=== PATIENT | female | born 1940 | race Caucasian/White ===

== ENCOUNTER → 2018-02-05 08:40 | Outpatient (CLI) | payer MEDICARE, OTHER, SELFPAY ==
--- NOTE | 2018-02-05 | DI.US.S_ITS ---
PROCEDURE: US THYROID INDICATIONS: THYROID NODULE TECHNIQUE: Real-time scanning was performed of the thyroid gland, with image documentation. COMPARISON: [facility], [place], THYROID, 09/07/2015, 13:08. [facility], [place], THYROID, 09/26/2016, 11:29. [facility], [place], THYROID, 04/19/2016, 8:58. FINDINGS: Right: Thyroid lobe measures 3.2 x 1.9 x 1.8 cm, and is homogeneous in echotexture. Left: Thyroid lobe measures 3.1 x 1.0 x 1.7 cm, and is homogenous in echotexture. Isthmus: 2 mm thick. Nodule number: 1 Location: Left inferior pole Size: 0.77 x 0.5 x 0.9 cm, unchanged. Composition: Solid Echogenicity: Hypoechoic Shape: wider than tall. Margins: Smokes Echogenic foci: Not present Total points: 4 ACR TI-RADS category: 4 Nodule number: 2 Location: Mid right lobe Size: 1.2 x 1.1 x 1.3 cm, unchanged. Composition: Predominantly cystic Echogenicity: Hypoechoic Shape: wider than tall. Margins: Smooth Echogenic foci: No present Total points: 3 ACR TI-RADS category: 3 Nodule number: 3 Location: Right inferior pole Size: 0.8 x 0.4 x 0.7cm, unchanged. Composition: Solid Echogenicity: Hypoechoic Shape: wider than tall. Margins: Smooth Echogenic foci: None Total points: 4 ACR TI-RADS category: 4 IMPRESSION: Stable bilateral thyroid nodules as described above. Continued followup suggested. See enclosed ACR recommendation. ACR TI-RADS definitions and recommendations: TI-RADS 1 (benign): 0 points. FNA not needed. TI-RADS 2 (not suspicious): 2 points. FNA not needed. TI-RADS 3 (mildly suspicious): 3 points. * FNA if 2.5 cm or larger, follow up if 1.5 cm or larger (at 1, 3, and 5 years). TI-RADS 4 (moderately suspicious): 4-6 points. * FNA if 1.5 cm or larger, follow up if 1 cm or larger (at 1, 2, 3, and 5 years). TI-RADS 5 (highly suspicious): 7 points or more. * FNA if 1 cm or larger, follow up if 0.5 cm or larger (every year for 5 years). Dictated by: Brenda Avina M.D. on 02/05/2018 at 17:04 Approved by: Brenda Avina M.D. on 02/05/2018 at 17:13
== END ==
PROVIDERS: PCP Family Medicine; Visit Provider Family Medicine
DX: E04.2 Nontoxic multinodular goiter (principal)
CPT/HCPCS: 76536

== ENCOUNTER → 2018-04-15 08:21 | Outpatient (CLI) | payer MEDICARE, OTHER, SELFPAY ==
--- NOTE | 2018-04-15 | DI.MG.S_ITS ---
BILATERAL DIGITAL SCREENING MAMMOGRAM 3D/2D WITH CAD POST LUMPECTOMY: 04/15/2018 CLINICAL: Routine screening. Personal history of left breast cancer. Family history of breast cancer. Comparison is made to exams dated: 03/30/2017 mammogram, 03/31/2016 mammogram, and 03/25/2015 mammogram - [facility]. The tissue of both breasts is predominantly fatty. Current study was also evaluated with a Computer Aided Detection (CAD) system. There are benign calcifications in both breasts. There also are post operative findings in the left breast. There is a linear scar marker overlying the upper left breast. No significant masses, calcifications, or other findings are seen in either breast. There has been no significant interval change. IMPRESSION: BENIGN There is no mammographic evidence of malignancy. A 1 year screening mammogram is recommended. This exam was interpreted at Station ID: [id number]. NOTE: For mammograms, a report in lay terms will be sent to the patient. Approximately 15% of breast malignancies will not be visualized mammographically. In the management of a palpable breast mass, a negative mammogram must not discourage biopsy of a clinically suspicious lesion. Electronically Signed By: Ortega Joseph M.D. ecl/:04/17/2018 00:40:40 letter sent: Normal Exam ACR BI-RADS Category 2: Benign Finding(s) 3342F
== END ==
PROVIDERS: PCP Family Medicine; Visit Provider Family Medicine
DX: Z12.31 Encounter for screening mammogram for malignant neoplasm of breast (principal); Z85.3 Personal history of malignant neoplasm of breast; Z80.3 Family history of malignant neoplasm of breast
CPT/HCPCS: 77063; 77067

== ENCOUNTER → 2018-05-27 13:42 | Outpatient (CLI) | payer MEDICARE, OTHER, SELFPAY ==
--- NOTE | 2018-05-27 | DI.CT.S_ITS ---
PROCEDURE: CT ABDOMEN PELVIS WO/W CON INDICATIONS: Painless, microhematuria TECHNIQUE: After the administration of oral contrast, 5 mm thick sections acquired from the diaphragms to the iliac crests. After the administration of intravenous contrast, 5 mm thick sections acquired from the diaphragms to the symphysis. 5 mm thick coronal and sagittal reformats were acquired. For radiation dose reduction, the following was used: automated exposure control, adjustment of mA and/or kV according to patient size. COMPARISON: None. FINDINGS: Image quality: Excellent. ABDOMEN: Lung bases: Lung bases are clear. Heart size is normal. Solid organs: Liver is normal in size and enhancement. Gallbladder appears normal. Biliary system is non-dilated. Pancreas enhances normally. Spleen is normal in size and enhancement. No adrenal nodules. Both kidneys are normal in size. No hydronephrosis or nephrolithiasis. Bowel and peritoneum: Stomach, small and large bowel loops are normal in caliber and wall thickness. No free fluid or air. Nodes and vessels: No retroperitoneal or mesenteric adenopathy by size criteria. Aorta and inferior vena are normal in caliber. Miscellaneous: No ventral hernias. PELVIS: Genitourinary: Bladder wall thickness is normal where there is normal visualization but there is extensive metal artifact from a femoral region total hip arthroplasty on the right Miscellaneous: No inguinal hernias or adenopathy. Bones: No suspicious bony lesions. No vertebral body compression fractures. IMPRESSION: No urinary tract stone is seen. 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 Retrograde cystoscopy may be warranted given the limitations of visualization of the bladder mucosa. Dictated by: Willian Fam M.D. on 05/27/2018 at 15:09 Approved by: Willian Fam M.D. on 05/27/2018 at 15:12
== END ==
PROVIDERS: PCP Family Medicine; Visit Provider Family Medicine
DX: R31.21 Asymptomatic microscopic hematuria (principal); R10.9 Unspecified abdominal pain; Z96.641 Presence of right artificial hip joint
CPT/HCPCS: 74178; Q9967

== ENCOUNTER → 2018-09-19 16:28 | Outpatient (REF) | payer MEDICARE, OTHER, SELFPAY ==
[2018-09-19 16:30] LABS: Bacteria Urine None Seen
[2018-09-19 16:46] LABS: Appearance Urine UA CLOUDY; Bilirubin Urine UA 2+ (NEGATIVE); Color Urine UA YELLOW; Glucose Urine UA NEGATIVE (Negative); Ketones Urine UA NEGATIVE (NEGATIVE); Leukocyte Esterase Urine UA 2+ (NEGATIVE); Nitrite Urine UA NEGATIVE (Negative); Occult Blood Urine UA 1+ (Negative); Protein Urine UA NEGATIVE (Negative); Urobilinogen Urine UA 0.2 E.U./dL (0.2)
[2018-09-19 17:01] LABS: Ictotest Urine Positive (Negative); RBC Urine 5-10/HPF (0-5/HPF); Squamous Epithelial Cell Urine 0-1 /HPF; WBC Urine >100/HPF (0-5/HPF)
== END ==
LOC: LAB 16:28
PROVIDERS: PCP Family Medicine; Visit Provider Nurse Practitioner Family
DX: N39.0 Urinary tract infection, site not specified (principal)
CPT/HCPCS: 81001; 87077; 87086; 87186

== ENCOUNTER → 2018-12-18 14:40 | Outpatient (CLI) | payer MEDICARE, OTHER, SELFPAY | PROVIDERS: PCP Family Medicine; Visit Provider Family Medicine | DX: M85.832 Other specified disorders of bone density and structure, left forearm (principal); Z78.0 Asymptomatic menopausal state; Z85.3 Personal history of malignant neoplasm of breast; Z82.62 Family history of osteoporosis; Z87.891 Personal history of nicotine dependence | CPT/HCPCS: 77080; 77081 ==

== ENCOUNTER → 2019-02-26 09:17 | Outpatient (CLI) | payer MEDICARE, OTHER, SELFPAY ==
--- NOTE | 2019-03-07 16:17 | PM.CARDMON.1 ---
Home Care Attendant Report Referral & Results Date Patient Seen: 02/26/19 Requesting provider: Bertin Villalobos Indication: Bradycardia Duration of monitoring (days): 3 Diary information: There was 1 patient diary entry associated with sinus rhythm There were 2 patient triggered events associated with sinus rhythm and ventricular ectopic beats Data: Minimum heart rate identified is 57 beats per minute at 03:31 on 03/01/2019 Maximum sinus heart rate was 119 beats per minute at 08:32 on 03/01/2019 Maximum overall heart rate was 139 beats per minute at 22:44 on 02/27/2019 during a an 8 beat run of SVT/atrial tachycardia Less than 1% of identified beats rather ventricular supraventricular ectopic in origin There 5 runs of a supraventricular tachycardia the fast is as above, the longest lasting 12.8 seconds with an average rate of 99 beats per minute which raises the question of sinus tachycardia versus some more significant dysrhythmia Impression: Essentially normal satellite project site monitor. No significant bradycardia which was the indication for this study was identified on this study Clinical correlation suggested
--- NOTE | 2019-03-07 16:20 | P.HOLT.S_ITS ---
Checker And Packer Report Referral & Results Date Patient Seen: 02/26/19 Requesting provider: Bertin Villalobos Indication: Bradycardia Duration of monitoring (days): 3 Diary information: There was 1 patient diary entry associated with sinus rhythm There were 2 patient triggered events associated with sinus rhythm and ventricular ectopic beats Data: Minimum heart rate identified is 57 beats per minute at 03:31 on 03/01/2019 Maximum sinus heart rate was 119 beats per minute at 08:32 on 03/01/2019 Maximum overall heart rate was 139 beats per minute at 22:44 on 02/27/2019 during a an 8 beat run of SVT/atrial tachycardia Less than 1% of identified beats rather ventricular supraventricular ectopic in origin There 5 runs of a supraventricular tachycardia the fast is as above, the longest lasting 12.8 seconds with an average rate of 99 beats per minute which raises the question of sinus tachycardia versus some more significant dysrhythmia Impression: Essentially normal cardiac rehabilitation program director. No significant bradycardia which was the indication for this study was identified on this study Clinical correlation suggested
== END ==
PROVIDERS: PCP Family Medicine; Visit Provider Family Medicine
DX: R00.1 Bradycardia, unspecified (principal)
CPT/HCPCS: 0296T; 0298T

== ENCOUNTER → 2019-05-13 10:25 | Outpatient (CLI) | payer MEDICARE, OTHER, SELFPAY ==
--- NOTE | 2019-05-13 | DI.MG.S_ITS ---
BILATERAL DIGITAL SCREENING MAMMOGRAM 3D/2D WITH CAD POST LUMPECTOMY: 05/13/2019 CLINICAL: Routine screening. Personal history of left breast cancer. Family history of breast cancer. Comparison is made to exams dated: 04/15/2018 mammogram, 03/30/2017 mammogram, and 03/31/2016 mammogram - [facility]. The tissue of both breasts is predominantly fatty. Current study was also evaluated with a Computer Aided Detection (CAD) system. There are benign calcifications in both breasts. There also are benign post operative findings in the left breast. No significant masses, calcifications, or other findings are seen in either breast. There has been no significant interval change. IMPRESSION: There is no mammographic evidence of malignancy. A 1 year screening mammogram is recommended. This exam was interpreted at Station ID: [id number]. NOTE: For mammograms, a report in lay terms will be sent to the patient. Approximately 15% of breast malignancies will not be visualized mammographically. In the management of a palpable breast mass, a negative mammogram must not discourage biopsy of a clinically suspicious lesion. Electronically Signed By: Ishan tyson/emir:05/13/2019 11:28:16 letter sent: Normal Exam ACR BI-RADS Category 2: Benign Finding(s) 3342F
== END ==
PROVIDERS: Family Provider Family Medicine; PCP Family Medicine; Visit Provider Internal Medicine
DX: Z12.31 Encounter for screening mammogram for malignant neoplasm of breast (principal); Z85.3 Personal history of malignant neoplasm of breast; Z80.3 Family history of malignant neoplasm of breast
CPT/HCPCS: 77063; 77067

== ENCOUNTER → 2019-09-22 11:49 | Outpatient (CLI) | payer MEDICARE, OTHER, SELFPAY ==
--- NOTE | 2019-09-22 11:53 | DI.CT.S_ITS ---
PROCEDURE: CT ABDOMEN PELVIS W CON INDICATIONS: Unspecified abdominal pain TECHNIQUE: After the administration of oral and intravenous contrast, 5 mm thick sections acquired from the diaphragms to the symphysis. 5 mm thick coronal and sagittal reformats were performed. For radiation dose reduction, the following was used: automated exposure control, adjustment of mA and/or kV according to patient size. COMPARISON: [facility], CT, ABDOMEN/PELVIS WITH CONTRAST, 09/01/2017, 5:55. FINDINGS: Image quality: Excellent. ABDOMEN: Lung bases: Lung bases are clear. Heart size is normal. Solid organs: Hepatic steatosis. Gallbladder negative. Biliary system is non-dilated. Pancreas enhances normally. Spleen is normal in size and enhancement. No adrenal nodules. Kidneys are normal in size and enhancement, without hydronephrosis. Simple appearing left renal cyst Peritoneum and bowel: Stomach, small bowel, and colon loops are normal in caliber and wall thickness. No free fluid or air. Colonic diverticulosis is seen without evidence of acute complication. Appendix is not clearly identified however no suspicious pericecal inflammatory changes are seen. Nodes and vessels: No retroperitoneal or mesenteric adenopathy. Aorta and inferior vena cava are normal in caliber. Scattered vascular calcifications seen in the aorta. Miscellaneous: Broad-based anterior ventral wall laxity. PELVIS: Genitourinary: Bladder wall thickness is normal. Miscellaneous: No inguinal hernias or adenopathy. Bones: No suspicious bony lesions. No vertebral body compression fractures. Diffuse osteopenia and spondylitic changes. Facet arthropathy. Grade 1 anterolisthesis of L4 on L5. IMPRESSION: Overall, no specific acute abnormality identified. Colonic diverticulosis is seen without evidence of acute complication. Hepatic steatosis Left renal cyst. Appendix is not clearly identified however no suspicious pericecal inflammatory changes are seen. Dictated by: Lavon Odom M.D. on 09/22/2019 at 15:03 Approved by: Lavon Odom M.D. on 09/22/2019 at 15:10
== END ==
PROVIDERS: Family Provider Family Medicine; PCP Family Medicine; Referring Provider Family Medicine; Visit Provider Family Medicine
DX: R10.9 Unspecified abdominal pain (principal); K76.0 Fatty (change of) liver, not elsewhere classified; N28.1 Cyst of kidney, acquired; K57.90 Diverticulosis of intestine, part unspecified, without perforation or abscess without bleeding
CPT/HCPCS: 74177; Q9967

== ENCOUNTER 2019-10-03 10:15 | Observation (INO) | payer MEDICARE, OTHER, SELFPAY ==
[2019-10-03] VITALS (8 sets, daily range): BP systolic 124–182; BP diastolic 46–84; PULSE 64–74; RESP 18–24; TEMP 36.5–37; O2SAT 92–99; BMI 33.8
--- NOTE | 2019-10-03 10:24 | DI.RAD.S_ITS ---
PROCEDURE: XR CHEST 1V INDICATIONS: chest pain TECHNIQUE: One view of the chest was acquired. COMPARISON: [facility], , CHEST 2 VIEW, 11/08/2017, 15:35. FINDINGS: Surgical changes and devices: None. Lungs and pleura: Lungs are clear. No pleural effusions or pneumothorax. Mediastinum: Mediastinal contours appear normal. Heart size is enlarged. Bones and chest wall: No suspicious bony lesions. Overlying soft tissues appear unremarkable. IMPRESSION: No acute cardiopulmonary pathology. Dictated by: Hang Oreilly M.D. on 10/03/2019 at 10:47 Approved by: Hang Oreilly M.D. on 10/03/2019 at 10:51
--- NOTE | 2019-10-03 10:34 | PC.NURSE ---
Pt arrived via EMS. Reports of CP x 30 min. started when walking from one room to another. midsternal radiating to her neck. No cardiac hx. ASA 324 and nitro x 1 given by EMS with relief. pain 4/10 at this time. EKG done. IV in place labs sent. CXR completed. Pt NSR 60-70's with frequent PVC's. when having PVC's pt feeling fluttering in her chest and lightheadedness. Pt was keeping a log at home and had intermittent episodes of bradycardia in the 30's for 10-20 seconds at a time, no nayeli in ED thus far, lungs are clear. h/o COPD. No home O2. family at side
[2019-10-03 10:36] LABS: INR 0.9 (0.9-1.3); Prothrombin Time 10.5 SECONDS (10.1-12.7)
[2019-10-03 10:38] LABS: PTT Partial Thromboplastin Tim 24 SECONDS (26.4-36.2)
[2019-10-03 10:41] LABS: Add Manual Diff / Slide Review NO; Alanine Aminotransferase 24 IU/L (<35); Albumin 4.5 g/dL (3.5-5.0); Albumin Globulin Ratio 1.6 (1.0-2.8); Alkaline Phosphatase 62 U/L (38-126); Aspartate Aminotransferase 30 IU/L (14-36); BUN Creatinine Ratio 27.5 (6-22); Basophils Absolute Auto 100 /uL (0-100); Basophils Percent Auto 0.5 % (0-2); Bilirubin Total 0.4 mg/dL (0.2-1.3); Blood Urea Nitrogen 22 mg/dL (7-17); Carbon Dioxide 31 mmol/L (22-32); Chloride 100 mmol/L (98-107); Creatine Kinase 35 U/L (30-135); Eosinophils Absolute Auto 100 /uL (0-450); Eosinophils Percent Auto 0.8 % (2-4); Estimated Glomerular Filt Rate > 60.0 mL/min (>60); Globulin 2.9 g/dL (1.7-4.1); Glucose 88 mg/dL (80-110); HEMOLYSIS < 15 (0-50); Hematocrit 41.7 % (36-46); Hemoglobin 13.8 g/dL (12.0-16.0); Lipase 74 U/L (23-300); Lymphocytes Absolute Auto 4300 /uL (1100-4500); Lymphocytes Percent Auto 35.3 % (25-40); Mean Corpuscular HGB Conc 33.1 % (30-36); Mean Corpuscular Hemoglobin 29.2 PG (26-34); Mean Corpuscular Volume 88.2 fL (80-100); Monocytes Absolute Auto 700 /uL (0-900); Monocytes Percent Auto 6.1 % (3-14); Neutrophils Absolute Auto 7000 /uL (1500-7000); Neutrophils Percent Auto 57.3 % (50-75); Platelet Count 272 X10^3/uL (150-400); Potassium 3.9 mmol/L (3.4-5.1); Red Blood Cell Count 4.73 X10^6/uL (4.0-5.2); Red Cell Distribution Width 15.8 % (11.6-14.8); Sodium 139 mmol/L (137-145); Total Protein 7.4 g/dL (6.3-8.2); White Blood Cell Count 12.3 X10^3/uL (4.5-11.0)
--- NOTE | 2019-10-03 10:43 | ED_ITS ---
HPI - Chest Pain General Chief Complaint: Chest Pain Stated Complaint: Chest Pain Time Seen by Provider: 10/03/19 10:35 Source: patient Mode of arrival: EMS History of Present Illness HPI narrative: 79-year-old woman with a history of breast cancer hypothyroidism, hypertension, hyperlipidemia, fatigue, reflux and COPD presents with a week of increasing fatigue exertional dyspnea and then an episode of significant substernal chest pain that happened with mild activity(she was walking through her house) today. That episode of pain was described as a tight, significant pain, substernal with significant pressure associated with facial flushing and fullness. The severe pain has subsided upon arrival in the emergency room she still feels a tight bandlike feeling across her chest which is different from any of the other symptoms she has had previously. She also notes that she has been having more palpitations recently of note she d id have a cardiac event monitor in January of 2019 that showed a couple of seconds of SVT and no significant bradycardia. Related Data Home Medications Medication Instructions Recorded Confirmed omeprazole 20 mg PO BID #0 04/06/10 10/03/19 Spiriva with HandiHaler 2 cap INHALATION DAILY #0 09/01/17 10/03/19 fluoxetine [Prozac] 40 mg PO DAILY #0 09/02/17 10/03/19 levothyroxine 50 mcg PO QAM #0 09/02/17 10/03/19 Respironics DreamStation BIPAP #1 ea 10/15/18 10/03/19 acetaminophen [Tylenol Extra 1,000 mg PO DAILY PRN 10/03/19 10/03/19 Strength] albuterol sulfate [ProAir HFA] 2 puff INHALATION Q4H PRN 10/03/19 10/03/19 betamethasone dipropionate 1 applic TOPICAL QPM 10/03/19 10/03/19 furosemide 20 mg PO DAILY PRN 10/03/19 10/03/19 multivitamin with minerals 1 tab PO DAILY 10/03/19 10/03/19 polyethylene glycol 3350 [Miralax] 17 g PO DAILY 10/03/19 10/03/19 prednisone 20 mg PO DAILY 10/03/19 10/03/19 telmisartan-hydrochlorothiazid 0.5 tab PO DAILY 10/03/19 10/03/19 tolterodine 2 mg PO DAILY 10/03/19 10/03/19 Allergies Allergy/AdvReac Type Severity Reaction Status Date / Time nitrofurantoin Allergy Mild HIVES Verified 09/15/18 12:10 [NITROFURANTOIN] Review of Systems Review of Systems Narrative: Denies ? fever ? cold ? chills ? orthopnea ? wheezing ? abdominal pain ? change to bowel or bladder habits ? nausea vomiting ? skin changes ? rashes No change to mild lower extremity edema, no PND recent PMD visits for abdominal pain. 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) Nocturnal hypoxemia (Chronic) Obstructive sleep apnea of adult (Chronic) Right hip pain (Chronic) Right leg pain (Resolved) Rosacea (Chronic) Family History Other Anxiety Congestive heart failure Depression Diabetes mellitus Hypersomnia Hypertension Obesity Obstructive sleep apnea Snoring Substance abuse Social History details: lives in [place], sons live close by household members: spouse Smoking Status: Former smoker Tobacco: How many years used: 50 alcohol intake: never substance use type: does not use Smoking Status: Former smoker Exam Narrative Exam Narrative: General: Healthy appearing, in no acute distress. Able to give a complete and coherent history. Well-nourished well-developed HEENT: Moist mucous membranes, normal sclera with reactive pupils, lesion on the lower lip that was recently treated with liquid nitrogen and has developed inappropriate scab Neck: No JVD, supple Respiratory: Lungs are clear to auscultation, no wheezing no rales no rhonchi. Full and symmetrical air movement Cardiac: Regular rate and rhythm no murmurs no bruits Abdomen: Soft, nontender good bowel tones, no flank pain Skin: Warm and dry, no rashes Neurologic: Grossly neurologically intact with no obvious asymmetries or abnormalities Extremities: No trauma, well perfused Psych: Cooperative, appropriate insight and affect Initial Vital Signs Initial Vital Signs: Vital Signs Temperature 97.7 F 10/03/19 10:21 Pulse Rate 70 10/03/19 10:21 Respiratory Rate 24 10/03/19 10:21 Blood Pressure 134/84 10/03/19 10:21 Pulse Oximetry 96 10/03/19 10:21 Course Orders Ordered: ED Orders 10/03/19 11:26 D Dimer Stat 10/03/19 12:58 CT angio chest PE protocol Stat 10/03/19 13:06 Thyroid Stimulating Hormone Stat Troponin I Stat Acetaminophen (Tylenol) 650 mg PO Q6HR PRN PRN Reason: Fever/Mild Pain (1-3) Albuterol (Ventolin Hfa) 2 puff INH RTQ6HR PRN PRN Reason: Shortness Of Breath Fluoxetine HCl (Prozac) 40 mg PO DAILY [facility] Hydrochlorothiazide (Hydrochlorothiazide) 12.5 mg PO DAILY [facility] Levothyroxine Sodium (Synthroid) 50 mcg PO 0600 [facility] Morphine Sulfate (Morphine) 1 mg IV Q2HR PRN PRN Reason: Pain, Moderate (4-6) Nitroglycerin (Nitrostat) 0.4 mg SL [id number] PRN PRN Reason: Chest Pain Ondansetron HCl (Zofran) 4 mg IV Q4HR PRN PRN Reason: Nausea And Vomiting Pantoprazole Sodium (Protonix) 40 mg IV DAILY [facility] Prednisone (Deltasone) 20 mg PO DAILY [facility] Telmisartan (Micardis) 40 mg PO DAILY [facility] Tiotropium [place] (Spiriva) 18 mcg INH RTDAILY [facility] Discontinued Medications Sodium Chloride (Normal Saline 0.9%) 1,000 mls @ 125 mls/hr IV CONT [facility] Last Admin: 10/03/19 16:17 Dose: 125 mls/hr Documented by: ISAIAS Nitroglycerin (Nitrostat) 0.4 mg SL [id number] PRN PRN Reason: Chest Pain Last Admin: 10/03/19 11:19 Dose: 0.4 mg Documented by: Admin: 10/03/19 11:10 Dose: 0.4 mg Documented by: Admin: 10/03/19 11:05 Dose: 0.4 mg Documented by: DESTINY Vital Signs Vital signs: Vital Signs - 8 hr 10/03/19 13:30 10/03/19 15:30 Pulse Rate 71 69 Respiratory Rate 20 20 Blood Pressure [Right Arm] 150/70 H 148/72 H Pulse Oximetry 99 97 MDM - Chest Pain Medical Records Data Attestation: I reviewed the patient's medical records. Lab Data Attestation: I reviewed the patient's lab results. Lab results narrative: In light of acute chest pain with elevated D-dimer slightly higher than 1 would expect just for age correction will move forward with a CT scan of her chest Result diagrams: 10/03/19 10:00 10/03/19 10:00 Labs: Lab Results 10/03/19 10/03/19 10/03/19 Range/Units 10:00 10:00 10:00 WBC 12.3 H (4.5-11.0) X10^3/uL RBC 4.73 (4.0-5.2) X10^6/uL Hgb 13.8 (12.0-16.0) g/dL Hct 41.7 (36-46) % MCV 88.2 (80-100) fL MCH 29.2 (26-34) PG MCHC 33.1 (30-36) % RDW 15.8 H (11.6-14.8) % Plt Count 272 (150-400) X10^3/uL Neut % (Auto) 57.3 (50-75) % Lymph % (Auto) 35.3 (25-40) % Branch % (Auto) 6.1 (3-14) % Eos % (Auto) 0.8 L (2-4) % Baso % (Auto) 0.5 (0-2) % Neut # (Auto) 7000 (1193-6403) /uL Lymph # (Auto) 4300 (8271-0731) /uL Branch # (Auto) 700 (0-900) /uL Eos # (Auto) 100 (0-450) /uL Baso # (Auto) 100 (0-100) /uL PT 10.5 (10.1-12.7) SECONDS INR 0.9 (0.9-1.3) APTT 24 L (26.4-36.2) SECONDS D-Dimer (<230) ng/mL Sodium 139 (137-145) mmol/L Potassium 3.9 (3.4-5.1) mmol/L Chloride 100 (98-107) mmol/L Carbon Dioxide 31 (22-32) mmol/L BUN 22 H (7-17) mg/dL Creatinine 0.80 (0.52-1.04) mg/dL Estimated GFR > 60.0 (>60) mL/min BUN/Creatinine Ratio 27.5 H (6-22) Glucose 88 (80-110) mg/dL Calcium 10.0 (8.4-10.2) mg/dL Total Bilirubin 0.4 (0.2-1.3) mg/dL AST 30 (14-36) IU/L ALT 24 (<35) IU/L Alkaline Phosphatase 62 (38-126) U/L Total Creatine Kinase 35 (30-135) U/L CK-MB (CK-2) TNP CK-MB (CK-2) Rel Index TNP Troponin I < 0.012 (0.01-0.034) ng/mL Total Protein 7.4 (6.3-8.2) g/dL Albumin 4.5 (3.5-5.0) g/dL Globulin 2.9 (1.7-4.1) g/dL Albumin/Globulin Ratio 1.6 (1.0-2.8) Lipase 74 (23-300) U/L TSH (0.47-4.68) uIU/mL 10/03/19 10/03/19 10/03/19 Range/Units 11:26 13:06 13:06 WBC (4.5-11.0) X10^3/uL RBC (4.0-5.2) X10^6/uL Hgb (12.0-16.0) g/dL Hct (36-46) % MCV (80-100) fL MCH (26-34) PG MCHC (30-36) % RDW (11.6-14.8) % Plt Count (150-400) X10^3/uL Neut % (Auto) (50-75) % Lymph % (Auto) (25-40) % Branch % (Auto) (3-14) % Eos % (Auto) (2-4) % Baso % (Auto) (0-2) % Neut # (Auto) (3790-6327) /uL Lymph # (Auto) (3942-0109) /uL Branch # (Auto) (0-900) /uL Eos # (Auto) (0-450) /uL Baso # (Auto) (0-100) /uL PT (10.1-12.7) SECONDS INR (0.9-1.3) APTT (26.4-36.2) SECONDS D-Dimer 704 H (<230) ng/mL Sodium (137-145) mmol/L Potassium (3.4-5.1) mmol/L Chloride (98-107) mmol/L Carbon Dioxide (22-32) mmol/L BUN (7-17) mg/dL Creatinine (0.52-1.04) mg/dL Estimated GFR (>60) mL/min BUN/Creatinine Ratio (6-22) Glucose (80-110) mg/dL Calcium (8.4-10.2) mg/dL Total Bilirubin (0.2-1.3) mg/dL AST (14-36) IU/L ALT (<35) IU/L Alkaline Phosphatase (38-126) U/L Total Creatine Kinase (30-135) U/L CK-MB (CK-2) CK-MB (CK-2) Rel Index Troponin I < 0.012 (0.01-0.034) ng/mL Total Protein (6.3-8.2) g/dL Albumin (3.5-5.0) g/dL Globulin (1.7-4.1) g/dL Albumin/Globulin Ratio (1.0-2.8) Lipase (23-300) U/L TSH 3.15 (0.47-4.68) uIU/mL Imaging Data Chest x-ray: Radiologist's Impression: IMPRESSION: No acute cardiopulmonary pathology. Dictated by: Hang Oreilly M.D. on 10/03/2019 at 10:47 Chest PE study: Radiologist's Impression: IMPRESSION: 1. No pulmonary embolism. 2. No acute airspace opacity. 3. Moderate centrilobular emphysema. A few punctate pulmonary nodules. The patient may qualify for CT lung cancer screening. Comment: Findings were discussed with [facility] Emergency Department at the time of dictation. Dictated by: Casey Rivera M.D. on 10/03/2019 at 14:10 ECG Data Attestation: I personally reviewed and interpreted this ECG as follows: Interpretation: Rate of 66 with sinus rhythm and frequent PVCs brief runs of bigeminy and longer runs of normal sinus, normal axis normal intervals MDM Narrative Medical decision making narrative: 79-year-old woman with a COPD history who presents with increasing exertional dyspnea, fatigue over the last week and then chest pain onset today. Continues to complain of symptomatic palpitations and ?just not feeling right?. Pain was not influenced by nitroglycerin. Slightly elevated D-dimer led to a CT scan that did not show any significant pathology including absence of infiltrates and pulmonary embolism. She continues to have moderate sinus arrhythmia with frequent PVCs and is quite symptomatic with these. She continues to feel the bandlike tightness around her chest. Initial troponin and repeat at 2-1/2 hours are both negative. EKG does not suggest acute ischemia. Her history however is concerning enough along with her multiple risk factors that her HEART score is 5 points and puts her at high risk for adverse cardiac event within 30 days. Rule out command full cardiac rule out over the next 24 hours to help side which cardiac risk stratification study is going to be most helpful or if alternate etiology for her symptoms is found. Spoke with Dr. Nieves Loyd on-call for Dr. Lan Villalobos. Will admit patient to their service for further evaluation of the course of the evening. Will add a TSH to see if that may be influencing her palpitations and overall symptomatology. If troponins do trend positive, she has increased pain or additional testing indicates acute coronary syndrome than transfer will be facilitated at that time. Discharge Plan Departure Patient Disposition: Admitted as Observation Clinical Impression: Atypical chest pain, Heart palpitations, Exertional dyspnea Discharge Date/Time: 10/03/19 16:12 Referrals: Bertin Villalobos MD [Primary Care Provider] - Admit Date/Time: 10/03/19 16:08 Admit Provider: Courtney Loyd
[2019-10-03 10:51] LABS: Troponin I < 0.012 ng/mL (0.01-0.034)
[2019-10-03] MEDS: NITROGLYCERIN 0.4 MG SL TAB SL ×3 (11:05→11:19)
--- NOTE | 2019-10-03 11:34 | PC.NURSE ---
pt continues with chest pressure s/p nitro x 3. AAO, appears in NAD.
[2019-10-03 11:38] LABS: D Dimer 704 ng/mL (<230)
--- NOTE | 2019-10-03 12:58 | DI.CT.S_ITS ---
PROCEDURE: CT ANGIO CHEST PE PROTOCOL INDICATIONS: elevated d dimer. CHEST PAIN TECHNIQUE: After the administration of intravenous contrast, 2 mm thick sections acquired from the pulmonary apices to the posterior costophrenic angles. 3-dimensional maximum intensity projection (MIP) coronal and sagittal reformats were then acquired through the thorax. For radiation dose reduction, the following was used: automated exposure control, adjustment of mA and/or kV according to patient size. COMPARISON: [facility], CR, XR CHEST 1V, 10/03/2019, 10:31. [facility], CT, CT ABDOMEN PELVIS W CON, 09/22/2019, 12:43. FINDINGS: Image quality: Excellent. Diagnostic to the level of the subsegmental pulmonary arteries. Pulmonary arteries: Pulmonary arteries are normal in size, and demonstrate no intraluminal filling defects to suggest central pulmonary embolism. Lungs and pleura: Moderate centrilobular emphysema. A few tiny pulmonary nodules. No pleural effusions or pneumothorax. Central and peripheral airways are patent. Mediastinum: Heart size is normal, without pericardial effusion. No mediastinal or hilar adenopathy. Thoracic aorta is normal in caliber and enhancement. Esophagus is normal in caliber, small hiatal hernia. Bones and chest wall: No suspicious bony lesions. Ribs and thoracic spine appear intact throughout. Thyroid gland demonstrates a subcentimeter hypodense right thyroid nodule. No axillary or supraclavicular adenopathy. Left axillary surgical clips. Abdomen: Visualized upper abdominal solid organs appear normal in the early arterial phase of enhancement. IMPRESSION: 1. No pulmonary embolism. 2. No acute airspace opacity. 3. Moderate centrilobular emphysema. A few punctate pulmonary nodules. The patient may qualify for CT lung cancer screening. Comment: Findings were discussed with [facility] Emergency Department at the time of dictation. Dictated by: Casey Rivera M.D. on 10/03/2019 at 14:10 Approved by: Casey Rivera M.D. on 10/03/2019 at 14:22
[2019-10-03 13:42] LABS: Troponin I < 0.012 ng/mL (0.01-0.034)
[2019-10-03 16:04] LABS: Thyroid Stimulating Hormone 3.15 uIU/mL (0.47-4.68)
[2019-10-03] MEDS: SODIUM CHLORIDE 0.9% 1,000 ML 125 ML IV (16:17)
--- NOTE | 2019-10-03 18:56 | P.HP_ITS ---
History of Present Illness History of Present Illness Date Patient Seen: 10/03/19 Time Patient Seen: 18:57 Chief complaint: Chest Pain Narrative: Is a very pleasant 79-year-old female who usually sees Dr. Villalobos as her primary care physician. She presents to the emergency department via emergency medical service due to acute onset of severe chest pain. She received Nitrostat and route to the ER and when she arrived in the ER her symptoms had resolved. She was still having a chest tightness that have been present since Sunday. She still has this at the time of my dictation. It is very mild. Two troponins and CK were negative. A D-dimer was elevated so a CT scan of her chest was performed and there was no evidence of pneumonia, pleural effusions or pulmonary embolism. She was admitted for further workup and to rule out acute myocardial infarction. The patient has just eaten dinner when I came up. She states that she was hungry. She states that she is overall feeling better. Her symptoms started on Sunday night and worsen Sunday where she felt that she was possibly coming down with a chest cold with chest tightness and feeling lightheaded as well as a headache. She had no postnasal drip. She had no cough. She states that her she would feel her heart flutter and when they checked her oxygen level her oxygen level was normal in the 90s but her heart rate will go down into the 30s. She felt that this was associated with her lightheadedness. In the emergency department she was found to have PVCs fairly frequently and she could feel ease. She states that today she walks from 1 room to another had severe onset of chest pressure she describes this in her lower thorax mid epigastric area radiating up into the center of her sternum. It felt like a burning type of pain. Due to her other symptoms they called 911. The patient has not had a fever and has not had a productive cough. The patient has a history of COPD and has not had any acute symptoms of this of wheezing or difficulty breathing other than when she had episode of chest pressure. She states that previously she was on oxygen and recently got off oxygen because she went to [facility]iop[facility] about a year ago. She exercises 8/10 of a mi 3-5 days a week and uses her oxygen when she does her exercises. Her overall health and strength of doubled in the last year because of her exercise and the cardiopulmonary rehab. She has been seen frequently of late in the clinic. She was diagnosed with possible polymyalgia rheumatica and placed on 20 mg of prednisone the beginning of August. She has not had pain since then time. She has had intermittent abdominal pain which Dr. Villalobos is working up the workup has included a fit test that was negative as well as a CT scan of the abdomen and pelvis which was unrevealing. The patient has had multiple abdominal surgeries and is thought that her pain is due to possible adhesions. Her appetite has been normal. She denies any fever or chills. Her last bowel movement was yesterday. She has felt bloated the last several days. She has not had a change in her diet. She has not been traveling. Past medical history: 1. History of tobacco abuse, 45 pack-year history. She quit in 2004. 2. COPD. Previously on oxygen currently not needing this anymore. Improved with Spiriva and albuterol 3. Hypertension 4. Hypothyroidism 5. Recent diagnosis of polymyalgia rheumatica 6. Degenerative joint 7. History of breast cancer 8. Depression, well controlled 9. Hyperlipidemia 10. GERD 11. Diverticulosis 12. Obesity 13. Anxiety 14. Obstructive sleep apnea See chart for list of home medications Allergies nitrofurantoin causes hives Past surgical history 1. 1995 right total knee replacement 2. Appendectomy 3. Bilateral tubal ligation 4. Hysterectomy 5. Umbilical hernia repair 6. Tonsillectomy 7. Right rotator cuff repair in 2002 Number a unilateral oophorectomy 9. Breast lumpectomy 2009 10. Left knee replacement 2004 11. Right hip replacement 2014 Dr. De La Torre 12. [address] 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 Family history: Most people from cancer Mom at 92 from old age Dad from lung cancer he was a smoker Two sister of lung cancer from smoking Maternal grandmother of lung cancer she never smoked Paternal grandmother of jaw cancer Review of systems patient was previously on a total lack and was switched to 20 mg of prednisone. Patient has felt lightheaded since Sunday it all the time but it fluctuates in severity No syncope or presyncope No fever or chills No GI symptoms. 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) Nocturnal hypoxemia (Chronic) Obstructive sleep apnea of adult (Chronic) Right hip pain (Chronic) Right leg pain (Resolved) Rosacea (Chronic) Family & Social History Family History Other Anxiety Congestive heart failure Depression Diabetes mellitus Hypersomnia Hypertension Obesity Obstructive sleep apnea Snoring Substance abuse Social History: household members spouse Safety & Behavioral: Feels Safe in Current Yes Environment Been Physically Hurt or No Threatened By a Person Suicidal Ideation Description None Suicide Plan Description No Plan Tobacco & Substance use: Smoking Status Former smoker alcohol intake never Substance Use Type does not use Meds Home Medications and Allergies Home Medications Medication Instructions Recorded Confirmed Type omeprazole 20 mg PO BID #0 04/06/10 10/03/19 History Spiriva with HandiHaler 2 cap INHALATION DAILY #0 09/01/17 10/03/19 History fluoxetine [Prozac] 40 mg PO DAILY #0 09/02/17 10/03/19 History levothyroxine 50 mcg PO QAM #0 09/02/17 10/03/19 History Respironics DreamStation BIPAP #1 ea 10/15/18 10/03/19 History acetaminophen [Tylenol Extra 1,000 mg PO DAILY PRN 10/03/19 10/03/19 History Strength] albuterol sulfate [ProAir HFA] 2 puff INHALATION Q4H PRN 10/03/19 10/03/19 History betamethasone dipropionate 1 applic TOPICAL QPM 10/03/19 10/03/19 History furosemide 20 mg PO DAILY PRN 10/03/19 10/03/19 History multivitamin with minerals 1 tab PO DAILY 10/03/19 10/03/19 History polyethylene glycol 3350 [Miralax] 17 g PO DAILY 10/03/19 10/03/19 History prednisone 20 mg PO DAILY 10/03/19 10/03/19 History telmisartan-hydrochlorothiazid 0.5 tab PO DAILY 10/03/19 10/03/19 History tolterodine 2 mg PO DAILY 10/03/19 10/03/19 History Allergies Allergy/AdvReac Type Severity Reaction Status Date / Time nitrofurantoin Allergy Mild HIVES Verified 09/15/18 12:10 [NITROFURANTOIN] Exam Vital Signs (past 8 hours): - 10/03/19 11:05 10/03/19 11:10 10/03/19 11:19 Temperature Pulse Rate 64 71 70 Respiratory Rate Blood Pressure 142/80 H 124/70 182/84 H Blood Pressure [Right Arm] Pulse Oximetry 10/03/19 13:30 10/03/19 15:30 10/03/19 16:30 Temperature 98.1 F Pulse Rate 71 69 74 Respiratory Rate 20 20 18 Blood Pressure 151/83 H Blood Pressure [Right Arm] 150/70 H 148/72 H Pulse Oximetry 99 97 92 Oxygen Delivery Method Room Air Narrative Exam Narrative: This is a very pleasant alert and oriented female who appears younger than her stated age who is resting comfortably in the hospital bed in no apparent distress HEENT: Remarkable for lesion on lower live on the left side with scab. Mucous membranes moist and pink Neck: Supple without adenopathy, thyromegaly, jugular venous distention or bruits Chest: Clear to auscultation without wheezes rhonchi or crackles Cor: Regular rate and rhythm with no ectopy Abdomen: Obese, protuberant, positive bowel sounds x4. Very mild midepigastric tenderness with palpation Extremities: No edema, pulses intact Neurologic exam nonfocal Skin no rashes Objective Labs Result Diagrams: 10/03/19 10:00 10/03/19 10:00 Labs: Laboratory Results - last 24 hr 10/03/19 10/03/19 10/03/19 10:00 10:00 10:00 WBC 12.3 H RBC 4.73 Hgb 13.8 Hct 41.7 MCV 88.2 MCH 29.2 MCHC 33.1 RDW 15.8 H Plt Count 272 Neut % (Auto) 57.3 Lymph % (Auto) 35.3 [place] % (Auto) 6.1 Eos % (Auto) 0.8 L Baso % (Auto) 0.5 Neut # (Auto) 7000 Lymph # (Auto) 4300 [place] # (Auto) 700 Eos # (Auto) 100 Baso # (Auto) 100 PT 10.5 INR 0.9 APTT 24 L D-Dimer Sodium 139 Potassium 3.9 Chloride 100 Carbon Dioxide 31 BUN 22 H Creatinine 0.80 Estimated GFR > 60.0 BUN/Creatinine Ratio 27.5 H Glucose 88 Calcium 10.0 Total Bilirubin 0.4 AST 30 ALT 24 Alkaline Phosphatase 62 Total Creatine Kinase 35 CK-MB (CK-2) TNP CK-MB (CK-2) Rel Index TNP Troponin I < 0.012 Total Protein 7.4 Albumin 4.5 Globulin 2.9 Albumin/Globulin Ratio 1.6 Lipase 74 TSH 10/03/19 10/03/19 10/03/19 11:26 13:06 13:06 WBC RBC Hgb Hct MCV MCH MCHC RDW Plt Count Neut % (Auto) Lymph % (Auto) [place] % (Auto) Eos % (Auto) Baso % (Auto) Neut # (Auto) Lymph # (Auto) [place] # (Auto) Eos # (Auto) Baso # (Auto) PT INR APTT D-Dimer 704 H Sodium Potassium Chloride Carbon Dioxide BUN Creatinine Estimated GFR BUN/Creatinine Ratio Glucose Calcium Total Bilirubin AST ALT Alkaline Phosphatase Total Creatine Kinase CK-MB (CK-2) CK-MB (CK-2) Rel Index Troponin I < 0.012 Total Protein Albumin Globulin Albumin/Globulin Ratio Lipase TSH 3.15 Assessment & Plan Assessment & Plan narrative: 79-year-old female admitted rule out acute [place] Patient will be admitted to the hospital. Will do serial CKs and troponin. Will do echo in a.m.. Will continue with telemetry to rule out significant dysrhythmia or bradycardia to associate with her symptoms. I do suspect that this may be GI related. However, we are unable to stop the prednisone suddenly. But we will give IV Protonix. Any with the prednisone. She will be on a heart healthy diet. We will repeat labs in a.m.. She is eating without difficulty so we will stop IV fluids Assessment 2. COPD without acute exacerbation Plan: Continue Spiriva as outpatient. Continue with albuterol as needed. Re viewed chest x-ray and CT scan. Assessment 3. Depression with no acute changes : Will continue on fluoxetine Assessment 4. Hypothyroidism stable Plan check TSH Assessment 5. Obstructive sleep apnea Assessment 6. Hypertension Plan: Continue outpatient medications Micardis and hydrochlorothiazide Assessment 7. Abdominal pain with some concern for gastritis. We will give prednisone with food. We will treat with Protonix IV. We will monitor labs in a.m.. Assessment 8. Dizziness unclear etiology Plan: Will check echo will rule out for myocardial infarction and will do telemetry overnight. Assessment 9. Possible polymyalgia rheumatica Plan: Continue outpatient treatment. Code status is full code 70 minutes spent with patient in gathering history examining reviewing data and discussing diagnoses and treatment plan Quality VTE Deep Vein Thrombosis/Pulmonary Embolism Present on Admission: No
[2019-10-03] MEDS: FLUoxetine 20 MG CAPSULE PO (20:54)
[2019-10-03] MEDS: TELMISARTAN 40 MG TABLET PO (20:54)
[2019-10-03] MEDS: predniSONE 20 MG TABLET PO (20:54)
[2019-10-04] VITALS (8 sets, daily range): BP systolic 121–179; BP diastolic 55–88; PULSE 67–91; RESP 16–20; TEMP 35.9–37.2; O2SAT 93–97
[2019-10-04 05:00] LABS: Add Manual Diff / Slide Review NO; Basophils Absolute Auto 0 /uL (0-100); Basophils Percent Auto 0.5 % (0-2); Eosinophils Absolute Auto 0 /uL (0-450); Eosinophils Percent Auto 0.2 % (2-4); Hematocrit 41.2 % (36-46); Hemoglobin 13.4 g/dL (12.0-16.0); Lymphocytes Absolute Auto 900 /uL (1100-4500); Mean Corpuscular HGB Conc 32.6 % (30-36); Mean Corpuscular Hemoglobin 29.2 PG (26-34); Mean Corpuscular Volume 89.5 fL (80-100); Monocytes Absolute Auto 100 /uL (0-900); Monocytes Percent Auto 1.3 % (3-14); Neutrophils Absolute Auto 7300 /uL (1500-7000); Platelet Count 252 X10^3/uL (150-400); Red Cell Distribution Width 15.8 % (11.6-14.8); White Blood Cell Count 8.4 X10^3/uL (4.5-11.0)
[2019-10-04 05:09] LABS: Creatine Kinase 26 U/L (30-135)
[2019-10-04 05:13] LABS: Alanine Aminotransferase 22 IU/L (<35); Albumin 3.9 g/dL (3.5-5.0); Albumin Globulin Ratio 1.6 (1.0-2.8); Alkaline Phosphatase 52 U/L (38-126); Aspartate Aminotransferase 26 IU/L (14-36); Bilirubin Total 0.3 mg/dL (0.2-1.3); Blood Urea Nitrogen 21 mg/dL (7-17); Calcium 9.6 mg/dL (8.4-10.2); Carbon Dioxide 27 mmol/L (22-32); Chloride 106 mmol/L (98-107); Estimated Glomerular Filt Rate > 60.0 mL/min (>60); Globulin 2.5 g/dL (1.7-4.1); Glucose 116 mg/dL (80-110); HEMOLYSIS < 15 (0-50); Potassium 4.9 mmol/L (3.4-5.1); Sodium 138 mmol/L (137-145); Total Protein 6.4 g/dL (6.3-8.2)
[2019-10-04 05:22] LABS: Troponin I < 0.012 ng/mL (0.01-0.034)
[2019-10-04] MEDS: LEVOTHYROXINE 50 MCG TABLET PO (05:24)
--- NOTE | 2019-10-04 06:54 | DI.ECHO.S_ITS ---
[facility] +---------+ : : [address] : : : : [id number] : : : : Phone: [phone] Echocardiogram Report + + :Name: RD HU Study Date: 10/04/2019 Height: 62 in : :[facility] Weight: 183 lb : : Gender: Female BSA: 1.8 m2 : :: 1940 Age: 79 yrs BP: 160/55 mmHg: :Reason For Study: BRADYCARDIA : :Ordering Physician: Dr. Valdez : :Evert Performed By: Lida Antonio : :Referring: SHAI PEÑALOZA : + + Interpretation Summary The left ventricle is normal in size. Left ventricular systolic function is normal. Left ventricular ejection fraction is estimated to be 55%. There are no obvious focal wall motion abnormalities noted but poor endocardial definition reduces the sensitivity for the detection of such. There has been no significant change since the previous study.Diastolic parameters suggest a relaxation abnormality of the left ventricle, consistent with probable normal filling pressures. The right ventricle is normal in size and function. Pulmonary artery pressures cannot be estimated because of the lack of a measurable TR jet velocity. The left atrial size is normal. Right atrial size is normal. There is mild mitral regurgitation. There is mild to moderate aortic regurgitation. There is no other significant valvular heart disease. The aortic root is not well visualized. Procedure: A two-dimensional transthoracic echocardiogram with color flow and Doppler was performed. The study quality was technically adequate. Comparison is made with the echocardiogram of 10/10/2013. The patient was in normal sinus rhythm during the exam. The patient had occasional PVCs during the exam. Left Ventricle: The left ventricle is normal in size. There is normal left ventricular wall thickness. Left ventricular systolic function is normal. Left ventricular ejection fraction is estimated to be 55%. There has been no significant change since the previous study. There are no obvious focal wall motion abnormalities noted but poor endocardial definition reduces the sensitivity for the detection of such. Diastolic parameters suggest a relaxation abnormality of the left ventricle, consistent with probable normal filling pressures. Right Ventricle: The right ventricle is normal in size and function. Atria: The left atrial size is normal. Right atrial size is normal. The interatrial septum is intact with no evidence for an atrial septal defect. Mitral Valve: The mitral valve is normal in structure and function. There is mild mitral regurgitation. Aortic Valve: The aortic valve is normal in structure and function. There is mild to moderate aortic regurgitation. Tricuspid Valve: The tricuspid valve is normal in structure and function. There is a trace or physiologic amount of tricuspid regurgitation. Pulmonary artery pressures cannot be estimated because of the lack of a measurable TR jet velocity. Pulmonic Valve: The pulmonic valve is normal in structure and function. There is trace pulmonic regurgitation. There is no other significant valvular heart disease. Great Vessels: The aortic root is not well visualized. The ascending aorta could not be visualized. The IVC is of normal diameter and collapses greater than 50% with a sniff. This suggests a low right atrial pressure of 3 mm Hg. Pericardium/ Pleura There is no pericardial effusion. There is no pleural effusion. MMode/2D Measurements & Calculations LVIDd: 4.5 cm LVOT diam: 2.0 cm LVIDs: 3.1 cm Ao Arch Diam (Prox Trans): 2.7 cm FS: 31.4 % EPSS: 0.77 cm IVSd: 1.0 cm LVPWd: 0.90 cm LV alvarado. diameter/BSA (cm/m^2): 2.5 LV sys. diameter/BSA (cm/m^2): 1.7 LA A2 area: 20.5 cm2 RA long axis: 4.2 cm LA A4 area: 18.1 cm2 RA area: 14.4 cm2 LA length (vol): 5.1 cm RA vol: 42.3 ml LA vol: 61.6 ml RA : 23.0 ml/m2 LA vol index: 33.5 ml/m2 IVC diam: 1.4 cm RVD1 (basal): 3.3 cm TAPSE: 1.8 cm Doppler Measurements & Calculations Ao V2 max: 141.3 cm/sec LVOT Max Luis A: 119.8 cm/sec Ao V2 mean: 93.2 cm/sec LV V1 max P.7 mmHg Ao max P.0 mmHg LV V1 VTI: 27.0 cm Ao mean P.0 mmHg BASHIR(I,D): 2.6 cm2 Ao V2 VTI: 32.6 cm BASHIR(V,D): 2.7 cm2 sev ratio: 0.83 BASHIR indexed to BSA (cm^2/m^2): 1.4 AI P1/2t: 511.2 msec AI dec slope: 217.4 cm/sec2 MV E max luis a: 46.2 cm/sec PA V2 max: 87.4 cm/sec MV A max luis a: 110.6 cm/sec PA V2 mean: 62.2 cm/sec MV E/A: 0.42 PA mean P.7 mmHg Lat Peak E' Luis A: 7.4 cm/sec PA Accel Time: 0.11 sec E/E' lat: 6.3 MV dec time: 0.16 sec MV P1/2t: 46.7 msec MV P1/2t max luis a: 84.4 cm/sec SV(LVOT): 84.9 ml MVA(P1/2t): 4.7 cm2 Reading Physician:03:00 PM
--- NOTE | 2019-10-04 09:03 | CM.DANOTE ---
Addendum entered by Gem Baig LPN 10/04/19 15:28: Dr. Loyd was here this afternoon. PT is now ordered as well as CT of head. Will check in tomorrow and follow accordingly for any d/c needs that may arise. Admission status: confirmed OBS: UR ABAD [place]. Payer: Medicare and [employer] PCP: Dr. Villalobos. Original Note: Discharge Planning/Care Management DCP: assessment: case received, EMR reviewed and met with pt. Introduced self and role. Baseline level of function discussed: see template below. Pt is currently up and about in the room. Her primary concern is finding out cause of her chest pain as it was a frightening experience. She is hoping she will be able to safely go home today but understands that currently workup is in process. P: follow prn for any d/c needs that may arise. If stable, anticipate pt will d/c to home setting and outpt followup. CM Discharge Assessment Start: 10/04/19 09:00 Freq: Status: Active Protocol: Document 10/04/19 09:00 ITV (Rec: 10/04/19 09:03 ITV [id number]) Discharge Planning Assessment Advance Directives? Yes Advance Directives on File No History Provided By Patient,Medical Record Has Patient been admitted in last 30 No days? 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 Yes Community Services used prior to Oxygen Therapy admission: Comment vendor: Angela uses o2 prn after exercise program Bipap at night to treat sleep apnea DME Already Rented / Owned Other Comment uses walking sticks when outside during activities such as birding Whiteboard Updated in Patient Room with Yes name and ext. # of Manager [employer] Review Status In Process
[2019-10-04] MEDS: FLUoxetine 20 MG CAPSULE 40 MG PO (09:05)
[2019-10-04] MEDS: hydroCHLOROthiazide 25 MG TABLET 12.5 MG PO (09:05)
[2019-10-04] MEDS: predniSONE 20 MG TABLET PO (09:05)
[2019-10-04] MEDS: TIOTROPIUM BROMIDE 18 MCG INHALER INH (09:06)
[2019-10-04] MEDS: TELMISARTAN 40 MG TABLET PO (09:06)
[2019-10-04] MEDS: PANTOPRAZOLE 40 MG VIAL IV (09:07)
--- NOTE | 2019-10-04 13:32 | DI.CT.S_ITS ---
PROCEDURE: CT HEAD/BRAIN WO CON INDICATIONS: headache, dizziness TECHNIQUE: Noncontrast 4.5 mm thick angled axial sections acquired from the foramen magnum to the vertex, with coronal and sagittal reformats. For radiation dose reduction, the following was used: automated exposure control, adjustment of mA and/or kV according to patient size. COMPARISON: [facility], CT, HEAD WITHOUT CONTRAST, 06/28/2015, 16:04. FINDINGS: Image quality: Excellent. CSF spaces: Basal cisterns are patent. No extra-axial fluid collections. The ventricles are symmetric in size and shape. Brain: No intracranial bleeds or masses. There is moderate cerebral volume loss for age, with resultant ventricular and sulcal prominence. There are moderate periventricular and deep white matter chronic small vessel ischemic changes. There is intracranial internal carotid artery atherosclerosis. Skull and face: Calvarium and visualized facial bones appear intact, without suspicious lesions. Sinuses: Visualized sinuses and mastoids are clear. IMPRESSION: 1. No acute intracranial findings. 2. Findings likely associated with chronic microvascular ischemic changes. Dictated by: Marlena Alvarado M.D. on 10/04/2019 at 13:40 Approved by: Marlena Alvarado M.D. on 10/04/2019 at 13:47
--- NOTE | 2019-10-04 13:49 | PM.PN.1 ---
Subjective Subjective Date Patient Seen: 10/04/19 Time Patient Seen: 13:49 Interval history: Patient states that she feels the same as since admitted. She is still having a headache. When she gets up and walks minimally she feels short of breath and feels woozy. She states that her stomach feels better. She is no longer feeling bloated. She is eating fine without difficulty. She had 2 normal bowel movements today. She is not having any abdominal pain. She has not had the chest pain that she had previously. She is not having any shortness of breath but she does feel unbalanced and unsteady and dizzy when she ambulates and with minimal exertion she feels significant fatigue. Review of systems is otherwise negative than above Exam Vital Signs (past 8 hours): - 10/04/19 07:40 10/04/19 12:00 Temperature 98.3 F 97.8 F Pulse Rate 72 83 Respiratory Rate 18 20 Blood Pressure 179/73 H 161/88 H Pulse Oximetry 95 95 Oxygen Delivery Method Room Air Oxygen Flow Rate 0 Narrative Exam Narrative: Afebrile vital signs are stable. Reviewed telemetry reading showing heart rate 60s to low 100s with an average in the 70s. No dysrhythmia. No atrial fibrillation. No bradycardia. HEENT unremarkable Neck: Supple without adenopathy Chest: Clear to auscultation with prolonged expiratory phase Cor: Regular rate and rhythm with distant S1-S2 No ectopy Abdomen: Obese, positive bowel sounds, soft, nontender, nondistended Extremities: No edema pulses intact DTRs are 2 to 3+ at the patella. 1+ at the Achilles. No clonus. Moves all extremities well. Gait is unsteady. Romberg is negative but balance is poor. No focal neurologic signs Objective Labs Result Diagrams: 10/04/19 04:45 10/04/19 04:45 Labs: Laboratory Results - last 24 hr 10/03/19 10/04/19 10/04/19 13:06 04:45 04:45 WBC 8.4 RBC 4.60 Hgb 13.4 Hct 41.2 MCV 89.5 MCH 29.2 MCHC 32.6 RDW 15.8 H Plt Count 252 Neut % (Auto) 87.0 H D Lymph % (Auto) 11.0 L D [place] % (Auto) 1.3 L Eos % (Auto) 0.2 L Baso % (Auto) 0.5 Neut # (Auto) 7300 H Lymph # (Auto) 900 L [place] # (Auto) 100 Eos # (Auto) 0 Baso # (Auto) 0 Sodium Potassium Chloride Carbon Dioxide BUN Creatinine Estimated GFR BUN/Creatinine Ratio Glucose Calcium Total Bilirubin AST ALT Alkaline Phosphatase Total Creatine Kinase 26 L CK-MB (CK-2) TNP CK-MB (CK-2) Rel Index TNP Troponin I < 0.012 Total Protein Albumin Globulin Albumin/Globulin Ratio TSH 3.15 10/04/19 04:45 WBC RBC Hgb Hct MCV MCH MCHC RDW Plt Count Neut % (Auto) Lymph % (Auto) [place] % (Auto) Eos % (Auto) Baso % (Auto) Neut # (Auto) Lymph # (Auto) [place] # (Auto) Eos # (Auto) Baso # (Auto) Sodium 138 Potassium 4.9 Chloride 106 Carbon Dioxide 27 BUN 21 H Creatinine 0.70 Estimated GFR > 60.0 BUN/Creatinine Ratio 30.0 H Glucose 116 H Calcium 9.6 Total Bilirubin 0.3 AST 26 ALT 22 Alkaline Phosphatase 52 Total Creatine Kinase CK-MB (CK-2) CK-MB (CK-2) Rel Index Troponin I Total Protein 6.4 Albumin 3.9 Globulin 2.5 Albumin/Globulin Ratio 1.6 TSH Assessment & Plan Assessment & Plan narrative: 79-year-old female admit admitted for chest pain Assessment 1. Chest pain I suspect that this was GI in nature in part related to her prednisone. We have increased her proton pump inhibitor. She has had serial CK and troponin x4 that have been negative. She had echo that showed no evidence of acute OR. She has had no further symptoms. Assessment 2. Headache with history of breast cancer Plan: Discussed differential diagnosis. We will do CT scan of the head without contrast. Assessment 3. Dizziness thought to be possibly related to dysrhythmia and admitting complaint of chest pain. At this point I am not seeing significant problems with the heart. But we will continue toe workup. Will continue to limit tree. We will consult physical therapy to help with balance and gait. We will do the CT scan of her head. Assessment 4. History of reflux with hiatal hernia on prednisone. Symptoms seem to have resolved. No further chest or upper abdominal pain Plan: Continue on the Protonix at 40 mg daily. We will switch this to oral. Assessment 5. Anxiety suspect worsened because of ongoing issues and prednisone Plan: Continue fluoxetine and we will add Ativan as needed. Assessment 6. Hypertension worsened I suspect related to not getting all her medications yesterday we will give today we will continue to monitor we will start additional treatment if it remains elevated Assessment 7. COPD without current issues Plan: Continue Spiriva and albuterol Quality VTE Deep Vein Thrombosis/Pulmonary Embolism Present on Admission: No
[2019-10-04] MEDS: LORazepam 0.5 MG TABLET PO (14:11)
[2019-10-04] MEDS: PANTOPRAZOLE 40 MG TABLET PO (14:11)
--- NOTE | 2019-10-04 16:18 | PT.IIE ---
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) Nocturnal hypoxemia (Chronic) Obstructive sleep apnea of adult (Chronic) Right hip pain (Chronic) Right leg pain (Resolved) Rosacea (Chronic) Physical Therapy Inpatient Evaluation/Re-Eval M1 PT/OT-IP Prior Functional Status Start: 10/04/19 17:22 Freq: NEEDED Status: Active Protocol: Document 10/04/19 16:18 AB (Rec: 10/04/19 17:50 AB [id number]) Medical Review Prior Functional Status Medical History Reviewed No Communication able to make needs known Mobility and Gait pt stated that she is modified independent with all mobilities and ambulation without AD but uses her 2 hiking sticks for outdoor uneven ambulation Social History Household Members spouse Living Arrangements House Number of Floors (Floors) One Floor Number of Stairs To Enter/Railing? 5 steps B rails from the back 5 steps with wide B rails from the front and can only hold on to one rail at a time has 12 steps down to the exercise room wiht L rail descending Home Environment Standard Height Toilet,Walk in Shower Home Equipment Front Wheel Walker,Shower Seat with Backrest,Hand Held Shower,Grab Bars Near Toilet, Grab Bars In Shower Additional Social History Comment pt has 2 hiking poles M2 PT-IP Current Condition Start: 10/04/19 17:22 Freq: NEEDED Status: Active Protocol: Document 10/04/19 16:18 AB (Rec: 10/04/19 17:50 AB [id number]) Physical Therapy Current Condition Current Condition Evaluation Date 10/04/19 Treatment Diagnosis chest pain; difficulty in walking Onset Date 10/04/2019 M3 PT-IP Subjective Start: 10/04/19 17:22 Freq: NEEDED Status: Active Protocol: Document 10/04/19 16:18 AB (Rec: 10/04/19 17:50 AB [id number]) Subjective Physical Therapy Visit Type Type Initial Evaluation Visit Start Time 16:18 Visit Stop Time 16:54 Total Visit Minutes 36 Number of CHEMISTRY INTERN Visits 0 Physical Therapy Visit Comments Patient Comments pt agreeable to do PT; stated that she feels weak and unsteady Therapy Pain Assessment Pain When Pain Assessed At Rest Location Posterior Head Intensity 5 Scale Used c/o headache mostly on posterior R M4 PT-IP Mobility and Gait Start: 10/04/19 17:22 Freq: NEEDED Status: Active Protocol: Document 10/04/19 16:18 AB (Rec: 10/04/19 17:50 AB [id number]) PT-Bed Mobility Assessment Supine to Sit Supine to Sit Standby Assistance Sit to Supine Sit to Supine Standby Assistance PT-Transfer Assessment Sit to and From Stand Sit to and from Stand Standby Assistance Equipment Transfer Assistive Device Gait Belt Orthotic/Prosthetic Devices or Brace: No Transfers Transfer Destination Bed,Chair Transfer Technique Stand Step Pivot Transfer Ability Level of Assist Standby Assistance,Contact Guard Assistance,Use of Upper Extremities Gait Assessment Gait Gait Assistance Required: Standby Assistance,Contact Guard Assist Distance (Feet) 75 Able to Maintain Weight Bearing Status Yes During Gait Assistive Devices Assistive Device None,Gait Belt,Front Wheeled Walker Orthotic/Prosthetic Devices or Brace: No Gait Deviations General Gait Pattern Antalgic,Decreased Stride Length,Decreased Feet Clearance,Step-to Gait,Wide Based Gait Factors Limiting Gait Function Factors Limiting Gait Function Decreased Activity Tolerance, Decreased Strength,Pain,Poor Balance,Poor Safety Awareness Comments Gait Comments pt ambulated without AD ~ 75 ft requiring CGA and cues. presents with antalgic gait with gait deviation to the R and increase lateral leaning to the R. educated pt on safety and recommendation of using FWW at this time for safety and pt understood and agreed. pt ambulated using FWW ~ 50 ft SBA with increase stability and pt stated that she feels safer. pt sat up on chair after ambulation. call light and table placed within reach. PT-Balance Assessment Sitting Balance and Reactions Static Sitting Balance Ability Normal Dynamic Sitting Balance Ability Normal Standing Balance and Reactions Static Standing Balance Ability Fair Dynamic Standing Balance Ability Fair Device Used without AD Functional Assessments Functional Tests Tinetti Balance and Gait Assessment bal score: 16 gait score: total score 15 Other Functional Tests Performed tinetti balance assessemnt: total scor eof which relates to high fall risk without AD M5 PT-IP Objective Assessments Start: 10/04/19 17:22 Freq: NEEDED Status: Active Protocol: Document 10/04/19 16:18 AB (Rec: 10/04/19 17:50 AB [id number]) Orientation Orientation/Cognition Level of Alertness Alert Orientation Name,Age,Birthday,Month,Date, Year,Day of Week,Place, Situation Language Function Ability No Deficits Noted Safety Awareness Understands Safety Issues Memory Description No Deficits Noted Gross Range of Motion Lower Extremity ROM Assessment Within Functional Limits Strength Lower Extremity Strength Hip 4-/5 Knee 4-/5 Muscle Tone Muscle Tone WNL Yes M6 PT-IP Treatment Start: 10/04/19 17:22 Freq: NEEDED Status: Active Protocol: Document 10/04/19 16:18 AB (Rec: 10/04/19 17:50 AB [id number]) Physical Therapy Treatment Education Education Provided Safety M7 PT-IP Assessment and Plan Start: 10/04/19 17:22 Freq: NEEDED Status: Active Protocol: Document 10/04/19 16:18 AB (Rec: 10/04/19 17:50 AB [id number]) PT Summary Assessment and Plan Potential Rehabilitation Potential Good Status of Condition at Evaluation Stable Summary Impairments Strength,Balance,Bed Mobility, Transfers,Gait,Activity Tolerance Assessment Summary pt requiring SBA to CGA with mobility and recommending using of FWW for ambulation due to high fall risk without AD. pt understood and agreed with recommendation. Pt would like to use her hiking poles for ambulation and spouse will bring them tomorrow and PT to assess mobility and safety with hiking poles. will also complete stair climbing training prior to d/c. pt's spouse will be able to assist pt at home when needed. Goals Bed Mobility Goal Independent Transfer Goal Independent,Cane,Front Wheeled Walker Gait Goal Independent,Cane,Front Wheel Walker Gait Distance 150 Other Goals improve ambulation using 2 hiking poles mod I; without AD SBA up/down 12 steps with R rail ascending SBA Days to Meet Goals 5 Frequency of Treatment Frequency Of Treatment Once a Day Treatment Plan Physical Therapy Treatment Plan Bed Mobility Training,Transfer Training,Gait Training, Therapeutic Exercise,Balance Retraining,Discharge Planning, Hot or Cold Pack,Neuromuscular Re-ed,Coordination Retraining Recommendations To Nursing Amount of Assist Needed 1 Person Assist Discharge Recommendations PT Discharge Recommendations Home with Assistance, Outpatient PT Transportation Needs at Discharge Private Vehicle
--- NOTE | 2019-10-04 17:43 | PC.NURSE ---
Geetha shift note: Patient sitting up in chair having dinner with family, no c/o chest pain, SOB, or palpitations. VSS and afebrile. Calls appropriately for staff assistance.
[2019-10-05 05:00] VITALS: BP 165/72; PULSE 66; RESP 22; TEMP 36.8; O2SAT 97
[2019-10-05 05:40] LABS: Add Manual Diff / Slide Review NO; Basophils Absolute Auto 100 /uL (0-100); Basophils Percent Auto 0.5 % (0-2); Eosinophils Absolute Auto 100 /uL (0-450); Eosinophils Percent Auto 0.6 % (2-4); Hematocrit 39.4 % (36-46); Hemoglobin 12.9 g/dL (12.0-16.0); Lymphocytes Absolute Auto 3100 /uL (1100-4500); Lymphocytes Percent Auto 25.6 % (25-40); Mean Corpuscular HGB Conc 32.7 % (30-36); Mean Corpuscular Hemoglobin 28.9 PG (26-34); Mean Corpuscular Volume 88.3 fL (80-100); Monocytes Absolute Auto 500 /uL (0-900); Monocytes Percent Auto 4.2 % (3-14); Neutrophils Absolute Auto 8500 /uL (1500-7000); Neutrophils Percent Auto 69.1 % (50-75); Platelet Count 259 X10^3/uL (150-400); Red Blood Cell Count 4.46 X10^6/uL (4.0-5.2); Red Cell Distribution Width 15.3 % (11.6-14.8); White Blood Cell Count 12.2 X10^3/uL (4.5-11.0)
[2019-10-05 05:49] LABS: Alanine Aminotransferase 22 IU/L (<35); Albumin 3.7 g/dL (3.5-5.0); Albumin Globulin Ratio 1.4 (1.0-2.8); Alkaline Phosphatase 53 U/L (38-126); Aspartate Aminotransferase 23 IU/L (14-36); BUN Creatinine Ratio 27.1 (6-22); Bilirubin Total 0.3 mg/dL (0.2-1.3); Blood Urea Nitrogen 19 mg/dL (7-17); Calcium 9.4 mg/dL (8.4-10.2); Carbon Dioxide 26 mmol/L (22-32); Chloride 103 mmol/L (98-107); Estimated Glomerular Filt Rate > 60.0 mL/min (>60); Globulin 2.6 g/dL (1.7-4.1); Glucose 93 mg/dL (80-110); HEMOLYSIS < 15 (0-50); Potassium 4.1 mmol/L (3.4-5.1); Sodium 137 mmol/L (137-145); Total Protein 6.3 g/dL (6.3-8.2)
[2019-10-05] MEDS: LEVOTHYROXINE 50 MCG TABLET PO (06:01)
[2019-10-05] MEDS: PANTOPRAZOLE 40 MG TABLET PO (06:01)
[2019-10-05 08:00] VITALS: BP 146/62; PULSE 71; RESP 20; TEMP 36; O2SAT 94
[2019-10-05] MEDS: FLUoxetine 20 MG CAPSULE 40 MG PO (08:30)
[2019-10-05] MEDS: hydroCHLOROthiazide 25 MG TABLET 12.5 MG PO (08:31)
[2019-10-05] MEDS: predniSONE 20 MG TABLET PO (08:31)
[2019-10-05] MEDS: TELMISARTAN 40 MG TABLET PO (08:31)
[2019-10-05] MEDS: LORazepam 0.5 MG TABLET PO (08:34)
--- NOTE | 2019-10-05 11:02 | PT.IPTN ---
Physical Therapy Treatment Note M2 PT-IP Current Condition Start: 10/04/19 17:22 Freq: NEEDED Status: Discharge Protocol: Document 10/04/19 16:18 AB (Rec: 10/04/19 17:50 AB [id number]) Physical Therapy Current Condition Current Condition Evaluation Date 10/04/19 Treatment Diagnosis chest pain; difficulty in walking Onset Date 10/04/2019 M3 PT-IP Subjective Start: 10/04/19 17:22 Freq: NEEDED Status: Discharge Protocol: Document 10/05/19 11:02 CLB (Rec: 10/05/19 15:00 CLB [id number]) Subjective Physical Therapy Visit Type Type Treatment Note Visit Start Time 11:02 Visit Stop Time 11:25 Total Visit Minutes 23 Number of COURTROOM REPORTER Visits 1 Physical Therapy Visit Comments Patient Comments Pt agreeable to do therapy. present. 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 M4 PT-IP Mobility and Gait Start: 10/04/19 17:22 Freq: NEEDED Status: Discharge Protocol: Document 10/05/19 11:02 CLB (Rec: 10/05/19 15:00 CLB [id number]) PT-Bed Mobility Assessment Supine to Sit Supine to Sit Standby Assistance Sit to Supine Sit to Supine Standby Assistance PT-Transfer Assessment Sit to and From Stand Sit to and from Stand Standby Assistance Equipment Transfer Assistive Device Gait Belt Orthotic/Prosthetic Devices or Brace: No Transfers Transfer Destination Bed Transfer Technique Stand Step Pivot Transfer Ability Level of Assist Standby Assistance,Use of Upper Extremities Comments Mobility Comments Pt is SBA for all bed mobilty and sit<>stand. Pt ambulated with walking sticks ~310ft to training stairs with CGA/SBA. Pt climbed stairs SBA with bilateral rails then ambulated ~310ft back to room. Pt able to get back into bed SBA. Left pt in bed with all needs within reach and present. Gait Assessment Gait Gait Assistance Required: Standby Assistance,Contact Guard Assist Distance (Feet) 620 Able to Maintain Weight Bearing Status Yes During Gait Assistive Devices Assistive Device Gait Belt,Straight Cane Orthotic/Prosthetic Devices or Brace: No Gait Deviations General Gait Pattern Antalgic,Decreased Stride Length,Decreased Feet Clearance,Step-to Gait,Wide Based Gait Factors Limiting Gait Function Factors Limiting Gait Function Decreased Activity Tolerance, Decreased Strength,Pain,Poor Balance,Poor Safety Awareness Comments Gait Comments Pt ambulated ~310ft to training stairs and ~310ft back to room with trekking poles. Pt with good postures and steady gait with poles. Pt able to move head side to side w/o unsteadiness but with vertical head turn pt experienced dizziness. Pt had not lateral lean to right with trekking poles. Stair Climbing Assessment Evaluation Level of Assist On Stairs Standby Assistance Devices Stair Climbing Assistive Devices Right Railing Technique/Endurance Stair Climbing Direction Ascend and Descend Stair Climbing Technique Step Over Step Number of Steps Climbed 3 Stair Climbing Set # Repetitions (reps) 2 Comments Stair Climbing Comments Pt able to safely climb stairs with SBA using right rail. Pt stated she felt mild dizziness when looking down while ascending stairs. PT-Balance Assessment Sitting Balance and Reactions Static Sitting Balance Ability Normal Dynamic Sitting Balance Ability Normal Standing Balance and Reactions Static Standing Balance Ability Fair Dynamic Standing Balance Ability Fair Device Used without AD M5 PT-IP Objective Assessments Start: 10/04/19 17:22 Freq: NEEDED Status: Discharge Protocol: Document 10/04/19 16:18 AB (Rec: 10/04/19 17:50 AB [id number]) Orientation Orientation/Cognition Level of Alertness Alert Orientation Name,Age,Birthday,Month,Date, Year,Day of Week,Place, Situation Language Function Ability No Deficits Noted Safety Awareness Understands Safety Issues Memory Description No Deficits Noted Gross Range of Motion Lower Extremity ROM Assessment Within Functional Limits Strength Lower Extremity Strength Hip 4-/5 Knee 4-/5 Muscle Tone Muscle Tone WNL Yes M6 PT-IP Treatment Start: 10/04/19 17:22 Freq: NEEDED Status: Discharge Protocol: Document 10/05/19 11:02 CLB (Rec: 10/05/19 15:00 CLB [id number]) Physical Therapy Treatment Education Education Provided Safety M7 PT-IP Assessment and Plan Start: 10/04/19 17:22 Freq: NEEDED Status: Discharge Protocol: Document 10/05/19 11:02 CLB (Rec: 10/05/19 15:00 CLB [id number]) PT Summary Assessment and Plan Potential Rehabilitation Potential Good Status of Condition at Evaluation Stable Summary Impairments Strength,Balance,Bed Mobility, Transfers,Gait,Activity Tolerance Assessment Summary Pt required SBA for bed mobilty and sit<>stand. Pt ambulated in moya ~610ft with trekking poles CGA then SBA with steady gait. Pt climbed stairs with providing SBA. Pt did c/o minor lightheadedness and pressure in forehead area. Pt BP in standing before activity 142/ 71 and SpO2 during activity on RA ranged 90-95%. Goals Bed Mobility Goal Independent Transfer Goal Independent,Cane,Front Wheeled Walker Gait Goal Independent,Cane,Front Wheel Walker Gait Distance 150 Other Goals improve ambulation using 2 hiking poles mod I; without AD SBA up/down 12 steps with R rail ascending SBA Days to Meet Goals 5 Frequency of Treatment Frequency Of Treatment Once a Day Treatment Plan Physical Therapy Treatment Plan Bed Mobility Training,Transfer Training,Gait Training, Therapeutic Exercise,Balance Retraining,Discharge Planning, Hot or Cold Pack,Neuromuscular Re-ed,Coordination Retraining Recommendations To Nursing Amount of Assist Needed 1 Person Assist Discharge Recommendations PT Discharge Recommendations Home with Assistance, Outpatient PT Transportation Needs at Discharge Private Vehicle
[2019-10-05 12:11] VITALS: BP 135/55; PULSE 71; RESP 20; TEMP 36.8; O2SAT 94
--- NOTE | 2019-10-05 12:28 | CM.DPC ---
DCP: continued. Dr. Loyd has been her and has ok'd pt for d/c to home. Noted pt, her and SITE ENGINEER Thuy walking to demo stairs at other end of unit from pt's room. Pt using her walking sticks and looking quite cheerful. Home today as per plan. clinic followup with PCP.
--- NOTE | 2019-10-05 12:33 | P.DS_ITS ---
History of Present Illness History of Present Illness Chief complaint: Chest Pain Narrative: Is a very pleasant 79-year-old female who usually sees Dr. Villalobos as her primary care physician. She presents to the emergency department via emergency medical service due to acute onset of severe chest pain. She received Nitrostat and route to the ER and when she arrived in the ER her symptoms had resolved. She was still having a chest tightness that have been present since Sunday. She still has this at the time of my dictation. It is very mild. Two troponins and CK were negative. A D-dimer was elevated so a CT scan of her chest was performed and there was no evidence of pneumonia, pleural effusions or pulmonary embolism. She was admitted for further workup and to rule out acute myocardial infarction. The patient has just eaten dinner when I came up. She states that she was hungry. She states that she is overall feeling better. Her symptoms started on Sunday night and worsen Sunday where she felt that she was possibly coming down with a chest cold with chest tightness and feeling lightheaded as well as a headache. She had no postnasal drip. She had no cough. She states that her she would feel her heart flutter and when they checked her oxygen level her oxygen level was normal in the 90s but her heart rate will go down into the 30s. She felt that this was associated with her lightheadedness. In the emergency department she was found to have PVCs fairly frequently and she could feel ease. She states that today she walks from 1 room to another had severe onset of chest pressure she describes this in her lower thorax mid epigastric area radiating up into the center of her sternum. It felt like a burning type of pain. Due to her other symptoms they called 911. The patient has not had a fever and has not had a productive cough. The patient has a history of COPD and has not had any acute symptoms of this of wheezing or difficulty breathing other than when she had episode of chest pressure. She states that previously she was on oxygen and recently got off oxygen because she went to Cardiopulmonary Rehab about a year ago. She exercises 8/10 of a mi 3-5 days a week and uses her oxygen when she does her exercises. Her overall health and strength of doubled in the last year because of her exercise and the cardiopulmonary rehab. She has been seen frequently of late in the clinic. She was diagnosed with possible polymyalgia rheumatica and placed on 20 mg of prednisone the beginning of August. She has not had pain since then time. She has had intermittent abdominal pain which Dr. Villalobos is working up the workup has included a fit test that was negative as well as a CT scan of the abdomen and pelvis which was unrevealing. The patient has had multiple abdominal surgeries and is thought that her pain is due to possible adhesions. Her appetite has been normal. She denies any fever or chills. Her last bowel movement was yesterday. She has felt bloated the last several days. She has not had a change in her diet. She has not been traveling. Past medical history: 1. History of tobacco abuse, 45 pack-year history. She quit in 2004. 2. COPD. Previously on oxygen currently not needing this anymore. Improved with Spiriva and albuterol 3. Hypertension 4. Hypothyroidism 5. Recent diagnosis of polymyalgia rheumatica 6. Degenerative joint 7. History of breast cancer 8. Depression, well controlled 9. Hyperlipidemia 10. GERD 11. Diverticulosis 12. Obesity 13. Anxiety 14. Obstructive sleep apnea See chart for list of home medications Allergies nitrofurantoin causes hives Past surgical history 1. 1995 right total knee replacement 2. Appendectomy 3. Bilateral tubal ligation 4. Hysterectomy 5. Umbilical hernia repair 6. Tonsillectomy 7. Right rotator cuff repair in 2002 Number a unilateral oophorectomy 9. Breast lumpectomy 2009 10. Left knee replacement 2004 11. Right hip replacement 2014 Dr. De La Torre 12. [address] 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 Family history: Most people from cancer Mom at 92 from old age Dad from lung cancer he was a smoker Two sister of lung cancer from smoking Maternal grandmother of lung cancer she never smoked Paternal grandmother of jaw cancer Review of systems patient was previously on a total lack and was switched to 20 mg of prednisone. Patient has felt lightheaded since Huy it all the time but it fluctuates in severity No syncope or presyncope No fever or chills No GI symptoms. No worsening reflux Review of systems is negative other than HPI above Discharge Providers Provider Date of admission: 10/03/19 16:08 Discharge Date: 10/05/19 Primary care physician: Bertin Villalobos MD Consults: 10/04/19 13:33 Consult to Physical Therapy Evaluate & Treat Comment: Physician Instructions: Evaluate and Treat Discharge provider: Courtney Loyd MD Summary Hospital Course Discharge Diagnosis: Dizziness, improved Chest pain atypical, ruled out for myocardial infarction, no further pain, suspect GI in nature Anxiety Hypertension COPD stable Hospital Course: Patient was admitted to the hospital for chest pain, rule out acute myocardial infarction. Patient had history of possible bradycardia at home associated with dizziness. Her workup was entirely negative. She was continued on telemetry for the entire hospitalization and showed no evidence of dysrhythmia or significant bradycardia or significant tachycardia. No evidence of atrial fibrillation. Her O2 sat remained normal throughout her hospitalization. She had serial CKs and troponins x4 which were negative. She had no EKG changes. She complained in due to a complaint of headache and 8 fullness or wooziness in her head. Very nonspecific. She continued to have n ormal lecture lytes and stable vital signs and able to ambulate without difficulty. CT scan of her head was negative. It showed no evidence of sinus disease. She had significant anxiety which I think has been worsened by prednisone and she was given as needed lorazepam which made a good improvement in her overall condition. She ate vigorously throughout the stay on a regular diet without any problems. She had normal stools and urine output. She was maintained on her outpatient medications. There was some blood pressure fluctuations but this improved with the medication which was given it on a regular basis. This was back to her outpatient regimen. On the day of discharge patient was feeling better but still worried about the dizziness/wooziness in her head. She was discharged home in stable condition to follow-up early next week with her primary care provider Dr. Villalobos in hopes to wean her prednisone as well as to discuss her anxiety and potential other etiologies of her dizziness/wooziness in her head. She is cautioned that if her symptoms worsen or persist she should call immediately and return. She will be sent home with a short-term prescription of lorazepam. We discussed side effects of this. Of note WBC was elevated today which I suspect is related to steroid and will need to be followed closely as outpatient . 40 minutes was spent with patient in discharge coordinating care meeting with patient and discussing the plan. Status at Discharge Cognitive/behavioral status at discharge: oriented Functional status at discharge: independent ambulation Overall status at discharge: patient is progressing back to baseline Exam Vital Signs (past 8 hours): - 10/05/19 05:00 10/05/19 08:00 10/05/19 12:11 Temperature 98.2 F 96.8 F L 98.2 F Pulse Rate 66 71 71 Respiratory Rate 22 20 20 Blood Pressure 165/72 H 146/62 H 135/55 L Pulse Oximetry 97 94 94 Oxygen Delivery Method Room Air Oxygen Flow Rate 0 Narrative Exam Narrative: AF, VSS alert and oriented x 3 HEENT is unremarkable Neck is supple without adenopathy or thyromegaly Chest: Clear to auscultation without wheezes rhonchi or crackles Cor: Regular rate and rhythm with distant S1-S2 but no murmur rubs or gallops Abdomen: Positive bowel sounds, obese, protuberant, no hepatosplenomegaly Extremities: No edema, pulses intact Skin no rashes Neurologic exam nonfocal Objective Labs Result Diagrams: 10/05/19 05:14 10/05/19 05:14 Labs: Laboratory Results - last 24 hr 10/05/19 10/05/19 05:14 05:14 WBC 12.2 H RBC 4.46 Hgb 12.9 Hct 39.4 MCV 88.3 MCH 28.9 MCHC 32.7 RDW 15.3 H Plt Count 259 Neut % (Auto) 69.1 Lymph % (Auto) 25.6 [place] % (Auto) 4.2 Eos % (Auto) 0.6 L Baso % (Auto) 0.5 Neut # (Auto) 8500 H Lymph # (Auto) 3100 [place] # (Auto) 500 Eos # (Auto) 100 Baso # (Auto) 100 Sodium 137 Potassium 4.1 Chloride 103 Carbon Dioxide 26 BUN 19 H Creatinine 0.70 Estimated GFR > 60.0 BUN/Creatinine Ratio 27.1 H Glucose 93 Calcium 9.4 Total Bilirubin 0.3 AST 23 ALT 22 Alkaline Phosphatase 53 Total Protein 6.3 Albumin 3.7 Globulin 2.6 Albumin/Globulin Ratio 1.4 Discharge Plan Discharge Plan Patient Disposition: Home Discharge orders & Medications Prescriptions: New lorazepam 0.5 mg Tablet 0.5 mg PO Q4HR PRN (Reason: Anxiety) Qty: 10 RF: 0 Continued omeprazole 20 mg Capsule,Delayed Release(Dr/Ec) 20 mg PO BID Qty: 0 RF: 0 Spiriva with HandiHaler 18 MCG capsule, w/inhalation device 2 cap inhalation DAILY Qty: 0 RF: 0 fluoxetine [Prozac] 40 MG capsule 40 mg PO DAILY Qty: 0 RF: 0 levothyroxine 50 MCG tablet 50 mcg PO QAM Qty: 0 RF: 0 tolterodine 2 mg capsule,extended release 24hr 2 mg PO DAILY RF: 0 prednisone 20 mg tablet 20 mg PO DAILY RF: 0 acetaminophen [Tylenol Extra Strength] 500 mg Tablet 1,000 mg PO DAILY PRN (Reason: pain) RF: 0 betamethasone dipropionate 0.05 % Cream 1 applic TOPICAL QPM RF: 0 furosemide 20 mg tablet 20 mg PO DAILY PRN (Reason: Edema) RF: 0 multivitamin with minerals Tablet 1 tab PO DAILY RF: 0 polyethylene glycol 3350 [Miralax] 17 gram/dose Powder 17 g PO DAILY RF: 0 albuterol sulfate [ProAir HFA] 90 mcg/actuation Hfa Aerosol Inhaler 2 puff INHALATION Q4H PRN (Reason: Shortness Of Breath) RF: 0 telmisartan-hydrochlorothiazid 80-25 mg tablet 0.5 tab PO DAILY RF: 0 (DME) Respironics [employer] BIPAP Qty: 1 RF: 0 Follow up/Referrals: Bertin Villalobos MD [Primary Care Provider] - Diet/Activity/Treatments Diet: Diet as Tolerated Discharge Data Primary Care Provider: Bertin Villalobos Attending Provider: Courtney Loyd Admit Date/Time: 10/03/19 16:08 Quality VTE Deep Vein Thrombosis/Pulmonary Embolism Present on Admission: No
--- NOTE | 2019-10-05 13:15 | PC.NURSE ---
Patient A/Ox3. Patient and spouse given discharge instructions. Patient eager to go. Patient discharged via wheelchair.
[2019-10-05 13:22] LABS: Bacteria Urine None Seen; RBC Urine None Seen (0-5/HPF)
[2019-10-05 13:30] LABS: Appearance Urine UA CLEAR; Bilirubin Urine UA NEGATIVE (NEGATIVE); Color Urine UA YELLOW; Glucose Urine UA NEGATIVE (Negative); Ketones Urine UA NEGATIVE (NEGATIVE); Leukocyte Esterase Urine UA NEGATIVE (NEGATIVE); Nitrite Urine UA NEGATIVE (Negative); Occult Blood Urine UA NEGATIVE (Negative); Protein Urine UA NEGATIVE (Negative); Specific Gravity Urine UA <=1.005 (1.000-1.035); Urobilinogen Urine UA 0.2 E.U./dL (0.2)
[2019-10-05 13:40] LABS: pH Urine UA 6.5 (4.5-8.0)
[2019-10-05 13:41] LABS: Squamous Epithelial Cell Urine 0-1 /HPF (0-5/HPF); WBC Urine 0-1/HPF (0-5/HPF)
[2019-10-05 13:42] LABS: Culture Indicated Urine Cult Not Indicated
--- NOTE | 2019-10-14 15:15 | PC.NURSE ---
Late entry: NS stop time 10/02 1382
== END 2019-10-05 13:05 | disposition home or self-care (01) ==
LOC: ED 15:22 → AC 16:10
PROVIDERS: Admitting Provider Family Medicine; Emergency Provider Emergency Medicine; Family Provider Family Medicine; PCP Family Medicine; Referring Provider Emergency Medicine; Visit Provider Family Medicine
DX: R07.9 Chest pain, unspecified (principal); I10 Essential (primary) hypertension; E03.9 Hypothyroidism, unspecified; E78.5 Hyperlipidemia, unspecified; J44.9 Chronic obstructive pulmonary disease, unspecified; K21.9 Gastro-esophageal reflux disease without esophagitis; F41.9 Anxiety disorder, unspecified; R42 Dizziness and giddiness; M35.3 Polymyalgia rheumatica; Z87.891 Personal history of nicotine dependence
CPT/HCPCS: 36415; 70450; 71045; 71275; 80053; 81001; 82550; 83690; 84443; 84484; 85025; 85379; 85610; 85730; 93005; 93010; 93306; 96361; 96374; 97116; 97161; 99284; G0378; C9113

== ENCOUNTER → 2019-11-24 14:40 | Outpatient (CLI) | payer MEDICARE, OTHER, SELFPAY ==
[2019-10-03 16:12] VITALS: BMI 33.8
--- NOTE | 2019-11-25 13:50 | DI.NM.S_ITS ---
DATE OF SERVICE: 11/24/2019 PROCEDURE: Exercise perfusion study. INDICATION: Chest pain, underlying hypertension, shortness of breath. RADIOPHARMACEUTICAL: 25.6 millicurie technetium-99m Myoview IV was injected at stress and 23.7 millicurie technetium-99m Myoview IV was injected at rest. CARDIAC STRESS: This patient underwent exercise perfusion study under the supervision of an attending staff. She walked on [place]mond protocol for 4 minutes 13 seconds. No chest pain or anginal symptoms. She achieved 5.1 METS of workload, normal hemodynamic response, 110% of target heart rate. Baseline EKG revealed sinus rhythm with repolarization changes and some PVCs. During stress, there were significant artifacts. In the immediate recovery, no significant ischemic changes seen. No sustained ventricular tachycardia seen. RAW DATA: Breast shadow was seen. GATED STUDY: Stress LV ejection fraction 73 percent without any obvious wall motion abnormalities. Resting end-diastolic volume 92 mL. TID ratio 1.0, which is within normal limits. Lung-heart ratio 0.41, which is within normal limits. MYOCARDIAL PERFUSION: Stress supine images revealed a small size, mildly decreased perfusion of distal anterior wall, as well as inferior apex. During resting supine images, there was mildly decreased perfusion of distal inferior apex. During prone, there was mildly decreased perfusion of mid anterior wall, which was not seen during stress supine or resting supine. There is mildly decreased perfusion of inferior apex, as well. I do not see any significant ischemic burden. Likely, we are dealing with shifting breast tissue attenuation artifact. CONCLUSION: I will call this study likely a normal myocardial perfusion study with evidence of shifting breast tissue attenuation artifact, as stated above. No convincing ischemia or infarction pattern. Normal wall motion goes against the diagnosis of previous transmural myocardial infarction. The patient had a perfusion study in January 09, 2017. At that time, she had distal anterior wall and anterior apex defect, which got resolved during prone images. However, in this study, there is evidence of shifting breast tissue attenuation artifact. Left ventricular function is preserved. This time, the patient is able to walk for 4 minutes and 13 seconds and previously she was able to walk for 3 minutes and 39 seconds. Baseline premature ventricular contractions were seen, which did not get worse during stress or in recovery. No ventricular tachycardia. Overall this is a low-risk myocardial perfusion scan. Christina Odonnell - Seth/keli doc#: [id number]/job#: [id number] dd: 11/25/2019 13:01:00 dt: 11/25/2019 13:38:00 DICTATING MD/COPIES TO: Tara Lira MD COPIES MNE: JOSE ALBERTO;
== END ==
PROVIDERS: Family Provider Family Medicine; PCP Family Medicine; Referring Provider Family Medicine; Visit Provider Family Medicine
DX: R07.89 Other chest pain (principal); I10 Essential (primary) hypertension; R06.02 Shortness of breath
CPT/HCPCS: 78452; 93017; A9502

== ENCOUNTER → 2020-02-19 10:34 | Outpatient (CLI) | payer MEDICARE, OTHER, SELFPAY ==
[2019-12-08 12:29] VITALS: BMI 33.8
--- NOTE | 2020-02-19 10:36 | DI.US.S_ITS ---
PROCEDURE: US THYROID INDICATIONS: NONTOXIC SINGLE THYROID NODULE TECHNIQUE: Real-time scanning was performed of the thyroid gland, with image documentation. COMPARISON: [facility], US, US THYROID, 02/05/2018, 9:11. FINDINGS: Right: Thyroid lobe measures 3.6 x 1.9 x 1.4 cm, and is homogeneous in echotexture. Left: Thyroid lobe measures 3.5 x 1.7 x 1.0 cm, and is homogenous in echotexture. Isthmus: 4-5 mm thick. Nodule number: 1 Location: Left inferior lobe Size: 0.9 x 0.8 x 0.7 cm. Composition: Solid Echogenicity: Hypoechoic Shape: wider than tall. Margins: Smooth Echogenic foci: None Total points: 4 ACR TI-RADS category: Moderately suspicious Nodule number: 2 Location: Right mid lobe Size: 1.2 x 1.1 x 1.2 cm. Composition: Predominantly solid Echogenicity: Hypoechoic Shape: wider than tall. Margins: Smooth Echogenic foci: None Total points: 4 ACR TI-RADS category: Moderately suspicious Nodule number: 3 Location: Right inferior pole Size: 1.1 x 0.4 x 0.8 cm. Composition: Solid Echogenicity: Hypoechoic Shape: wider than tall. Margins: Smooth Echogenic foci: None Total points: 4 ACR TI-RADS category: Moderately suspicious IMPRESSION: Bilateral thyroid nodules as detailed above. Recommend continued ultrasound surveillance as detailed below. ACR TI-RADS definitions and recommendations: TI-RADS 1 (benign): 0 points. FNA not needed. TI-RADS 2 (not suspicious): 2 points. FNA not needed. TI-RADS 3 (mildly suspicious): 3 points. * FNA if 2.5 cm or larger, follow up if 1.5 cm or larger (at 1, 3, and 5 years). TI-RADS 4 (moderately suspicious): 4-6 points. * FNA if 1.5 cm or larger, follow up if 1 cm or larger (at 1, 2, 3, and 5 years). TI-RADS 5 (highly suspicious): 7 points or more. * FNA if 1 cm or larger, follow up if 0.5 cm or larger (every year for 5 years). Dictated by: Lavon Odom M.D. on 02/19/2020 at 15:28 Approved by: Lavon Odom M.D. on 02/19/2020 at 15:31
== END ==
PROVIDERS: Family Provider Family Medicine; PCP Family Medicine; Referring Provider Family Medicine; Visit Provider Family Medicine
DX: E04.2 Nontoxic multinodular goiter (principal)
CPT/HCPCS: 76536

== ENCOUNTER → 2020-05-04 14:03 | Outpatient (CLI) | payer MEDICARE, OTHER, SELFPAY ==
[2019-12-08 12:29] VITALS: BMI 33.8
--- NOTE | 2020-05-04 | DI.MG.S_ITS ---
BILATERAL DIGITAL DIAGNOSTIC MAMMOGRAM 3D/2D POST LUMPECTOMY: 05/04/2020 CLINICAL: Left breast lumps and pain. Comparison is made to exams dated: 05/13/2019 mammogram, 04/15/2018 mammogram, 03/30/2017 mammogram, 03/31/2016 mammogram, and 03/25/2015 mammogram - [facility]. The tissue of both breasts is predominantly fatty. No significant masses, calcifications, or other findings are seen in either breast. Left breast lumpectomy scar and bulky dystrophic calcification are stable in appearance. Palpable abnormality markers x3 overlie the left breast lumpectomy site. No abnormality seen in the region of focal pain in the inferior left breast posterior depth. IMPRESSION: INCOMPLETE: NEEDS ADDITIONAL IMAGING EVALUATION No mammographic evidence of malignancy. A targeted ultrasound of the left breast is recommended at the palpable abnormality sites and the focal area of pain. This exam was interpreted at Station ID: [id number]. NOTE: For mammograms, a report in lay terms will be sent to the patient. Approximately 15% of breast malignancies will not be visualized mammographically. In the management of a palpable breast mass, a negative mammogram must not discourage biopsy of a clinically suspicious lesion. Electronically Signed By: Casey Rivera M.D. slc/:05/04/2020 15:07:43 ACR BI-RADS Category 0: Incomplete [id number]
--- NOTE | 2020-05-04 | DI.US.S_ITS ---
LIMITED ULTRASOUND OF LEFT BREAST AND AXILLA: 05/04/2020 CLINICAL: Patient returns today to evaluate asymmetry in left breast Patient returns today to evaluate a focal asymmetry in the left breast. Comparison is made to exams dated: 05/04/2020 mammogram, 05/13/2019 mammogram, 04/15/2018 mammogram, and 03/30/2017 mammogram - [facility]. Color flow and real-time ultrasound of the left breast 2-3 o'clock, 5-6 o'clock, and axilla regions were performed. Wallace scale images of the real-time examination were reviewed. No significant abnormalities were seen sonographically in the left breast or the left axilla. No mass in the region of pain at 5:00 8 cm from the nipple. No mass in the region of 3 adjacent palpable abnormality markers in the 2:00-3:00 region anterior depth. Bulky dystrophic calcification at 2:00 and adjacent calcifications which are also seen on mammogram are identified at the lumpectomy scar. Small left axillary node is seen. Preserved fatty hilum and no cortical thickening. IMPRESSION: BENIGN There is no sonographic evidence of malignancy. No mass at the palpable abnormalities at the lumpectomy scar. No mass at the focal area of pain. No suspicious axillary adenopathy. Exam findings were reviewed with the patient. Patient is advised to monitor for significant change. A 1 year screening mammogram is recommended. This exam was interpreted at Station ID: [id number]. Electronically Signed By: Casey Rivera M.D. slc/:05/04/2020 16:41:16 letter sent: Normal Exam Ultrasound BI-RADS: 2 Benign
== END ==
PROVIDERS: Family Provider Family Medicine; PCP Family Medicine; Referring Provider Family Medicine; Visit Provider Family Medicine
DX: R92.8 Other abnormal and inconclusive findings on diagnostic imaging of breast (principal); N63.20 Unspecified lump in the left breast, unspecified quadrant; N64.4 Mastodynia
CPT/HCPCS: 76642; 77066; G0279

== ENCOUNTER → 2020-07-19 10:43 | Outpatient (CLI) | payer MEDICARE, OTHER, SELFPAY ==
[2019-12-08 12:29] VITALS: BMI 33.8
--- NOTE | 2020-07-19 | DI.RAD.S_ITS ---
PROCEDURE: XR ACUTE ABDOMEN SERIES INDICATIONS: abdominal pain TECHNIQUE: One view chest and two views of the abdomen were acquired. COMPARISON: [facility], CT, CT ABDOMEN PELVIS W CON, 09/22/2019, 12:43. FINDINGS: Surgical changes and devices: None. Chest: Lungs are clear. Heart size is normal. No pleural effusions. No pneumoperitoneum. Abdomen: Bowel gas pattern is normal. No suspicious calcifications. Visualized solid organ contours appear normal. Bones: No suspicious bony lesions. IMPRESSION: No subdiaphragmatic free air. The bowel gas pattern is nonspecific. Dictated by: Willian Fam M.D. on 07/19/2020 at 13:04 Approved by: Willian Fam M.D. on 07/19/2020 at 13:51
== END ==
PROVIDERS: Family Provider Family Medicine; PCP Family Medicine; Referring Provider Family Medicine; Visit Provider Family Medicine
DX: R10.9 Unspecified abdominal pain (principal)
CPT/HCPCS: 74022

== ENCOUNTER → 2020-08-02 13:11 | Outpatient (CLI) | payer MEDICARE, OTHER, SELFPAY ==
[2019-12-08 12:29] VITALS: BMI 33.8
--- NOTE | 2020-08-02 | DI.RAD.S_ITS ---
PROCEDURE: FL BARIUM SWALLOW W SPEECH INDICATIONS: Dysphagia, oropharyngeal phase COMPARISON: None. TECHNIQUE: Examination was conducted in conjunction with speech pathology per standard protocol. In the lateral projection, filming was performed of the patient swallowing. AP projection filming may also be performed with patient swallowing. COMPARISON: FINDINGS: Function: The oral preparatory phase appears normal, with proper containment. The subsequent oral propulsive phase, pharyngeal phase, and esophageal phase of swallowing also appear normal with all proffered substances. No laryngotracheal penetration or aspiration. No pathologic vallecular pooling. Morphology: No cricopharyngeal bar is identified. No cervical esophageal webs. No Zenker's diverticulum. No strictures. IMPRESSION: No abnormality found. Please also refer to the dedicated speech therapy swallowing evaluation report, which will be independently generated. Dictated by: Willian Fam M.D. on 08/02/2020 at 14:24 Approved by: Willian Fam M.D. on 08/02/2020 at 14:25
--- NOTE | 2020-08-03 18:23 | ST.SWALLOW ---
Visit Care Team Role Provider Type Bertin Villalobos MD Family Provider Physician Primary Care Provider Specialty: Family Practice Address: [address] [place] [address], [facility] [place], [address] Email: [email or web address] Brandan Chaidez MD Attending Provider Physician Referring Provider Specialty: Ear, Nose, Throat Address: [address] [place] [address], [address] Email: [email or web address] Modified Barium Swallow Study LOOM TECHNICIAN Modified Barium Swallow Study Start: 08/03/20 18:03 Freq: Status: Active Protocol: Document 08/02/20 18:04 WENDY (Rec: 08/03/20 18:12 WENDY [id number]) Modified Barium Swallow Study Total Time Visit Start Time 13:30 Visit Stop Time 14:00 Total Visit Minutes [address] Brandan Chaidez Reason for Referral Dysphagia Setting Setting Outpatient Care Patient Information Identification Type Name,ID Card Patient History The pt is an 79-yr-old female with complaints of sticking sensation with intake of solids, greater at right side than left. Often feels the sensation when not eating as well. Denies difficulty swallowing liquids and pills. Denies coughing or choking with oral intake. Sticking sensation started ~3 yrs ago and is seeming to get worse. The pt also reports frequent dry throat, especially upon waking. She sleeps with a BiPAP with humidifier attached . Additionally, she reported and presented with a husky voice that she says worsens over the course of the day, sometimes leaving her aphonic. 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 Additionally, she has a history of breast cancer and current diagnoses of COPD and GERD. Subjective Observations The pt arrived on time and provided case history. She followed all instructions without difficulty throughout the study. Patient Positioning Position View Lat-A/P Imaging Lateral View Textures Administered Trials Presented Thin Liquid via Spoon,Thin Liquid via Cup,Doyle Liquid via Spoon,Doyle Liquid via Cup,Honey Liquid via Spoon, Dysphagia Blenderized Textures ,Regular Textures Oral Phase Source: MBSIMP (TM) (C) Bolus Specific Scoring Grid Lip Closure No Impairment (WNL) Tongue Control During Bolus Hold No Impairment (WNL) Bolus Prep/Mastication No Impairment (WNL) Bolus Transport/Lingual Motion Minimal Impairment A/P Lingual Propulsion Delay Yes: With increased bolus bulk Oral Residue WFL Residue Clearing No Impairment (WNL) Nasal Regurgitation No Additional Oral Phase Observations Oral Peripheral Exam: Features are symmetrical and WNL for age in strength, ROM, and coordination. Pt has natural dentition with some molars missing. She stated that she chews foods carefully because of crooked and misaligned teeth that sometimes cause her to bite her cheeks. Oral Phase: WNL for age with exception of escape of all boluses to pharynx prior to onset of swallow and mildly effortful a/p transport with heavier boluses (honey, pudding and cookie), requiring some lingual pumping. The pt tilted her head back to assist in transport of these substances from oral to pharyngeal cavities. Pharyngeal Phase Source: MBSIMP (TM) (C) Bolus Specific Scoring Grid Delayed Initiation of Pharyngeal Swallow Yes: With all trials, improved with 3-count strategy Soft Palate Elevation No Impairment (WNL) Tongue Base Strength/Range of Motion Mild Impairment Residue Along the Tongue Base Yes Clearance of Residue Along Tongue Base WFL Laryngeal Elevation WFL Anterior Hyoid Movement Moderate Impairment Epiglottic Range of Motion No Impairment (WNL) Vallecular Residue Yes Clearance of Vallecular Residue Mild Impairment Laryngeal Vestibular Closure No Impairment (WNL) Pharyngeal Stripping Wave Mild Impairment Pharyngeal Contraction Mild Impairment Posterior Pharyngeal Wall Residue Yes: Occ trace Clearance of Posterior Pharyngeal Wall No Impairment (WNL) Residue Upper Esophageal Sphincter Opening No Impairment (WNL) Residue in the Pyriform Sinuses Yes Clearance of Residue in the Pyriform No Impairment (WNL) Sinuses Esophageal Clearance Upright Position No Impairment (WNL) Pharyngoesophageal Backflow Observed No Additional Pharyngeal Phase Observations No laryngeal penetration or tracheal aspiration observed throughout the study. Significantly delayed swallow trigger was consistently observed, with bolus escape to pyriform sinuses with thin and nectar-thick liquids (tsp, single and consecutive cup sips) and to vallecula with other heavier consistencies. Control of thin liquid bolus improved with 3-count swallow strategy (in which the pt holds the bolus orally for a count of 3 and then swallows). Residue of liquids from oral cavity and vallecula spilled to pyriform sinuses after the swallow was complete and airway open, increasing the risk of aspiration, although none was observed. The pt did not spontaneously perform additional swallow to clear. With prompting, she did so, and this mostly cleared the pharynx. A/P View Textures Administered Trials Presented Doyle Liquid via Spoon, Dysphagia Blenderized Textures ,Barium Tablet A/P View Observations Pharyngeal Contraction No Impairment (WNL) Esophageal Function No Impairment (WNL) Esophageal Clearance Upright Position No Impairment (WNL) Additional Observations All substances, including 13 mm barium tablet, passed to stomach without difficulty. Clinical Impressions Dysphagia Type Mild oral and moderate pharyngeal dysphagia Findings Mild oral dysphagia secondary to reduced lingual control, allowing for early spillage of liquid boluses to pharynx prior to swallow trigger and requiring increased effort for a/p propulsion of solids. Moderate pharyngeal dysphagia secondary to reduced sensation for swallow trigger, allowing for spillage of liquid boluses, including oral and pharyngeal residue, to pyriform sinuses and honey, pudding and cookie boluses to vallecula prior to swallow onset. This increases the pt's risk of aspiration, although no penetration or aspiration was observed. Use of a 3-count swallow strategy with thin liquid improved bolus control and swallow trigger timing, resulting in escape only to vallecula. The pt also exhibits minimal anterior hyolaryngeal excursion and reduced base of tongue strength and pharyngeal stripping wave, which contribute to presence of pharyngeal residue. In addition to dysphagia, the pt's voice was perceived to be moderately breathy and strained during conversation. Evaluation and treatment in outpatient setting is recommended. Rehabilitation Potential Good Patient Appropriate for Therapy Yes Recommendations Diet Liquids Order Thin Diet Order Regular Medication Recommendation As Tolerated Aspiration Precautions Recommended Precautions Upright at 90 Degrees,Small Bites/Sips,Effortful Swallow, Double Swallow Additional Precautions Chin tuck may be beneficial for increased oral containment . Treatment Plan Therapy Recommendations Outpatient Speech Therapy Additional Therapy Recommendations Speech Therapy recommended for dysphagia and dysphonia. Additional Recommended Referrals Follow-up with ENT Compensatory Strategies Recommendations Sitting Upright (90 deg),Chin Tuck,Double Swallow,Small Bites and Sips Additional Compensatory Strategies 3-count swallow strategy Recommended Short Term Goals 1. The pt will perform strategies to increase bolus control orally and improve timing of pharyngeal swallow trigger with min verbal prompts to decrease her risk of aspiration. 2. The pt will perform exercises with min prompts to increase strength, coordination, and ROM of swallow musculature and reduce risk of aspiration. Mortar Carrier Goals 1. The pt will perform swallow strategies and exercises independently to improve efficiency of swallow and reduce risk of aspiration. 2. The pt will safely tolerate regular texture and thin liquids. Placement Recommendation After Discharge Home,Outpatient Therapy Additional Recommendations/Comments Voice evaluation with treatment as indicated.
== END ==
PROVIDERS: Family Provider Family Medicine; PCP Family Medicine; Referring Provider Otolaryngology; Visit Provider Otolaryngology
DX: R13.12 Dysphagia, oropharyngeal phase (principal)
CPT/HCPCS: 74230; 92611

== ENCOUNTER → 2020-08-26 09:02 | Outpatient (CLI) | payer MEDICARE, OTHER, SELFPAY ==
[2019-12-08 12:29] VITALS: BMI 33.8
--- NOTE | 2020-08-26 10:28 | DI.CT.S_ITS ---
PROCEDURE: CT ABDOMEN PELVIS W CON INDICATIONS: Left lower quadrant pain TECHNIQUE: After the administration of oral and intravenous contrast, 5 mm thick sections acquired from the diaphragms to the symphysis. 5 mm thick coronal and sagittal reformats were performed. For radiation dose reduction, the following was used: automated exposure control, adjustment of mA and/or kV according to patient size. COMPARISON: [facility], CT, CT ABDOMEN PELVIS W CON, 09/22/2019, 12:43. FINDINGS: Image quality: Excellent. ABDOMEN: Lung bases: Lung bases are clear. Heart size is normal. Coronary artery calcifications are present. Hepatic steatosis. The gallbladder is grossly unremarkable. Biliary system is non-dilated. Pancreas enhances normally. Spleen is normal in size and enhancement. No adrenal nodules. No hydronephrosis. Subcentimeter renal foci, statistically cysts, although technically too small to characterize accurately and therefore nonspecific. Peritoneum and bowel: Stomach, small bowel, and colon loops are normal in caliber and wall thickness. No free fluid or air. Appendix is not clearly identified however no suspicious pericecal inflammatory changes are seen. Colonic diverticulosis is seen without evidence of acute complication. Large amount of stool seen throughout the colon. Nodes and vessels: No retroperitoneal or mesenteric adenopathy. Aorta and inferior vena cava are normal in caliber. Scattered vascular calcifications seen in the aorta. Miscellaneous: No ventral hernias. PELVIS: Genitourinary: Bladder wall thickness is normal. Small fat containing bilateral inguinal hernias. Bones: No vertebral body compression fracture. Spondylytic changes and facet arthropathy. Right hip arthroplasty. Incidentally noted atrophy of the left tensor fascia evelio muscle IMPRESSION: Colonic diverticulosis however no evidence of acute complication. Appendix is not clearly identified however no suspicious pericecal inflammatory changes are seen. No definite bowel obstruction identified. Large amount of stool. Additional chronic and incidental findings as above. Dictated by: Lavon Odom M.D. on 08/26/2020 at 11:46 Approved by: Lavon Odom M.D. on 08/26/2020 at 11:56
== END ==
PROVIDERS: Family Provider Family Medicine; PCP Family Medicine; Referring Provider Family Medicine; Visit Provider Family Medicine
DX: R10.32 Left lower quadrant pain (principal); K57.90 Diverticulosis of intestine, part unspecified, without perforation or abscess without bleeding; K40.20 Bilateral inguinal hernia, without obstruction or gangrene, not specified as recurrent
CPT/HCPCS: 74177; Q9967

== ENCOUNTER → 2021-05-05 15:39 | Outpatient (CLI) | payer MEDICARE, OTHER, SELFPAY ==
[2019-12-08 12:29] VITALS: BMI 33.8
--- NOTE | 2021-05-05 | DI.MG.S_ITS ---
BILATERAL DIGITAL SCREENING MAMMOGRAM 3D/2D WITH CAD: 05/05/2021 CLINICAL: Routine screening. Personal history of left breast cancer. Family history of breast cancer. Comparison is made to exams dated: 05/04/2020 mammogram, 05/13/2019 mammogram, and 04/15/2018 mammogram - [facility]. The tissue of both breasts is predominantly fatty. Current study was also evaluated with a Computer Aided Detection (CAD) system. There are benign calcifications in both breasts. There also are benign post operative findings in the left breast. No significant masses, calcifications, or other findings are seen in either breast. There has been no significant interval change. IMPRESSION: BENIGN There is no mammographic evidence of malignancy. A 1 year screening mammogram is recommended. This exam was interpreted at Station ID: [id number]. NOTE: For mammograms, a report in lay terms will be sent to the patient. Approximately 15% of breast malignancies will not be visualized mammographically. In the management of a palpable breast mass, a negative mammogram must not discourage biopsy of a clinically suspicious lesion. Electronically Signed By: Elias mabry/emir:05/06/2021 09:14:37 letter sent: Normal Exam ACR BI-RADS Category 2: Benign Finding(s) 3342F
== END ==
PROVIDERS: Family Provider Family Medicine; PCP Family Medicine; Referring Provider Family Medicine; Visit Provider Family Medicine
DX: Z12.31 Encounter for screening mammogram for malignant neoplasm of breast (principal); Z80.3 Family history of malignant neoplasm of breast; Z85.3 Personal history of malignant neoplasm of breast
CPT/HCPCS: 77063; 77067

== ENCOUNTER → 2021-05-17 10:03 | Outpatient (CLI) | payer MEDICARE, OTHER, SELFPAY ==
[2019-12-08 12:29] VITALS: BMI 33.8
--- NOTE | 2021-05-17 | DI.US.S_ITS ---
PROCEDURE: US THYROID INDICATIONS: FOLLOW-UP NODULES TECHNIQUE: Real-time scanning was performed of the thyroid gland, with image documentation. COMPARISON: [facility], US, US THYROID, 02/05/2018, 9:11. [facility], US, US THYROID, 02/19/2020, 10:53. FINDINGS: Right: Thyroid lobe measures 3.5 x 1.7 x 1.2 cm, and is homogeneous in echotexture. Left: Thyroid lobe measures 3.2 x 0.7 x 0.9 cm, and is homogenous in echotexture. Isthmus: 2.2 mm thick. Nodule number: 1 Location: Left inferior pole Size: 1.1 x 0.6 by 0.8 cm. Previously 0.9 x 0.8 x 0.7 cm. Composition: Solid Echogenicity: Hypoechoic Shape: wider than tall. Margins: A smooth Echogenic foci: None Total points: 4 ACR TI-RADS category: 4. Moderately suspicious. Nodule number: 2 Location: Right midpole Size: 1.2 x 1.3 x 1.1 cm. Previously 1.2 x 1.1 x 1.2 cm. Composition: Predominantly solid Echogenicity: Hypoechoic Shape: wider than tall. Margins: Smooth Echogenic foci: None Total points: 4 ACR TI-RADS category: 4. Moderately suspicious. Nodule number: 3 Location: Right inferior pole Size: 0.6 x 0.4 x 0.7 cm. Previously 1.1 x 0.4 x 0.8 cm. Composition: Solid Echogenicity: Hypoechoic Shape: wider than tall. Margins: Smooth Echogenic foci: None Total points: 4 ACR TI-RADS category: 4. Moderately suspicious. IMPRESSION: Bilateral thyroid nodules are stable compared to prior ultrasound and more remote ultrasound on 02/05/2018. Recommend continued surveillance. ACR TI-RADS definitions and recommendations: TI-RADS 1 (benign): 0 points. FNA not needed. TI-RADS 2 (not suspicious): 2 points. FNA not needed. TI-RADS 3 (mildly suspicious): 3 points. * FNA if 2.5 cm or larger, follow up if 1.5 cm or larger (at 1, 3, and 5 years). TI-RADS 4 (moderately suspicious): 4-6 points. * FNA if 1.5 cm or larger, follow up if 1 cm or larger (at 1, 2, 3, and 5 years). TI-RADS 5 (highly suspicious): 7 points or more. * FNA if 1 cm or larger, follow up if 0.5 cm or larger (every year for 5 years). Dictated by: Paul Osborn M.D. on 05/17/2021 at 15:38 Approved by: Paul Osborn M.D. on 05/17/2021 at 15:46
== END ==
PROVIDERS: Family Provider Family Medicine; PCP Family Medicine; Referring Provider Family Medicine; Visit Provider Family Medicine
DX: E04.2 Nontoxic multinodular goiter (principal)
CPT/HCPCS: 76536

== ENCOUNTER → 2021-06-03 09:27 | Outpatient (CLI) | payer MEDICARE, OTHER, SELFPAY ==
[2019-12-08 12:29] VITALS: BMI 33.8
--- NOTE | 2021-06-03 | DI.RAD.S_ITS ---
PROCEDURE: XR ABDOMEN 3V INDICATIONS: ABDOMINAL PAIN TECHNIQUE: One view chest and two views of the abdomen were acquired. COMPARISON: [facility], , ABDOMEN 1 VIEW, 03/13/2014, 12:25. FINDINGS: Surgical changes and devices: Right hip arthroplasty is partially imaged. Lower thorax: No consolidation or pleural effusion. No pneumoperitoneum. Abdomen: Nonspecific bowel gas pattern. No suspicious calcifications. Visualized solid organ contours appear normal. Bones: No suspicious bony lesions. Multifocal degenerative change. IMPRESSION: Nonobstructive bowel gas pattern. If there is clinical concern for diverticulitis, consider CT imaging. Dictated by: John Lester M.D. on 06/03/2021 at 10:00 Approved by: John Lester M.D. on 06/03/2021 at 10:02
== END ==
PROVIDERS: Family Provider Family Medicine; PCP Family Medicine; Referring Provider Family Medicine; Visit Provider Family Medicine
DX: R10.9 Unspecified abdominal pain (principal)
CPT/HCPCS: 74021

== ENCOUNTER → 2021-08-22 11:19 | Outpatient (CLI) | payer MEDICARE, OTHER, SELFPAY ==
[2019-12-08 12:29] VITALS: BMI 33.8
--- NOTE | 2021-08-22 | DI.RAD.S_ITS ---
PROCEDURE: XR FINGER RT MIN 2V INDICATIONS: RIGHT HAND FIFTH FINGER PAIN TECHNIQUE: AP hand, 2 views of the 5th finger(s) acquired. COMPARISON: None. FINDINGS: Bones: No fractures or dislocations. No suspicious bony lesions. Multifocal joint space narrowing and periarticular osteophyte formation at the scaphoid trapezial, 1st carpometacarpal joint, as well as the interphalangeal joints of the digits. Soft tissues: No suspicious soft tissue calcifications. IMPRESSION: Multifocal osteoarthritis. No acute fracture. No osseous lesion. If symptoms and/or clinical suspicion for pathology persist, further assessment with repeat, or advanced imaging (e.g., CT, MRI, or bone scan) may be helpful for further assessment. Dictated by: Nita Pastor M.D. on 08/22/2021 at 13:29 Approved by: Nita Pastor M.D. on 08/22/2021 at 13:29
== END ==
PROVIDERS: Family Provider Family Medicine; PCP Family Medicine; Referring Provider Family Medicine; Visit Provider Family Medicine
DX: M19.041 Primary osteoarthritis, right hand (principal); M79.644 Pain in right finger(s)
CPT/HCPCS: 73140

== ENCOUNTER → 2022-05-18 12:28 | Outpatient (CLI) | payer MEDICARE, OTHER, SELFPAY ==
[2019-12-08 12:29] VITALS: BMI 33.8
--- NOTE | 2022-05-18 | DI.MG.S_ITS ---
BILATERAL DIGITAL SCREENING MAMMOGRAM 3D/2D WITH CAD POST LUMPECTOMY: 05/18/2022 CLINICAL: Routine screening. Personal history of left breast cancer. Family history of breast cancer. Comparison is made to exams dated: 05/05/2021 mammogram, 05/04/2020 mammogram, and 05/13/2019 mammogram - [facility]. There are scattered areas of fibroglandular density in both breasts (category b / 25%-50% glandular tissue). Current study was also evaluated with a Computer Aided Detection (CAD) system. There are benign calcifications in both breasts. There also are benign post operative findings in the left breast. No significant masses, calcifications, or other findings are seen in either breast. There has been no significant interval change. IMPRESSION: BENIGN There is no mammographic evidence of malignancy. A 1 year screening mammogram is recommended. This exam was interpreted at Station ID: [id number]. NOTE: For mammograms, a report in lay terms will be sent to the patient. Approximately 15% of breast malignancies will not be visualized mammographically. In the management of a palpable breast mass, a negative mammogram must not discourage biopsy of a clinically suspicious lesion. Electronically Signed By: Yash Goodman M.D., jr/emir:05/18/2022 14:08:14 letter sent: Normal Exam ACR BI-RADS Category 2: Benign Finding(s) 3342F
== END ==
PROVIDERS: Family Provider Family Medicine; PCP Family Medicine; Referring Provider Family Medicine; Visit Provider Family Medicine
DX: Z12.31 Encounter for screening mammogram for malignant neoplasm of breast (principal); Z85.3 Personal history of malignant neoplasm of breast; Z80.3 Family history of malignant neoplasm of breast
CPT/HCPCS: 77063; 77067

== ENCOUNTER → 2022-07-10 10:23 | Outpatient (CLI) | payer MEDICARE, OTHER, SELFPAY ==
[2019-12-08 12:29] VITALS: BMI 33.8
--- NOTE | 2022-07-10 10:27 | DI.RAD.S_ITS ---
P are ROCEDURE: XR FOOT RT MIN 3V INDICATIONS: FOOT PAIN TECHNIQUE: 3 views of the foot were acquired. COMPARISON: [facility], , FOOT 3V RIGHT, 03/02/2014, 15:45. FINDINGS: Bones: No acute fractures or dislocations. Suggestion of mild hallux valgus angulation of the right great toe with subcortical lucency near the base of the 1st proximal phalanx. No suspicious bony lesions. Stable degenerative changes of the right forefoot and midfoot. Small plantar calcaneal enthesophyte. Soft tissues: No tibiotalar joint effusion. Mild soft tissue swelling with soft tissue prominence overlying the lateral aspect of the right 5th metatarsophalangeal joint and medial aspect of the 1st metatarsophalangeal joint. No suspicious calcifications. Achilles tendon appears normal. IMPRESSION: 1. Right foot without acute fracture or dislocation. Degenerative changes of the right forefoot and midfoot. 2. Soft tissue prominence overlying the right 1st and 5th metatarsophalangeal joints with degenerative changes of the right 1st metatarsophalangeal joint and subcortical lucency at the base of the 1st proximal phalanx. Findings may represent subchondral degenerative cystic changes although osseous erosion not excluded. Recommend clinical correlation for possible inflammatory arthropathy. Dictated by: Ishan Robertson M.D. on 07/10/2022 at 14:11 Approved by: Ishan Robertson M.D. on 07/10/2022 at 14:16
--- NOTE | 2022-07-10 10:28 | DI.RAD.S_ITS ---
PROCEDURE: XR CHEST 2V INDICATIONS: Other chest pain TECHNIQUE: 2 views of the chest were acquired. COMPARISON: [facility], CR, XR CHEST 1V, 10/03/2019, 10:31. FINDINGS: Surgical changes and devices: Stable postsurgical changes of the left breast and axilla. Lungs and pleura: Minimal streaky bibasilar opacities likely representing atelectasis. No focal consolidation. No pleural effusions or pneumothorax. Mediastinum: Mediastinal contours are normal. Heart size is normal. Bones and chest wall: No suspicious bony abnormalities. Soft tissues appear unremarkable. IMPRESSION: Postsurgical changes of the left breast and axilla. Streaky bibasilar opacities favored to represent atelectasis. If patient's pain is localized to the breast, consider further evaluation with diagnostic mammography/left breast ultrasound. Dictated by: Ishan Robertson M.D. on 07/10/2022 at 14:17 Approved by: Ishan Robertson M.D. on 07/10/2022 at 14:19
== END ==
PROVIDERS: Family Provider Family Medicine; PCP Family Medicine; Referring Provider Family Medicine; Visit Provider Family Medicine
DX: R07.89 Other chest pain (principal); M79.671 Pain in right foot; M79.89 Other specified soft tissue disorders
CPT/HCPCS: 71046; 73630

== ENCOUNTER → 2022-08-23 14:10 | Outpatient (CLI) | payer MEDICARE, OTHER, SELFPAY ==
[2019-12-08 12:29] VITALS: BMI 33.8
--- NOTE | 2022-08-23 | DI.MG.S_ITS ---
UNILATERAL LEFT DIGITAL DIAGNOSTIC MAMMOGRAM 3D/2D: 08/23/2022 CLINICAL: Diffuse breast pain. Comparison is made to exams dated: 05/18/2022 mammogram, 05/05/2021 mammogram, 05/04/2020 ultrasound, 05/04/2020 mammogram, and 05/13/2019 mammogram - [facility]. There are scattered areas of fibroglandular density in the left breast (category b / 25%-50% glandular tissue). There are stable benign calcifications in the left breast. There also are benign post operative findings in the left breast. No significant masses, calcifications, or other findings are seen in the breast. There has been no significant interval change. IMPRESSION: BENIGN There is no mammographic evidence of malignancy. A 1 year screening mammogram is recommended. Future imaging is recommended as follows: 05/19/2023 screening mammogram. Exam findings were conveyed to the patient. Patient is advised to monitor for significant change. Clinical follow-up as needed. This exam was interpreted at Station ID: [id number]. NOTE: For mammograms, a report in lay terms will be sent to the patient. Approximately 15% of breast malignancies will not be visualized mammographically. In the management of a palpable breast mass, a negative mammogram must not discourage biopsy of a clinically suspicious lesion. Electronically Signed By: Casey Rivera M.D. slc/:08/23/2022 14:59:41 letter sent: Normal Exam ACR BI-RADS Category 2: Benign Finding(s) 3342F
== END ==
PROVIDERS: Family Provider Family Medicine; PCP Family Medicine; Referring Provider Family Medicine; Visit Provider Family Medicine
DX: R92.1 Mammographic calcification found on diagnostic imaging of breast (principal); N64.4 Mastodynia
CPT/HCPCS: 77065; G0279

== ENCOUNTER → 2022-09-07 12:56 | Outpatient (CLI) | payer MEDICARE, OTHER, SELFPAY ==
[2019-12-08 12:29] VITALS: BMI 33.8
[2022-09-07 14:48] LABS: Blood Urea Nitrogen 19 mg/dL (7-17); Calcium 9.7 mg/dL (8.4-10.2); Carbon Dioxide 30 mmol/L (22-32); Chloride 98 mmol/L (98-107); Estimated Glomerular Filt Rate > 60 mL/min (>60); Glucose 84 mg/dL (80-110); HEMOLYSIS < 15 (0-50); Potassium 5.2 mmol/L (3.4-5.1); Sodium 139 mmol/L (137-145)
== END ==
PROVIDERS: Family Provider Family Medicine; PCP Family Medicine; Referring Provider Family Medicine; Visit Provider Family Medicine
DX: R10.12 Left upper quadrant pain (principal)
CPT/HCPCS: 36415; 80048

== ENCOUNTER → 2022-09-11 09:33 | Outpatient (CLI) | payer MEDICARE, OTHER, SELFPAY ==
[2019-12-08 12:29] VITALS: BMI 33.8
--- NOTE | 2022-09-11 | DI.CT.S_ITS ---
PROCEDURE: CT ABDOMEN PELVIS W CON INDICATIONS: Left upper quadrant pain TECHNIQUE: After the administration of oral and intravenous contrast, axial sections were acquired from the lung bases to the pubic symphysis. Coronal and sagittal reformats were performed. For radiation dose reduction, the following was used: automated exposure control, adjustment of mA and/or kV according to patient size. COMPARISON:[facility], CT, CT ABDOMEN PELVIS W CON, 08/26/2020, 10:24. FINDINGS: Image quality: Excellent. Lung bases: Unremarkable. Heart: No significant findings. ABDOMEN: Liver: Unremarkable. Gallbladder: Unremarkable. Biliary ducts: Unremarkable. Pancreas: Unremarkable. Spleen: Unremarkable. Adrenal Glands: Unremarkable. Kidneys and Ureters: Unremarkable. Stomach and Bowel: Mild diverticulosis. Large fecal load. Peritoneum: No abnormal intraperitoneal fluid. No free air. Ventral Wall: No hernia. Abdominal Nodes: No retroperitoneal or mesenteric adenopathy by size criteria. Vessels: Aorta and inferior vena cava are normal in size. PELVIS: Pelvic Organs: Unremarkable. Bladder: Largely obscured by metal artifact from right hip arthroplasty. Pelvic Nodes: No enlarged lymph nodes. Miscellaneous: No inguinal hernias are seen. Bones: Lumbar degenerative change. Canal stenosis at L3-L4 and L4-L5. No lytic or blastic bony lesions. No compression fractures. IMPRESSION: 1. No evidence acute abdominal process. 2. Mild diverticulosis, large fecal load. 3. Lumbar degenerative change with canal stenosis. Dictated by: Be Walker M.D. on 09/11/2022 at 10:57 Approved by: Be Walker M.D. on 09/11/2022 at 11:42
== END ==
PROVIDERS: Family Provider Family Medicine; PCP Family Medicine; Referring Provider Family Medicine; Visit Provider Family Medicine
DX: R10.12 Left upper quadrant pain (principal); K57.90 Diverticulosis of intestine, part unspecified, without perforation or abscess without bleeding; M47.816 Spondylosis without myelopathy or radiculopathy, lumbar region; M48.061 Spinal stenosis, lumbar region without neurogenic claudication
CPT/HCPCS: 74177; Q9967

== ENCOUNTER → 2022-10-31 15:13 | Outpatient (CLI) | payer MEDICARE, OTHER, SELFPAY ==
[2019-12-08 12:29] VITALS: BMI 33.8
--- NOTE | 2022-10-31 | DI.RAD.S_ITS ---
PROCEDURE: XR CHEST 2V INDICATIONS: COUGH TECHNIQUE: 2 views of the chest were acquired. COMPARISON: [facility], CR, XR CHEST 2V, 07/10/2022, 10:29. FINDINGS: Surgical changes and devices: None. Lungs and pleura: Lungs are clear. No pleural effusions or pneumothorax. Hyperinflation and chronic interstitial changes present. Minimal left basilar atelectasis and or infiltrate. Mediastinum: Mediastinal contours are normal. Heart size is normal. Bones and chest wall: No suspicious bony abnormalities. Soft tissues appear unremarkable. IMPRESSION: Minimal left basilar atelectasis and or infiltrate. Hyperinflation and chronic interstitial changes Approved by: Brandon Delgado M.D. on 10/31/2022 at 18:45
== END ==
PROVIDERS: Family Provider Family Medicine; PCP Family Medicine; Referring Provider Family Medicine; Visit Provider Family Medicine
DX: R05.9 Cough, unspecified (principal)
CPT/HCPCS: 71046

== ENCOUNTER → 2023-05-14 09:19 | Outpatient (CLI) | payer MEDICARE, OTHER, SELFPAY ==
[2023-04-11 14:32] VITALS: BMI 33.8
== END ==
PROVIDERS: Family Provider Family Medicine; PCP Family Medicine; Referring Provider Internal Medicine Critical Care Medicine; Visit Provider Internal Medicine Critical Care Medicine
DX: J44.9 Chronic obstructive pulmonary disease, unspecified (principal); Z87.891 Personal history of nicotine dependence
CPT/HCPCS: 94060; 94726; 94729

== ENCOUNTER → 2023-05-28 11:51 | Outpatient (CLI) | payer MEDICARE, OTHER, SELFPAY ==
[2023-04-11 14:32] VITALS: BMI 33.8
--- NOTE | 2023-05-28 | DI.MG.S_ITS ---
BILATERAL DIGITAL DIAGNOSTIC MAMMOGRAM 3D/2D: 05/28/2023 CLINICAL: Breast pain. Breast cancer. Comparison is made to exams dated: 08/23/2022 mammogram, 05/18/2022 mammogram, 05/05/2021 mammogram, 05/04/2020 mammogram, and 05/13/2019 mammogram - [facility]. There are scattered areas of fibroglandular density in both breasts (category b / 25%-50% glandular tissue). Post operative findings in the left breast with dystrophic calcifications. No significant masses, calcifications, or other findings are seen in either breast. IMPRESSION: INCOMPLETE: NEEDS ADDITIONAL IMAGING EVALUATION No mammographic evidence of malignancy. A targeted ultrasound is recommended and will immediately follow. This exam was interpreted at Station ID: [id number]. NOTE: For mammograms, a report in lay terms will be sent to the patient. Approximately 15% of breast malignancies will not be visualized mammographically. In the management of a palpable breast mass, a negative mammogram must not discourage biopsy of a clinically suspicious lesion. Electronically Signed By: Casey Rivera M.D. slc/:05/28/2023 12:58:02 ACR BI-RADS Category 0: Incomplete [id number]
--- NOTE | 2023-05-28 | DI.US.S_ITS ---
LIMITED ULTRASOUND OF LEFT BREAST: 05/28/2023 CLINICAL: Focal left breast pain. Comparison is made to exams dated: 05/28/2023 mammogram, 08/23/2022 mammogram, 05/18/2022 mammogram, 05/05/2021 mammogram, and 05/04/2020 mammogram - [facility]. Real-time ultrasound of the left breast 2-4 o'clock region was performed. Wallace scale images of the real-time examination were reviewed. No significant abnormalities were seen sonographically in the left breast in the region of pain. IMPRESSION: NEGATIVE There is no sonographic evidence of malignancy. No mass or cyst in the region of pain. Exam findings were conveyed to the patient. Patient is advised to monitor for significant change. Clinical follow-up as needed. A 1 year screening mammogram is recommended. This exam was interpreted at Station ID: [id number]. Electronically Signed By: Casey Rivera M.D. slc/:05/28/2023 13:21:04 letter sent: Normal Exam Ultrasound BI-RADS: 1 Negative
== END ==
PROVIDERS: Family Provider Family Medicine; PCP Family Medicine; Referring Provider Family Medicine; Visit Provider Family Medicine
DX: N64.4 Mastodynia (principal); Z85.3 Personal history of malignant neoplasm of breast; R92.2 Inconclusive mammogram
CPT/HCPCS: 76642; 77066; G0279

== ENCOUNTER → 2023-09-28 16:11 | Outpatient (CLI) | payer MEDICARE, OTHER, SELFPAY ==
[2023-04-11 14:32] VITALS: BMI 33.8
--- NOTE | 2023-09-28 16:13 | DI.MRI.S_ITS ---
PROCEDURE: MR HEAD/BRAIN WO/W CON INDICATIONS: memory changes TECHNIQUE: Noncontrast axial T1 spin echo, axial T2 fast spin echo, sagittal and axial FLAIR, coronal T2 fast spin echo, axial gradient echo, axial diffusion and ADC through the brain. After the administration of contrast, axial and coronal and sagittal T1 spin echo with fat saturation through the brain. COMPARISON: [facility], CT, CT HEAD/BRAIN WO CON, 10/04/2019, 14:13. [facility], MR, BRAIN WITH AND WITHOUT CONTRAS, 10/25/2006, 13:41. [facility], MR, BRAIN WITH AND WITHOUT CONTRAS, 07/01/2010, 7:51. [facility], MR, BRAIN WITH AND WITHOUT CONTRAS, 07/09/2009, 7:53. FINDINGS: Image quality: Diagnostic, with note made of motion artifact. CSF spaces: Basal cisterns are patent. No extra-axial fluid collections. Ventricles are normal in size and shape. Brain: No midline shift. No intracranial bleeds or masses. No abnormal intracranial enhancement. There is cerebral volume loss for age. There is periventricular white matter chronic small vessel ischemic change. The brainstem appears normal. Diffusion-weighted images demonstrate no acute infarct. No chronic ischemic insults. Normal intravascular flow voids are present. Skull and face: Calvarial marrow is normal in signal. Orbits appear normal. Note is made of bilateral lens replacements. Incidental note is made of hyperostosis frontalis. This is not considered to be pathologic in a woman of this age. Sinuses: Sinuses and mastoids appear clear. IMPRESSION: Brain MRI within normal limits, with age-appropriate brain parenchymal volume loss and chronic small vessel ischemic change. No masses or abnormal enhancement can be seen. No prior territorial infarct can be seen. Dictated by: Silviano Aly M.D. on 10/01/2023 at 10:54 Approved by: Silviano Aly M.D. on 10/01/2023 at 10:57
== END ==
PROVIDERS: Family Provider Family Medicine; PCP Family Medicine; Referring Provider Family Medicine; Visit Provider Family Medicine
DX: R41.3 Other amnesia (principal)
CPT/HCPCS: 70553; A9579

== ENCOUNTER → 2023-11-29 14:01 | Outpatient (CLI) | payer MEDICARE, OTHER, SELFPAY ==
[2023-04-11 14:32] VITALS: BMI 33.8
--- NOTE | 2023-11-29 | DI.RAD.S_ITS ---
PROCEDURE: XR CHEST 2V INDICATIONS: ACUTE COUGH TECHNIQUE: 2 views of the chest were acquired. COMPARISON: [facility], CR, XR CHEST 2V, 10/31/2022, 15:23. [facility], CR, XR CHEST 2V, 07/10/2022, 10:29. FINDINGS: Surgical changes and devices: Surgical clips project over the left hemithorax. Lungs and pleura: Peribronchial cuffing with diffuse interstitial opacities. Mediastinum: Mediastinal contours are normal. Heart size is mildly enlarged. Bones and chest wall: No suspicious bony abnormalities. Soft tissues appear unremarkable. IMPRESSION: Peribronchial cuffing with diffuse interstitial opacities, suggestive of pulmonary edema. Atypical infection is also consideration. Dictated by: Ramy Conley M.D. on 11/29/2023 at 15:21 Approved by: Ramy Conley M.D. on 11/29/2023 at 15:21
== END ==
PROVIDERS: Family Provider Family Medicine; PCP Family Medicine; Referring Provider Family Medicine; Visit Provider Family Medicine
DX: R05.1 Acute cough (principal)
CPT/HCPCS: 71046

== ENCOUNTER → 2024-01-07 08:15 | Outpatient (CLI) | payer MEDICARE, OTHER, SELFPAY ==
[2023-04-11 14:32] VITALS: BMI 33.8
--- NOTE | 2024-01-07 | DI.RAD.S_ITS ---
PROCEDURE: XR CHEST 2V INDICATIONS: Acute Cough TECHNIQUE: 2 views of the chest were acquired. COMPARISON: [facility], CR, XR CHEST 2V, 11/29/2023, 13:12. [facility], CR, XR CHEST 2V, 10/31/2022, 15:23. FINDINGS: Surgical changes and devices: Chest wall clips. Lungs and pleura: [id number] interstitial prominence. No dense consolidation or pleural effusion. Possible emphysematous changes Mediastinum: Normal heart size Bones and chest wall: Degenerative changes. IMPRESSION: Prominence of the interstitium could represent atypical infection versus edema. No dense consolidation. There may be areas of scarring and emphysema. Consider future imaging surveillance to assess for resolution. Dictated by: Bartolome Jackson M.D. on 01/07/2024 at 9:41 Approved by: Bartolome Jackson M.D. on 01/07/2024 at 9:43
== END ==
LOC: RAD 08:16
PROVIDERS: Family Provider Family Medicine; PCP Family Medicine; Referring Provider Family Medicine; Visit Provider Family Medicine
DX: R05.1 Acute cough (principal)
CPT/HCPCS: 71046

== ENCOUNTER → 2024-02-26 12:48 | Outpatient (CLI) | payer MEDICARE, OTHER, SELFPAY ==
[2023-04-11 14:32] VITALS: BMI 33.8
--- NOTE | 2024-02-26 12:51 | DI.RAD.S_ITS ---
PROCEDURE: XR CHEST 2V INDICATIONS: Abnormal findings on diagnostic imaging of other specified b TECHNIQUE: 2 views of the chest were acquired. COMPARISON: [facility], CR, XR CHEST 2V, 01/07/2024, 8:19. [facility], CR, XR CHEST 2V, 11/29/2023, 13:12. FINDINGS: Mild hyperinflation. Aortic arch calcifications. Otherwise, the heart size and cardiomediastinal silhouette are within normal limits. There is no focal lung consolidation, pneumothorax, or pleural effusion. Mildly exaggerated thoracic kyphosis with diffuse osseous demineralization. Left breast and left axillary surgical clips with dystrophic left breast calcifications. IMPRESSION: Mild hyperinflation. Otherwise, no acute cardiothoracic process. Dictated by: Carlos Diaz M.D. on 02/26/2024 at 16:16 Approved by: Carlos Diaz M.D. on 02/26/2024 at 16:20
== END ==
LOC: RAD 12:50
PROVIDERS: Family Provider Family Medicine; PCP Family Medicine; Referring Provider Family Medicine; Visit Provider Family Medicine
DX: R93.89 Abnormal findings on diagnostic imaging of other specified body structures (principal); M40.204 Unspecified kyphosis, thoracic region
CPT/HCPCS: 71046

== ENCOUNTER 2024-05-25 04:29 | Emergency (ER) | payer MEDICARE, OTHER, SELFPAY ==
[2023-04-11 14:32] VITALS: BMI 33.8
[2024-05-25] VITALS (23 sets, daily range): BP systolic 120–213; BP diastolic 56–95; PULSE 66–82; RESP 18–27; TEMP 36.4; O2SAT 90–97; BMI 32.5
--- NOTE | 2024-05-25 07:15 | ED_ITS ---
HPI - Back Pain/Injury General Chief Complaint: Back Pain/Injury Stated Complaint: pain rt side of back/lt arm, high bp, head is beena Time Seen by Provider: 05/25/24 07:02 Source: patient History of Present Illness HPI Narrative: 83-year-old woman with a history of hypertension with recently added chlorthalidone, COPD, chronic constipation with a history of bowel surgeries bowel obstructions who presents complaining that her blood pressure is increasingly elevated. She has been checking and brings in numbers over the last week. She notes new right flank/back pain and left chest tightness as well as increasing problems with left shoulder pain with range of motion. She has not describing fevers, chills, cough. No orthopnea, no dyspnea. She notes she has had zoster in the past but has not noticed any rashes around the area of her right flank pain. No dysuria or history of kidney stones. She notes that she has been having diarrhea over the last number of days, no blood has been appreciated Related Data Home Medications Medication Instructions Recorded Confirmed omeprazole 20 mg capsule,delayed 20 mg PO BID ##0 04/06/10 05/04/23 release tiotropium bromide 18 mcg capsule 2 cap inhalation DAILY ##0 09/01/17 05/04/23 with inhalation device (Spiriva with HandiHaler) fluoxetine 40 mg capsule (Prozac) 40 mg PO DAILY ##0 09/02/17 05/04/23 levothyroxine 50 mcg tablet 50 mcg PO QAM ##0 09/02/17 05/04/23 Respironics DreamStation BIPAP #1 ea 10/15/18 01/07/22 acetaminophen 500 mg tablet 1,000 mg PO DAILY PRN pain 10/03/19 05/04/23 (Tylenol Extra Strength) albuterol sulfate 90 mcg/actuation 2 puff inhalation Q4H PRN 10/03/19 05/04/23 aerosol inhaler (ProAir HFA) Shortness Of Breath furosemide 20 mg tablet 20 mg PO DAILY PRN Edema 10/03/19 05/04/23 polyethylene glycol 3350 17 17 g PO DAILY 10/03/19 05/04/23 gram/dose oral powder (Miralax) telmisartan 80 0.5 tab PO DAILY 10/03/19 05/04/23 mg-hydrochlorothiazide 25 mg tablet tolterodine 2 mg capsule,extended 2 mg PO DAILY 10/03/19 05/04/23 release 24 hr atorvastatin 10 mg tablet 10 mg PO DAILY 05/04/23 05/04/23 cholecalciferol (vitamin D3) 125 125 mcg PO DAILY 05/04/23 05/04/23 mcg (5,000 unit) capsule Previous Rx's Medication Instructions Recorded diltiazem HCl 240 mg 240 mg PO DAILY #30 caps 05/25/24 capsule,extended release 24 hr Allergies Allergy/AdvReac Type Severity Reaction Status Date / Time nitrofurantoin Allergy Mild HIVES Verified 01/07/22 16:41 [NITROFURANTOIN] Review of Systems Review of Systems Narrative: Pertinent positive and negative findings as per HPI Patient History Medical History (Updated 05/25/24 @ 10:22 by Ella Rojas MD) Chronic pain Mixed stress and urge urinary incontinence Dependent edema Dizziness, nonspecific Diverticulosis Breast cancer Memory impairment of gradual onset Rosacea Depression Hypothyroidism Nocturnal hypoxemia Hypertension Hyperlipidemia GERD (gastroesophageal reflux disease) Fatigue Anxiety COPD (chronic obstructive pulmonary disease) Obstructive sleep apnea of adult Insomnia Lumbar spinal stenosis Right hip pain Right leg pain Contusion of right leg Family History Other Anxiety Congestive heart failure Depression Diabetes mellitus Hypersomnia Hypertension Obesity Obstructive sleep apnea Snoring Substance abuse Social History details: lives in [place], sons live close by household members: spouse Smoking Status: Former smoker Tobacco: How many years used: 50 alcohol intake: never substance use type: does not use Smoking Status: Former smoker Substance Use Type: does not use Exam Initial Vital Signs Initial Vital Signs: Vital Signs Temperature 97.5 F L 05/25/24 04:37 Pulse Rate 72 05/25/24 04:37 Respiratory Rate 18 05/25/24 04:37 Blood Pressure 213/88 H 05/25/24 04:37 Pulse Oximetry 97 05/25/24 04:37 Oxygen Delivery Method Room Air 05/25/24 04:37 General: Older however Healthy appearing, in no acute distress. Able to give a complete and coherent history. Well-nourished well-developed HEENT: Moist mucous membranes, normal sclera with reactive pupils, Neck: No JVD, supple, no reproducible or radicular pain with neck palpation Respiratory: Lungs are clear to auscultation, no wheezing no rales no rhonchi. Full and symmetrical air movement Cardiac: Regular rate and rhythm no murmurs no bruits Abdomen: Soft, right flank pain without skin changes, left lower quadrant pain with some minor guarding but no rebound Skin: Warm and dry, no rashes Neurologic: Grossly neurologically intact with no obvious asymmetries or abnormalities Extremities: Left shoulder has tenderness along the AC joint, anterior portion of the shoulder and pain is reproduced with range of motion of the shoulder. Range of motion is minimally limited. She is neurovascularly intact distal to this Psych: Cooperative, appropriate insight and affect Course Orders Ordered: ED Orders 05/25/24 07:45 XR shoulder LT min 2V Stat 05/25/24 07:46 CT abdomen pelvis w con Stat XR chest 1V Stat EKG-12 Lead Stat 05/25/24 07:55 Complete Blood Count AUTO DIFF Stat Comprehensive Metabolic Panel Stat Lactate (Lactic Acid) Stat Troponin I Stat Urinalysis and Microscopic Stat Hydralazine HCl (Hydralazine 20 Mg/Ml Vial) 10 mg IV Q6HR PRN PRN Reason: Hypertension Last Admin: 05/25/24 09:17 Dose: 10 mg Documented By: RB Hydromorphone HCl (Hydromorphone 0.5 Mg Inj) 0.5 mg IV Q15MIN PRN PRN Reason: Pain, Last Admin: 05/25/24 08:05 Dose: 0.5 mg Documented By: RB Discontinued Medications Acetaminophen (Acetaminophen 325 Mg Tablet) 975 mg PO NOW ONE Stop: 05/25/24 07:46 Last Admin: 05/25/24 08:04 Dose: 975 mg Documented By: RB Clonidine HCl (Clonidine 0.1 Mg Tablet) 0.2 mg PO NOW ONE Stop: 05/25/24 07:46 Last Admin: 05/25/24 08:05 Dose: 0.2 mg Documented By: RB Diltiazem HCl (Diltiazem Cd 120 Mg Cap) 240 mg PO NOW ONE Stop: 05/25/24 07:46 Last Admin: 05/25/24 08:05 Dose: 240 mg Documented By: RB Vital Signs Vital signs: Vital Signs - 8 hr 05/25/24 04:37 05/25/24 06:51 05/25/24 06:53 Temperature 97.5 F L Pulse Rate 72 Respiratory Rate 18 Blood Pressure 213/88 H 210/92 H Pulse Oximetry 97 95 Oxygen Delivery Method Room Air 05/25/24 06:53 05/25/24 07:00 05/25/24 07:00 Temperature Pulse Rate 77 70 Respiratory Rate 18 Blood Pressure 200/86 H Pulse Oximetry 93 97 Oxygen Delivery Method 05/25/24 07:30 05/25/24 07:33 05/25/24 08:00 Temperature Pulse Rate 73 74 74 Respiratory Rate 27 H Blood Pressure Pulse Oximetry 93 94 94 Oxygen Delivery Method 05/25/24 08:05 05/25/24 08:41 05/25/24 09:00 Temperature Pulse Rate 76 82 72 Respiratory Rate 21 Blood Pressure 203/90 H Pulse Oximetry Oxygen Delivery Method 05/25/24 09:04 05/25/24 09:05 05/25/24 09:05 Temperature Pulse Rate 77 77 Respiratory Rate 27 H Blood Pressure 212/95 H Pulse Oximetry 93 92 Oxygen Delivery Method 05/25/24 09:16 05/25/24 09:16 05/25/24 09:17 Temperature Pulse Rate 71 74 Respiratory Rate 26 H Blood Pressure 184/77 H 212/95 H Pulse Oximetry 95 Oxygen Delivery Method Room Air 05/25/24 09:30 05/25/24 09:30 05/25/24 09:33 Temperature Pulse Rate 73 74 Respiratory Rate 22 18 Blood Pressure 164/73 H Pulse Oximetry 90 L Oxygen Delivery Method Room Air 05/25/24 09:33 05/25/24 09:45 05/25/24 09:45 Temperature Pulse Rate 71 Respiratory Rate 18 Blood Pressure 135/63 138/63 Pulse Oximetry 91 Oxygen Delivery Method 05/25/24 09:52 Temperature Pulse Rate 72 Respiratory Rate Blood Pressure 138/63 Pulse Oximetry Oxygen Delivery Method MDM - Back Pain/Injury Lab Data 05/25/24 07:55 05/25/24 07:55 Labs: Lab Results 05/25/24 Range/Units 07:55 WBC 8.4 (4.5-11.0) X10^3/uL RBC 5.37 H (4.0-5.2) X10^6/uL Hgb 15.6 (12.0-16.0) g/dL Hct 47.1 H (36-46) % MCV 87.6 (80-100) fL MCH 29.0 (26-34) PG MCHC 33.1 (30-36) % RDW 16.1 H (11.6-14.8) % Plt Count 275 (150-400) X10^3/uL Neut % (Auto) 69.0 (50-75) % Lymph % (Auto) 23.9 L (25-40) % [place] % (Auto) 4.9 (3-14) % Eos % (Auto) 1.6 L (2-4) % Baso % (Auto) 0.6 (0-2) % Neut # (Auto) 5800 (7206-4577) /uL Lymph # (Auto) 2000 (9946-2704) /uL [place] # (Auto) 400 (0-900) /uL Eos # (Auto) 100 (0-450) /uL Baso # (Auto) 100 (0-100) /uL Sodium 141 (137-145) mmol/L Potassium 3.7 (3.4-5.1) mmol/L Chloride 102 (98-107) mmol/L Carbon Dioxide 28 (22-32) mmol/L BUN 15 (7-17) mg/dL Creatinine 0.68 (0.52-1.04) mg/dL Estimated GFR > 60 (>60) mL/min BUN/Creatinine Ratio 22.1 H (6-22) Glucose 105 (80-110) mg/dL Lactate 1.0 (0.7-2.1) mmol/L Calcium 10.5 H (8.4-10.2) mg/dL Total Bilirubin 0.6 (0.2-1.3) mg/dL AST 38 H (14-36) IU/L ALT 26 (<35) IU/L Alkaline Phosphatase 106 (38-126) U/L Troponin I < 0.012 (0.01-0.034) ng/mL Total Protein 8.3 H (6.3-8.2) g/dL Albumin 5.1 H (3.5-5.0) g/dL Globulin 3.2 (1.7-4.1) g/dL Albumin/Globulin Ratio 1.6 (1.0-2.8) Urine Color Yellow Urine Appearance Clear Urine pH 7.5 (4.5-8.0) Ur Specific Walker 1.010 (1.000-1.035) Urine Protein Negative (Negative) Urine Glucose (UA) Negative (Negative) g/dL Urine Ketones Negative (NEGATIVE) Urine Occult Blood Negative (Negative) Urine Nitrate Negative (Negative) Urine Bilirubin Negative (NEGATIVE) Urine Urobilinogen 0.2 (0.2) E.U./dL Ur Leukocyte Esterase Negative (NEGATIVE) Urine RBC None seen (0-5/HPF) Urine WBC 0-1/hpf (0-5/HPF) Ur Squamous Epith Cells 0-1 /hpf (0-5/HPF) Urine Bacteria None seen (None) Ur Culture Indicated? Cult not indicated Vol Urine Centrifuged 10ml (spun) MDM Narrative Medical decision making narrative: CC: High blood pressure, left shoulder pain left chest tightness right flank pain Complicating co-morbidities: Hypertension, anxiety, hypothyroidism, reflux, hyperlipidemia Data collected from: patient, Medical records reviewed: Patient brings in most updated list of medications feeling her primary care physician's office. Differential considered: Single unifying diagnosis seems a bit less likely however shoulder arthritis, bursitis, calcific tendinitis, effusion for the shoulder pain, hypertensive crisis acute coronary syndrome NSTEMI for the left chest pain, abdominal obstruction, chronic constipation, colitis, kidney stone, diverticulitis possibility of referred pain from the upper abdomen exacerbating her left shoulder pain. Anxiety may be a secondary component exacerbating overall issues Exam documented above, pertinent findings include: Patient is alert and appropriate. Able to give a complete and coherent history. She does have range of motion tenderness suggesting bursitis or calcific tendinitis of the left shoulder. No reproducible upper chest wall pain. Right flank pain with no skin changes, surprising finding of left lower quadrant pain patient had a noted at until I examined her. She does not have lower extremity edema at this time Lab Test results independently reviewed as above. Pertinent findings: CBC is reassuring with no evidence of infection or acute anemia Chemistries are reassuring. Minimally elevated calcium at 10.5. Minimally elevated AST at 38. Urine shows no significant abnormalities, no blood, no suggestion of urinary tract infect Lactic acid is unremarkable Troponin is undetectable Independently reviewed EKG: Sinus rhythm at a rate of 76. QTC is noted at 510 milliseconds. No acute ischemic changes Imaging studies independently reviewed: X-ray of the shoulder shows no obvious abnormalities Chest x-ray shows chronic interstitial prominences with no acute findings CT scan of the abdomen shows moderate right-sided hydroureter and hydronephrosis with no cause of obstruction seen. No diverticulosis, chronic bony changes, moderate amount of stool appreciated Treatments: With continued blood pressure elevation, 10 mg of IV hydralazine is given Re-evaluations: After morning medications with double dose of her diltiazem blood pressure remains significantly elevated. Pain is improved with Tylenol Discussion: 83-year-old woman with complaints of elevated blood pressure. She has been working with Dr. Villalobos her primary care physician. She was given 240 mg of diltiazem which was double her usual dose. I did give her a single dose of IV hydralazine and blood pressure has come down nicely. The sensation of chest tightness has completely resolved Continues to have left shoulder pain no obvious abnormalities on x-ray. Suspect that this is a tendinitis or bursitis. She will review this with Dr. Villalobos Right flank pain and low back pain may be multifactorial. I think part of this is chronic. On CT scan there were some findings that might explain some of her symptoms. She had a mild hydronephrosis on the right with no explanation including stones, inflammation or obstructing masses. She also has a moderate amount of stool throughout the colon. She recently started MiraLax and has had some changes to her stool size and consistency because of this. Again, no obvious tumors or obstructing masses on the CT scan. No evidence of infection, abscess or acute surgical abnormalities.. Bony abnormalities appreciated on CT scan show T10 on T11 vertebral hemangiomas and mild degenerative changes. No acute findings reason for advanced imaging at this time Findings reviewed with the patient. We will ask her to keep her through week follow up with Dr. Villalobos. She has given a prescription for 240 mg of diltiazem with instructions to fill this only if she runs out of the 120 mg of diltiazem she currently has. Reviewed reasons to return to the emergency department. There was no indication for hospitalization at this time she is safe for discharge Discharge Plan Departure Patient Disposition: Home Clinical Impression: Acute pain of left shoulder, Acute right flank pain Hypertension Qualifiers: Hypertension type: primary hypertension Qualified Code(s): I10 - Essential (primary) hypertension Hydronephrosis Qualifiers: Hydronephrosis type: unspecified Qualified Code(s): N13.30 - Unspecified hydronephrosis Activity Restrictions/Additional Instructions: Thank you for coming in today Left shoulder pain: Your x-ray was unremarkable. I do not think that there is an infection involved. I suspect that this is either a bursitis or tendonitis. I would recommend icing the area. Please discuss this with your primary care doctor Right flank pain: There was no evidence of shingles but do watch your skin for any developing rash. You have some mild swelling to the ureter, the to between the kidney in the bladder. I suspect that this is chronic and not causing your pain. CT scan does not suggest infections, abscesses or reasons for surgical intervention. Abdominal pain: The CT scan also suggests still quite a bit of stool throughout your colon and this may be exacerbating your discomfort. I would recommend doubling your dose of MiraLax to see if we can get some of the stool to move. Regarding your blood pressure: I am going to ask you to double your current dose of diltiazem. You currently have pills that are 120 mg. Please take 2 of these until you run out. I have given you a new prescription for the 240 mg size if you run out before your prescription is refilled or before you see Dr. Villalobos. Continue to keep track of your blood pressures as you have been doing If you find that you are getting worse or develop any new symptoms, please feel free to return to the emergency department for further evaluation. Prescriptions: New diltiazem HCl 240 mg capsule,extended release 24hr 240 mg PO DAILY Qty: 30 0RF No Action omeprazole 20 mg Capsule,Delayed Release(Dr/Ec) 20 mg PO BID Qty: 0 Spiriva with HandiHaler 18 MCG capsule, w/inhalation device 2 cap inhalation DAILY Qty: 0 fluoxetine [Prozac] 40 MG capsule 40 mg PO DAILY Qty: 0 levothyroxine 50 MCG tablet 50 mcg PO QAM Qty: 0 tolterodine 2 mg capsule,extended release 24hr 2 mg PO DAILY Patient Comments: take 1 capsule by mouth once daily acetaminophen [Tylenol Extra Strength] 500 mg Tablet 1,000 mg PO DAILY PRN (Reason: pain) furosemide 20 mg tablet 20 mg PO DAILY PRN (Reason: Edema) Patient Comments: take 1 tablet by mouth once daily if needed polyethylene glycol 3350 [Miralax] 17 gram/dose Powder 17 g PO DAILY albuterol sulfate [ProAir HFA] 90 mcg/actuation Hfa Aerosol Inhaler 2 puff INHALATION Q4H PRN (Reason: Shortness Of Breath) telmisartan-hydrochlorothiazid 80-25 mg tablet 0.5 tab PO DAILY Patient Comments: take 1/2 tablet by mouth once daily atorvastatin 10 mg tablet 10 mg PO DAILY cholecalciferol (vitamin D3) 125 mcg (5,000 unit) capsule 125 mcg PO DAILY (DME) Respir[employer]Ev[employer] DreamStation BIPAP Qty: 1 Dose Instruction: As directed Patient Comments: Pressure: IPAP 12 EPAP 6 DME: [facility] Rx Instructions: As directed Referrals: Bertin Villalobos MD [Primary Care Provider] - Stand Alone Forms: Patient Portal/API
--- NOTE | 2024-05-25 07:45 | DI.RAD.S_ITS ---
PROCEDURE: XR SHOULDER LT MIN 2V INDICATIONS: left shoulder pain TECHNIQUE: 3 views of the shoulder were acquired. COMPARISON: [facility], , SHOULDER MINIMUM 2 VIEW LEFT, 03/15/2015, 11:12. FINDINGS: Bones: No fractures or dislocations. No suspicious bony lesions. Visualized ribs appear intact. Soft tissues: No suspicious soft tissue calcifications. IMPRESSION: No acute bony abnormality. Dictated by: Be Walker M.D. on 05/25/2024 at 9:04 Approved by: Be Walker M.D. on 05/25/2024 at 9:05
--- NOTE | 2024-05-25 07:46 | DI.CT.S_ITS ---
PROCEDURE: CT ABDOMEN PELVIS W CON INDICATIONS: Right flank and LLQ pain TECHNIQUE: After the administration of intravenous contrast, axial sections acquired from the lung bases to the pubic symphysis. Coronal and sagittal reformats were performed. For radiation dose reduction, the following was used: automated exposure control, adjustment of mA and/or kV according to patient size. COMPARISON: [facility], CT, CT ABDOMEN PELVIS W CON, 09/22/2019, 12:43. [facility], CR, XR CHEST 1V, 05/25/2024, 8:27. [facility], CR, XR SHOULDER LT MIN 2V, 05/25/2024, 8:27. [facility], CT, CT ABDOMEN PELVIS W CON, 09/11/2022, 9:38. FINDINGS: Image quality: There is artifact associated with the metallic hardware. Artifact from the metallic hardware is reduced by metal reconstruction algorithm. Lower Chest: No significant findings. ABDOMEN: Liver: No solid mass. Gallbladder: No radiopaque gallstones or wall thickening. Biliary ducts: No biliary dilation. Pancreas: No ductal dilation. Spleen: Size is within normal limits. Adrenal Glands: No adrenal nodules. Kidneys and Ureters: There is moderate right-sided hydroureter and hydronephrosis. No cause of obstruction is seen. There is mild left-sided hydronephrosis. No solid mass. No complex renal cystic lesion which requires follow up. Stomach and Bowel: In this patient with this given history, scrutiny is given to the sigmoid colon and the left lower quadrant of the abdomen. Scattered diverticula formation can be seen, yet diverticulitis. There is a [id number]-[id number] burden of stool seen within the colon. No dilated loops of small bowel are seen. Peritoneum: No abnormal intraperitoneal fluid. No free air. Ventral Wall: Rectus diastasis is noted. No significant ventral hernia. Abdominal Nodes: No retroperitoneal or mesenteric adenopathy by size criteria. Vessels: Aorta and inferior vena cava are normal in size. Atherosclerotic calcification is noted. PELVIS: Pelvic Organs: No adnexal masses are seen on either side. Bladder: No bladder wall thickening, accounting for underdistention. Pelvic Nodes: No enlarged lymph nodes. Miscellaneous: No inguinal hernias are seen. Bones: No aggressive osseous abnormality. T10 and T11 vertebral body hemangiomas seen. Focal L4-L5 and L5-S1 degenerative change can be seen. Milder degenerative changes are seen elsewhere. IMPRESSION: There is moderate right-sided hydroureter and hydronephrosis. However, no obstructing stone or other cause of obstruction is identified. Mild left-sided hydronephrosis is also seen, without a cause of obstruction. Scattered colonic diverticuli seen, yet without findings of diverticulitis or left lower quadrant inflammatory change. Additional findings: Lower thoracic spine hemangiomas Rectus diastasis, without nehal hernia Focal L4-L5 and L5-S1 degenerative change [id number] colonic stool burden Dictated by: Silviano Aly M.D. on 05/25/2024 at 8:08 Approved by: Silviano Aly M.D. on 05/25/2024 at 8:13
--- NOTE | 2024-05-25 07:46 | DI.RAD.S_ITS ---
PROCEDURE: XR CHEST 1V INDICATIONS: chest pain TECHNIQUE: One view of the chest was acquired. COMPARISON: [facility], CR, XR CHEST 2V, 02/26/2024, 12:53. FINDINGS: Surgical changes and devices: Left breast and axillary clips. Lungs and pleura: Chronic interstitial prominence. No pleural effusions or pneumothorax. Mediastinum: Mediastinal contours appear normal. Heart size is normal. Bones and chest wall: No suspicious bony lesions. Overlying soft tissues appear unremarkable. IMPRESSION: Chronic interstitial prominence. No acute process noted. Dictated by: Be Walker M.D. on 05/25/2024 at 9:03 Approved by: Be Walker M.D. on 05/25/2024 at 9:04
[2024-05-25 08:03] LABS: Add Manual Diff / Slide Review NO; Appearance Urine UA CLEAR; Basophils Absolute Auto 100 /uL (0-100); Basophils Percent Auto 0.6 % (0-2); Bilirubin Urine UA NEGATIVE (NEGATIVE); Color Urine UA YELLOW; Eosinophils Absolute Auto 100 /uL (0-450); Eosinophils Percent Auto 1.6 % (2-4); Glucose Urine UA NEGATIVE (Negative); Hematocrit 47.1 % (36-46); Hemoglobin 15.6 g/dL (12.0-16.0); Ketones Urine UA NEGATIVE (NEGATIVE); Leukocyte Esterase Urine UA NEGATIVE (NEGATIVE); Lymphocytes Absolute Auto 2000 /uL (1100-4500); Lymphocytes Percent Auto 23.9 % (25-40); Mean Corpuscular HGB Conc 33.1 % (30-36); Mean Corpuscular Volume 87.6 fL (80-100); Monocytes Absolute Auto 400 /uL (0-900); Monocytes Percent Auto 4.9 % (3-14); Neutrophils Absolute Auto 5800 /uL (1500-7000); Nitrite Urine UA NEGATIVE (Negative); Occult Blood Urine UA NEGATIVE (Negative); Platelet Count 275 X10^3/uL (150-400); Protein Urine UA NEGATIVE (Negative); Red Blood Cell Count 5.37 X10^6/uL (4.0-5.2); Red Cell Distribution Width 16.1 % (11.6-14.8); Urobilinogen Urine UA 0.2 E.U./dL (0.2); White Blood Cell Count 8.4 X10^3/uL (4.5-11.0)
[2024-05-25] MEDS: ACETAMINOPHEN 325 MG TABLET 975 MG PO (08:04)
[2024-05-25] MEDS: HYDROMORPHONE 0.5 MG INJ IV (08:05)
[2024-05-25] MEDS: dilTIAZem CD 120 MG CAP 240 MG PO (08:05)
[2024-05-25] MEDS: cloNIDine 0.1 MG TABLET 0.2 MG PO (08:05)
[2024-05-25 08:09] LABS: pH Urine UA 7.5 (4.5-8.0)
--- NOTE | 2024-05-25 08:10 | EKG_ITS ---
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
[2024-05-25 08:12] LABS: Bacteria Urine None Seen; Culture Indicated Urine Cult Not Indicated; RBC Urine None Seen (0-5/HPF); Squamous Epithelial Cell Urine 0-1 /HPF (0-5/HPF); Urine Volume 10mL (spun); WBC Urine 0-1/HPF (0-5/HPF)
[2024-05-25 08:13] LABS: Alanine Aminotransferase 26 IU/L (<35); Albumin 5.1 g/dL (3.5-5.0); Albumin Globulin Ratio 1.6 (1.0-2.8); Alkaline Phosphatase 106 U/L (38-126); Aspartate Aminotransferase 38 IU/L (14-36); BUN Creatinine Ratio 22.1 (6-22); Bilirubin Total 0.6 mg/dL (0.2-1.3); Blood Urea Nitrogen 15 mg/dL (7-17); Calcium 10.5 mg/dL (8.4-10.2); Carbon Dioxide 28 mmol/L (22-32); Chloride 102 mmol/L (98-107); Estimated Glomerular Filt Rate > 60 mL/min (>60); Globulin 3.2 g/dL (1.7-4.1); Glucose 105 mg/dL (80-110); HEMOLYSIS < 15 (0-50); Potassium 3.7 mmol/L (3.4-5.1); Sodium 141 mmol/L (137-145); Total Protein 8.3 g/dL (6.3-8.2)
[2024-05-25 08:25] LABS: Troponin I < 0.012 ng/mL (0.01-0.034)
[2024-05-25] MEDS: HYDRALAZINE 20 MG/ML VIAL 10 MG IV (09:17)
== END 2024-05-25 11:07 | disposition home or self-care (01) ==
PROVIDERS: Emergency Provider Emergency Medicine; Family Provider Family Medicine; PCP Family Medicine
DX: I10 Essential (primary) hypertension (principal); N13.30 Unspecified hydronephrosis; M25.512 Pain in left shoulder; R10.9 Unspecified abdominal pain; R07.9 Chest pain, unspecified
CPT/HCPCS: 36415; 71045; 73030; 74177; 80053; 81001; 83605; 84484; 85025; 93005; 96374; 96375; 99284; J0360; J1171

== ENCOUNTER → 2024-06-04 08:10 | Outpatient (CLI) | payer MEDICARE, OTHER, SELFPAY ==
[2023-04-11 14:32] VITALS: BMI 33.8
--- NOTE | 2024-06-04 | DI.MG.S_ITS ---
BILATERAL DIGITAL SCREENING MAMMOGRAM 3D/2D WITH CAD POST LUMPECTOMY: 06/04/2024 CLINICAL: Routine screening. Personal history of left breast cancer. Family history breast cancer. Comparison is made to exams dated: 05/28/2023 mammogram, 05/18/2022 mammogram, and 05/05/2021 mammogram - [facility]. There are scattered areas of fibroglandular density (category b / 25%-50% glandular tissue). Current study was also evaluated with a Computer Aided Detection (CAD) system. There are benign post operative findings in the left breast. No significant masses, calcifications, or other findings are seen in either breast. There has been no significant interval change. IMPRESSION: BENIGN There is no mammographic evidence of malignancy. A 1 year screening mammogram is recommended. This exam was interpreted at Station ID: [id number]. NOTE: For mammograms, a report in lay terms will be sent to the patient. Approximately 15% of breast malignancies will not be visualized mammographically. In the management of a palpable breast mass, a negative mammogram must not discourage biopsy of a clinically suspicious lesion. Electronically Signed By: Lila Liao M.D., Ph.D. rissa/emir:06/04/2024 14:05:49 letter sent: Normal Exam ACR BI-RADS Category 2: Benign
== END ==
PROVIDERS: Family Provider Family Medicine; PCP Family Medicine; Referring Provider Family Medicine; Visit Provider Family Medicine
DX: Z12.31 Encounter for screening mammogram for malignant neoplasm of breast (principal); Z85.3 Personal history of malignant neoplasm of breast; Z80.3 Family history of malignant neoplasm of breast
CPT/HCPCS: 77063; 77067

== ENCOUNTER → 2024-08-01 12:56 | Outpatient (CLI) | payer MEDICARE, OTHER, SELFPAY ==
[2023-04-11 14:32] VITALS: BMI 33.8
--- NOTE | 2024-08-01 13:00 | DI.CT.S_ITS ---
PROCEDURE: CT ANGIO ABDOMEN INDICATIONS: Poorly controlled HTN TECHNIQUE: After the administration of intravenous contrast, 2.5 mm sections acquired from the diaphragm to the iliac crests. 10 mm maximum intensity projection (MIP) coronal and sagittal reformats were then performed. For radiation dose reduction, the following was used: automated exposure control. COMPARISON: None. FINDINGS: Image quality: Diagnostic. Abdominal aorta: Diffuse wall calcifications. No stenosis, aneurysm, or dissection. There are bilateral hemodynamically significant calcified proximal common iliac artery stenoses. Mesenteric arteries: Moderate origin stenosis of the SMA. Celiac patent. GILL grossly patent. Renal arteries: Severe origin stenosis of the left main renal artery. No significant stenosis of the right renal artery. Lower chest: Unremarkable. ABDOMEN: Liver: No solid mass. Gallbladder: Somewhat distended gallbladder with mildly prominent wall. No calcified gallstones identified. Biliary ducts: No biliary dilation. Pancreas: No ductal dilation. Spleen: Size is within normal limits. Adrenal Glands: No adrenal nodules. Kidneys and Ureters: No hydronephrosis. No solid mass. No complex renal cystic lesion which requires follow up. Stomach and Bowel: Normal colonic caliber, without significant wall thickening. Diverticulosis without evidence of acute diverticulitis. Peritoneum: No abnormal intraperitoneal fluid. No free air. Ventral Wall: No hernia. Abdominal Nodes: No retroperitoneal or mesenteric adenopathy by size criteria. Vessels: Aorta, as above. Normal IVC. PELVIS: Pelvic Organs: Unremarkable. Bladder: Unremarkable. Pelvic Nodes: No enlarged lymph nodes. Miscellaneous: No inguinal hernias are seen. Bones: No aggressive osseous abnormality. IMPRESSION: 1. Severe, hemodynamically significant origin stenosis of the proximal left renal artery. Right renal artery patent. 2. Moderate SMA stenosis. 3. Bilateral hemodynamically significant proximal common iliac artery stenosis. Dictated by: Be Walker M.D. on 08/01/2024 at 15:55 Approved by: Be Walker M.D. on 08/01/2024 at 16:01
[2024-08-01 13:25] LABS: Estimated Glomerular Filt Rate > 60 mL/min (>60)
== END ==
PROVIDERS: Radiology Diagnostic Radiology; Family Provider Family Medicine; PCP Family Medicine; Referring Provider Family Medicine; Visit Provider Family Medicine
DX: I70.1 Atherosclerosis of renal artery (principal); K55.1 Chronic vascular disorders of intestine; I70.203 Unspecified atherosclerosis of native arteries of extremities, bilateral legs; I10 Essential (primary) hypertension; K57.90 Diverticulosis of intestine, part unspecified, without perforation or abscess without bleeding
CPT/HCPCS: 36415; 74175; 82565; Q9967

== ENCOUNTER 2024-08-06 10:46 | Observation (INO) | payer MEDICARE, OTHER, SELFPAY ==
[2023-04-11 14:32] VITALS: BMI 33.8
[2024-08-06] VITALS (20 sets, daily range): BP systolic 167–198; BP diastolic 52–81; PULSE 52–74; RESP 10–34; TEMP 36.3–36.6; O2SAT 93–100; BMI 31.8; BMI 31.0
--- NOTE | 2024-08-06 10:50 | DI.RAD.S_ITS ---
PROCEDURE: XR CHEST 1V INDICATIONS: Possible stroke TECHNIQUE: One view of the chest was acquired. COMPARISON: [facility], CR, XR CHEST 1V, 05/25/2024, 8:27. FINDINGS: Surgical changes and devices: Left breast and axillary clips. Lungs and pleura: Lungs are clear. Mild chronic interstitial prominence. No pleural effusions or pneumothorax. Mediastinum: Mediastinal contours appear normal. Heart size is normal. Bones and chest wall: No suspicious bony lesions. Overlying soft tissues appear unremarkable. IMPRESSION: No acute cardiopulmonary abnormality is seen. Dictated by: Be Walker M.D. on 08/06/2024 at 12:16 Approved by: Be Walker M.D. on 08/06/2024 at 12:17
--- NOTE | 2024-08-06 10:50 | DI.CT.S_ITS ---
PROCEDURE: CT STROKE INDICATIONS: Positive BE-FAST, Stroke symptoms TECHNIQUE: Noncontrast 4.5 mm thick angled axial sections acquired from the foramen magnum to the vertex, with coronal reformats. For radiation dose reduction, the following was used: automated exposure control, adjustment of mA and/or kV according to patient size. COMPARISON: None. FINDINGS: Image quality: Diagnostic. CSF spaces: Basal cisterns are patent. No extra-axial fluid collections. The ventricles are symmetric in size and shape. Brain: No intracranial bleeds or masses. There is cerebral volume loss for age, with resultant ventricular and sulcal prominence. There are moderate to severe periventricular and deep white matter chronic small vessel ischemic changes. There is intracranial internal carotid artery atherosclerosis. Skull and face: Calvarium and visualized facial bones appear intact, without suspicious lesions. Sinuses: Visualized sinuses and mastoids are clear. IMPRESSION: No acute intracranial pathology. Comment: Findings were discussed with Dr Murrell on 08/06/2024 at 1107 hours This study fulfills neurological imaging criteria for inclusion or exclusion of acute stroke therapies based on available published neurological guidelines. Dictated by: Be Walker M.D. on 08/06/2024 at 11:05 Approved by: Be Walker M.D. on 08/06/2024 at 11:08
--- NOTE | 2024-08-06 10:51 | DI.CT.S_ITS ---
PROCEDURE: CT ANGIO HEAD AND NECK INDICATIONS: stroke TECHNIQUE: After the administration of intravenous contrast, 1 mm thick sections acquired from the aortic arch through the [place]. 3-dimensional hzzwhre-ckwmruzio-yruowjrntt (MIP) and/or volume rendering reformats were acquired of the central intracranial vasculature and neck separately. For radiation dose reduction, the following was used: automated exposure control, adjustment of mA and/or kV according to patient size. COMPARISON: [facility], MR, MR HEAD/BRAIN WO/W CON, 09/28/2023, 16:28. [facility], CT, CT STROKE, 08/06/2024, 10:50. FINDINGS: Image quality: Diagnostic. BRAIN: CSF spaces: Ventricles are normal in size and shape. Basal cisterns are patent. No extra-axial fluid collections. Brain: Age-related volume loss and moderate to severe small vessel ischemic change. No acute intracranial abnormality noted.. Skull and face: Calvarium and facial bones appear intact, without suspicious lesions. Orbits appear normal. Sinuses: Sinuses and mastoids are clear. HEAD CT ANGIOGRAPHY: Anterior circulation: Intracranial internal carotid arteries are normal in size and flow. The flow within the paired anterior cerebral arteries is normal and symmetric. The flow within the middle cerebral arteries is normal and symmetric. The anterior communicating artery is seen. No aneurysms are seen. 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 Right vertebral artery is dominant and widely patent, giving rise to a normal caliber basilar artery. Flow within the posterior cerebral arteries is normal and symmetric. No aneurysms are seen. NECK CT ANGIOGRAPHY: Carotid system: The great vessels demonstrate a conventional anatomy as they arise from the aortic arch. The origins of the common carotid arteries appear patent. The common carotid arteries demonstrate normal caliber and courses. The bifurcation regions are both widely patent. The internal carotid arteries demonstrate normal calibers and courses. 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 Right vertebral artery is dominant and widely patent, giving rise to a normal caliber basilar artery. Soft tissues: Visualized neck soft tissues demonstrate no suspicious abnormalities. Bones: No suspicious bony lesions. Visualized cervical spine appears normally aligned. Diffuse cervical spondylosis. Multilevel disc bulges. Shallow superior disc protrusion at C3-C4. IMPRESSION: 1. 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 2. No other significant intracranial arterial abnormality is seen. No significant abnormality is seen within the arteries of the neck. Any quantitative measurements of stenosis were performed using NASCET criteria. Dictated by: Be Walker M.D. on 08/06/2024 at 12:01 Approved by: Be Walker M.D. on 08/06/2024 at 12:13
--- NOTE | 2024-08-06 11:02 | PC.NURSE ---
This RN went with EMS to CT with patient. This RN came back with patient in stretcher to room 8. Primary nurse to patient report from EMS.
--- NOTE | 2024-08-06 11:05 | EKG_ITS ---
[place] [id number] [place] [id number] Test Date: 2024-08-06 Pat Name: Christina Odonnell Department: [facility] Room: Gender: Female [employer] Hand: ROHAN : 1940 Requested By: Order Number: [id number] Reading MD: Leon Stone MD Measurements Intervals Bryan Rate: 55 P: 52 MD: 180 QRS: 20 QRSD: 102 T: 40 QT: 514 QTc: 491 Interpretive Statements Sinus bradycardia Cannot rule out Anterior infarct , age undetermined Electronically Signed On 08-07-2024 6:56:19 PST by Leon Stone MD
[2024-08-06 11:09] LABS: Add Manual Diff / Slide Review NO; Basophils Absolute Auto 100 /uL (0-100); Basophils Percent Auto 0.7 % (0-2); Eosinophils Absolute Auto 100 /uL (0-450); Eosinophils Percent Auto 1.3 % (2-4); Hematocrit 43.3 % (36-46); Hemoglobin 14.2 g/dL (12.0-16.0); Lymphocytes Absolute Auto 1900 /uL (1100-4500); Lymphocytes Percent Auto 19.5 % (25-40); Mean Corpuscular HGB Conc 32.8 % (30-36); Mean Corpuscular Hemoglobin 28.8 PG (26-34); Mean Corpuscular Volume 87.8 fL (80-100); Monocytes Absolute Auto 500 /uL (0-900); Monocytes Percent Auto 5.5 % (3-14); Neutrophils Absolute Auto 7100 /uL (1500-7000); Platelet Count 336 X10^3/uL (150-400); Prothrombin Time 11.2 SECONDS (9.4-12.5); Red Blood Cell Count 4.93 X10^6/uL (4.0-5.2); Red Cell Distribution Width 14.6 % (11.6-14.8); White Blood Cell Count 9.7 X10^3/uL (4.5-11.0)
--- NOTE | 2024-08-06 11:09 | ED.NEUROSD ---
HPI - Neuro Symptoms/Deficit General Chief Complaint: Neuro Symptoms/Deficit Stated Complaint: Code Stroke Time Seen by Provider: 08/06/24 10:48 History of Present Illness HPI Narrative: Patient brought in by ambulance from home for concern of slurred speech and confusion. Blood sugar 141. Fast exam is negative here. Patient brought immediately to CT scan imaging for code stroke. Patient denies any headache. No chest pain. No nausea vomiting diarrhea. No numbness tingling or weakness to the limbs. Patient does have history of hyperlipidemia and hypertension. No prior history of stroke. Last well no 9:45 a.m. today. checked her oxygen saturation and it was fine. Checked her sugar and it was fine as well. Related Data Home Medications Medication Instructions Recorded Confirmed omeprazole 20 mg capsule,delayed 20 mg PO BID ##0 04/06/10 08/06/24 release tiotropium bromide 18 mcg capsule 2 cap inhalation DAILY ##0 09/01/17 08/06/24 with inhalation device (Spiriva with HandiHaler) fluoxetine 40 mg capsule (Prozac) 40 mg PO DAILY ##0 09/02/17 08/06/24 levothyroxine 50 mcg tablet 50 mcg PO QAM ##0 09/02/17 08/06/24 Respironics DreamStation BIPAP #1 ea 10/15/18 08/06/24 acetaminophen 500 mg tablet 1,000 mg PO DAILY PRN pain 10/03/19 08/06/24 (Tylenol Extra Strength) tolterodine 2 mg capsule,extended 2 mg PO DAILY 10/03/19 08/06/24 release 24 hr atorvastatin 10 mg tablet 10 mg PO DAILY 05/04/23 08/06/24 cholecalciferol (vitamin D3) 125 125 mcg PO DAILY 05/04/23 08/06/24 mcg (5,000 unit) capsule chlorthalidone 25 mg tablet 25 mg PO DAILY 08/06/24 08/06/24 clonazepam 0.5 mg tablet 0.2 mg PO BID 08/06/24 08/06/24 clonidine HCl 0.2 mg tablet 0.2 mg PO BID 08/06/24 08/06/24 metoprolol succinate 25 mg 25 mg PO DAILY 08/06/24 08/06/24 tablet,extended release 24 hr Previous Rx's Medication Instructions Recorded diltiazem HCl 240 mg 240 mg PO DAILY #30 caps 05/25/24 capsule,extended release 24 hr Allergies Allergy/AdvReac Type Severity Reaction Status Date / Time nitrofurantoin Allergy Mild HIVES Verified 01/07/22 16:41 [NITROFURANTOIN] Review of Systems Review of Systems Narrative: GENERAL: Negative chills, fatigue, malaise, fever, sweats. HEENT: Negative sinus pain, ear pain, sore throat RESPIRATORY: Negative dyspnea, cough CARDIOVASCULAR: Negative chest pain, palpitations GASTROINTESTINAL: Negative nausea, vomiting, abdominal pain : Negative dysuria, frequency, hematuria MUSCULOSKELETAL: Negative muscle or bony pain SKIN: Negative rash, skin lesions NEUROLOGIC: Negative weakness, numbness, positive slurred speech no facial droop no headache ROS Unobtainable: All systems reviewed & are unremarkable except as noted in HPI and below Patient History Medical History Chronic pain Mixed stress and urge urinary incontinence Dependent edema Dizziness, nonspecific Diverticulosis Breast cancer Memory impairment of gradual onset Rosacea Depression Hypothyroidism Nocturnal hypoxemia Hypertension Hyperlipidemia GERD (gastroesophageal reflux disease) Fatigue Anxiety COPD (chronic obstructive pulmonary disease) Obstructive sleep apnea of adult Insomnia Lumbar spinal stenosis Right hip pain Right leg pain Contusion of right leg Family History Other Anxiety Congestive heart failure Depression Diabetes mellitus Hypersomnia Hypertension Obesity Obstructive sleep apnea Snoring Substance abuse Social History details: lives in [place], sons live close by household members: spouse Smoking Status: Former smoker Tobacco: How many years used: 50 alcohol intake: never substance use type: does not use Smoking Status: Former smoker Exam Narrative Exam Narrative: GENERAL: in no distress, not toxic not dyspneic HEAD: Normocephalic. EYES: Pupils equal round ENT: Mucous membranes moist. NECK: Trachea midline. CARDIOVASCULAR: Regular rate and rhythm RESPIRATORY: Clear to auscultation. Breath sounds equal bilaterally. No wheezes, rales, or rhonchi. GASTROINTESTINAL: Abdomen soft, non-tender EXTREMITIES: No gross deformities. BACK: No flank tenderness. NEURO: AOx4. Fast exam is negative. Clear speech no facial droop strong equal news analyst. Negative pronator drift [id number] intact. Lift each leg off bed without drift. SKIN: Warm and dry PSYCH: Not anxious, is cooperative Initial Vital Signs Initial Vital Signs: Vital Signs Pulse Rate 59 L 08/06/24 11:00 Respiratory Rate 16 08/06/24 11:00 Pulse Oximetry 94 08/06/24 11:00 Scores NIH Stroke Scale Level of Conciousness: Alert, keenly responsive Ask month/age: Answers both questions correctly. Open/close eyes, close hand: Performs both tasks correctly Best gaze horizontal: Normal Visual suarez: No visual loss Facial palsy: Normal symetrical movement Left arm drift: No drift for full 10 sec Right arm drift: No drift for full 10 sec Left leg drift: No drift for full 5 sec Right leg drift: No drift for full 5 sec Limb ataxia: Absent Sensory on face/arms/legs: Normal, no sensory loss Best language: No aphasia, normal Dysarthria: Normal Extinction or inattention: No abnormality Total NIH Stroke scale score: 0 Course Orders Ordered: Acetaminophen (Acetaminophen 325 Mg Tablet) 650 mg PO Q6H PRN PRN Reason: Fever/Mild Pain (1-3) Last Admin: 08/07/24 09:44 Dose: 650 mg Documented By: Admin: 08/06/24 18:56 Dose: 650 mg Documented By: ANDRESSA Hydrocodone Bitart/Acetaminophen (Hydrocodone/Acet 5/325 Tablet) 1 tab PO Q4H PRN PRN Reason: Pain, Moderate (4-6) Al Hydrox/Mg Hydrox/Simethicone (Mag Hydrox/Alum/Simeth 30 Ml Udc) 30 ml PO Q6HR PRN PRN Reason: Dyspepsia Atorvastatin Calcium (Atorvastatin 20 Mg Tablet) 20 mg PO BEDTIME [facility] Last Admin: 08/07/24 20:42 Dose: 20 mg Documented By: Admin: 08/06/24 20:17 Dose: 20 mg Documented By: JOLEEN Chlorthalidone (Chlorthalidone 25 Mg Tablet) 25 mg PO DAILY [facility] Last Admin: 08/08/24 08:53 Dose: 25 mg Documented By: Admin: 08/07/24 09:35 Dose: 25 mg Documented By: JUSTIN Clonazepam (Clonazepam 0.5 Mg Tablet) 0.25 mg PO BID [facility] Last Admin: 08/08/24 08:33 Dose: 0.25 mg Documented By: Admin: 08/07/24 20:44 Dose: Not Given Documented By: Admin: 08/07/24 09:35 Dose: 0.25 mg Documented By: Admin: 08/06/24 21:01 Dose: Not Given Documented By: JOLEEN Clonidine HCl (Clonidine 0.1 Mg Tablet) 0.2 mg PO BID [facility] Last Admin: 08/08/24 08:33 Dose: 0.2 mg Documented By: Admin: 08/07/24 20:44 Dose: Not Given Documented By: Admin: 08/07/24 09:36 Dose: 0.2 mg Documented By: Admin: 08/06/24 20:17 Dose: 0.2 mg Documented By: JOLEEN Clopidogrel Bisulfate (Clopidogrel 75 Mg Tablet) 75 mg PO DAILY [facility] Last Admin: 08/08/24 08:33 Dose: 75 mg Documented By: Admin: 08/07/24 09:09 Dose: 75 mg Documented By: JUSTIN Diltiazem HCl (Diltiazem Cd 120 Mg Cap) 240 mg PO DAILY [facility] Last Admin: 08/08/24 08:33 Dose: 240 mg Documented By: Admin: 08/07/24 09:09 Dose: 240 mg Documented By: JUSTIN Fluoxetine HCl (Fluoxetine 20 Mg Capsule) 40 mg PO DAILY [facility] Last Admin: 08/08/24 08:32 Dose: 40 mg Documented By: Admin: 08/07/24 09:35 Dose: 40 mg Documented By: JUSTIN Ipratropium [place] (Ipratropium 0.5 Mg/2.5 Ml Neb) 0.5 mg INH Q4HRWA [facility] Last Admin: 08/08/24 08:05 Dose: Not Given Documented By: Admin: 08/07/24 21:00 Dose: Not Given Documented By: Admin: 08/07/24 17:47 Dose: Not Given Documented By: Admin: 08/07/24 12:30 Dose: Not Given Documented By: Admin: 08/07/24 08:15 Dose: Not Given Documented By: Admin: 08/06/24 21:37 Dose: Not Given Documented By: Ipratropium [place] (Ipratropium 0.5 Mg/2.5 Ml Neb) 0.5 mg INH Q2H PRN PRN Reason: Shortness Of Breath Levothyroxine Sodium (Levothyroxine 50 Mcg Tablet) 50 mcg PO 0600 [facility] Last Admin: 08/08/24 05:24 Dose: 50 mcg Documented By: Admin: 08/07/24 06:15 Dose: 50 mcg Documented By: JOLEEN Magnesium Hydroxide (Magnesium Hydroxide 30 Ml Udc) 30 ml PO DAILY PRN PRN Reason: Constipation Metoprolol Succinate (Metoprolol Er 25 Mg Tablet) 25 mg PO DAILY [facility] Last Admin: 08/07/24 09:35 Dose: 25 mg Documented By: JUSTIN Naloxone HCl (Naloxone 0.4 Mg/Ml Vial) 0.2 mg IV Q2MIN PRN PRN Reason: Opiate Reversal Nitroglycerin (Nitroglycerin Oint 1 Inch/Gm Oint...G.) 0.5 inch TOP NOW PRN PRN Reason: Hypertension Last Admin: 08/06/24 18:57 Dose: 0.5 inch Documented By: ANDRESSA Ondansetron HCl (Ondansetron 4 Mg/2 Ml Inj) 4 mg IV Q8HR PRN PRN Reason: Nausea And Vomiting Oxybutynin Chloride (Oxybutynin 5 Mg Er Tab) 5 mg PO DAILY [facility] Last Admin: 08/08/24 08:33 Dose: 5 mg Documented By: Admin: 08/07/24 09:35 Dose: 5 mg Documented By: JUSTIN Pantoprazole Sodium (Pantoprazole Dr 20 Mg Tablet) 20 mg PO BID [facility] Last Admin: 08/08/24 08:33 Dose: 20 mg Documented By: Admin: 08/07/24 20:42 Dose: 20 mg Documented By: Admin: 08/07/24 09:35 Dose: 20 mg Documented By: Admin: 08/06/24 20:17 Dose: 20 mg Documented By: JOLEEN Sodium Chloride (Sodium Chloride 0.9% Flush) 10 ml IV PRN PRN PRN Reason: Flush Sodium Chloride (Sodium Chloride 0.9% Flush) 10 ml IV BID [facility] Last Admin: 08/08/24 08:53 Dose: 10 ml Documented By: Admin: 08/07/24 20:59 Dose: 10 ml Documented By: Admin: 08/07/24 09:36 Dose: 10 ml Documented By: Admin: 08/06/24 20:18 Dose: 10 ml Documented By: JOLEEN Discontinued Medications Aspirin (Aspirin Ec 325 Mg Tablet) 325 mg PO NOW ONE Stop: 08/06/24 11:32 Last Admin: 08/06/24 11:48 Dose: 325 mg Documented By: JANINE Clonazepam (Clonazepam 0.5 Mg Tablet) 0.2 mg PO BID [facility]AR[facility] Clopidogrel Bisulfate (Clopidogrel 75 Mg Tablet) 300 mg PO NOW ONE Stop: 08/06/24 11:32 Last Admin: 08/06/24 11:48 Dose: 300 mg Documented By: JANINE Sodium Chloride (Normal Saline 0.9%) 500 mls @ 1,000 mls/hr IV BOLUS ONE Stop: 08/06/24 11:42 Last Infusion: 08/06/24 12:17 Dose: Infused Documented By: Admin: 08/06/24 11:23 Dose: 1,000 mls/hr Documented By: JANINE Ondansetron HCl (Ondansetron 4 Mg/2 Ml Inj) 4 mg IV NOW PRN PRN Reason: Nausea And Vomiting Ondansetron HCl (Ondansetron 4 Mg Odt) 4 mg SL NOW PRN PRN Reason: Nausea And Vomiting Potassium Chloride (Potassium Chloride 20 Meq Tab) 40 meq PO NOW ONE Stop: 08/08/24 07:13 Last Admin: 08/08/24 08:38 Dose: 40 meq Documented By: DOLORES Vital Signs Vital signs: Vital Signs - 8 hr 08/06/24 11:00 08/06/24 11:01 08/06/24 11:01 Temperature Pulse Rate 59 L 74 Respiratory Rate 16 16 Blood Pressure 170/72 H Pulse Oximetry 94 93 Oxygen Delivery Method 08/06/24 11:04 08/06/24 11:30 08/06/24 11:31 Temperature 97.8 F Pulse Rate 74 57 L 56 L Respiratory Rate 16 26 H 25 H Blood Pressure 170/52 H Pulse Oximetry 95 93 94 Oxygen Delivery Method Room Air 08/06/24 11:31 08/06/24 12:00 08/06/24 12:01 Temperature Pulse Rate 55 L Respiratory Rate 29 H Blood Pressure 179/72 H 169/71 H Pulse Oximetry 93 Oxygen Delivery Method 08/06/24 12:01 08/06/24 12:30 08/06/24 12:30 Temperature Pulse Rate 54 L 53 L Respiratory Rate 29 H 34 H Blood Pressure 179/76 H Pulse Oximetry 93 96 Oxygen Delivery Method 08/06/24 13:00 08/06/24 13:03 08/06/24 13:03 Temperature Pulse Rate 60 57 L Respiratory Rate 25 H 10 L Blood Pressure 174/72 H Pulse Oximetry 99 Oxygen Delivery Method MDM - Neuro Symptoms/Deficit Lab Data 08/08/24 05:23 08/08/24 05:23 Labs: Lab Results 08/06/24 Range/Units 10:51 WBC 9.7 (4.5-11.0) X10^3/uL RBC 4.93 (4.0-5.2) X10^6/uL Hgb 14.2 (12.0-16.0) g/dL Hct 43.3 (36-46) % MCV 87.8 (80-100) fL MCH 28.8 (26-34) PG MCHC 32.8 (30-36) % RDW 14.6 (11.6-14.8) % Plt Count 336 (150-400) X10^3/uL Neut % (Auto) 73.0 (50-75) % Lymph % (Auto) 19.5 L (25-40) % Morgan % (Auto) 5.5 (3-14) % Eos % (Auto) 1.3 L (2-4) % Baso % (Auto) 0.7 (0-2) % Neut # (Auto) 7100 H (7783-4808) /uL Lymph # (Auto) 1900 (5206-4495) /uL Morgan # (Auto) 500 (0-900) /uL Eos # (Auto) 100 (0-450) /uL Baso # (Auto) 100 (0-100) /uL PT 11.2 (9.4-12.5) SECONDS INR 1.0 (0.9-1.3) APTT 31 (25.1-36.5) SECONDS Sodium 139 (137-145) mmol/L Potassium 3.8 (3.4-5.1) mmol/L Chloride 100 (98-107) mmol/L Carbon Dioxide 34 H (22-32) mmol/L BUN 27 H (7-17) mg/dL Creatinine 0.80 (0.52-1.04) mg/dL Estimated GFR > 60 (>60) mL/min BUN/Creatinine Ratio 33.8 H (6-22) Glucose 90 (80-110) mg/dL Calcium 9.7 (8.4-10.2) mg/dL Magnesium 1.9 (1.6-2.3) mg/dL Total Bilirubin 0.5 (0.2-1.3) mg/dL AST 33 (14-36) IU/L ALT 23 (<35) IU/L Alkaline Phosphatase 91 (38-126) U/L Total Creatine Kinase 52 (30-135) U/L Troponin I < 0.012 (0.01-0.034) ng/mL Total Protein 7.2 (6.3-8.2) g/dL Albumin 4.4 (3.5-5.0) g/dL Globulin 2.8 (1.7-4.1) g/dL Albumin/Globulin Ratio 1.6 (1.0-2.8) Point of Care Testing Glucose POC [address] scan - head: Radiologist's Impression: [address] [address] [address] Scan Report Signed Patient: Christina Odonnell MR#: [id number] : 1940 Acct:[id number] Age/Sex: 84 / F Date of Service: 08/06/24 Loc: ED Accession Number: [id number] Procedure: CT Stroke Ordering Provider: Herrera Murrell MD PROCEDURE: CT STROKE INDICATIONS: Positive BE-FAST, Stroke symptoms TECHNIQUE: Noncontrast 4.5 mm thick angled axial sections acquired from the foramen magnum to the vertex, with coronal reformats. For radiation dose reduction, the following was used: automated exposure control, adjustment of mA and/or kV according to patient size. COMPARISON: None. FINDINGS: Image quality: Diagnostic. CSF spaces: Basal cisterns are patent. No extra-axial fluid collections. The ventricles are symmetric in size and shape. Brain: No intracranial bleeds or masses. There is cerebral volume loss for age, with resultant ventricular and sulcal prominence. There are moderate to severe periventricular and deep white matter chronic small vessel ischemic changes. There is intracranial internal carotid artery atherosclerosis. Skull and face: Calvarium and visualized facial bones appear intact, without suspicious lesions. Sinuses: Visualized sinuses and mastoids are clear. IMPRESSION: No acute intracranial pathology. Comment: Findings were discussed with Dr Murrell on 08/06/2024 at 1107 hours This study fulfills neurological imaging criteria for inclusion or exclusion of acute stroke therapies based on available published neurological guidelines. Dictated by: Be Walker M.D. on 08/06/2024 at 11:05 Approved by: Be Walker M.D. on 08/06/2024 at 11:08 CTA - brain/neck: Radiologist's Impression: [address] [address] [address] Scan Report Signed Patient: Christina Odonnell MR#: [id number] : 1940 Acct:[id number] Age/Sex: 84 / F Date of Service: 08/06/24 Loc: ED Accession Number: [id number] Procedure: CT angio head and neck Ordering Provider: Herrera Murrell MD PROCEDURE: CT ANGIO HEAD AND NECK INDICATIONS: stroke TECHNIQUE: After the administration of intravenous contrast, 1 mm thick sections acquired from the aortic arch through the [place] of [place]. 3-dimensional fomlooa-svljkbtkk-swnroycoln (MIP) and/or volume rendering reformats were acquired of the central intracranial vasculature and neck separately. For radiation dose reduction, the following was used: automated exposure control, adjustment of mA and/or kV according to patient size. COMPARISON: [facility], MR, MR HEAD/BRAIN WO/W CON, 09/28/2023, 16:28. [facility], CT, CT STROKE, 08/06/2024, 10:50. FINDINGS: Image quality: Diagnostic. BRAIN: CSF spaces: Ventricles are normal in size and shape. Basal cisterns are patent. No extra-axial fluid collections. Brain: Age-related volume loss and moderate to severe small vessel ischemic change. No acute intracranial abnormality noted.. Skull and face: Calvarium and facial bones appear intact, without suspicious lesions. Orbits appear normal. Sinuses: Sinuses and mastoids are clear. HEAD CT ANGIOGRAPHY: Anterior circulation: Intracranial internal carotid arteries are normal in size and flow. The flow within the paired anterior cerebral arteries is normal and symmetric. The flow within the middle cerebral arteries is normal and symmetric. The anterior communicating artery is seen. No aneurysms are seen. 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 Right vertebral artery is dominant and widely patent, giving rise to a normal caliber basilar artery. Flow within the posterior cerebral arteries is normal and symmetric. No aneurysms are seen. NECK CT ANGIOGRAPHY: Carotid system: The great vessels demonstrate a conventional anatomy as they arise from the aortic arch. The origins of the common carotid arteries appear patent. The common carotid arteries demonstrate normal caliber and courses. The bifurcation regions are both widely patent. The internal carotid arteries demonstrate normal calibers and courses. 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 Right vertebral artery is dominant and widely patent, giving rise to a normal caliber basilar artery. Soft tissues: Visualized neck soft tissues demonstrate no suspicious abnormalities. Bones: No suspicious bony lesions. Visualized cervical spine appears normally aligned. Diffuse cervical spondylosis. Multilevel disc bulges. Shallow superior disc protrusion at C3-C4. IMPRESSION: 1. 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 2. No other significant intracranial arterial abnormality is seen. No significant abnormality is seen within the arteries of the neck. Any quantitative measurements of stenosis were performed using NASCET criteria. Dictated by: Be Walker M.D. on 08/06/2024 at 12:01 Approved by: Be Walker M.D. on 08/06/2024 at 12:13 Chest x-ray: Radiologist's Impression: [place] [address] XRay Report Signed Patient: Christina Odonnell MR#: [id number] : 1940 Acct:[id number] Age/Sex: 84 / F Date of Service: 08/06/24 Loc: ED Accession Number: [id number] Procedure: XR chest 1V Ordering Provider: Herrera Murrlel MD PROCEDURE: XR CHEST 1V INDICATIONS: Possible stroke TECHNIQUE: One view of the chest was acquired. COMPARISON: [facility], , XR CHEST 1V, 05/25/2024, 8:27. FINDINGS: Surgical changes and devices: Left breast and axillary clips. Lungs and pleura: Lungs are clear. Mild chronic interstitial prominence. No pleural effusions or pneumothorax. Mediastinum: Mediastinal contours appear normal. Heart size is normal. Bones and chest wall: No suspicious bony lesions. Overlying soft tissues appear unremarkable. IMPRESSION: No acute cardiopulmonary abnormality is seen. Dictated by: Be Walker M.D. on 08/06/2024 at 12:16 Approved by: Be Walker M.D. on 08/06/2024 at 12:17 [facility] Narrative Medical decision making narrative: Patient brought in by ambulance from home for concern of slurred speech and confusion. Blood sugar 141. Fast exam is negative here. Patient brought immediately to CT scan imaging for code stroke. Patient denies any headache. No chest pain. No nausea vomiting diarrhea. No numbness tingling or weakness to the limbs. Patient does have history of hyperlipidemia and hypertension. No prior history of stroke. Last well known 9:45 a.m. today. checked her oxygen saturation and it was fine. Checked her sugar and it was fine as well After history and exam CT head CT angio head and neck CBC CMP EKG [facility] Medical records reviewed: No recent visit for this complaint Differential considered: Includes but not limited to TIA stroke seizure Lab Test results independently reviewed as above. Pertinent findings: WBC 9.7 hemoglobin 14.2 sodium 139 potassium 3.8 BUN 27 creatinine 0.8 GFR greater than 60 glucose 90 Independently reviewed EKG sinus bradycardia rate 55 Imaging studies independently reviewed: CT head no acute finding CT angiogram head neck no acute finding chest x-ray no acute finding Consultations: 11:[address] Walker, radiologist, CT head without contrast no acute finding 11:32 a.m.. Spoke with [facility] tele stroke, Dr. Nolasco, she is reviewed imaging and angiogram. Recommends aspirin and Plavix. However no TNK or tPA. No transfer indicated at this time. Recommends admission observation MRI echocardiogram 2:05 p.m.. Spoke with primary care Dr. Villalobos, who will admit patient Treatments: Normal saline Plavix aspirin Re-evaluations: 11:40 a.m.. Updated patient has been results and I will try get them admitted for bouts of workup for TIA stroke. Patient does use oxygen at home as needed for COPD. Discussion: Appropriate for admission. We will need balance workup for TIA/stroke. I did review with tele stroke as well. Diagnosis: TIA Discharge Plan Departure Patient Disposition: Admitted as Observation Clinical Impression: Transient cerebral ischemia Qualifiers: Transient cerebral ischemia type: unspecified Qualified Code(s): G45.9 - Transient cerebral ischemic attack, unspecified Admit Date/Time: 08/06/24 14:59 Admit Provider: eBrtin Villalobos
[2024-08-06 11:12] LABS: PTT Partial Thromboplastin Tim 31 SECONDS (25.1-36.5)
[2024-08-06 11:13] LABS: Alanine Aminotransferase 23 IU/L (<35); Albumin 4.4 g/dL (3.5-5.0); Albumin Globulin Ratio 1.6 (1.0-2.8); Alkaline Phosphatase 91 U/L (38-126); Aspartate Aminotransferase 33 IU/L (14-36); BUN Creatinine Ratio 33.8 (6-22); Bilirubin Total 0.5 mg/dL (0.2-1.3); Blood Urea Nitrogen 27 mg/dL (7-17); Calcium 9.7 mg/dL (8.4-10.2); Carbon Dioxide 34 mmol/L (22-32); Chloride 100 mmol/L (98-107); Creatine Kinase 52 U/L (30-135); Estimated Glomerular Filt Rate > 60 mL/min (>60); Globulin 2.8 g/dL (1.7-4.1); Glucose 90 mg/dL (80-110); HEMOLYSIS < 15 (0-50); Magnesium 1.9 mg/dL (1.6-2.3); Potassium 3.8 mmol/L (3.4-5.1); Sodium 139 mmol/L (137-145); Total Protein 7.2 g/dL (6.3-8.2)
[2024-08-06] MEDS: SODIUM CHLORIDE 0.9% 500 ML 1000 ML IV (11:23)
[2024-08-06 11:25] LABS: Troponin I < 0.012 ng/mL (0.01-0.034)
[2024-08-06] MEDS: ASPIRIN EC 325 MG TABLET PO (11:48)
[2024-08-06] MEDS: CLOPIDOGREL 75 MG TABLET 300 MG PO (11:48)
--- NOTE | 2024-08-06 17:28 | PC.NURSE ---
Admit Note Patient arrived to room 208 from ER at 1508. SBA from stretcher to bed, steady on feet. Pt alert and oriented x4. NIH 0, pt reports that she does not feel back to normal and that her head is still a little funny, also reports her throat feels scratchy and has an intermittent non-productive cough. Order received for resp panel which was collected and sent to lab. On 3L NC per baseline home oxygen, SpO2 92-94%. Denies shortness of breath, denies pain. Placed on tele, SB in the 40-50s with prolonged QT. Oriented to room and to call light/tv/bed controls. Call light within reach, using appropriately to make needs known.
[2024-08-06 17:43] LABS: Adenovirus Not Detected (Not Detect); B. parapertussis Not Detected (Not Detecte); Bordetella pertussis Not Detected (Not Detect); Chlamydophila pneumoniae Not Detected (Not Detect); Coronavirus 229E Not Detected (Not Detect); Coronavirus HKU1 Not Detected (Not Detect); Coronavirus NL 63 Not Detected (Not Detect); Coronavirus OC43 Not Detected (Not Detect); Human Metapneumovirus Not Detected (Not Detect); Human Rhinovirus/Enterovirus Not Detected (Not Detect); Influenza A Not Detected (Not Detect); Influenza B Not Detected (Not Detect); Mycoplasma pneumoniae Not Detected (Not Detect); Parainfluenza Virus 1 Not Detected (Not Detect); Parainfluenza Virus 2 Not Detected (Not Detect); Parainfluenza Virus 3 Not Detected (Not Detect); Parainfluenza Virus 4 Not Detected (Not Detect); Respiratory Syncytial Virus Not Detected (Not Detect); SARS- CoV-2 Not Detected (Not Detecte)
--- NOTE | 2024-08-06 18:18 | DI.ECHO.S_ITS ---
[facility] : : [address] : : [place] : : [id number] : : Phone: [phone] Echocardiogram Report + + :Name: RD HU Study Date: 08/07/2024 Height: 62 in : :[facility] ReadingLocation: Weight: 174 lb : : Gender: Female BSA: 1.8 m2 : :: 1940 Age: 84 yrs BP: 151/49 mmHg: :Reason For Study: TIA : :Ordering Physician: BRYCE, : :TAYLOR Performed By: Lida Antonio : :Referring: TAYLOR WU : + + Interpretation Summary The left ventricle is normal in size and wall thickness. The ejection fraction is estimated to be 55-60%. There are no focal wall motion abnormalities. The right ventricle is mildly dilated. The right ventricular systolic function is normal. The right ventricular systolic pressure is estimated to be at least 42 mmHg based on an estimated right atrial pressure of 3 mm Hg. The left atrium is mildly dilated. The right atrium is mildly dilated. There is mild mitral regurgitation. There is mild to moderate aortic regurgitation. The aortic root is normal size. No obvious source for cardioembolic TIA. Procedure: A two-dimensional transthoracic echocardiogram with color flow and Doppler was performed. Comparison is made with the echocardiogram of 10/04/2019. The study quality was technically difficult. The patient was in sinus bradycardia with heart rates between 49-51 bpm during the exam. Left Ventricle: The left ventricle is normal in size and wall thickness. The ejection fraction is estimated to be 55-60%. There are no focal wall motion abnormalities. Right Ventricle: The right ventricle is mildly dilated. The right ventricular systolic function is normal. Atria: The left atrium is mildly dilated. The right atrium is mildly dilated. There is no Doppler evidence for an interatrial shunt. Mitral Valve: The mitral valve leaflets appear borderline thickened, but open well. There is mild mitral regurgitation. Aortic Valve: The aortic valve is trileaflet. The aortic valve opens well. The aortic valve is mildly calcified. There is no aortic valve stenosis. There is mild to moderate aortic regurgitation. Tricuspid Valve: The tricuspid valve leaflets are thin and pliable. There is mild tricuspid regurgitation. The right ventricular systolic pressure is estimated to be at least 42 mmHg based on an estimated right atrial pressure of 3 mm Hg. Pulmonic Valve: The pulmonic valve is not well visualized. There is no pulmonic valvular regurgitation. Great Vessels: The aortic root is normal size. The ascending aorta could not be visualized. The IVC is of normal diameter and collapses greater than 50% with a sniff. This suggests a low right atrial pressure of 3 mm Hg. Pericardium/ Pleura There is no pericardial effusion. There is no pleural effusion. MMode/2D Measurements & Calculations LVIDd: 4.9 cm LVOT diam: 2.0 cm LVIDs: 3.6 cm Ao root diam: 2.8 cm FS: 26.1 % Ao Arch Diam (Prox Trans): 2.8 cm EPSS: 0.62 cm IVSd: 0.68 cm LVPWd: 0.64 cm LV alvarado. diameter/BSA (cm/m^2): 2.7 LV sys. diameter/BSA (cm/m^2): 2.0 LA A2 area: 23.4 cm2 RA long axis: 5.3 cm LA A4 area: 20.5 cm2 RA area: 19.8 cm2 LA length (vol): 5.6 cm RA vol: 63.1 ml LA vol: 73.2 ml RA : 35.0 ml/m2 LA vol index: 40.6 ml/m2 IVC diam: 1.3 cm RVD1 (basal): 4.5 cm TAPSE: 2.0 cm Doppler Measurements & Calculations Ao V2 max: 155.9 cm/sec LVOT Max Luis A: 106.4 cm/sec Ao V2 mean: 117.4 cm/sec LV V1 max P.5 mmHg Ao max P.7 mmHg LV V1 VTI: 25.1 cm Ao mean P.0 mmHg BASHIR(I,D): 2.2 cm2 Ao V2 VTI: 38.0 cm BASHIR(V,D): 2.2 cm2 sev ratio: 0.66 BASHIR indexed to BSA (cm^2/m^2): 1.2 AI P1/2t: 792.3 msec AI dec slope: 129.1 cm/sec2 MV E max luis a: 110.4 cm/sec TR max luis a: 311.2 cm/sec MV A max luis a: 99.7 cm/sec TR max P.7 mmHg MV E/A: 1.1 PA V2 max: 81.0 cm/sec Med Peak E' Luis A: 8.4 cm/sec PA V2 mean: 59.7 cm/sec E/E' med: 13.2 PA mean P.6 mmHg Lat Peak E' Luis A: 8.3 cm/sec PA pr(Accel): 1.9 mmHg E/E' lat: 13.2 E/e' average: 13.2 MV dec time: 0.23 sec SV(OT): 81.7 ml Reading Physician:03:25 PM
--- NOTE | 2024-08-06 18:21 | P.HP_ITS ---
History of Present Illness History of Present Illness Date Patient Seen: 08/06/24 Time Patient Seen: 18:21 Date of Onset of Symptoms: 08/06/24 Chief complaint: Code Stroke Narrative: Patient is a 84-year-old female well known to me who presents with acute-onset word-finding issues and confusion with mild weakness. Apparently patient was cooking this morning and was working with her and suddenly she is called out and when he got to her she was leaning against the counter kind of with a days look unable to express words. Should no definitive weakness of 1 side or the other she had no facial droop no facial changes he sat her down and she is still struggling to find words and seems like she was is confused. She did not have any headaches. No chest pain no palpitations. Patient has had difficulty controlling her blood pressure over the last several months. We have been adjusting medications pretty frequently without real adequate control never getting blood pressure below 150. She otherwise has felt well. Symptoms lasted approximately until she got to the emergency room maybe 2 hours and then we are gone. Feeling completely normal today. She has otherwise had no other significant new changes or complaints. No fevers no chills has had a little runny nose. But otherwise no change. [facility] Medical History Chronic pain Mixed stress and urge urinary incontinence Dependent edema Dizziness, nonspecific Diverticulosis Breast cancer Memory impairment of gradual onset Rosacea Depression Hypothyroidism Nocturnal hypoxemia Hypertension Hyperlipidemia GERD (gastroesophageal reflux disease) Fatigue Anxiety COPD (chronic obstructive pulmonary disease) Obstructive sleep apnea of adult Insomnia Lumbar spinal stenosis Right hip pain Right leg pain Contusion of right leg Family History Other Anxiety Congestive heart failure Depression Diabetes mellitus Hypersomnia Hypertension Obesity Obstructive sleep apnea Snoring Substance abuse Social History details: lives in [place], sons live close by household members: spouse Smoking Status: Former smoker Tobacco: How many years used: 50 alcohol intake: never substance use type: does not use Meds Home Medications and Allergies Home Medications Medication Instructions Recorded Confirmed Type omeprazole 20 mg capsule,delayed 20 mg PO BID ##0 04/06/10 08/06/24 History release tiotropium bromide 18 mcg capsule 2 cap inhalation DAILY ##0 09/01/17 08/06/24 History with inhalation device (Spiriva with HandiHaler) fluoxetine 40 mg capsule (Prozac) 40 mg PO DAILY ##0 09/02/17 08/06/24 History levothyroxine 50 mcg tablet 50 mcg PO QAM ##0 09/02/17 08/06/24 History Respironics DreamStation BIPAP #1 ea 10/15/18 08/06/24 History acetaminophen 500 mg tablet 1,000 mg PO DAILY PRN pain 10/03/19 08/06/24 History (Tylenol Extra Strength) tolterodine 2 mg capsule,extended 2 mg PO DAILY 10/03/19 08/06/24 History release 24 hr atorvastatin 10 mg tablet 10 mg PO DAILY 05/04/23 08/06/24 History cholecalciferol (vitamin D3) 125 125 mcg PO DAILY 05/04/23 08/06/24 History mcg (5,000 unit) capsule diltiazem HCl 240 mg 240 mg PO DAILY #30 caps 05/25/24 08/06/24 Rx capsule,extended release 24 hr chlorthalidone 25 mg tablet 25 mg PO DAILY 08/06/24 08/06/24 History clonazepam 0.5 mg tablet 0.2 mg PO BID 08/06/24 08/06/24 History clonidine HCl 0.2 mg tablet 0.2 mg PO BID 08/06/24 08/06/24 History metoprolol succinate 25 mg 25 mg PO DAILY 08/06/24 08/06/24 History tablet,extended release 24 hr Allergies Allergy/AdvReac Type Severity Reaction Status Date / Time nitrofurantoin Allergy Mild HIVES Verified 01/07/22 16:41 [NITROFURANTOIN] Review of Systems Review of Systems Narrative: Review of systems negative except above Exam Vital Signs (past 8 hours): - 08/06/24 11:00 08/06/24 11:01 08/06/24 11:01 Temperature Pulse Rate 59 L 74 Respiratory Rate 16 16 Blood Pressure 170/72 H Pulse Oximetry 94 93 Oxygen Delivery Method Oxygen Flow Rate 08/06/24 11:04 08/06/24 11:30 08/06/24 11:31 Temperature 97.8 F Pulse Rate 74 57 L 56 L Respiratory Rate 16 26 H 25 H Blood Pressure 170/52 H Pulse Oximetry 95 93 94 Oxygen Delivery Method Room Air Oxygen Flow Rate 08/06/24 11:31 08/06/24 12:00 08/06/24 12:01 Temperature Pulse Rate 55 L Respiratory Rate 29 H Blood Pressure 179/72 H 169/71 H Pulse Oximetry 93 Oxygen Delivery Method Oxygen Flow Rate 08/06/24 12:01 08/06/24 12:30 08/06/24 12:30 Temperature Pulse Rate 54 L 53 L Respiratory Rate 29 H 34 H Blood Pressure 179/76 H Pulse Oximetry 93 96 Oxygen Delivery Method Oxygen Flow Rate 08/06/24 13:00 08/06/24 13:03 08/06/24 13:03 Temperature Pulse Rate 60 57 L Respiratory Rate 25 H 10 L Blood Pressure 174/72 H Pulse Oximetry 99 Oxygen Delivery Method Oxygen Flow Rate 08/06/24 13:30 08/06/24 13:31 08/06/24 13:31 Temperature Pulse Rate 57 L 55 L Respiratory Rate 23 14 Blood Pressure 188/74 H Pulse Oximetry 100 100 Oxygen Delivery Method Nasal Cannula Nasal Cannula Oxygen Flow Rate 3 3 08/06/24 14:00 08/06/24 14:01 08/06/24 14:01 Temperature Pulse Rate 55 L 54 L Respiratory Rate 21 13 Blood Pressure 192/77 H Pulse Oximetry 98 98 Oxygen Delivery Method Nasal Cannula Nasal Cannula Oxygen Flow Rate 3 3 08/06/24 14:30 08/06/24 14:31 08/06/24 14:31 Temperature Pulse Rate 52 L 53 L Respiratory Rate 20 20 Blood Pressure 198/81 H Pulse Oximetry 99 99 Oxygen Delivery Method Nasal Cannula Nasal Cannula Oxygen Flow Rate 3 3 08/06/24 15:05 08/06/24 15:28 Temperature 97.3 F L Pulse Rate 57 L Respiratory Rate 18 Blood Pressure 173/57 H Pulse Oximetry 93 Oxygen Delivery Method Nasal Cannula Oxygen Flow Rate 3 Oxygen Delivery Method Nasal Cannula Oxygen Flow Rate 3 Narrative Exam Narrative: Alert elderly female in no acute distress HEENT exam shows pupils are equal responsive to light EOMI is intact no lateral gaze nystagmus posterior pharynx normal neck supple without adenopathy JVD or bruits lungs are actually pretty clear today heart is regular rate and rhythm without murmurs clicks rubs or gallops abdomen is soft positive bowel sounds nontender extremities without cyanosis clubbing edema. Neurologic exam shows cranial nerves 2-12 are intact motor is 5/5 reflexes 2+ and symmetric [id number] is normal. I did not check gait or Romberg Objective Labs 08/06/24 10:51 08/06/24 10:51 Labs: Laboratory Results - last 24 hr 08/06/24 08/06/24 10:51 16:37 WBC 9.7 RBC 4.93 Hgb 14.2 Hct 43.3 MCV 87.8 MCH 28.8 MCHC 32.8 RDW 14.6 Plt Count 336 Neut % (Auto) 73.0 Lymph % (Auto) 19.5 L [place] % (Auto) 5.5 Eos % (Auto) 1.3 L Baso % (Auto) 0.7 Neut # (Auto) 7100 H Lymph # (Auto) 1900 [place] # (Auto) 500 Eos # (Auto) 100 Baso # (Auto) 100 PT 11.2 INR 1.0 APTT 31 Sodium 139 Potassium 3.8 Chloride 100 Carbon Dioxide 34 H BUN 27 H Creatinine 0.80 Estimated GFR > 60 BUN/Creatinine Ratio 33.8 H Glucose 90 Calcium 9.7 Magnesium 1.9 Total Bilirubin 0.5 AST 33 ALT 23 Alkaline Phosphatase 91 Total Creatine Kinase 52 Troponin I < 0.012 Total Protein 7.2 Albumin 4.4 Globulin 2.8 Albumin/Globulin Ratio 1.6 Chlamy pneumoniae PCR Not detected Adenovirus (PCR) Not detected B. pertussis DNA (PCR) Not detected B.parapertussis DNA PCR Not detected Coronavirus OC43 (PCR) Not detected Coronavirus HKU1 (PCR) Not detected Coronavirus 229E (PCR) Not detected SARS-CoV-2 (PCR) Not detected Coronavirus NL63 (PCR) Not detected Human Metapneumovir PCR Not detected Influenza Type A (PCR) Not detected Influenza Type B (PCR) Not detected M. pneumoniae (PCR) Not detected Parainfluenza 1 (PCR) Not detected Parainfluenza 2 (PCR) Not detected Parainfluenza 3 (PCR) Not detected Parainfluenza 4 (PCR) Not detected RSV (PCR) Not detected Entero/Rhino (PCR) Not detected Assessment & Plan Assessment & Plan narrative: TIA. Appears to be resolved. Certainly concerning. Patient's CT am shows no bleed or other changes. CTA does show some vascular changes in the vertebral side on the left. Maybe this could be related to her dizziness a little bit but I do not know if it would give her speech changes. Will have to see what MRI shows. She has been started on Plavix. She has not been taking her aspirin she eventually will be go back on aspirin and will see how she does. Certainly I hope we can get her blood pressure and better control once we get her renal artery controlled. No other significant change. I do not really want her blood pressure below 150 I am not so that we could do that. And will follow. MRI and echo tomorrow. Uncontrolled hypertension. Probably secondary to renovascular disease. We discussed this at this point will start her usual medicines and follow. If blood pressure gets above 170 will add nitro paste and hope we can get it in the 150s I would be happy in the 150s to 160. Not normal but at least that is her usual space. And I do not think it will do a much better job until we get her kidney looked at. She understands questions answered COPD. Oxygen dependent will continue her oxygen at 2 L she usually only uses it when she mostly moves but will just keep it on due to her stroke make sure she gets adequate oxygenation. Overall she seems to be actually breathing pretty well will continue usual care. Hypothyroidism. Continue usual Synthroid. Code status no code. DVT prophylaxis should be fine with sequential hose. Will see how things go. Disposition. I suspect will be here until Sunday morning but if she were doing well on all test negative tomorrow she can go home at that time. 60 minutes spent with ER doc nursing patient dictation orders Time-Based Coding :: [TOTAL MINUTES] spent with patient and on the chart (including review of chart, obtaining history, exam, reviewing outside data, placing orders, documenting exam and treatment plan, and counseling patient) on [DATE].
[2024-08-06] MEDS: ACETAMINOPHEN 325 MG TABLET 650 MG PO (18:56)
[2024-08-06] MEDS: NITROGLYCERIN OINT 1 INCH/GM OINT...G. 0.5 INCH TOP (18:57)
[2024-08-06] MEDS: ATORVASTATIN 20 MG TABLET PO (20:17)
[2024-08-06] MEDS: cloNIDine 0.1 MG TABLET 0.2 MG PO (20:17)
[2024-08-06] MEDS: PANTOPRAZOLE DR 20 MG TABLET PO (20:17)
[2024-08-06] MEDS: SODIUM CHLORIDE 0.9% FLUSH 10 ML IV (20:18)
[2024-08-07] VITALS (10 sets, daily range): BP systolic 127–153; BP diastolic 38–116; PULSE 46–67; RESP 18–20; TEMP 35.9–36.3; O2SAT 92–98
--- NOTE | 2024-08-07 01:56 | PC.NURSE ---
Patient is alert and oriented. Does seem to have slight slur when speaking; NIH = 1. [place] but states she no longer wears hearing aids. Breath sounds CTA with RA sat of 94% but does use oxygen at home intermittently and was placed on CPAP with O2 bled in for sleep. HR irregular with telemetry reading of SR w/1st degree AVB, occasional PVC's and prolonged QT. Denied nausea. BT present and states she has a BM every day. Is voiding on toilet and denied any dysuria, frequency, urgency or incontinence. Is able to turn herself in bed. Up to bathroom with SBA and walker. Did have SCD's placed but around 2300 requested they be left off as was unable to sleep with them on. Did have tylenol on previous shift with pain decreasing to 2/10 at reassessment and denied any pain at time of shift assessment. Skin tear to left elbow; bandaid coming off so replaced with an allevyn dressing. Fall risk score is high and bed alarm is activated as patient forgets to call for assistance.
[2024-08-07] MEDS: LEVOTHYROXINE 50 MCG TABLET PO (06:15)
[2024-08-07 07:14] LABS: BUN Creatinine Ratio 30.1 (6-22); Blood Urea Nitrogen 22 mg/dL (7-17); Calcium 9.4 mg/dL (8.4-10.2); Carbon Dioxide 32 mmol/L (22-32); Chloride 100 mmol/L (98-107); Estimated Glomerular Filt Rate > 60 mL/min (>60); Glucose 101 mg/dL (80-110); HEMOLYSIS < 15 (0-50); Potassium 3.4 mmol/L (3.4-5.1); Sodium 138 mmol/L (137-145)
[2024-08-07] MEDS: CLOPIDOGREL 75 MG TABLET PO (09:09)
[2024-08-07] MEDS: dilTIAZem CD 120 MG CAP 240 MG PO (09:09)
[2024-08-07] MEDS: PANTOPRAZOLE DR 20 MG TABLET PO ×2 (09:35→20:42)
[2024-08-07] MEDS: OXYBUTYNIN 5 MG ER TAB PO (09:35)
[2024-08-07] MEDS: METOPROLOL ER 25 MG TABLET PO (09:35)
[2024-08-07] MEDS: clonazePAM 0.5 MG TABLET 0.25 MG PO (09:35)
[2024-08-07] MEDS: FLUoxetine 20 MG CAPSULE 40 MG PO (09:35)
[2024-08-07] MEDS: CHLORTHALIDONE 25 MG TABLET PO (09:35)
[2024-08-07] MEDS: SODIUM CHLORIDE 0.9% FLUSH 10 ML IV ×2 (09:36→20:59)
[2024-08-07] MEDS: cloNIDine 0.1 MG TABLET 0.2 MG PO (09:36)
[2024-08-07] MEDS: ACETAMINOPHEN 325 MG TABLET 650 MG PO (09:44)
--- NOTE | 2024-08-07 10:40 | PT.IIE ---
Medical History (Last Reviewed 08/06/24 @ 18:24 by Bertin Villalobos MD) Anxiety Breast cancer Chronic pain Contusion of right leg COPD (chronic obstructive pulmonary disease) Dependent edema Depression Diverticulosis Dizziness, nonspecific Fatigue GERD (gastroesophageal reflux disease) Hyperlipidemia Hypertension Hypothyroidism Insomnia Lumbar spinal stenosis Memory impairment of gradual onset Mixed stress and urge urinary incontinence Nocturnal hypoxemia Obstructive sleep apnea of adult Right hip pain Right leg pain Rosacea Physical Therapy Inpatient Evaluation/Re-Eval M1 PT/OT-IP Prior Functional Status Start: 08/07/24 08:07 Freq: NEEDED Status: Active Protocol: Document 08/07/24 08:57 MB (Rec: 08/07/24 09:43 MB [id number]) Medical Review Prior Functional Status Medical History Reviewed Yes Diet/Fluid Consistency Regular Communication Pt is hyperverbal and tends not to answer questions directly and she has trouble answering about any acute changes in balance, vision, swallowing, speaking in the past 24-48 hours Mobility and Gait Mod I with walking stick or rollator and reports of two bad falls recently. Pt reports she is I with bathing, dressing and does some driving . Pt states that she has some double vision when looking far to the left and states this is not new. Pt has a lot of coughing today after eating breakfast and neither pt nor can state if this is her baseline or not. Activities of Daily Living and IADL's See above Social History Household Members spouse Living Arrangements House Number of Floors (Floors) One Floor Number of Stairs To Enter/Railing? 4 steps with B rail through garage to enter home Home Environment Standard Height Toilet,Walk in Shower Home Equipment Front Wheel Walker,Four Wheel Walker,Shower Seat with Backrest,Hand Held Shower,Grab Bars Near Toilet,Grab Bars In Shower Employment Status Retired Additional Social History Comment Pt states that she has walking sticks, pt states that she has COPD and uses CPAP and 3L O2 occ at home M2 PT-IP Current Condition Start: 08/07/24 08:07 Freq: NEEDED Status: Active Protocol: Document 08/07/24 08:57 MB (Rec: 08/07/24 09:43 MB [id number]) Physical Therapy Current Condition Current Condition Evaluation Date 08/07/24 Treatment Diagnosis R/o stroke d/t confusion, trouble verbalizing, pt reports recent falls M3 PT-IP Subjective Start: 08/07/24 08:07 Freq: NEEDED Status: Active Protocol: Document 08/07/24 08:57 MB (Rec: 08/07/24 09:43 MB [id number]) Subjective Physical Therapy Visit Type Type Initial Evaluation Visit Start Time 08:57 Visit Stop Time 09:26 Number of CHIEF OF VITAL STATISTICS Visits 0 Physical Therapy Visit Comments Patient Comments Pt states she wants some more coffee Therapy Pain Assessment Pain When Pain Assessed At Rest Pain Present Pain Present Pain Reported Location headache Scale Used Left shoulder issues M4 PT-IP Mobility and Gait Start: 08/07/24 08:07 Freq: NEEDED Status: Active Protocol: Document 08/07/24 08:57 MB (Rec: 08/07/24 09:43 MB [id number]) PT-Bed Mobility Assessment Rolling Type of Rolling Roll to Left Level of Assist Moderate Assistance Supine to Sit Supine to Sit Moderate Assistance,1 Person Assistance,Head of Bed Elevated,Bedrails Scooting Scooting to Edge of Bed Contact Guard Assistance PT-Transfer Assessment Sit to and From Stand Sit to and from Stand Minimal Assistance Equipment Transfer Assistive Device None Orthotic/Prosthetic Devices or Brace: No Transfers Transfer Destination Chair Transfer Technique Stepping Transfer Ability Level of Assist Minimal Assistance Comments Mobility Comments PT provides REVIEW[employer] on right to see how pt's balance and stepping is as far as looking for ataxia, pt has right hip impairment and limited motion that makes gait pattern more antalgic and she has LOB posterior with turning to the right today Gait Assessment Gait Gait Assistance Required: Minimum Assistance Distance (Feet) 10 Able to Maintain Weight Bearing Status Yes During Gait Assistive Devices Assistive Device None Orthotic/Prosthetic Devices or Brace: No Gait Deviations General Gait Pattern Antalgic,Decreased Stride Length,Decreased Feet Clearance,Flexed Trunk Factors Limiting Gait Function Factors Limiting Gait Function Incoordination,Limited Range of Motion,Poor Balance,Poor Safety Awareness Comments Gait Comments RE[employer] right hand to observe gait quality as described above PT-Balance Assessment Sitting Balance and Reactions Static Sitting Balance Ability Good Dynamic Sitting Balance Ability Fair Standing Balance and Reactions Static Standing Balance Ability Fair Dynamic Standing Balance Ability Poor Device Used REVIEWER SAL[employer] M5 PT-IP Objective Assessments Start: 08/07/24 08:07 Freq: NEEDED Status: Active Protocol: Document 08/07/24 08:57 MB (Rec: 08/07/24 10:39 MB [id number]) Orientation Orientation/Cognition Level of Alertness Alert Orientation Name,Age,Birthday,Month,Date, Year,Day of Week,Place, Situation Language Function Ability Word Finding Difficulties Safety Awareness Decreased Safety Awareness Comments Pt is hyperverbal and does not answer recent PLOF fully Gross Range of Motion Upper Extremity ROM Assessment Left Impaired Impairments Defer to OT, pt reports history of left shoulder issues Lower Extremity ROM Assessment Bilaterally Impaired Impairments Functionally, severely limited right hip adduction and flexion in sitting and pt cannot perform heel slide with right heel up ramirez or tap right foot over left foot for coordination testing; decreased B foot mobility including toes ankle ankle DF Strength Lower Extremity Strength Assessment Bilaterally Impaired Comments Strength Comments Pt presents with decreased B toe and ankle range and MMT, right hip motion is very limited and pt does not follow MMT commands well, B knees appear functional Coordination Assessment Assessment Coordination Comments Pt cannot tolerate LE coordination d/t severe limitations right hip, left LE is mildly dysmetric with toe tapping activity Sensation Assessment Comments Sensation Comments Pt denies paresthesias Muscle Tone Muscle Tone WNL Yes M6 PT-IP Treatment Start: 08/07/24 08:07 Freq: NEEDED Status: Active Protocol: Document 08/07/24 08:57 MB (Rec: 08/07/24 10:39 MB [id number]) Physical Therapy Treatment Education Education Provided Safety M7 PT-IP Assessment and Plan Start: 08/07/24 08:07 Freq: NEEDED Status: Active Protocol: Document 08/07/24 08:57 MB (Rec: 08/07/24 10:39 MB [id number]) PT Summary Assessment and Plan Potential Rehabilitation Potential Good Status of Condition at Evaluation Evolving Summary Impairments Pain,ROM,Strength,Balance, Coordination,Cognition,Bed Mobility,Transfers,Gait, Activity Tolerance Progress Towards Goals Slow Progress - Other Assessment Summary Pt is an 84 y/o female presenting with severe coughing throughout treatment after breakfast today. She has word-finding challenges and some confusion. She reports recent history of two bad falls. She cannot fully state what has changed in the past 24-48 hours as far as double vision complaints and coughing after eating and is also not clear. PT cannot appreciate spontaneous nystagmus and she has end- range gaze evoked nystagmus B that appears grossly functional for age. Pt has decreased right hip movement after previous surgery and this limits ataxia and coordination testing today. She has LOB posterior with turning. Her diastolic BP drops and is low and she is light-headed with getting up. O2 sats on RA are 91-96% and pt is dyspneic on RA with mobility in setting of COPD and intermittent O2 use at home. BP and HR LUE: supine 132/56, 64; standing 120/44, 69; standing 1' 127/38, 67. MRI is pending. Recommend 24 hour superv and PT at d/c. Anticipate ADAPTED PHYSICAL EDUCATION AIDE and OT consults . Goals Bed Mobility Goal Independent Transfer Goal Independent,Front Wheeled Walker,Four Wheeled Walker Gait Goal Independent,Front Wheel Walker ,Four Wheel Walker Gait Distance 75 Other Goals Pt will ascend and descend 4 steps with two rails to allow safe home entrance. Days to Meet Goals 5 Frequency of Treatment Frequency Of Treatment Once a Day Treatment Plan Physical Therapy Treatment Plan Bed Mobility Training,Transfer Training,Gait Training, Therapeutic Exercise,Balance Retraining,Discharge Planning, Hot or Cold Pack,Neuromuscular Re-ed,Coordination Retraining ,Manual Therapy Precautions Other Precautions Fall risk, keep an eye on vitals Recommendations To Nursing Amount of Assist Needed 1 Person Assist Discharge Recommendations Other Discharge Recommendations Unsure disposition location currently, 24 hour super and PT at d/c, await OT and ADAPTED PHYSICAL EDUCATION AIDE consults and MRI results Transportation Needs at Discharge Private Vehicle
--- NOTE | 2024-08-07 12:18 | OT.IP.EVAL ---
Past Medical History (Last Reviewed 08/06/24 @ 18:24 by Bertin Villalobos MD) Anxiety Breast cancer Chronic pain Contusion of right leg COPD (chronic obstructive pulmonary disease) Dependent edema Depression Diverticulosis Dizziness, nonspecific Fatigue GERD (gastroesophageal reflux disease) Hyperlipidemia Hypertension Hypothyroidism Insomnia Lumbar spinal stenosis Memory impairment of gradual onset Mixed stress and urge urinary incontinence Nocturnal hypoxemia Obstructive sleep apnea of adult Right hip pain Right leg pain Rosacea Occupational Therapy Inpatient Evaluation/Re-Eval M1 PT/OT-IP Prior Functional Status Start: 08/07/24 08:07 Freq: NEEDED Status: Active Protocol: Document 08/07/24 11:19 [facility] (Rec: 08/07/24 14:06 [facility] [id number]) Medical Review Prior Functional Status Medical History Reviewed Yes Diet/Fluid Consistency Regular Communication Pt is hyperverbal and tends not to answer questions directly and she has trouble answering about any acute changes in balance, vision, swallowing, speaking in the past 24-48 hours Mobility and Gait Mod I with walking stick or rollator and reports of two bad falls recently. Pt reports she is I with bathing, dressing and does some driving . Pt states that she has some double vision when looking far to the left and states this is not new. Pt has a lot of coughing today after eating breakfast and neither pt nor can state if this is her baseline or not. Activities of Daily Living and IADL's See above Social History Household Members spouse Living Arrangements House Number of Floors (Floors) One Floor Number of Stairs To Enter/Railing? 4 steps with B rail through garage to enter home Home Environment Standard Height Toilet,Walk in Shower Home Equipment Front Wheel Walker,Four Wheel Walker,Shower Seat with Backrest,Hand Held Shower,Grab Bars Near Toilet,Grab Bars In Shower Employment Status Retired Additional Social History Comment Pt states that she has walking sticks, pt states that she has COPD and uses CPAP and 3L O2 occ at home M2 OT-IP Current Condition Start: 08/07/24 13:32 Freq: Status: Active Protocol: Document 08/07/24 11:19 [facility] (Rec: 08/07/24 14:06 [facility] [id number]) Occupational Therapy Current Condition Current Condition Evaluation Date 08/07/24 Treatment Diagnosis r/o CVA has neurological symptoms Diagnosis Onset Date 08/06/24 M3 OT- IP Subjective and Pain Start: 08/07/24 13:32 Freq: Status: Active Protocol: Document 08/07/24 11:19 [facility] (Rec: 08/07/24 14:06 [facility] [id number]) OT- Subjective Occupational Therapy Visit Type Type Initial Evaluation Visit Start Time 11:19 Visit Stop Time 12:18 Occupational Therapy Visit Comments Patient Comments Pt agreed to work with OT. Patient/Caregiver Goals TO get better. OT Pain Assessment Pain When Pain Assessed At Rest Pain Present Pain Present Pain Reported Location Left Shoulder Pain Behaviors Facial Grimacing,Holding Area M4 OT- IP ADL's Start: 08/07/24 13:32 Freq: Status: Active Protocol: Document 08/07/24 11:19 [facility] (Rec: 08/07/24 14:06 [facility] [id number]) OT ADL-Grooming Comments OT Grooming Comments Pt able to wash her hands at the sink. OT ADL-Oral Care Comments Oral Care Comments NOt performed. OT ADL-Dressing General Eval Lower Body Dressing Ability Maximum Assistance Comments OT Dressing Comments Pt needing asisst to sadia/doff her socks. OT ADL-Toileting Comments OT Toileting Comments Pt needing CGA while donning and doff brief over her hips. OT ADL-Bathing Comments OT Bathing Comments Pt will benefit from assist M5 OT- IP IADL's Start: 08/07/24 13:32 Freq: Status: Active Protocol: Document 08/07/24 11:19 [facility] (Rec: 08/07/24 14:06 [facility] [id number]) OT-Instrumental Activities of Daily Living Deficits IADL Deficits Identified Deficits Home Safety Awareness Home Safety Comments Pt is not thinking well at this time and and aware not at her baseline. Medication Management Medication Management Comments Pt will benefit from asisst. Money Management Money Management Caregiver Provides Assistance Meal Preparation Meal Preparation Comments Pt will benefit from assist. Event Lighting Specialist Event Lighting Specialist Comments Pt will need assist. Driving Driving Concerns Identified Regarding Safety M6 OT- IP Functional Cognition Start: 08/07/24 13:32 Freq: Status: Active Protocol: Document 08/07/24 11:19 [facility] (Rec: 08/07/24 14:06 [facility] [id number]) Cognitive Factors Limiting Selfcare Function Cognitive Ability Level of Alertness Alert,Confusional State Patient Orientation Name,Age,Birthday,Month,Date, Year,Day of Week,Place, Situation Attention Span Ability Capable of Focused Attention, Unable to Sustain Attention Ability to Follow Commands Able to Follow One Step Commands with Increased Time, Able to Follow One Step Commands with Repetition Memory Description Short Term Impaired,Working Impaired Safety Awareness Underestimates Need for Assistance Problem Solving Ability Unable to Identify Errors, Needs Assist to Identify Solutions Executive Function Ability Unable to Switch Focus,Unable to Make Plans,Unable to Organize Plans,Unable to Remember Details Cognitive Tests SLUMS Pt scored 20/30. Pt able to state 10 animals in one minute , able to recall2/5 objects after time passed, not able to draw the hands on the clock correctly after time given, and able to answer 2/4 questions right after paragraph read. Pt score implies possible dementia- or perhaps neurological or from having history of falls and hitting her head. Pt feels that her STM has gotten much worse recently. Cognitive Comments Cognitive Assessment Comments Pt not able to complete [place] Making Part B as having difficulty to recall number and letters in sequence. OT- Vision and Hearing OT- Hearing Assessment OT- Hearing Assessment Hearing Impaired,Use of Hearing Aids OT- Vision Assessment Visual Acuity Glasses All The Time,Glasses For Reading Vision Assessment Comments Pt states has hearing aids but does not wear them. Pt states has blurred vision at times when driving and looking to the left. Pt appears to have decreased vision right eye peripherally. Lower quadrant difficulty to assess and may have deficits, to assess more. M7 OT- IP Mobility and Balance Start: 08/07/24 13:32 Freq: Status: Active Protocol: Document 08/07/24 11:19 [facility] (Rec: 08/07/24 14:06 [facility] [id number]) OT-Transfer Assessment Sit to and From Stand Sit to and from Stand Moderate Assistance Transfers Transfer Ability Minimal Assistance Technique Transfer Destination Bed,Chair,Toilet Transfer Technique Stand Step Pivot Devices Transfer Assistive Devices Gait Belt,Front Wheeled Walker Comments Mobility Comments MOAD to stand from lower surfaces to FWW. Pt tends to lean posteriorly and instead of holding to the FWW , pt using her hand on the grab bar to get to the toilet. Pt states has been using one rail at home with her hand and other rail to lean back on in order to assist to get up the stairs. OT- Balance Assessment Sitting Balance and Reactions Static Sitting Balance Ability Good Dynamic Sitting Balance Ability Good Standing Balance and Reactions Static Standing Balance Ability Fair Dynamic Standing Balance Ability Fair M8 OT- IP Objective Assessments Start: 08/07/24 13:32 Freq: Status: Active Protocol: Document 08/07/24 11:19 [facility] (Rec: 08/07/24 14:06 [facility] [id number]) OT Gross Range of Motion Upper Extremity Range of Motion Assessment Left Impaired OT Strength Comments Strength Comments RUE 4/5, LUE 3-/5 to 4/5 OT- Coordination Assessment Upper Extremity Finger to Nose Test Left UE Impaired Comments Coordination Comments Left hand mildly decreased. RUE 30 sec and LUE 35 sec both side below 25th percent for her. M9 OT- IP Assessment and Plan Start: 08/07/24 13:32 Freq: Status: Active Protocol: Document 08/07/24 11:19 [facility] (Rec: 08/07/24 14:06 [facility] [id number]) OT Summary Assessment and Plan Potential Rehabilitation Potential Good Analytic Complexity at Evaluation Moderate Summary OT Impairments Pain,Range of Motion,Strength, Balance,Functional Cognition, Functional Mobility,Self- Feeding,Grooming,Dressing, Toileting,Bathing,Toilet Transfers,Shower Transfers, Activity Tolerance Progress Towards Goals Slow Progress due to Pain,Slow Progress due to Medical Issues,Slow Progress due to Activity Tolerance,Slow Progress due to Cognition Assessment Summary Pt MOD complexity and main barriers are decreased balance , STM ,attention span, and now needing one person assist for all needs. Pt having blurred vision at times and decreased right peripheral vision. Pt will benefit from acute rehab. Goals Self-Feeding Goal Independent Grooming Goal Independent Dressing Goal Independent Toileting Goal Independent Bathing Goal Independent Toilet Transfer Goal Independent Shower Transfer Goal Independent Days to Meet Goals 20 Frequency of Treatment Other frequency 5x/week Treatment Plan OT Treatment Plan ADL Training,Functional Cognition Training,Functional Mobility,Patient/Family Education,Discharge Planning Discharge Recommendations OT Discharge Recommendations Acute Rehab Other Discharge Recommendations If doing better possibly home with 24/7 assist and home health versus outpt PT Transportation Needs at Discharge Private Vehicle,Wheelchair/ Cabulance
--- NOTE | 2024-08-07 13:06 | CM.DANOTE ---
Initial DCP Assessment Visit Note Reviewed EMR and team rounds for status updates. Met with pt at bedside to introduce self and role, pt was found to be sitting upright in the recliner, alert/oriented, able to discuss her preference for home d/c, if possible. Pt resides modified ind. in her own home with spouse here in [place]. Her spouse will transport at d/c. Payor: Medicare PCP: Dr. Villalobos Pt is a 84 year-old F with a hx of COPD and hypertension who presented to the ED yesterday afternoon via EMS with c/o slurred speech and vision. She is on 3LO2 at home baseline oxygen, is still mostly independent with ADL's, still drives somewhat. PT/OT are recommending acute rehab. Faxed referral to [facility] for review. DCP will continue to monitor for acute rehab acceptance and assist with her d/c transition. Discharge Planning/Care Management CM Discharge Assessment Start: 08/07/24 13:03 Freq: Status: Active Protocol: Document 08/07/24 13:03 [facility] (Rec: 08/07/24 13:06 [facility] [id number]) Discharge Planning Assessment Assigned Clam Picker ANNA Cronin Advance Directives? Yes: POL Advance Directives on File No History Provided By Patient,Medical Record Prior Living Arrangements House Household Members spouse Type of transporation used prior to Drives own vehicle admit Comment Both pt and her still drive. Independent with ADL's No: Modified independent with walking sticks. Needs Assistance With Home Chores / Shopping Community Services used prior to Oxygen Therapy admission: Comment 3LO2 at home baseline DME Already Rented / Owned Bath Bench,Elevated Toilet Seat,FWW / Walker Comment uses walking sticks when outside during activities such as birding Discharge Plan Inpatient Rehab Unit Community Services Physical Therapy Transportation Arrangement Spouse Additional Comment Acute Rehab-[facility] Whiteboard Updated in Patient Room with Yes name and ext. # of Clam Picker Review Status In Process Please Provide Date Initial DC 08/07/24 Assessment Was Performed
--- NOTE | 2024-08-07 13:12 | PM.PN.1 ---
Subjective Subjective Date Patient Seen: 08/07/24 Time Patient Seen: 13:12 Interval history: Patient seen in [facility] for Dr. Villalobos. Patient admitted yesterday with concern for possible TIA. Patient had an echo but has not been read yet. Patient will get MRI of the head and I presume MRI MRA of the head at 2:00 a.m. today. She has had no further evidence of neurologic abnormalities. Occupational therapy did a slums exam and she is got was . Patient had no events overnight patient with some difficulty following directions with occupational therapy. Working with physical therapy as well. Reviewed ER workup and hospitalization 12 point review of systems otherwise is negative Exam Vital Signs (past 8 hours): - 08/07/24 06:25 08/07/24 07:00 08/07/24 09:35 Temperature 97.4 F L Pulse Rate 56 L 67 Respiratory Rate 18 Blood Pressure 153/61 H 127/39 L Pulse Oximetry 93 93 Oxygen Delivery Method Room Air Oxygen Flow Rate 0 0 08/07/24 09:36 08/07/24 10:00 Temperature 97.1 F L Pulse Rate 67 50 L Respiratory Rate 20 Blood Pressure 127/38 L 143/41 H Pulse Oximetry 93 Oxygen Delivery Method Oxygen Flow Rate 0 Oxygen Delivery Method Room Air Oxygen Flow Rate 0 Narrative Exam Narrative: Afebrile vital signs are stable Blood pressure was markedly high when she came in but is now more stable. Patient is alert and oriented x3 the patient was some word salad some word-finding difficulties and anomia HEENT is remarkable for dry mucous membranes Neck: Supple Chest: Prolonged expiratory phase with expiratory mild wheezes Cor: Regular rate and rhythm with distant S1-S2 Abdomen: Positive bowel sounds, soft, nontender, obese Extremities: Trace pretibial edema bilateral right greater than left with normal pulses. Diffuse hammertoes Neurologic exam is nonfocal other than some word salad and anomia Objective Labs 08/06/24 10:51 08/07/24 06:40 Labs: Laboratory Results - last 24 hr 08/06/24 08/07/24 16:37 06:40 Sodium 138 Potassium 3.4 Chloride 100 Carbon Dioxide 32 BUN 22 H Creatinine 0.73 Estimated GFR > 60 BUN/Creatinine Ratio 30.1 H Glucose 101 Calcium 9.4 Chlamy pneumoniae PCR Not detected Adenovirus (PCR) Not detected B. pertussis DNA (PCR) Not detected B.parapertussis DNA PCR Not detected Coronavirus OC43 (PCR) Not detected Coronavirus HKU1 (PCR) Not detected Coronavirus 229E (PCR) Not detected SARS-CoV-2 (PCR) Not detected Coronavirus NL63 (PCR) Not detected Human Metapneumovir PCR Not detected Influenza Type A (PCR) Not detected Influenza Type B (PCR) Not detected M. pneumoniae (PCR) Not detected Parainfluenza 1 (PCR) Not detected Parainfluenza 2 (PCR) Not detected Parainfluenza 3 (PCR) Not detected Parainfluenza 4 (PCR) Not detected RSV (PCR) Not detected Entero/Rhino (PCR) Not detected PFSH Medical History Chronic pain Mixed stress and urge urinary incontinence Dependent edema Dizziness, nonspecific Diverticulosis Breast cancer Memory impairment of gradual onset Rosacea Depression Hypothyroidism Nocturnal hypoxemia Hypertension Hyperlipidemia GERD (gastroesophageal reflux disease) Fatigue Anxiety COPD (chronic obstructive pulmonary disease) Obstructive sleep apnea of adult Insomnia Lumbar spinal stenosis Right hip pain Right leg pain Contusion of right leg Family History Other Anxiety Congestive heart failure Depression Diabetes mellitus Hypersomnia Hypertension Obesity Obstructive sleep apnea Snoring Substance abuse Social History details: lives in [place], sons live close by household members: spouse Smoking Status: Former smoker Tobacco: How many years used: 50 alcohol intake: never substance use type: does not use Assessment & Plan Assessment & Plan narrative: Assessment & Plan narrative: TIA versus Rinne versus CVA. Patient is still with some word-finding difficulties and memory problems. Concerning for possible acute neurologic event. Unsure of patient's baseline but she does live alone and tells me she attends book clubs and when her symptoms started she was getting ready to prepare food for her book club that she was monitoring at her house. Patient's CT am shows no bleed or other changes. CTA does show some vascular changes in the vertebral side on the left. Maybe this could be related to her dizziness a little bit but I do not know if it would give her speech changes. Echo has been done but not read. MRI was to be done at 2:00 a.m. today. She has been started on Plavix. She has not been taking her aspirin she eventually will be go back on aspirin and will see how she does. Blood pressure is now normal. Nitro paste was taken off this morning so we will continue to monitor. Wonder about compliance. Wound about her blood pressure monitor. Continue to work at PT and OT Telemetry will continue Uncontrolled hypertension. Now controlled. Unclear why whether it was all the medications or if maybe she was not accurately assessing her blood pressure. Probably secondary to renovascular disease. Will continue with outpatient blood pressure medicines If blood pressure gets above 170 will add nitro paste and hope we can get it in the 150s I would be happy in the 150s to 160. COPD. Oxygen dependent will continue her oxygen at 2 L she usually only uses it when she mostly moves but will just keep it on due to her stroke make sure she gets adequate oxygenation. Overall she seems to be actually breathing pretty well will continue usual care. No acute issues. Continue outpatient treatment Hypothyroidism. Continue usual Synthroid. Code status no code. DVT prophylaxis should be fine with sequential hose. Disposition likely home tomorrow pending results of testing and overall how she does. 57 minutes spent with patient reviewing the chart and her workup and discussing with physicians and nursing. Time-Based Coding :: [TOTAL MINUTES] spent with patient and on the chart (including review of chart, obtaining history, exam, reviewing outside data, placing orders, documenting exam and treatment plan, and counseling patient) on [DATE].
--- NOTE | 2024-08-07 14:59 | DI.MRI.S_ITS ---
PROCEDURE: MR HEAD/BRAIN WO CON INDICATIONS: TIA TECHNIQUE: Non-contrast axial T1 spin echo, axial T2 fast spin echo, sagittal and axial FLAIR, coronal T2 fast spin echo, axial gradient echo, axial diffusion and ADC through the brain. COMPARISON: [facility], CT, CT STROKE, 08/06/2024, 10:50. FINDINGS: Image quality: Excellent. CSF spaces: Ventricles appear symmetric in size and shape. Basal cisterns are patent. No extra-axial fluid collections. Brain: No intracranial bleeds or mass effects. There is cerebral volume loss for age. There are periventricular and deep white matter chronic small vessel ischemic changes. Brainstem appears normal. Diffusion-weighted images show no acute infarct. No chronic ischemic insults. Normal intravascular flow voids are present. Skull and face: Calvarial bone marrow is normal in signal. Bilateral lens replacements. Otherwise, the orbits are unremarkable. Sinuses: Sinuses and mastoids are clear. IMPRESSION: No acute or subacute infarct. No acute intracranial abnormalities. Age-related global volume loss and chronic microvascular ischemic changes. Dictated by: Issa Shelton M.D. on 08/07/2024 at 16:12 Approved by: Issa Shelton M.D. on 08/07/2024 at 16:14
--- NOTE | 2024-08-07 17:27 | ST.IPIE ---
Visit Care Team Role Provider Type Herrera Murrell MD Emergency Provider Physician Referring Provider Specialty: Emergency Medicine Address: [address] [place] [address], [id number] Email: [email or web address] Bertin Villalobos MD Admit Provider Physician Attending Provider Family Provider Primary Care Provider Specialty: Family Practice Address: [address] [place] [address], [facility], [place], [place], [facility] Email: [email or web address] Past Medical History (Last Reviewed 08/06/24 @ 18:24 by Bertin Villalobos MD) Anxiety (Medical) Breast cancer (Medical) Chronic pain (Medical) Contusion of right leg (Medical) COPD (chronic obstructive pulmonary disease) (Medical) Dependent edema (Medical) Depression (Medical) Diverticulosis (Medical) Dizziness, nonspecific (Medical) Fatigue (Medical) GERD (gastroesophageal reflux disease) (Medical) Hyperlipidemia (Medical) Hypertension (Medical) Hypothyroidism (Medical) Insomnia (Medical) Lumbar spinal stenosis (Medical) 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 Ladarius Gurrola Reason for Referral TIA symptoms Setting Assessment Location Acute Care Visit Type Note Type Initial evaluation Next Note Type Next Note Type Treatment Note Patient Information Identification Type Name Patient History Pt seen for cognitive- communication evaluation s/p suspected TIA. Per H&P: Patient is a 84-year-old female well known to me who presents with acute-onset word -finding issues and confusion with mild weakness. Apparently patient was cooking this morning and was working with her and suddenly she is called out and when he got to her she was leaning against the counter kind of with a days look unable to express words. Should no definitive weakness of 1 side or the other she had no facial droop no facial changes he sat her down and she is still struggling to find words and seems like she was is confused . She did not have any headaches. No chest pain no palpitations. Patient has had difficulty controlling her blood pressure over the last several months. We have been adjusting medications pretty frequently without real adequate control never getting blood pressure below 150. She otherwise has felt well. Symptoms lasted approximately until she got to the emergency room maybe 2 hours and then we are gone. Feeling completely normal today. She has otherwise had no other significant new changes or complaints. No fevers no chills has had a little runny nose. But otherwise no change . Per Brain MRI, no acute or subacute infarct. No acute intracranial abnormalities. Age-related global volume loss and chronic microvascular ischemic changes. PMHx includes breast cancer, memory impairment of gradual onset, depression, hypothyroidism, nocturnal hypoxemia, hypertension, hyperlipidemia, and COPD. Pt reported she lives at home with her spouse. She has been having difficulty with IADLs for several years now, including forgetting to take medications , getting lost while driving, and not completing household tasks. She expressed she believes her cognitive function has declined since current hospitalization. 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 Pt with significant difficulty attending to conversation, tangential, and easily distracted. She denied swallowing difficulty and no overt s/sx of aspiration noted with sips of thin liquid. Very mild dysarthria noted, though pt expressed it is not changed from baseline. Expressive and receptive language skills appear to be WFL informally. Mental Status Alert,Responsive,Cooperative Informal Assessment Receptive Language Normal Yes Expressive Language Normal Yes: Word-finding difficulty Pragmatic Language Normal Yes Speech Normal No: Baseline for pt per her report, very mild Speech Impairment(s) Imprecise articulation Cognition Normal No Cognitive Impairment(s) Orientation,Attention,Short- term memory,Executive functioning,Problem solving, Thought organization,Safety awareness,Impulsivity Formal Assessment Administration Complete Results SLUMS completed by OT with score of 20/30. Please see OT report for further details. The Short Blessed Test (SBT) was used to obtain information regarding the patient?s cognitive abilities. The SLUMS consists of 6 questions that assess delayed recall, comprehension, attention, working memory, and orientation. Scores fall in one of three ranges describing a patient?s level of impairment based on number of errors: 0-4 (normal cognition) , 5-9 (questionable impairment ), and (10 or more (impairment consistent with dementia). Pt scored 4 on the SBT which is indicative of normal cognition and only had difficulty with short-term recall of the name and address. However, it is important to note that the SBT is not a comprehensive cognitive-communication standardized assessment and further assessment is likely indicated given informally noted impairment. Throughout the assessment, pt was easily distracted by noises and people passing by her room, had difficulty attending to questions and benefited from frequent repetition, and was not oriented to date/time. She also had difficulty with safety awareness and impulsivity at times, attempting to walk across the room multiple times throughout the evaluation. Findings/Results Language Function Mildly impaired Cognitive Function Mild-moderately impaired Findings Pt demonstrated at least mild cognitive-communication impairment in the areas of attention, short-term memory, and executive functioning, though would benefit from more extensive assessment. 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 She also demonstrated increased processing time and reduced sustained attention during functional conversation as well as word-finding difficulty impacting her communication effectiveness. She is likely to benefit from ST services at next level of care with the goal of providing therapeutic education and training in the use of cognitive-communication compensatory strategies targeting attention, immediate and delayed memory, and communication for improved safety and independence. Prognosis Prognosis Good Based on Cognitive status,Family support,Comorbidities,Duration of symptoms/severity,Time since onset Plan of Care Speech-Language Treatment Yes Frequency Once a day Patient/Caregiver Education Patient expressed understanding of evaluation, Patient expressed agreement with goals and treatment plans Short Term Goals 1. Patient will implement 2 new external compensatory strategies for memory with successful results in 80% of opportunities. 2. Patient will increase ability to complete dynamic attnetion tasks with 80% accuracy in order to enhance patient?s ability to improve carryover of safety techniques within tasks. 3. Patient will demonstrate use of cognitive compensatory strategies across moderately complex problem solving/ organizational tasks in 80% of opportunities to support independence and safety at discharge. [id number] Programmer Goals Patient will exhibit adequate cognitive-communication skills for discharge home with intermittent daily supervision using compensatory strategies as trained to facilitate safety and independence. Discharge Recommendations [facility] facility, Inpatient rehab facility
[2024-08-07] MEDS: ATORVASTATIN 20 MG TABLET PO (20:42)
[2024-08-08 00:25] VITALS: BP 158/40; PULSE 45; RESP 18; TEMP 36; O2SAT 98
--- NOTE | 2024-08-08 01:09 | PC.NURSE ---
Addendum entered by Nora Marroquin R.N. 08/08/24 02:47: Received call back from Dr. Stone, second chef for Dr. Alonso. He gave order to hold metoprolol stating that's the one that slows her heart down and give diltiazem as scheduled. Addendum entered by Nora Marroquin R.N. 08/08/24 02:02: Pt is Dr. Villalobos pt. Called second chef number to see if she agrees with order, awaiting call back. Original Note: Sustaining hr 40, pt asymptomatic. Notified Dr. Ryan and received order to hold morning cardizem. Placed on hold in [facility].
[2024-08-08 05:10] VITALS: BP 154/51; PULSE 45; RESP 18; TEMP 36.1; O2SAT 94
[2024-08-08] MEDS: LEVOTHYROXINE 50 MCG TABLET PO (05:24)
[2024-08-08 05:50] LABS: Add Manual Diff / Slide Review NO; Basophils Absolute Auto 0 /uL (0-100); Basophils Percent Auto 0.6 % (0-2); Eosinophils Absolute Auto 200 /uL (0-450); Eosinophils Percent Auto 2.5 % (2-4); Hematocrit 38.8 % (36-46); Hemoglobin 12.8 g/dL (12.0-16.0); Lymphocytes Absolute Auto 1900 /uL (1100-4500); Lymphocytes Percent Auto 25.4 % (25-40); Mean Corpuscular HGB Conc 32.9 % (30-36); Mean Corpuscular Hemoglobin 28.6 PG (26-34); Mean Corpuscular Volume 86.8 fL (80-100); Monocytes Absolute Auto 500 /uL (0-900); Monocytes Percent Auto 6.2 % (3-14); Neutrophils Absolute Auto 4800 /uL (1500-7000); Neutrophils Percent Auto 65.3 % (50-75); Platelet Count 263 X10^3/uL (150-400); Red Blood Cell Count 4.47 X10^6/uL (4.0-5.2); Red Cell Distribution Width 14.1 % (11.6-14.8); White Blood Cell Count 7.4 X10^3/uL (4.5-11.0)
[2024-08-08 06:05] LABS: BUN Creatinine Ratio 35.7 (6-22); Blood Urea Nitrogen 25 mg/dL (7-17); Calcium 9.5 mg/dL (8.4-10.2); Carbon Dioxide 31 mmol/L (22-32); Chloride 101 mmol/L (98-107); Estimated Glomerular Filt Rate > 60 mL/min (>60); Glucose 110 mg/dL (80-110); HEMOLYSIS < 15 (0-50); Potassium 3.1 mmol/L (3.4-5.1); Sodium 138 mmol/L (137-145)
[2024-08-08 07:00] VITALS: O2SAT 93
[2024-08-08 08:00] VITALS: BP 153/54; PULSE 48; RESP 18; TEMP 36.3; O2SAT 97
[2024-08-08] MEDS: FLUoxetine 20 MG CAPSULE 40 MG PO (08:32)
[2024-08-08] MEDS: OXYBUTYNIN 5 MG ER TAB PO (08:33)
[2024-08-08] MEDS: cloNIDine 0.1 MG TABLET 0.2 MG PO (08:33)
[2024-08-08] MEDS: CLOPIDOGREL 75 MG TABLET PO (08:33)
[2024-08-08] MEDS: clonazePAM 0.5 MG TABLET 0.25 MG PO (08:33)
[2024-08-08] MEDS: dilTIAZem CD 120 MG CAP 240 MG PO (08:33)
[2024-08-08] MEDS: PANTOPRAZOLE DR 20 MG TABLET PO (08:33)
[2024-08-08] MEDS: POTASSIUM CHLORIDE 20 MEQ TAB 40 MEQ PO (08:38)
[2024-08-08] MEDS: SODIUM CHLORIDE 0.9% FLUSH 10 ML IV (08:53)
[2024-08-08] MEDS: CHLORTHALIDONE 25 MG TABLET PO (08:53)
--- NOTE | 2024-08-08 10:11 | CM.DPNOTE ---
Addendum entered by ANNA Horvath 08/08/24 12:00: DCP called [facility] and spoke with César, cancelled referral for patient due to new discharge plans for home. HANK Wren Original Note: DCP Continued: Reviewed EMR and team rounds for pt?s medical status. Per team rounds, pt has progressed to discharging home safely. Per last Provider note, pt to be cleared to discharge home. DCP entered room, introduced self and role. Per patient, she did not wish to go to any rehab after this admission and preferred to discharge home. DCP confirmed that pt declined referral to home health at this time as well. Pt states she feels safe to discharge home with support of spouse. No other needs identified for dc at this time. Plan: Anticipating discharge home with spouse when medically cleared. CM Team will continue to follow for coordination of discharge plans. HANK Wren
--- NOTE | 2024-08-08 10:25 | PT.IPTN ---
Physical Therapy Treatment Note M2 PT-IP Current Condition Start: 08/07/24 08:07 Freq: NEEDED Status: Active Protocol: Document 08/07/24 08:57 MB (Rec: 08/07/24 09:43 MB [id number]) Physical Therapy Current Condition Current Condition Evaluation Date 08/07/24 Treatment Diagnosis R/o stroke d/t confusion, trouble verbalizing, pt reports recent falls M3 PT-IP Subjective Start: 08/07/24 08:07 Freq: NEEDED Status: Active Protocol: Document 08/08/24 10:25 AB (Rec: 08/08/24 12:04 AB [id number]) Subjective Physical Therapy Visit Type Type Treatment Note Visit Start Time 10:25 Visit Stop Time 10:35 Number of IN FLIGHT REFUELING SYSTEM REPAIRER Visits 0 Physical Therapy Visit Comments Patient Comments agreeable to do PT M4 PT-IP Mobility and Gait Start: 08/07/24 08:07 Freq: NEEDED Status: Active Protocol: Document 08/08/24 10:25 AB (Rec: 08/08/24 12:04 AB [id number]) PT-Transfer Assessment Transfers Transfer Destination Toilet Transfer Technique ambulated Transfer Ability Level of Assist Standby Assistance,1 Person Assistance,Use of Upper Extremities Comments Mobility Comments pt walking in the hallway with OT. PT took over pt's care. pt ambulated towards the stairs using FWW SBA. completed up/down steps using B rails SBA. pt ambulated back to her room and requested to use the toilet. ambulated to the toilet SBA using FWW. left pt with NAC in room. pt stated that she feels better today; able to think and talk better than yesterday . Gait Assessment Gait Gait Assistance Required: Standby Assistance Distance (Feet) 250 Able to Maintain Weight Bearing Status Yes During Gait Assistive Devices Assistive Device Gait Belt,Front Wheeled Walker Orthotic/Prosthetic Devices or Brace: No Gait Deviations General Gait Pattern Antalgic Factors Limiting Gait Function Factors Limiting Gait Function Decreased Activity Tolerance Stair Climbing Assessment Evaluation Level of Assist On Stairs Standby Assistance Devices Stair Climbing Assistive Devices Left Railing,Right Railing Technique/Endurance Stair Climbing Direction Ascend and Descend Stair Climbing Technique Step to Step Number of Steps Climbed 3 Stair Climbing Set # Repetitions (reps) 1 M5 PT-IP Objective Assessments Start: 08/07/24 08:07 Freq: NEEDED Status: Active Protocol: Document 08/07/24 08:57 MB (Rec: 08/07/24 10:39 MB [id number]) Orientation Orientation/Cognition Level of Alertness Alert Orientation Name,Age,Birthday,Month,Date, Year,Day of Week,Place, Situation Language Function Ability Word Finding Difficulties Safety Awareness Decreased Safety Awareness Comments Pt is hyperverbal and does not answer recent PLOF fully Gross Range of Motion Upper Extremity ROM Assessment Left Impaired Impairments Defer to OT, pt reports history of left shoulder issues Lower Extremity ROM Assessment Bilaterally Impaired Impairments Functionally, severely limited right hip adduction and flexion in sitting and pt cannot perform heel slide with right heel up ramirez or tap right foot over left foot for coordination testing; decreased B foot mobility including toes ankle ankle DF Strength Lower Extremity Strength Assessment Bilaterally Impaired Comments Strength Comments Pt presents with decreased B toe and ankle range and MMT, right hip motion is very limited and pt does not follow MMT commands well, B knees appear functional Coordination Assessment Assessment Coordination Comments Pt cannot tolerate LE coordination d/t severe limitations right hip, left LE is mildly dysmetric with toe tapping activity Sensation Assessment Comments Sensation Comments Pt denies paresthesias Muscle Tone Muscle Tone WNL Yes M6 PT-IP Treatment Start: 08/07/24 08:07 Freq: NEEDED Status: Active Protocol: Document 08/08/24 10:25 AB (Rec: 08/08/24 12:04 AB [id number]) Physical Therapy Treatment Education Education Provided Safety M7 PT-IP Assessment and Plan Start: 08/07/24 08:07 Freq: NEEDED Status: Active Protocol: Document 08/08/24 10:25 AB (Rec: 08/08/24 12:04 AB [id number]) PT Summary Assessment and Plan Potential Rehabilitation Potential Fair Summary Impairments Strength,Balance,Coordination, Sensation,Cognition,Bed Mobility,Transfers,Gait, Activity Tolerance Progress Towards Goals Progressing Toward Goals Assessment Summary pt is progressing well with mobility and able to ambulate using a FWW SBA. pt plans to go home and spouse to assist her. pt may go home when medically stable. Goals Bed Mobility Goal Independent Transfer Goal Independent,Front Wheeled Walker,Four Wheeled Walker Gait Goal Independent,Front Wheel Walker ,Four Wheel Walker Gait Distance 75 Other Goals Pt will ascend and descend 4 steps with two rails to allow safe home entrance. Days to Meet Goals 5 Frequency of Treatment Frequency Of Treatment Once a Day Treatment Plan Physical Therapy Treatment Plan Bed Mobility Training,Transfer Training,Gait Training, Therapeutic Exercise,Balance Retraining,Discharge Planning, Hot or Cold Pack,Neuromuscular Re-ed,Coordination Retraining ,Manual Therapy Recommendations To Nursing Amount of Assist Needed 1 Person Assist Discharge Recommendations Transportation Needs at Discharge Private Vehicle
--- NOTE | 2024-08-08 10:27 | OT.IP.TRT ---
Occupational Therapy Treatment Note M2 OT-IP Current Condition Start: 08/07/24 13:32 Freq: Status: Active Protocol: Document 08/07/24 11:19 [facility] (Rec: 08/07/24 14:06 [facility] [id number]) Occupational Therapy Current Condition Current Condition Evaluation Date 08/07/24 Treatment Diagnosis r/o CVA has neurological symptoms Diagnosis Onset Date 08/06/24 M3 OT- IP Subjective and Pain Start: 08/07/24 13:32 Freq: Status: Active Protocol: Document 08/08/24 10:32 [facility] (Rec: 08/08/24 10:42 [facility] [id number]) OT- Subjective Occupational Therapy Visit Type Type Treatment Note Visit Start Time 10:03 Visit Stop Time 10:27 Occupational Therapy Visit Comments Patient Comments Pt not wanting to shower but agreed to use the toilet. Patient/Caregiver Goals TO go home. OT Pain Assessment Pain When Pain Assessed At Rest Pain Present Pain Present Pain Reported Location Left Shoulder Pain Behaviors Facial Grimacing M4 OT- IP ADL's Start: 08/07/24 13:32 Freq: Status: Active Protocol: Document 08/08/24 10:32 [facility] (Rec: 08/08/24 10:42 [facility] [id number]) OT ADL-Grooming General Evaluation Grooming Ability Independent Comments OT Grooming Comments While standing with FWW. OT ADL-Dressing General Eval Lower Body Dressing Ability Contact Guard Assistance Comments OT Dressing Comments Pt able to do brief management needs and suggested to assist as needed. Pt needing CGA for balance while taking her socks off with her feet. Educated pt to sit but she refused. OT ADL-Toileting General Evaluation Toileting Ability Standby Assistance OT ADL-Bathing Comments OT Bathing Comments Pt will benefit from assist. M5 OT- IP IADL's Start: 08/07/24 13:32 Freq: Status: Active Protocol: Document 08/07/24 11:19 [facility] (Rec: 08/07/24 14:06 [facility] [id number]) OT-Instrumental Activities of Daily Living Deficits IADL Deficits Identified Deficits Home Safety Awareness Home Safety Comments Pt is not thinking well at this time and and aware not at her baseline. Medication Management Medication Management Comments Pt will benefit from assist. Money Management Money Management Caregiver Provides Assistance Meal Preparation Meal Preparation Comments Pt will benefit from assist. Bean Weigher Bean Weigher Comments Pt will need assist. Driving Driving Concerns Identified Regarding Safety M6 OT- IP Functional Cognition Start: 08/07/24 13:32 Freq: Status: Active Protocol: Document 08/08/24 10:32 [facility] (Rec: 08/08/24 10:42 [facility] [id number]) Cognitive Factors Limiting Selfcare Function Cognitive Ability Level of Alertness Alert Patient Orientation Name,Age,Birthday,Month,Date, Year,Day of Week,Place, Situation Attention Span Ability Capable of Focused Attention, Capable of Sustained Attention Ability to Follow Commands Able to Follow One Step Commands Memory Description Short Term Impaired Cognitive Tests SLUMS Pt thinking a bit clearer today but refused to reassess her cognition. Cognitive Comments Cognitive Assessment Comments Pt is well aware that she will not drive at this time. Asked pt to change her pad out but refused as states not wet enough. Educated pt best to change out her pad and try to use the bathroom more often to help prevent from UTI's. M7 OT- IP Mobility and Balance Start: 08/07/24 13:32 Freq: Status: Active Protocol: Document 08/08/24 10:32 [facility] (Rec: 08/08/24 10:42 [facility] [id number]) OT-Transfer Assessment Sit to and From Stand Sit to and from Stand Standby Assistance Transfers Transfer Ability Standby Assistance Technique Transfer Destination Chair,Toilet Transfer Technique Stand Step Pivot Devices Transfer Assistive Devices Gait Belt,Front Wheeled Walker Comments Mobility Comments Pt much better with safety awareness and able to remember to use the FWW at all times during mobility. OT- Balance Assessment Sitting Balance and Reactions Static Sitting Balance Ability Normal Dynamic Sitting Balance Ability Good Standing Balance and Reactions Static Standing Balance Ability Good Dynamic Standing Balance Ability Fair M8 OT- IP Objective Assessments Start: 08/07/24 13:32 Freq: Status: Active Protocol: Document 08/07/24 11:19 [facility] (Rec: 08/07/24 14:06 [facility] [id number]) OT Gross Range of Motion Upper Extremity Range of Motion Assessment Left Impaired OT Strength Comments Strength Comments RUE 4/5, LUE 3-/5 to 4/5 OT- Coordination Assessment Upper Extremity Finger to Nose Test Left UE Impaired Comments Coordination Comments Left hand mildly decreased. RUE 30 sec and LUE 35 sec both side below 25th percent for her. M9 OT- IP Assessment and Plan Start: 08/07/24 13:32 Freq: Status: Active Protocol: Document 08/08/24 10:32 [facility] (Rec: 08/08/24 10:42 [facility] [id number]) OT Summary Assessment and Plan Potential Rehabilitation Potential Good Analytic Complexity at Evaluation Moderate Summary OT Impairments Pain,Range of Motion,Strength, Balance,Functional Cognition, Functional Mobility,Self- Feeding,Grooming,Dressing, Toileting,Bathing,Toilet Transfers,Shower Transfers, Activity Tolerance Progress Towards Goals Progressing Toward Goals Assessment Summary Pt doing much better with mobility today and thinking. However still will benefit from her to provide supervision as pt easily distracted and needing vc for safety. At this time pt refusing any therapy and wanting to see how is goes at home first. Goals Dressing Goal Independent Toileting Goal Independent Bathing Goal Independent Toilet Transfer Goal Independent Shower Transfer Goal Independent Days to Meet Goals 10 Frequency of Treatment Other frequency 5x/week Treatment Plan OT Treatment Plan ADL Training,Functional Cognition Training,Functional Mobility,Patient/Family Education,Discharge Planning Discharge Recommendations OT Discharge Recommendations Home with 19/02 Assist Available Transportation Needs at Discharge Private Vehicle
[2024-08-08 12:00] VITALS: BP 150/50; PULSE 48; RESP 16; TEMP 36.3; O2SAT 93
--- NOTE | 2024-08-08 13:37 | P.DS_ITS ---
History of Present Illness History of Present Illness Date Patient Seen: 08/08/24 Time Patient Seen: 13:37 Date of Onset of Symptoms: 08/06/24 Chief complaint: Code Stroke Narrative: Patient is a 84-year-old female well known to me who presents with acute-onset word-finding issues and confusion with mild weakness. Apparently patient was cooking this morning and was working with her and suddenly she is called out and when he got to her she was leaning against the counter kind of with a days look unable to express words. Should no definitive weakness of 1 side or the other she had no facial droop no facial changes he sat her down and she is still struggling to find words and seems like she was is confused. She did not have any headaches. No chest pain no palpitations. Patient has had difficulty controlling her blood pressure over the last several months. We have been adjusting medications pretty frequently without real adequate control never getting blood pressure below 150. She otherwise has felt well. Symptoms lasted approximately until she got to the emergency room maybe 2 hours and then we are gone. Feeling completely normal today. She has otherwise had no other significant new changes or complaints. No fevers no chills has had a little runny nose. But otherwise no change. Discharge Providers Provider Date of admission: 08/06/24 14:59 Discharge Date: 08/08/24 Primary care physician: Bertin Villalobos MD Consults: 08/06/24 18:13 Consult to Discharge Planning Routine Comment: Consult to Occupational Therapy Evaluate & Treat Comment: Physician Instructions: Evaluate and treat Consult to Physical Therapy Evaluate & Treat Comment: Physician Instructions: Evaluate and Treat Consult to Speech Therapy Evaluate & Treat Comment: Physician Instructions: Evaluate and treat Discharge provider: Bertin Villalobos MD Summary Hospital Course Discharge Diagnosis: TIA Uncontrolled hypertension COPD oxygen dependent Hypothyroidism Hospital Course: TIA. Patient was admitted to the hospital back to normal self pretty much. Still having some word issues. Which they wonder if has not been going on for awhile. She was started on Plavix. And blood pressure was better controlled and she seemed to be doing well. PT OT evaluation shows some need for possible speech therapy. Home with assistance. What she has. MRI echo show no definitive abnormality. No certain stroke. Patient will be sent home on Plavix hopefully better blood pressure control and will follow. Follow-up with me on Sunday Uncontrolled hypertension. Probable renovascular disease. Did respond to nitro and she was in the hospital. Blood pressure was better. She did have some bradycardia and metoprolol was stopped. Will add Imdur and get the vascular surgeon as outpatient. COPD. Stable throughout course. Has oxygen at home that she uses intermittently mostly when she is up moving around okay at rest. Will continue usual treatment. Hypothyroidism stable continue Synthroid Exam Vital Signs (past 8 hours): - 08/08/24 07:00 08/08/24 07:00 08/08/24 08:00 Temperature 97.4 F L Pulse Rate 48 L Respiratory Rate 18 Blood Pressure 153/54 H Pulse Oximetry 93 97 Oxygen Delivery Method Room Air CPAP Oxygen Flow Rate 0 08/08/24 12:00 Temperature 97.3 F L Pulse Rate 48 L Respiratory Rate 16 Blood Pressure 150/50 H Pulse Oximetry 93 Oxygen Delivery Method Oxygen Flow Rate 0 Oxygen Delivery Method CPAP Oxygen Flow Rate 0 Narrative Exam Narrative: Alert female in no acute distress Lungs are clear heart is regular rate and rhythm neurologic exam is nonfocal Objective Labs 08/08/24 05:23 08/08/24 05:23 Labs: Laboratory Results - last 24 hr 08/08/24 05:23 WBC 7.4 RBC 4.47 Hgb 12.8 Hct 38.8 MCV 86.8 MCH 28.6 MCHC 32.9 RDW 14.1 Plt Count 263 Neut % (Auto) 65.3 Lymph % (Auto) 25.4 Chester % (Auto) 6.2 Eos % (Auto) 2.5 Baso % (Auto) 0.6 Neut # (Auto) 4800 Lymph # (Auto) 1900 Chester # (Auto) 500 Eos # (Auto) 200 Baso # (Auto) 0 Sodium 138 Potassium 3.1 L Chloride 101 Carbon Dioxide 31 BUN 25 H Creatinine 0.70 Estimated GFR > 60 BUN/Creatinine Ratio 35.7 H Glucose 110 Calcium 9.5 PFSH Medical History Chronic pain Mixed stress and urge urinary incontinence Dependent edema Dizziness, nonspecific Diverticulosis Breast cancer Memory impairment of gradual onset Rosacea Depression Hypothyroidism Nocturnal hypoxemia Hypertension Hyperlipidemia GERD (gastroesophageal reflux disease) Fatigue Anxiety COPD (chronic obstructive pulmonary disease) Obstructive sleep apnea of adult Insomnia Lumbar spinal stenosis Right hip pain Right leg pain Contusion of right leg Family History Other Anxiety Congestive heart failure Depression Diabetes mellitus Hypersomnia Hypertension Obesity Obstructive sleep apnea Snoring Substance abuse Social History details: lives in [place], sons live close by household members: spouse Smoking Status: Former smoker Tobacco: How many years used: 50 alcohol intake: never substance use type: does not use Discharge Assessment & Plan Assessment and Plan Assessment: Improved Plan of Treatment: Discharge home Discharge Plan Discharge Plan Patient Disposition: Home Discharge orders & Medications Prescriptions: New clopidogrel 75 mg Tablet 75 mg PO DAILY Qty: 30 0RF isosorbide mononitrate 30 mg tablet extended release 24 hr 30 mg PO DAILY Qty: 30 3RF Continued omeprazole 20 mg Capsule,Delayed Release(Dr/Ec) 20 mg PO BID Qty: 0 tiotropium bromide [Spiriva with HandiHaler] 18 MCG capsule, w/inhalation device 2 cap inhalation DAILY Qty: 0 fluoxetine [Prozac] 40 MG capsule 40 mg PO DAILY Qty: 0 levothyroxine 50 MCG tablet 50 mcg PO QAM Qty: 0 diltiazem HCl 240 mg capsule,extended release 24hr 240 mg PO DAILY Qty: 30 0RF tolterodine 2 mg capsule,extended release 24hr 2 mg PO DAILY Patient Comments: take 1 capsule by mouth once daily acetaminophen [Tylenol Extra Strength] 500 mg Tablet 1,000 mg PO DAILY PRN (Reason: pain) clonazepam 0.5 mg tablet 0.2 mg PO BID chlorthalidone 25 mg tablet 25 mg PO DAILY clonidine HCl 0.2 mg Tablet 0.2 mg PO BID atorvastatin 10 mg tablet 10 mg PO DAILY cholecalciferol (vitamin D3) 125 mcg (5,000 unit) capsule 125 mcg PO DAILY (DME) [employer] BIPAP Qty: 1 Dose Instruction: As directed Patient Comments: Pressure: IPAP 12 EPAP 6 DME: [facility] Rx Instructions: As directed Discontinued metoprolol succinate 25 mg tablet extended release 24 hr 25 mg PO DAILY Follow up/Referrals: Bertin Villalobos MD [Primary Care Provider] - 08/12/24 (Please call for appointment next Sunday) Discharge Health Status Multidrug resistant organism: No MDRO Diet/Activity/Treatments Diet: Diet as Tolerated Activity: As tolerated Oxygen: In normal manner Skin/Wound/Dressing Care Report to your healthcare provider any signs of infection, such as:: increased pain Visit Report/Discharge Packet Stand Alone Forms: Patient Portal/API, Stroke Signs & Symptoms Discharge Data Primary Care Provider: Bertin Villalobos Attending Provider: Bertin Villalobos Admit Date/Time: 08/06/24 14:59
--- NOTE | 2024-08-08 15:16 | PC.NURSE ---
Patient is A&OX4 this a.m. VSS, afebrile, still slightly bradycardic, but denies feeling dizzy. She is able to ambulate in the room with FWW with SBA- min assist. She works with PT/OT. She is cleared by MD Villalobos to discharge home today with her . She and her verbalize understanding of medication changes, and follow up with PCP appointment. She is escorted via w/ch to private vehicle with her after lunch for discharge home today with all of her personal belongings.
== END 2024-08-08 14:35 | disposition home or self-care (01) ==
LOC: ED 11:35 → AC 15:00
PROVIDERS: Family Medicine; Admitting Provider Family Medicine; Emergency Provider Emergency Medicine; Family Provider Family Medicine; PCP Family Medicine; Referring Provider Emergency Medicine; Visit Provider Family Medicine
DX: G45.9 Transient cerebral ischemic attack, unspecified (principal); I10 Essential (primary) hypertension; J44.9 Chronic obstructive pulmonary disease, unspecified; Z99.81 Dependence on supplemental oxygen; E03.9 Hypothyroidism, unspecified; R00.1 Bradycardia, unspecified; Z87.891 Personal history of nicotine dependence
CPT/HCPCS: 36415; 70450; 70496; 70498; 70551; 71045; 80048; 80053; 82550; 82962; 83735; 84484; 85025; 85610; 85730; 87633; 92523; 93005; 93010; 93306; 96360; 97116; 97129; 97162; 97166; 97530; 97535; 99285; G0378; Q9967

== ENCOUNTER → 2024-08-26 12:27 | Outpatient (CLI) | payer MEDICARE, OTHER, SELFPAY ==
[2024-08-06 19:19] VITALS: BMI 31.0
--- NOTE | 2024-08-26 12:30 | DI.US.S_ITS ---
PROCEDURE: US RHONDA LIMITED SINGLE LEVEL INDICATIONS: RENAL ARTERY STENOSIS TECHNIQUE: Ankle-brachial indices were obtained bilaterally and recorded. COMPARISONS: FINDINGS: Right ankle brachial index (RHONDA): 0.73 Left ankle brachial index (RHONDA): 0.84 IMPRESSION: Mild to moderate disease consistent with claudication; Duplex imaging warranted. Approved by: Brandon Delgado M.D. on 08/26/2024 at 18:44
== END ==
PROVIDERS: Family Provider Family Medicine; PCP Family Medicine; Referring Provider Family Medicine; Visit Provider Family Medicine
DX: I70.1 Atherosclerosis of renal artery (principal)
CPT/HCPCS: 93922; 93925

== ENCOUNTER 2024-08-26 13:42 | Emergency (ER) | payer MEDICARE, OTHER, SELFPAY ==
[2024-08-06 19:19] VITALS: BMI 31.0
[2024-08-26] VITALS (38 sets, daily range): BP systolic 175–233; BP diastolic 73–119; PULSE 64–85; RESP 12–30; TEMP 37.1; O2SAT 92–99; BMI 32.5
--- NOTE | 2024-08-26 13:59 | DI.RAD.S_ITS ---
PROCEDURE: XR CHEST 1V INDICATIONS: Possible stroke TECHNIQUE: One view of the chest was acquired. COMPARISON: [facility], , XR CHEST 1V, 08/06/2024, 11:16. FINDINGS: Surgical changes and devices: Left breast clips. Lungs and pleura: Lungs are clear. No pleural effusions or pneumothorax. Mediastinum: Mediastinal contours appear normal. Heart size is normal. Bones and chest wall: No suspicious bony lesions. Overlying soft tissues appear unremarkable. IMPRESSION: No acute cardiopulmonary abnormality is seen. Dictated by: Be Walker M.D. on 08/26/2024 at 14:52 Approved by: Be Walker M.D. on 08/26/2024 at 14:53
--- NOTE | 2024-08-26 14:11 | EKG_ITS ---
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
[2024-08-26 14:40] LABS: Add Manual Diff / Slide Review NO; Basophils Absolute Auto 100 /uL (0-100); Basophils Percent Auto 0.7 % (0-2); Eosinophils Absolute Auto 100 /uL (0-450); Hematocrit 42.4 % (36-46); Hemoglobin 14.1 g/dL (12.0-16.0); Lymphocytes Absolute Auto 2100 /uL (1100-4500); Lymphocytes Percent Auto 19.7 % (25-40); Mean Corpuscular HGB Conc 33.2 % (30-36); Mean Corpuscular Hemoglobin 28.8 PG (26-34); Mean Corpuscular Volume 86.8 fL (80-100); Monocytes Absolute Auto 700 /uL (0-900); Monocytes Percent Auto 6.1 % (3-14); Neutrophils Absolute Auto 7900 /uL (1500-7000); Neutrophils Percent Auto 72.5 % (50-75); Platelet Count 294 X10^3/uL (150-400); Red Blood Cell Count 4.89 X10^6/uL (4.0-5.2); Red Cell Distribution Width 14.3 % (11.6-14.8); White Blood Cell Count 10.9 X10^3/uL (4.5-11.0)
--- NOTE | 2024-08-26 14:51 | PC.NURSE ---
Pt speech is clear and coherent when this RN asks patient questions. She reports change in speech for past 3-4 months and weakness in LEFT shoulder/arm for past 1 month. C/o feeling woozy and intermittent headache at the back of a 2-3. Denies chest pain. Reports intermittent SOB and has hx of COPD. On 3L at this time as per home dose. Denies SOB currently. Pt did not take her blood pressure medications today.
[2024-08-26 14:52] LABS: Prothrombin Time 11.6 SECONDS (9.4-12.5)
[2024-08-26 14:54] LABS: PTT Partial Thromboplastin Tim 30 SECONDS (25.1-36.5)
[2024-08-26 14:57] LABS: Alanine Aminotransferase 24 IU/L (<35); Albumin 4.6 g/dL (3.5-5.0); Albumin Globulin Ratio 1.5 (1.0-2.8); Alkaline Phosphatase 121 U/L (38-126); Aspartate Aminotransferase 42 IU/L (14-36); BUN Creatinine Ratio 24.2 (6-22); Bilirubin Total 0.6 mg/dL (0.2-1.3); Blood Urea Nitrogen 15 mg/dL (7-17); Carbon Dioxide 31 mmol/L (22-32); Chloride 100 mmol/L (98-107); Creatine Kinase 120 U/L (30-135); Estimated Glomerular Filt Rate > 60 mL/min (>60); Globulin 3.1 g/dL (1.7-4.1); Glucose 93 mg/dL (80-110); HEMOLYSIS < 15 (0-50); Potassium 3.2 mmol/L (3.4-5.1); Sodium 139 mmol/L (137-145); Total Protein 7.7 g/dL (6.3-8.2)
[2024-08-26 15:09] LABS: Troponin I 0.012 ng/mL (0.01-0.034)
[2024-08-26 15:54] LABS: Ur Creatinine Normal (Normal); Ur Specific Gravity Normal (Normal); Urine pH Normal (Normal)
[2024-08-26 15:55] LABS: Urine Amphetamines Negative (Negative); Urine Barbiturates Negative (Negative); Urine Benzodiazepines Negative (Negative); Urine Cocaine Negative (Negative); Urine MDMA Negative (Negative); Urine Methadone Negative (Negative); Urine Methamphetamines Negative (Negative); Urine Opiates Negative (Negative); Urine Oxycodone Negative (Negative); Urine Phencyclidine Negative (Negative); Urine THC Negative (Negative); Urine Tricyclic Antidepressant Negative (Negative)
--- NOTE | 2024-08-26 17:42 | PC.NURSE ---
Pt has to use bathroom. Pt stands to pivot to wheelchair and is unsteady on feet. She reports feeling dizzy and have been for months. Gait belt in use for further transfer to and from bedside commode.
--- NOTE | 2024-08-26 18:30 | ED.GENADULT ---
HPI - General Adult General Chief complaint: Hypertension Stated complaint: High blood pressure/dizziness/poss stroke Time Seen by Provider: 08/26/24 18:18 Source: patient and RN notes reviewed Mode of arrival: Wheelchair History of Present Illness HPI narrative: 84-year-old female here for elevated blood pressure, was attempting to have ultrasound of the kidneys study here but apparently her blood pressure was too high in the department, referred to the emergency department for further evaluation. She has had intermittent left chest discomfort, left-sided flank pain. No fevers or chills. No nausea or vomiting. She takes oxygen at home, usually using 2 L oxygen. She also has felt unsteady on her feet today. No headache. No focal weakness face arm or leg. No focal numbness face arm or leg. Related Data Home Medications Medication Instructions Recorded Confirmed omeprazole 20 mg capsule,delayed 20 mg PO BID ##0 04/06/10 08/26/24 release tiotropium bromide 18 mcg capsule 2 cap inhalation DAILY ##0 09/01/17 08/26/24 with inhalation device (Spiriva with HandiHaler) fluoxetine 40 mg capsule (Prozac) 40 mg PO DAILY ##0 09/02/17 08/26/24 levothyroxine 50 mcg tablet 50 mcg PO QAM ##0 09/02/17 08/26/24 Respironics DreamStation BIPAP #1 ea 10/15/18 08/26/24 acetaminophen 500 mg tablet 1,000 mg PO DAILY PRN pain 10/03/19 08/26/24 (Tylenol Extra Strength) tolterodine 2 mg capsule,extended 4 mg PO DAILY 10/03/19 08/26/24 release 24 hr cholecalciferol (vitamin D3) 125 125 mcg PO DAILY 05/04/23 08/26/24 mcg (5,000 unit) capsule chlorthalidone 25 mg tablet 25 mg PO DAILY 08/06/24 08/26/24 clonazepam 0.5 mg tablet 0.5 mg PO BID 08/06/24 08/26/24 clonidine HCl 0.2 mg tablet 0.2 mg PO BID 08/06/24 08/26/24 atorvastatin 10 mg tablet 10 mg DAILY 08/26/24 08/26/24 diltiazem HCl 240 mg 240 mg PO DAILY 08/26/24 08/26/24 capsule,extended release 24 hr Previous Rx's Medication Instructions Recorded clopidogrel 75 mg tablet 75 mg PO DAILY #30 tabs 08/08/24 isosorbide mononitrate 30 mg 30 mg PO DAILY #30 tabs 08/08/24 tablet,extended release 24 hr amlodipine 2.5 mg tablet 2.5 mg PO DAILY #30 tabs 08/26/24 Allergies Allergy/AdvReac Type Severity Reaction Status Date / Time nitrofurantoin Allergy Mild HIVES Verified 01/07/22 16:41 [NITROFURANTOIN] Patient History Medical History (Updated 08/26/24 @ 18:45 by Elliott Dawson MD) Chronic pain Mixed stress and urge urinary incontinence Dependent edema Dizziness, nonspecific Diverticulosis Breast cancer Memory impairment of gradual onset Rosacea Depression Hypothyroidism Nocturnal hypoxemia Hypertension Hyperlipidemia GERD (gastroesophageal reflux disease) Fatigue Anxiety COPD (chronic obstructive pulmonary disease) Obstructive sleep apnea of adult Insomnia Lumbar spinal stenosis Right hip pain Right leg pain Contusion of right leg Family History Other Anxiety Congestive heart failure Depression Diabetes mellitus Hypersomnia Hypertension Obesity Obstructive sleep apnea Snoring Substance abuse Social History details: lives in [address], sons live close by household members: spouse Smoking Status: Former smoker Tobacco: How many years used: 50 alcohol intake: never substance use type: does not use Smoking Status: Former smoker Exam Narrative Exam Narrative: GENERAL: Well-developed patient, in mild distress. HEAD: Atraumatic. Normocephalic. EYES: Pupils equal round and reactive. Extraocular motions intact. No scleral icterus. No injection or drainage. ENT: Nose without bleeding, purulent drainage. Throat without erythema, tonsillar hypertrophy or exudate. Airway patent. NECK: Trachea midline. Non tender CARDIOVASCULAR: Regular rate and rhythm without murmurs, gallops, or rubs. RESPIRATORY: Clear to auscultation. Breath sounds equal bilaterally. No wheezes, rales, or rhonchi. GASTROINTESTINAL: Abdomen soft, non-tender, nondistended. EXTREMITIES: No edema or joint tenderness. BACK: Nontender without deformity or crepitance. No flank tenderness. NEURO: AOx3. Motor functions grossly nonfocal SKIN: No rash or erythema of visible areas Initial Vital Signs Initial Vital Signs: Vital Signs Temperature 98.8 F 08/26/24 13:47 Pulse Rate 85 08/26/24 13:47 Respiratory Rate 16 08/26/24 13:47 Blood Pressure 230/100 H 08/26/24 13:47 Pulse Oximetry 92 08/26/24 13:47 Oxygen Delivery Method Nasal Cannula 08/26/24 13:47 Oxygen Flow Rate 3 08/26/24 13:47 Course Orders Ordered: ED Orders 08/26/24 18:38 CT head/brain wo con Stat 08/26/24 18:43 CT angio chest abdomen pelvis Stat 08/26/24 21:30 Troponin I Stat Discontinued Medications Amlodipine Besylate (Amlodipine 5 Mg Tablet) 5 mg PO NOW ONE Stop: 08/26/24 21:03 Last Admin: 08/26/24 21:12 Dose: 5 mg Documented By: DAVIAN Hydralazine HCl (Hydralazine 20 Mg/Ml Vial) 5 mg IV NOW ONE Stop: 08/26/24 18:32 Last Admin: 08/26/24 18:39 Dose: 5 mg Documented By: DAVIAN Hydralazine HCl (Hydralazine 20 Mg/Ml Vial) 10 mg IV Q6HR PRN PRN Reason: Hypertension Hydralazine HCl (Hydralazine 20 Mg/Ml Vial) 10 mg IV NOW ONE Stop: 08/26/24 19:50 Last Admin: 08/26/24 21:11 Dose: Not Given Documented By: DAVIAN Ondansetron HCl (Ondansetron 4 Mg/2 Ml Inj) 4 mg IV NOW PRN PRN Reason: Nausea And Vomiting Ondansetron HCl (Ondansetron 4 Mg Odt) 4 mg SL NOW PRN PRN Reason: Nausea And Vomiting Potassium Chloride (Potassium Chloride 20 Meq/15 Ml Udc) 40 meq PO NOW ONE Stop: 08/26/24 18:33 Last Admin: 08/26/24 18:39 Dose: 40 meq Documented By: DAVIAN Vital Signs Vital signs: Vital Signs - 8 hr 08/26/24 17:00 08/26/24 17:00 08/26/24 17:30 Pulse Rate 72 72 Respiratory Rate 12 27 H Blood Pressure 201/77 H Pulse Oximetry 96 96 Oxygen Delivery Method 08/26/24 17:30 08/26/24 17:51 08/26/24 17:51 Pulse Rate 74 Respiratory Rate 28 H Blood Pressure 216/86 H 224/84 H Pulse Oximetry 97 Oxygen Delivery Method 08/26/24 18:00 08/26/24 18:01 08/26/24 18:01 Pulse Rate 67 68 Respiratory Rate 23 13 Blood Pressure 215/82 H Pulse Oximetry 97 99 Oxygen Delivery Method 08/26/24 18:20 08/26/24 18:20 08/26/24 18:30 Pulse Rate 70 69 Respiratory Rate 30 H 27 H Blood Pressure 218/90 H Pulse Oximetry 97 95 Oxygen Delivery Method 08/26/24 18:32 08/26/24 18:32 08/26/24 18:39 Pulse Rate 75 68 Respiratory Rate 24 Blood Pressure 214/83 H 214/83 H Pulse Oximetry 95 Oxygen Delivery Method 08/26/24 19:12 08/26/24 19:14 08/26/24 19:14 Pulse Rate 76 75 Respiratory Rate Blood Pressure 227/88 H Pulse Oximetry 96 Oxygen Delivery Method 08/26/24 19:30 08/26/24 19:31 08/26/24 19:31 Pulse Rate 72 72 Respiratory Rate 28 H 22 Blood Pressure 225/87 H Pulse Oximetry 96 97 Oxygen Delivery Method 08/26/24 19:54 08/26/24 20:00 08/26/24 20:00 Pulse Rate 70 67 Respiratory Rate 20 Blood Pressure 225/87 H 215/81 H Pulse Oximetry 96 Oxygen Delivery Method 08/26/24 20:02 08/26/24 20:02 08/26/24 20:30 Pulse Rate 69 67 Respiratory Rate 18 17 Blood Pressure 175/73 H Pulse Oximetry 96 Oxygen Delivery Method 08/26/24 20:30 08/26/24 20:49 08/26/24 20:49 Pulse Rate 67 Respiratory Rate 14 Blood Pressure 226/95 H 176/73 H Pulse Oximetry Oxygen Delivery Method 08/26/24 21:00 08/26/24 21:00 08/26/24 21:13 Pulse Rate 68 Respiratory Rate Blood Pressure 203/78 H 186/77 H Pulse Oximetry Oxygen Delivery Method 08/26/24 21:13 08/26/24 21:15 08/26/24 21:15 Pulse Rate 68 73 Respiratory Rate 20 Blood Pressure 205/119 H Pulse Oximetry Oxygen Delivery Method 08/26/24 21:22 08/26/24 21:22 08/26/24 21:30 Pulse Rate 69 69 Respiratory Rate Blood Pressure 185/86 H Pulse Oximetry Oxygen Delivery Method 08/26/24 21:30 08/26/24 21:44 08/26/24 22:16 Pulse Rate 64 73 Respiratory Rate 24 Blood Pressure 207/84 H Pulse Oximetry Oxygen Delivery Method 08/26/24 22:51 08/26/24 22:51 08/26/24 22:56 Pulse Rate 67 68 Respiratory Rate Blood Pressure 195/74 H Pulse Oximetry 92 Oxygen Delivery Method Room Air 08/26/24 23:18 Pulse Rate 68 Respiratory Rate 18 Blood Pressure 195/74 H Pulse Oximetry 94 Oxygen Delivery Method Room Air Medical Decision Making Lab Data Lab results reviewed: Yes I reviewed the patient's lab results. Lab results narrative: White blood cell count 97628, hemoglobin 14.1, platelets adequate. Basic metabolic panel shows low potassium 3.2 noted, serum CO2 31. BUN 15 with creatinine 0.62. Glucose 93. Liver functions normal. Urine drug screen normal. Urine dip normal. 08/26/24 14:31 08/26/24 14:31 Labs: Lab Results 08/26/24 08/26/24 08/26/24 Range/Units 14:31 15:19 21:30 WBC 10.9 (4.5-11.0) X10^3/uL RBC 4.89 (4.0-5.2) X10^6/uL Hgb 14.1 (12.0-16.0) g/dL Hct 42.4 (36-46) % MCV 86.8 (80-100) fL MCH 28.8 (26-34) PG MCHC 33.2 (30-36) % RDW 14.3 (11.6-14.8) % Plt Count 294 (150-400) X10^3/uL Neut % (Auto) 72.5 (50-75) % Lymph % (Auto) 19.7 L (25-40) % [place] % (Auto) 6.1 (3-14) % Eos % (Auto) 1.0 L (2-4) % Baso % (Auto) 0.7 (0-2) % Neut # (Auto) 7900 H (4009-5941) /uL Lymph # (Auto) 2100 (4119-8191) /uL [place] # (Auto) 700 (0-900) /uL Eos # (Auto) 100 (0-450) /uL Baso # (Auto) 100 (0-100) /uL PT 11.6 (9.4-12.5) SECONDS INR 1.0 (0.9-1.3) APTT 30 (25.1-36.5) SECONDS Sodium 139 (137-145) mmol/L Potassium 3.2 L (3.4-5.1) mmol/L Chloride 100 (98-107) mmol/L Carbon Dioxide 31 (22-32) mmol/L BUN 15 (7-17) mg/dL Creatinine 0.62 (0.52-1.04) mg/dL Estimated GFR > 60 (>60) mL/min BUN/Creatinine Ratio 24.2 H (6-22) Glucose 93 (80-110) mg/dL Calcium 10.0 (8.4-10.2) mg/dL Magnesium 2.0 (1.6-2.3) mg/dL Total Bilirubin 0.6 (0.2-1.3) mg/dL AST 42 H (14-36) IU/L ALT 24 (<35) IU/L Alkaline Phosphatase 121 (38-126) U/L Total Creatine Kinase 120 (30-135) U/L Troponin I 0.012 0.022 (0.01-0.034) ng/mL Total Protein 7.7 (6.3-8.2) g/dL Albumin 4.6 (3.5-5.0) g/dL Globulin 3.1 (1.7-4.1) g/dL Albumin/Globulin Ratio 1.5 (1.0-2.8) U Opiates 300ng/mL cut Negative (Negative) Ur Oxycodone Screen Negative (Negative) Urine Methadone Screen Negative (Negative) Ur Barbiturates Screen Negative (Negative) U Tricyclic Antidepress Negative (Negative) Ur Phencyclidine Scrn Negative (Negative) Ur Amphetamines Screen Negative (Negative) U Methamphetamines Scrn Negative (Negative) Ur MDMA Scrn (Ecstasy) Negative (Negative) U Benzodiazepines Scrn Negative (Negative) Urine Cocaine Screen Negative (Negative) U Marijuana (THC) Screen Negative (Negative) Urine pH Normal (Normal) Urine Specific [place] Normal (Normal) Ur Creatinine Normal (Normal) Point of Care Testing Glucose POC 97 Urine Dip Bedside Urine Glucose Negative Bedside Urine Bilirubin - Negative Bedside Urine Ketone - Negative Urine Specific [place] 1.010 Bedside Urine Occult Blood - Negative Bedside Urine pH 7.5 Bedside Urine Protein +/- 15 Bedside Urine Urobilinogen - Negative Bedside Urine Nitrite - Negative Bedside Urine Leukocytes - Negative Esterase Point of care testing: Point of Care Testing Glucose POC 97 Urine Dip Bedside Urine Glucose Negative Bedside Urine Bilirubin - Negative Bedside Urine Ketone - Negative Urine Specific [place] 1.010 Bedside Urine Occult Blood - Negative Bedside Urine pH 7.5 Bedside Urine Protein +/- 15 Bedside Urine Urobilinogen - Negative Bedside Urine Nitrite - Negative Bedside Urine Leukocytes - Negative Esterase Imaging Data Chest x-ray: Radiologist's Impression: [address] [address] XRay Report Signed Patient: Christina Odonnell MR#: [id number] : 1940 Acct:[id number] Age/Sex: 84 / F Date of Service: 08/26/24 Loc: ED Accession Number: [id number] Procedure: XR chest 1V Ordering Provider: Naomi Youssef D.O. PROCEDURE: XR CHEST 1V INDICATIONS: Possible stroke TECHNIQUE: One view of the chest was acquired. COMPARISON: [facility], , XR CHEST 1V, 08/06/2024, 11:16. FINDINGS: Surgical changes and devices: Left breast clips. Lungs and pleura: Lungs are clear. No pleural effusions or pneumothorax. Mediastinum: Mediastinal contours appear normal. Heart size is normal. Bones and chest wall: No suspicious bony lesions. Overlying soft tissues appear unremarkable. IMPRESSION: No acute cardiopulmonary abnormality is seen. Dictated by: Be Walker M.D. on 08/26/2024 at 14:52 Approved by: Be Walker M.D. on 08/26/2024 at 14:53 CT scan - head: Radiologist's Impression: [address] [address] [address] Scan Report Signed Patient: Christina Odonnell MR#: [id number] : 1940 Acct:[id number] Age/Sex: 84 / F Date of Service: 08/26/24 Loc: ED Accession Number: [id number] Procedure: CT head/brain wo con Ordering Provider: Elliott Dawson MD PROCEDURE: CT HEAD/BRAIN WO CON INDICATIONS: Unsteady on gait TECHNIQUE: Noncontrast 4.5 mm thick angled axial sections acquired from the foramen magnum to the vertex, with coronal and sagittal reformats. For radiation dose reduction, the following was used: automated exposure control, adjustment of mA and/or kV according to patient size. COMPARISON: [facility], CT, CT HEAD/BRAIN WO CON, 10/04/2019, 14:13. FINDINGS: Image quality: Diagnostic. CSF spaces: Basal cisterns are patent. No extra-axial fluid collections. The ventricles are symmetric in size and shape. Brain: No intracranial bleeds or masses. There is cerebral volume loss for age, with resultant ventricular and sulcal prominence. There are periventricular and deep white matter chronic small vessel ischemic changes. There is intracranial internal carotid artery atherosclerosis. Skull and face: Calvarium and visualized facial bones appear intact, without suspicious lesions. Sinuses: Visualized sinuses and mastoids are clear. IMPRESSION: No acute intracranial pathology. Dictated by: Issa Shelton M.D. on 08/26/2024 at 19:41 Approved by: Issa Shelton M.D. on 08/26/2024 at 19:44 CTA chest abdomen pelvis: Radiologist's Impression: [place] [address] CT Scan Report Signed Patient: Christina Odonnell MR#: [id number] : 1940 Acct:[id number] Age/Sex: 84 / F Date of Service: 08/26/24 Loc: ED Accession Number: [id number] Procedure: CT angio chest abdomen pelvis Ordering Provider: Elliott Dawson MD PROCEDURE: CT ANGIO CHEST ABDOMEN PELVIS INDICATIONS: elevated BP, eval for coarct/renovasc abnl TECHNIQUE: Precontrast 5 mm thick sections acquired from the lung apices to the iliac crests. After the administration of intravenous contrast, 2.5 mm thick sections again acquired from the lung apices to the iliac crests. Maximum intensity projection (MIP) oblique sagittal and coronal reformats were then acquired. For radiation dose reduction, the following was used: automated exposure control. COMPARISON: None. FINDINGS: Image quality: Diagnostic. AORTA: No aortic aneurysm. No acute aortic syndrome. No aortic dissection. Circumferential calcified atherosclerotic plaque at the abdominal aorta. CHEST: Lower Neck: No enlarged lymph nodes. Thyroid: No thyroid nodules which require sonographic evaluation. Subcentimeter right thyroid nodule. Axillae: No enlarged lymph nodes. Chest Wall: Left breast dystrophic appearing calcifications and suspected clips. Lungs and Pleura: No pneumothorax or pleural effusions. Severe emphysematous change. A few areas of distal mucus airway plugging. Pleural apical scarring. No mass or significant pulmonary nodules identified. Heart: Heart size is normal. Moderate coronary artery calcifications. No pericardial effusion. Thoracic Vessels: Pulmonary arteries demonstrate normal size. No central pulmonary embolism. Mediastinum and Michelle: No enlarged lymph nodes. Esophagus: No wall thickening. No hiatal hernia. ABDOMEN: Liver: No solid mass. Gallbladder: No radiopaque gallstones or wall thickening. Biliary ducts: No biliary dilation. Pancreas: No ductal dilation. Spleen: Size is within normal limits. Adrenal Glands: No adrenal nodules. Kidneys and Ureters: Kidneys enhance symmetrically. No hydronephrosis. No solid mass. No complex renal cystic lesion which requires follow up. Stomach and Bowel: Normal colonic caliber, without significant wall thickening. Diverticulosis. No diverticulitis. The appendix is not identified. Peritoneum: No abnormal intraperitoneal fluid. No free air. Ventral Wall: Suspect ventral abdominal wall mesh. Rectus diastasis. Abdominal Nodes: No retroperitoneal or mesenteric adenopathy by size criteria. Vessels: Inferior vena cava is normal in size. PELVIS: Pelvic Organs: Anteverted uterus. Bladder: No stone. Pelvic Nodes: No enlarged lymph nodes. Miscellaneous: No inguinal hernias are seen. Bones: No suspicious osseous lesion. T10 and T11 intraosseous hemangiomas. Right hip arthroplasty. IMPRESSION: No acute abnormality identified. No aortic dissection. Kidneys enhance symmetrically. No hydronephrosis. Extensive calcified atherosclerotic plaque. Severe emphysematous change. Dictated by: Casey Rivera M.D. on 08/26/2024 at 20:19 Approved by: Casey Rivera M.D. on 08/26/2024 at 20:32 ECG Data Attestation: I personally reviewed and interpreted this ECG as follows: Interpretation: Normal sinus rhythm with rate of 80. No obvious ST segment elevation or depression changes. ND 148, QRS 94, QTC 521. MDM Narrative Medical decision making narrative: 84-year-old female with difficult to control hypertension, here for renovascular ultrasound study, in the study department noted to have markedly elevated blood pressure. Admits to recent unsteady date. Using her usual 3 L oxygen at home, denies shortness of breath or chest pain. Screening labs sent, renal function adequate. EKG sinus rhythm, without obvious ischemic change. Chest x-ray unremarkable, see radiology report. Screening labs unremarkable, GFR favorable, we will request CT chest abdomen and pelvis. Patient had some recent gait problems, no known stroke, unremarkable neuro exam, add CT head noncontrast study. CT head noncontrast study no acute changes, see radiology report. Hydralazine IV 5 mg test dose, little change in blood pressure, repeat dose [address] angiogram chest abdomen and pelvis, normal aorta without coarctation, normal renal vascular flow, no acute changes. See radiology report. Last blood pressure 175/73 improved, no acute changes or aortic or renovascular problems noted on imaging study. Ambulation trial, oral fluids challenge. Repeat troponin also negative. Blood pressure elevation further again, oral amlodipine given. Patient feels better, blood pressure improved again, workup unremarkable, we will add low-dose oral amlodipine to her regimen for now. Patient advised her PCP may choose some other antihypertensive class of medication, but for now consider 2.5 mg amlodipine daily, 1 month supply, advised to follow up with her doctor later this week. Return precautions discussed. Home with family Discharge Plan Departure Patient Disposition: Home Clinical Impression: Hypertension, Hypokalemia Instructions: DI for High Blood Pressure Activity Restrictions/Additional Instructions: Elevated blood pressures, attempted visualization of kidney blood flow by ultrasound but it was nonvisualized, also your blood pressure was quite elevated at the diagnostic imaging area, referred for further evaluation and treatment of your blood pressure. IV hydralazine doses were given to lower your blood pressure that was quite elevated in the emergency department. Your kidney function was quite good, therefore CT angiogram study was done of the chest abdomen and pelvis. This showed a nice normal aorta, there was no stricture or narrowing that could cause blood pressure elevation. Also on the CT angiogram study there was really good blood flow to both kidneys, so this is not seem to be a cause of blood pressure elevation. There were no acute changes on your imaging studies. Her blood pressures remained fairly elevated, oral dose of amlodipine additionally given, with prescription to start low-dose amlodipine daily until you see your doctor for further blood pressure management recommendations. He might choose different class of medication then amlodipine but least there something else to add to your regimen for now. Recheck blood pressure with your regular doctor later this week, call office tomorrow to get close follow up appointment. Return earlier to this/nearest emergency department for any change worsening symptoms or any concerns prior Potassium was mildly low, oral potassium repletion provided, consider recheck a potassium level in follow up as well. Prescriptions: New amlodipine 2.5 mg tablet 2.5 mg PO DAILY Qty: 30 0RF No Action omeprazole 20 mg Capsule,Delayed Release(Dr/Ec) 20 mg PO BID Qty: 0 tiotropium bromide [Spiriva with HandiHaler] 18 MCG capsule, w/inhalation device 2 cap inhalation DAILY Qty: 0 fluoxetine [Prozac] 40 MG capsule 40 mg PO DAILY Qty: 0 levothyroxine 50 MCG tablet 50 mcg PO QAM Qty: 0 tolterodine 2 mg capsule,extended release 24hr 4 mg PO DAILY Patient Comments: take 1 capsule by mouth once daily acetaminophen [Tylenol Extra Strength] 500 mg Tablet 1,000 mg PO DAILY PRN (Reason: pain) clonazepam 0.5 mg tablet 0.5 mg PO BID chlorthalidone 25 mg tablet 25 mg PO DAILY clonidine HCl 0.2 mg Tablet 0.2 mg PO BID clopidogrel 75 mg Tablet 75 mg PO DAILY Qty: 30 0RF isosorbide mononitrate 30 mg tablet extended release 24 hr 30 mg PO DAILY Qty: 30 3RF atorvastatin 10 mg tablet 10 mg DAILY diltiazem HCl 240 mg capsule,extended release 24hr 240 mg PO DAILY cholecalciferol (vitamin D3) 125 mcg (5,000 unit) capsule 125 mcg PO DAILY (DME) StemBio[employer] DreamStation BIPAP Qty: 1 Dose Instruction: As directed Patient Comments: Pressure: IPAP 12 EPAP 6 DME: [facility] Rx Instructions: As directed Referrals: Bertin Villalobos MD [Primary Care Provider] - Stand Alone Forms: Patient Portal/API/Survey
--- NOTE | 2024-08-26 18:38 | DI.CT.S_ITS ---
PROCEDURE: CT HEAD/BRAIN WO CON INDICATIONS: Unsteady on gait TECHNIQUE: Noncontrast 4.5 mm thick angled axial sections acquired from the foramen magnum to the vertex, with coronal and sagittal reformats. For radiation dose reduction, the following was used: automated exposure control, adjustment of mA and/or kV according to patient size. COMPARISON: Located [facility], CT, CT HEAD/BRAIN WO CON, 10/04/2019, 14:13. FINDINGS: Image quality: Diagnostic. CSF spaces: Basal cisterns are patent. No extra-axial fluid collections. The ventricles are symmetric in size and shape. Brain: No intracranial bleeds or masses. There is cerebral volume loss for age, with resultant ventricular and sulcal prominence. There are periventricular and deep white matter chronic small vessel ischemic changes. There is intracranial internal carotid artery atherosclerosis. Skull and face: Calvarium and visualized facial bones appear intact, without suspicious lesions. Sinuses: Visualized sinuses and mastoids are clear. IMPRESSION: No acute intracranial pathology. Dictated by: Issa Shelton M.D. on 08/26/2024 at 19:41 Approved by: Issa Shelton M.D. on 08/26/2024 at 19:44
[2024-08-26] MEDS: POTASSIUM CHLORIDE 20 MEQ/15 ML UDC 40 MEQ PO (18:39)
[2024-08-26] MEDS: HYDRALAZINE 20 MG/ML VIAL 5 MG IV (18:39)
--- NOTE | 2024-08-26 18:43 | DI.CT.S_ITS ---
PROCEDURE: CT ANGIO CHEST ABDOMEN PELVIS INDICATIONS: elevated BP, eval for coarct/renovasc abnl TECHNIQUE: Precontrast 5 mm thick sections acquired from the lung apices to the iliac crests. After the administration of intravenous contrast, 2.5 mm thick sections again acquired from the lung apices to the iliac crests. Maximum intensity projection (MIP) oblique sagittal and coronal reformats were then acquired. For radiation dose reduction, the following was used: automated exposure control. COMPARISON: None. FINDINGS: Image quality: Diagnostic. AORTA: No aortic aneurysm. No acute aortic syndrome. No aortic dissection. Circumferential calcified atherosclerotic plaque at the abdominal aorta. CHEST: Lower Neck: No enlarged lymph nodes. Thyroid: No thyroid nodules which require sonographic evaluation. Subcentimeter right thyroid nodule. Axillae: No enlarged lymph nodes. Chest Wall: Left breast dystrophic appearing calcifications and suspected clips. Lungs and Pleura: No pneumothorax or pleural effusions. Severe emphysematous change. A few areas of distal mucus airway plugging. Pleural apical scarring. No mass or significant pulmonary nodules identified. Heart: Heart size is normal. Moderate coronary artery calcifications. No pericardial effusion. Thoracic Vessels: Pulmonary arteries demonstrate normal size. No central pulmonary embolism. Mediastinum and Michelle: No enlarged lymph nodes. Esophagus: No wall thickening. No hiatal hernia. ABDOMEN: Liver: No solid mass. Gallbladder: No radiopaque gallstones or wall thickening. Biliary ducts: No biliary dilation. Pancreas: No ductal dilation. Spleen: Size is within normal limits. Adrenal Glands: No adrenal nodules. Kidneys and Ureters: Kidneys enhance symmetrically. No hydronephrosis. No solid mass. No complex renal cystic lesion which requires follow up. Stomach and Bowel: Normal colonic caliber, without significant wall thickening. Diverticulosis. No diverticulitis. The appendix is not identified. Peritoneum: No abnormal intraperitoneal fluid. No free air. Ventral Wall: Suspect ventral abdominal wall mesh. Rectus diastasis. Abdominal Nodes: No retroperitoneal or mesenteric adenopathy by size criteria. Vessels: Inferior vena cava is normal in size. PELVIS: Pelvic Organs: Anteverted uterus. Bladder: No stone. Pelvic Nodes: No enlarged lymph nodes. Miscellaneous: No inguinal hernias are seen. Bones: No suspicious osseous lesion. T10 and T11 intraosseous hemangiomas. Right hip arthroplasty. IMPRESSION: No acute abnormality identified. No aortic dissection. Kidneys enhance symmetrically. No hydronephrosis. Extensive calcified atherosclerotic plaque. Severe emphysematous change. Dictated by: Casey Rivera M.D. on 08/26/2024 at 20:19 Approved by: Casey Rivera M.D. on 08/26/2024 at 20:32
[2024-08-26] MEDS: AMLODIPINE 5 MG TABLET PO (21:12)
--- NOTE | 2024-08-26 21:17 | PC.NURSE ---
Medication updated per pt printed list. Copy placed in Medical records to be scanned into chart.
[2024-08-26 22:01] LABS: Troponin I 0.022 ng/mL (0.01-0.034)
== END 2024-08-26 23:10 | disposition home or self-care (01) ==
PROVIDERS: Emergency Medicine; Emergency Provider Emergency Medicine; Family Provider Family Medicine; PCP Family Medicine
DX: I10 Essential (primary) hypertension (principal); E87.6 Hypokalemia; J44.9 Chronic obstructive pulmonary disease, unspecified; K21.9 Gastro-esophageal reflux disease without esophagitis; E78.5 Hyperlipidemia, unspecified; E03.9 Hypothyroidism, unspecified; R26.81 Unsteadiness on feet; I70.1 Atherosclerosis of renal artery; Z79.890 Hormone replacement therapy; Z87.891 Personal history of nicotine dependence
CPT/HCPCS: 36415; 70450; 71045; 71275; 74174; 80053; 80305; 81003; 82550; 82962; 83735; 84484; 85025; 85610; 85730; 93005; 93922; 93925; 96374; 99285; J0360; Q9967

== ENCOUNTER 2024-09-08 18:36 | Emergency (ER) | payer MEDICARE, OTHER, SELFPAY ==
[2024-08-06 19:19] VITALS: BMI 31.0
[2024-09-08] VITALS (16 sets, daily range): BP systolic 180–230; BP diastolic 63–104; PULSE 65–74; RESP 18; TEMP 37.1; O2SAT 93–98; BMI 32.1
--- NOTE | 2024-09-08 19:00 | DI.RAD.S_ITS ---
PROCEDURE: XR CHEST 1V INDICATIONS: chest pain TECHNIQUE: One view of the chest was acquired. COMPARISON: [facility], CT, CT ANGIO CHEST ABDOMEN PELVIS, 08/26/2024, 19:04. [facility], CT, CT CERVICAL SPINE WO CON, 09/08/2024, 19:04. [facility], CT, CT HEAD/BRAIN WO CON, 09/08/2024, 19:04. [facility], CR, XR CHEST 1V, 08/26/2024, 14:02. FINDINGS: Surgical changes and devices: None. Lungs and pleura: Lungs are clear. No pleural effusions or pneumothorax. Mediastinum: The cardiac contours are at the upper limits of normal. The aorta demonstrates calcification and tortuosity. Bones and chest wall: No suspicious bony lesions. Age-appropriate bony degenerative changes are seen. Overlying soft tissues appear unremarkable. IMPRESSION: Portable chest within normal limits for age. Dictated by: Silviano Aly M.D. on 09/08/2024 at 18:22 Approved by: Silviano Aly M.D. on 09/08/2024 at 18:23
--- NOTE | 2024-09-08 19:00 | DI.CT.S_ITS ---
PROCEDURE: CT HEAD/BRAIN WO CON INDICATIONS: fall severe HTN TECHNIQUE: Noncontrast 4.5 mm thick angled axial sections acquired from the foramen magnum to the vertex, with coronal and sagittal reformats. For radiation dose reduction, the following was used: automated exposure control, adjustment of mA and/or kV according to patient size. COMPARISON: [facility], CT, CT STROKE, 08/06/2024, 10:50. [facility], MR, MR HEAD/BRAIN WO CON, 08/07/2024, 14:56. [facility], CT, CT CERVICAL SPINE WO CON, 09/08/2024, 19:04. [facility], CR, XR CHEST 1V, 09/08/2024, 18:58. [facility], CT, CT HEAD/BRAIN WO CON, 08/26/2024, 18:40. FINDINGS: Image quality: Streak artifact can be seen through the skull base. CSF spaces: Basal cisterns are patent. No extra-axial fluid collections. The ventricles are symmetric in size and shape. Brain: No intracranial bleeds or masses. There is cerebral volume loss for age, with resultant ventricular and sulcal prominence. There are periventricular and deep white matter chronic small vessel ischemic changes. There is intracranial internal carotid artery atherosclerosis. Skull and face: Calvarium and visualized facial bones appear intact, without suspicious lesions. Incidental note is made of hyperostosis frontalis. This is not considered to be pathologic in a woman of this age. Sinuses: Visualized sinuses and mastoids are clear. IMPRESSION: No acute intracranial hemorrhage is seen. No acute intracranial pathology. Dictated by: Silviano Aly M.D. on 09/08/2024 at 18:19 Approved by: Silviano Aly M.D. on 09/08/2024 at 18:20
--- NOTE | 2024-09-08 19:00 | EKG_ITS ---
[place] [id number] [place] [id number] Test Date: 2024-09-08 Pat Name: Christina Odonnell Department: [facility] Room: Gender: Female [employer]: KACIE : 1940 Requested By: Order Number: [id number] Reading MD: Leon Stone MD Measurements Intervals [place] Rate: 72 P: 54 [place]: 160 QRS: 13 QRSD: 96 T: 60 QT: 484 QTc: 529 Interpretive Statements Sinus rhythm with premature atrial complexes with aberrant conduction Cannot rule out Anterior infarct , age undetermined Prolonged QT Electronically Signed On 09-09-2024 8:29:39 PST by Leon Stone MD
--- NOTE | 2024-09-08 19:00 | DI.CT.S_ITS ---
PROCEDURE: CT CERVICAL SPINE WO CON INDICATIONS: fall TECHNIQUE: Noncontrast 3 mm thick sections acquired from the skull base to the T4 level. Sagittal and coronal reformats were then constructed. For radiation dose reduction, the following was used: automated exposure control, adjustment of mA and/or kV according to patient size. COMPARISON: [facility], CR, XR CHEST 1V, 09/08/2024, 18:58. [facility], CT, CT HEAD/BRAIN WO CON, 09/08/2024, 19:04. [facility], CT, CT ANGIO HEAD AND NECK, 08/06/2024, 10:50. FINDINGS: Image quality: Excellent. Bones: No fractures or dislocations. Visualized superior ribs are intact. Focal degenerative change is seen involving the C1-C2 interface anteriorly. Partial erosions can be seen of the dens. There is at least moderate disc space narrowing seen at C5-C6 and C6-C7. Soft tissues: Prevertebral soft tissues are normal in thickness. No paravertebral hematomas. No apical pneumothoraces. Emphysematous changes can be seen at the visualized lung apices. Atherosclerotic calcification is noted. IMPRESSION: No displaced fracture or traumatic subluxation. Significant underlying degenerative change can be seen. Dictated by: Silviano Aly M.D. on 09/08/2024 at 18:21 Approved by: Silviano Aly M.D. on 09/08/2024 at 18:22
[2024-09-08 19:08] LABS: Add Manual Diff / Slide Review NO; Basophils Absolute Auto 100 /uL (0-100); Basophils Percent Auto 0.9 % (0-2); Eosinophils Absolute Auto 100 /uL (0-450); Eosinophils Percent Auto 0.9 % (2-4); Hematocrit 48.1 % (36-46); Hemoglobin 15.3 g/dL (12.0-16.0); Lymphocytes Absolute Auto 2100 /uL (1100-4500); Lymphocytes Percent Auto 22.1 % (25-40); Mean Corpuscular HGB Conc 31.9 % (30-36); Mean Corpuscular Hemoglobin 28.1 PG (26-34); Mean Corpuscular Volume 88.1 fL (80-100); Monocytes Absolute Auto 500 /uL (0-900); Monocytes Percent Auto 5.5 % (3-14); Neutrophils Absolute Auto 6700 /uL (1500-7000); Neutrophils Percent Auto 70.6 % (50-75); Platelet Count 361 X10^3/uL (150-400); Red Blood Cell Count 5.46 X10^6/uL (4.0-5.2); Red Cell Distribution Width 14.7 % (11.6-14.8); White Blood Cell Count 9.4 X10^3/uL (4.5-11.0)
[2024-09-08 19:10] LABS: INR 0.9 (0.9-1.3); Prothrombin Time 10.6 SECONDS (9.4-12.5)
[2024-09-08 19:12] LABS: PTT Partial Thromboplastin Tim 33 SECONDS (25.1-36.5)
[2024-09-08 19:13] LABS: Alanine Aminotransferase 25 IU/L (<35); Albumin Globulin Ratio 1.4 (1.0-2.8); Alkaline Phosphatase 102 U/L (38-126); Aspartate Aminotransferase 31 IU/L (14-36); BUN Creatinine Ratio 25.6 (6-22); Bilirubin Total 0.4 mg/dL (0.2-1.3); Blood Urea Nitrogen 22 mg/dL (7-17); Calcium 9.9 mg/dL (8.4-10.2); Carbon Dioxide 28 mmol/L (22-32); Chloride 98 mmol/L (98-107); Creatine Kinase 54 U/L (30-135); Estimated Glomerular Filt Rate > 60 mL/min (>60); Globulin 3.7 g/dL (1.7-4.1); Glucose 107 mg/dL (80-110); HEMOLYSIS < 15 (0-50); Lipase 88 U/L (23-300); Sodium 137 mmol/L (137-145); Total Protein 8.7 g/dL (6.3-8.2)
[2024-09-08 19:25] LABS: Troponin I < 0.012 ng/mL (0.01-0.034)
[2024-09-09] VITALS (9 sets, daily range): BP systolic 180–192; BP diastolic 76–84; PULSE 66–74; TEMP 36.6; O2SAT 93–97
--- NOTE | 2024-09-09 00:14 | DI.RAD.S_ITS ---
PROCEDURE: XR SHOULDER LT MIN 2V INDICATIONS: increased shoulder pain after fall TECHNIQUE: 3 views of the shoulder were acquired. COMPARISON: [facility], [place], XR SHOULDER LT MIN 2V, 05/25/2024, 8:27. [facility], [place], SHOULDER MINIMUM 2 VIEW LEFT, 03/15/2015, 11:12. FINDINGS AND IMPRESSION: [id number] glenohumeral and acromioclavicular degenerative changes. No displaced fracture or dislocation. No suspicious soft tissue calcifications. Chest wall/axillary surgical clips are present. If there is high concern for occult injury, consider repeat radiography or cross-sectional imaging. Dictated by: Bartolome Jackson M.D. on 09/09/2024 at 0:47 Approved by: Bartolome Jackson M.D. on 09/09/2024 at 0:48
--- NOTE | 2024-09-09 01:32 | ED.FALL ---
HPI - Fall General Chief Complaint: Fall Stated Complaint: GLF, hit head. Time Seen by Provider: 09/08/24 19:00 Source: patient and EMS Mode of arrival: EMS History of Present Illness HPI Narrative: Patient is a 84-year-old female history of hypertension difficult to control presenting today with fall. 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 Over last 1 month she has had difficulty ambulating. She was admitted here in early July for TIA. She is having her kidneys evaluated for possible renal stent for persistently elevated blood pressure. She denies hitting her head today no loss of consciousness no nausea or vomiting. Complaining of some coccyx pain left shoulder pain. She does fall she uses a walker. Related Data Home Medications Medication Instructions Recorded Confirmed omeprazole 20 mg capsule,delayed 20 mg PO BID ##0 04/06/10 08/26/24 release tiotropium bromide 18 mcg capsule 2 cap inhalation DAILY ##0 09/01/17 08/26/24 with inhalation device (Spiriva with HandiHaler) fluoxetine 40 mg capsule (Prozac) 40 mg PO DAILY ##0 09/02/17 08/26/24 levothyroxine 50 mcg tablet 50 mcg PO QAM ##0 09/02/17 08/26/24 [employer] DreamStation BIPAP #1 ea 10/15/18 08/26/24 acetaminophen 500 mg tablet 1,000 mg PO DAILY PRN pain 10/03/19 08/26/24 (Tylenol Extra Strength) tolterodine 2 mg capsule,extended 4 mg PO DAILY 10/03/19 08/26/24 release 24 hr cholecalciferol (vitamin D3) 125 125 mcg PO DAILY 05/04/23 08/26/24 mcg (5,000 unit) capsule chlorthalidone 25 mg tablet 25 mg PO DAILY 08/06/24 08/26/24 clonazepam 0.5 mg tablet 0.5 mg PO BID 08/06/24 08/26/24 clonidine HCl 0.2 mg tablet 0.2 mg PO BID 08/06/24 08/26/24 atorvastatin 10 mg tablet 10 mg DAILY 08/26/24 08/26/24 diltiazem HCl 240 mg 240 mg PO DAILY 08/26/24 08/26/24 capsule,extended release 24 hr Previous Rx's Medication Instructions Recorded clopidogrel 75 mg tablet 75 mg PO DAILY #30 tabs 08/08/24 isosorbide mononitrate 30 mg 30 mg PO DAILY #30 tabs 08/08/24 tablet,extended release 24 hr amlodipine 2.5 mg tablet 2.5 mg PO DAILY #30 tabs 08/26/24 Allergies Allergy/AdvReac Type Severity Reaction Status Date / Time nitrofurantoin Allergy Mild HIVES Verified 01/07/22 16:41 [NITROFURANTOIN] Patient History Medical History (Updated 09/09/24 @ 02:50 by Araceli Wagner DO) Chronic pain Mixed stress and urge urinary incontinence Dependent edema Dizziness, nonspecific Diverticulosis Breast cancer Memory impairment of gradual onset Rosacea Depression Hypothyroidism Nocturnal hypoxemia Hypertension Hyperlipidemia GERD (gastroesophageal reflux disease) Fatigue Anxiety COPD (chronic obstructive pulmonary disease) Obstructive sleep apnea of adult Insomnia Lumbar spinal stenosis Right hip pain Right leg pain Contusion of right leg Family History Other Anxiety Congestive heart failure Depression Diabetes mellitus Hypersomnia Hypertension Obesity Obstructive sleep apnea Snoring Substance abuse Social History details: lives in [place], sons live close by household members: spouse Smoking Status: Former smoker Tobacco: How many years used: 50 alcohol intake: never substance use type: does not use Smoking Status: Former smoker Exam Initial Vital Signs Initial Vital Signs: Vital Signs Temperature 98.7 F 09/08/24 18:53 Pulse Rate 65 09/08/24 18:53 Respiratory Rate 18 09/08/24 18:53 Blood Pressure 230/92 H 09/08/24 18:53 Pulse Oximetry 94 09/08/24 18:53 Oxygen Delivery Method Room Air 09/08/24 18:53 GENERAL: Alert elderly pleasant 84-year-old female and in no acute distress. HEENT: Head atraumatic,EOMI, pupils reactive, face symmetric, moist mucous membranes CARDIOVASCULAR: Regular rate and rhythm without murmurs, rubs or gallops. RESPIRATORY: Breath sounds equal bilaterally, no wheezes rales or rhonchi. ABDOMEN: Soft, nontender. Normoactive bowel sounds all 4 quadrants. No guarding or rebound. BACK: No vertebral tenderness or step-offs she was tender in her sacral area no sign of contusion laceration EXTREMITIES: Normal range of motion, no clubbing or edema. Neurovascularly intact NEUROLOGICAL: Alert and oriented x4. No cranial nerve deficits SKIN: Warm, dry, no laceration, no petechiae, no rashes or lesions. Course Orders Ordered: Discontinued Medications Acetaminophen (Acetaminophen 325 Mg Tablet) 975 mg PO NOW ONE Stop: 09/09/24 01:42 Last Admin: 09/09/24 02:05 Dose: 975 mg Documented By: AMBAR Vital Signs Vital signs: Vital Signs - 8 hr 09/08/24 18:53 09/08/24 20:00 09/08/24 20:25 Temperature 98.7 F Pulse Rate 65 69 70 Respiratory Rate 18 18 18 Blood Pressure 230/92 H 218/79 H 180/63 H Pulse Oximetry 94 93 98 Oxygen Delivery Method Room Air Room Air Room Air 09/08/24 20:40 09/08/24 20:42 09/08/24 20:42 Temperature Pulse Rate 72 Respiratory Rate 18 18 Blood Pressure 218/82 H 180/73 H 218/82 H Pulse Oximetry 95 Oxygen Delivery Method Room Air 09/08/24 20:42 09/08/24 21:00 09/08/24 21:01 Temperature Pulse Rate 74 74 73 Respiratory Rate 18 Blood Pressure Pulse Oximetry 94 96 Oxygen Delivery Method 09/08/24 21:01 09/08/24 21:30 09/08/24 21:31 Temperature Pulse Rate 73 Respiratory Rate 18 Blood Pressure 190/72 H 202/79 H Pulse Oximetry 96 Oxygen Delivery Method 09/08/24 21:31 09/08/24 22:00 09/08/24 22:00 Temperature Pulse Rate 73 71 Respiratory Rate Blood Pressure 187/104 H Pulse Oximetry 97 94 Oxygen Delivery Method 09/08/24 22:21 09/08/24 22:21 09/08/24 22:30 Temperature Pulse Rate 71 66 Respiratory Rate Blood Pressure 211/81 H Pulse Oximetry 97 96 Oxygen Delivery Method 09/08/24 22:30 09/08/24 23:00 09/08/24 23:01 Temperature Pulse Rate 65 Respiratory Rate Blood Pressure 186/89 H 184/74 H Pulse Oximetry 94 Oxygen Delivery Method 09/08/24 23:01 09/08/24 23:30 09/08/24 23:31 Temperature Pulse Rate 65 68 67 Respiratory Rate Blood Pressure Pulse Oximetry 97 94 95 Oxygen Delivery Method 09/08/24 23:31 09/09/24 00:00 09/09/24 00:01 Temperature Pulse Rate 69 Respiratory Rate Blood Pressure 194/78 H 187/76 H Pulse Oximetry 93 Oxygen Delivery Method 09/09/24 00:01 Temperature Pulse Rate 69 Respiratory Rate Blood Pressure Pulse Oximetry 97 Oxygen Delivery Method - Fall Lab Data 09/08/24 18:50 09/08/24 18:50 Labs: Lab Results 09/08/24 Range/Units 18:50 WBC 9.4 (4.5-11.0) X10^3/uL RBC 5.46 H (4.0-5.2) X10^6/uL Hgb 15.3 (12.0-16.0) g/dL Hct 48.1 H (36-46) % MCV 88.1 (80-100) fL MCH 28.1 (26-34) PG MCHC 31.9 (30-36) % RDW 14.7 (11.6-14.8) % Plt Count 361 (150-400) X10^3/uL Neut % (Auto) 70.6 (50-75) % Lymph % (Auto) 22.1 L (25-40) % [place] % (Auto) 5.5 (3-14) % Eos % (Auto) 0.9 L (2-4) % Baso % (Auto) 0.9 (0-2) % Neut # (Auto) 6700 (4182-9458) /uL Lymph # (Auto) 2100 (0984-7123) /uL [place] # (Auto) 500 (0-900) /uL Eos # (Auto) 100 (0-450) /uL Baso # (Auto) 100 (0-100) /uL PT 10.6 (9.4-12.5) SECONDS INR 0.9 (0.9-1.3) APTT 33 (25.1-36.5) SECONDS Sodium 137 (137-145) mmol/L Potassium 4.0 (3.4-5.1) mmol/L Chloride 98 (98-107) mmol/L Carbon Dioxide 28 (22-32) mmol/L BUN 22 H (7-17) mg/dL Creatinine 0.86 (0.52-1.04) mg/dL Estimated GFR > 60 (>60) mL/min BUN/Creatinine Ratio 25.6 H (6-22) Glucose 107 (80-110) mg/dL Calcium 9.9 (8.4-10.2) mg/dL Total Bilirubin 0.4 (0.2-1.3) mg/dL AST 31 (14-36) IU/L ALT 25 (<35) IU/L Alkaline Phosphatase 102 (38-126) U/L Total Creatine Kinase 54 (30-135) U/L Troponin I < 0.012 (0.01-0.034) ng/mL Total Protein 8.7 H (6.3-8.2) g/dL Albumin 5.0 (3.5-5.0) g/dL Globulin 3.7 (1.7-4.1) g/dL Albumin/Globulin Ratio 1.4 (1.0-2.8) Lipase 88 (23-300) U/L Urine Dip Bedside Urine Glucose Negative Bedside Urine Bilirubin - Negative Bedside Urine Ketone - Negative Urine Specific [place] 1.015 Bedside Urine Occult Blood - Negative Bedside Urine pH 6.0 Bedside Urine Protein - Negative Bedside Urine Urobilinogen - Negative Bedside Urine Nitrite - Negative Bedside Urine Leukocytes - Negative Esterase ECG Data Attestation: I personally reviewed and interpreted this ECG as follows: Prior ECG tracings: available for review Interpretation: Normal sinus rhythm rate 72 CA interval 160 QRS 96 QTC 529 PVC noted no acute ischemia similar to previous EKGs MDM Narrative Medical decision making narrative: MDM CC: Fall Complicating co-morbidities: Chronic pain Data collected from: at bedside Medical records reviewed: Admission August 05 for TIA had MRI and echo, ED visit on August [address] angio tests have pelvis Differential considered: Mechanical fall hypertension complications Exam documented above, pertinent findings include: Awake alert 84-year-old female is a little off balance but both and patient report that is normal he is days. She is tender in her coccyx area Lab Test results independently reviewed as above. Pertinent findings: CBC no anemia no leukocytosis CMP no electrolyte abnormality no JENIFFER Troponin negative Independently reviewed EKG as above No acute ischemia Imaging studies independently reviewed: Chest x-ray normal limits for age Head CT no acute intracranial abnormality CT cervical spine no displaced fracture or traumatic subluxation Shoulder x-ray arthritic changes in left shoulder Sacral coccyx x-rays negative for fracture Treatments: Tylenol Re-evaluations: Patient is feeling better would like to go home. She was able to stand but definitely needs assistance which is normal for her she uses a walker regularly Discussion: 84-year-old female who has chronic ongoing hypertension. Blood pressure is reviewed over last 1 month does seem to be quite elevated today is no different. She has no evidence of end-organ damage. Sounds as though she had a mechanical fall. She has been having balance issue she had an MRI last month which was negative. Imaging today does not show any significant abnormality. Both she and her feel comfortable going home Discharge Plan Departure Patient Disposition: Home Clinical Impression: Fall, Contusion of sacral region Instructions: How to Prevent Falls Activity Restrictions/Additional Instructions: *You have been diagnosed with sacral contusion *What to do: At this time please use walker may need to sit on pillow *Continue to take medications as directed Tylenol as needed *Follow up with your primary care provider in 2-3 days or call [phone] *Return to ER if you should have increasing pain falls confusion or any new, worsening or concerning symptoms Prescriptions: No Action omeprazole 20 mg Capsule,Delayed Release(Dr/Ec) 20 mg PO BID Qty: 0 tiotropium bromide [Spiriva with HandiHaler] 18 MCG capsule, w/inhalation device 2 cap inhalation DAILY Qty: 0 fluoxetine [Prozac] 40 MG capsule 40 mg PO DAILY Qty: 0 levothyroxine 50 MCG tablet 50 mcg PO QAM Qty: 0 tolterodine 2 mg capsule,extended release 24hr 4 mg PO DAILY Patient Comments: take 1 capsule by mouth once daily acetaminophen [Tylenol Extra Strength] 500 mg Tablet 1,000 mg PO DAILY PRN (Reason: pain) clonazepam 0.5 mg tablet 0.5 mg PO BID chlorthalidone 25 mg tablet 25 mg PO DAILY clonidine HCl 0.2 mg Tablet 0.2 mg PO BID clopidogrel 75 mg Tablet 75 mg PO DAILY Qty: 30 0RF isosorbide mononitrate 30 mg tablet extended release 24 hr 30 mg PO DAILY Qty: 30 3RF atorvastatin 10 mg tablet 10 mg DAILY diltiazem HCl 240 mg capsule,extended release 24hr 240 mg PO DAILY amlodipine 2.5 mg tablet 2.5 mg PO DAILY Qty: 30 0RF cholecalciferol (vitamin D3) 125 mcg (5,000 unit) capsule 125 mcg PO DAILY (DME) [employer] DreamStation BIPAP Qty: 1 Dose Instruction: As directed Patient Comments: Pressure: IPAP 12 EPAP 6 DME: [facility] Rx Instructions: As directed Referrals: Bertin Villalobos MD [Primary Care Provider] - Stand Alone Forms: Patient Portal/API/Survey
--- NOTE | 2024-09-09 01:41 | DI.RAD.S_ITS ---
PROCEDURE: XR SACRUM COCCYX MIN 2V INDICATIONS: fall TECHNIQUE: 3 views of the sacrum and coccyx acquired. COMPARISON: None. FINDINGS: Bones: Postsurgical changes from right total hip arthroplasty. Proximal femurs are incompletely included. No displaced sacrococcygeal fracture is seen, although evaluation is mildly compromised by overlying soft tissues and bowel gas. Degenerative changes are seen in the included spine. Moderate left hip osteoarthrosis. Soft tissues: Visualized bowel gas pattern is normal. No suspicious soft tissue densities. IMPRESSION: No acute osseous abnormality. If symptoms persist or if there is continued clinical concern, cross-sectional imaging such as MRI or CT may be helpful for further evaluation. There is no significant discrepancy when compared to the overnight preliminary report. Approved by: Elias Mccormick M.D. on 09/09/2024 at 8:17
[2024-09-09] MEDS: ACETAMINOPHEN 325 MG TABLET 975 MG PO (02:05)
== END 2024-09-09 03:07 | disposition home or self-care (01) ==
PROVIDERS: Emergency Provider Emergency Medicine; Family Provider Family Medicine; PCP Family Medicine
DX: S30.0XXA Contusion of lower back and pelvis, initial encounter (principal); I10 Essential (primary) hypertension; M54.50 Low back pain, unspecified; M25.512 Pain in left shoulder; S09.90XA Unspecified injury of head, initial encounter; W18.30XA Fall on same level, unspecified, initial encounter
CPT/HCPCS: 36415; 70450; 71045; 72125; 72220; 73030; 80053; 81003; 82550; 83690; 84484; 85025; 85610; 85730; 93005; 93010; 99284

== ENCOUNTER → 2024-09-15 16:35 | Outpatient (CLI) | payer MEDICARE, OTHER, SELFPAY ==
[2024-08-06 19:19] VITALS: BMI 31.0
--- NOTE | 2024-09-15 16:37 | DI.MRI.S_ITS ---
PROCEDURE: MR STROKE Pre- and post-contrast brain MRI, non-contrast brain MR angiogram, pre- and postcontrast neck MR angiogram INDICATIONS: alteration in speech TECHNIQUE: Brain: Noncontrast axial T1 spin echo, axial T2 fast spin echo, sagittal and axial FLAIR, coronal T2 fast spin echo, axial gradient echo, axial diffusion and ADC through the brain. After the administration of contrast, axial 3D VIBE of the cranial vasculature and brain. Brain MRA: Non-contrast 3-D time of flight MR angiogram, with multiple mmkhgia-pgglygyfu-fhqcaapazz (MIP) reformats performed. Neck MRA: Axial and sagittal TruFISP through the neck. Coronal dynamic MR angiogram during administration of contrast in the arterial and venous phases, with 3-dimenstional mecnsdo-akzumfmbg-gvqpkcwaoz (MIP) reformats constructed from subtraction images. COMPARISON: None. FINDINGS: Image quality: Excellent. BRAIN: CSF spaces: Ventricles are normal in size and shape. Basal cisterns are patent. No extra-axial fluid collections. Brain: No intracranial bleeds or mass effects. Wallace-white matter interface is normal. Diffusion weighted images show no acute infarct. Brainstem appears normal. Normal intravascular flow voids are present. No abnormal intracranial enhancement. Atrophy and confluent matter chronic ischemic change Skull and face: Calvarial marrow signal is normal. Bilateral intraocular lens replacements Sinuses: Sinuses and mastoids are clear. BRAIN MR ANGIOGRAM: Motion artifact the skull base limits assessment Anterior circulation: Intracranial internal carotid arteries are normal in size and enhancement. The flow within the paired anterior cerebral arteries is normal and symmetric. The flow within the middle cerebral arteries is normal and symmetric. The anterior communicating artery is seen. No stenoses, occlusions, or aneurysms. Posterior circulation: Right vertebral artery dominance. Diminutive thready left vertebral artery terminates in V3 muscular branches. The flow within the posterior cerebral arteries is normal and symmetric. No stenoses, occlusions, or aneurysms. NECK MR ANGIOGRAM: Carotids: Great vessels demonstrate a conventional anatomy as they arise from the aortic arch. The origins of the common carotid arteries appear patent. The calibers and courses of both common carotid arteries are normal. The bifurcation regions appear normal bilaterally. The internal carotid arteries demonstrate normal course and caliber. Posterior circulation: The origins of the vertebral arteries appear patent. More superior portions of both vertebral arteries demonstrate normal course and caliber, and join to form a normal appearing basilar artery. Miscellaneous: Subclavian arteries appear patent. Pre-contrast images through the neck show no soft tissue abnormalities. IMPRESSION: Atrophy and confluent white matter chronic ischemic change without acute infarct, hemorrhage or mass lesion. Limited intracranial angiogram without large vessel occlusion, aneurysm or vascular malformation. In the neck, no proximal ICA stenosis. Right vertebral artery dominance. Approved by: Brandon Delgado M.D. on 09/16/2024 at 13:27
== END ==
PROVIDERS: Family Provider Family Medicine; PCP Family Medicine; Referring Provider Family Medicine; Visit Provider Family Medicine
DX: R47.89 Other speech disturbances (principal)
CPT/HCPCS: 70544; 70549; 70553; A9579

== ENCOUNTER 2024-12-05 14:05 | Emergency (ER) | payer MEDICARE, OTHER, SELFPAY ==
[2024-08-06 19:19] VITALS: BMI 31.0
[2024-12-05] VITALS (19 sets, daily range): BP systolic 153–194; BP diastolic 67–140; PULSE 65–76; RESP 13–25; TEMP 36.5; O2SAT 91–99; BMI 30.2
--- NOTE | 2024-12-05 14:34 | DI.RAD.S_ITS ---
PROCEDURE: XR CHEST 1V INDICATIONS: Chest Pain TECHNIQUE: One view of the chest was acquired. COMPARISON: [facility], CT, CT ANGIO CHEST ABDOMEN PELVIS, 08/26/2024, 19:04. [facility], CR, XR CHEST 1V, 09/08/2024, 18:58. FINDINGS: Surgical changes and devices: Axillary clips. Lungs and pleura: Mild increased pulmonary vascularity. Mediastinum: Mediastinal contours appear normal. Heart size is mildly prominent. Bones and chest wall: No suspicious bony lesions. Overlying soft tissues appear unremarkable. IMPRESSION: Mild increased vascularity suggestive of edema. Dictated by: Laura Giang M.D. on 12/05/2024 at 15:09 Approved by: Laura Giang M.D. on 12/05/2024 at 15:10
--- NOTE | 2024-12-05 14:34 | DI.RAD.S_ITS ---
PROCEDURE: XR SHOULDER LT MIN 2V INDICATIONS: fall, pain TECHNIQUE: 2 views of the shoulder were acquired. COMPARISON: [facility], [place], XR CLAVICLE LT, 12/05/2024, 14:34. [facility], [place], XR SHOULDER LT MIN 2V, 09/09/2024, 0:29. FINDINGS: Bones: Mildly displaced distal left clavicular fracture. Soft tissues: No suspicious soft tissue calcifications. IMPRESSION: Mildly displaced distal left clavicular fracture. Dictated by: Laura Giang M.D. on 12/05/2024 at 15:08 Approved by: Laura Giang M.D. on 12/05/2024 at 15:09
--- NOTE | 2024-12-05 14:35 | DI.RAD.S_ITS ---
PROCEDURE: XR CLAVICLE LT INDICATIONS: fall, pain TECHNIQUE: 2 views of the clavicle were acquired. COMPARISON: None. FINDINGS: Bones: Mildly displaced distal left clavicular fracture. There is approximately 1.4 cm overlap of proximal and distal fragments. Distal fragment is superiorly displaced approximately 1.5 cm. Soft tissues: No suspicious soft tissue calcifications. IMPRESSION: Distal left clavicular fracture. Dictated by: Laura Giang M.D. on 12/05/2024 at 15:09 Approved by: Laura Giang M.D. on 12/05/2024 at 15:09
--- NOTE | 2024-12-05 14:41 | EKG_ITS ---
[address] [address] Test Date: 2024-12-05 Pat Name: Christina Odonnell Department: Room: Gender: Female Certified Pediatric Nurse Practitioner: ROHAN : 1940 Requested By: Order Number: [id number] Reading MD: Leon Stone MD Measurements Intervals [place] Rate: 67 P: 64 UT: 172 QRS: 25 QRSD: 100 T: 58 QT: 470 QTc: 496 Interpretive Statements Normal sinus rhythm Prolonged QT Electronically Signed On 12-07-2024 8:38:42 PDT by Leon Stone MD
[2024-12-05 14:42] LABS: Prothrombin Time 11.2 SECONDS (9.4-12.5)
[2024-12-05 14:45] LABS: PTT Partial Thromboplastin Tim 33 SECONDS (25.1-36.5)
[2024-12-05 14:46] LABS: Add Manual Diff / Slide Review NO; Basophils Absolute Auto 100 /uL (0-100); Basophils Percent Auto 0.8 % (0-2); Eosinophils Absolute Auto 100 /uL (0-450); Eosinophils Percent Auto 1.2 % (2-4); Hematocrit 42.4 % (36-46); Hemoglobin 13.8 g/dL (12.0-16.0); Lymphocytes Absolute Auto 1600 /uL (1100-4500); Lymphocytes Percent Auto 18.5 % (25-40); Mean Corpuscular HGB Conc 32.5 % (30-36); Mean Corpuscular Hemoglobin 28.8 PG (26-34); Mean Corpuscular Volume 88.6 fL (80-100); Monocytes Absolute Auto 400 /uL (0-900); Monocytes Percent Auto 4.7 % (3-14); Neutrophils Absolute Auto 6600 /uL (1500-7000); Neutrophils Percent Auto 74.8 % (50-75); Platelet Count 330 X10^3/uL (150-400); Red Blood Cell Count 4.79 X10^6/uL (4.0-5.2); Red Cell Distribution Width 16.9 % (11.6-14.8); White Blood Cell Count 8.9 X10^3/uL (4.5-11.0)
[2024-12-05 14:53] LABS: HEMOLYSIS 98 (0-50)
[2024-12-05 14:58] LABS: Lactate (Lactic Acid) 0.8 mmol/L (0.7-2.1)
[2024-12-05 15:00] LABS: NT-proBNP (BNP-Adult 18+) 232 pg/mL (<450); Troponin I < 0.012 ng/mL (0.01-0.034)
--- NOTE | 2024-12-05 15:26 | ED.FALL ---
HPI - Fall General Chief Complaint: Fall Stated Complaint: GLF Time Seen by Provider: 12/05/24 15:25 Source: patient, family and EMS Mode of arrival: EMS History of Present Illness HPI Narrative: Patient is a 84-year-old female history of hypertension or to control hyperlipidemia having on going falls presents today with a fall. She reports that she was walking up stairs when she got dizzy and lightheaded. She fell landing on her left shoulder. Not sure that he hit her she hit her head or lost consciousness. She is Plavix. No nausea or vomiting. She has no numbness tingling or weakness. Denies any chest pain or shortness of breath. She was ongoing right-sided hip pain but no new hip pain. Related Data Home Medications Medication Instructions Recorded Confirmed omeprazole 20 mg capsule,delayed 20 mg PO BID ##0 04/06/10 08/26/24 release tiotropium bromide 18 mcg capsule 2 cap inhalation DAILY ##0 09/01/17 08/26/24 with inhalation device (Spiriva with HandiHaler) fluoxetine 40 mg capsule (Prozac) 40 mg PO DAILY ##0 09/02/17 08/26/24 levothyroxine 50 mcg tablet 50 mcg PO QAM ##0 09/02/17 08/26/24 Respironics DreamStation BIPAP #1 ea 10/15/18 08/26/24 acetaminophen 500 mg tablet 1,000 mg PO DAILY PRN pain 10/03/19 08/26/24 (Tylenol Extra Strength) tolterodine 2 mg capsule,extended 4 mg PO DAILY 10/03/19 08/26/24 release 24 hr cholecalciferol (vitamin D3) 125 125 mcg PO DAILY 05/04/23 08/26/24 mcg (5,000 unit) capsule chlorthalidone 25 mg tablet 25 mg PO DAILY 08/06/24 08/26/24 clonazepam 0.5 mg tablet 0.5 mg PO BID 08/06/24 08/26/24 clonidine HCl 0.2 mg tablet 0.2 mg PO BID 08/06/24 08/26/24 atorvastatin 10 mg tablet 10 mg DAILY 08/26/24 08/26/24 diltiazem HCl 240 mg 240 mg PO DAILY 08/26/24 08/26/24 capsule,extended release 24 hr Previous Rx's Medication Instructions Recorded clopidogrel 75 mg tablet 75 mg PO DAILY #30 tabs 08/08/24 isosorbide mononitrate 30 mg 30 mg PO DAILY #30 tabs 08/08/24 tablet,extended release 24 hr amlodipine 2.5 mg tablet 2.5 mg PO DAILY #30 tabs 08/26/24 Allergies Allergy/AdvReac Type Severity Reaction Status Date / Time nitrofurantoin Allergy Mild HIVES Verified 01/07/22 16:41 [NITROFURANTOIN] Patient History Medical History (Updated 12/05/24 @ 18:38 by Araceli Wagner DO) Chronic pain Mixed stress and urge urinary incontinence Dependent edema Dizziness, nonspecific Diverticulosis Breast cancer Memory impairment of gradual onset Rosacea Depression Hypothyroidism Nocturnal hypoxemia Hypertension Hyperlipidemia GERD (gastroesophageal reflux disease) Fatigue Anxiety COPD (chronic obstructive pulmonary disease) Obstructive sleep apnea of adult Insomnia Lumbar spinal stenosis Right hip pain Right leg pain Contusion of right leg Family History Other Anxiety Congestive heart failure Depression Diabetes mellitus Hypersomnia Hypertension Obesity Obstructive sleep apnea Snoring Substance abuse Social History details: lives in [place], sons live close by household members: spouse Smoking Status: Former smoker Tobacco: How many years used: 50 alcohol intake: never substance use type: does not use Smoking Status: Former smoker Exam Initial Vital Signs Initial Vital Signs: Vital Signs Pulse Oximetry 92 12/05/24 14:08 GENERAL: Alert 84-year-old female and in no acute distress. HEENT: Head atraumatic,EOMI, pupils reactive, face symmetric, moist mucous membranes NECK: No vertebral tenderness no step-off CARDIOVASCULAR: Regular rate and rhythm without murmurs, rubs or gallops. RESPIRATORY: Breath sounds equal bilaterally, no wheezes rales or rhonchi. ABDOMEN: Soft, nontender. Normoactive bowel sounds all 4 quadrants. No guarding or rebound. EXTREMITIES: Normal range of motion, no clubbing or edema. Neurovascularly intact Tender left side clavicle with contusion no tenting of skin, sensation intact over deltoid distal radial pulse intact no elbow deformity or wrist deformities NEUROLOGICAL: Alert and oriented x4.Normal gait and speech. Cranial nerves II through XII grossly intact. SKIN: Warm, dry, no laceration, no petechiae, no rashes or lesions. Course Orders Ordered: Discontinued Medications Aspirin (Aspirin 81 Mg Chew Tab) 324 mg PO NOW ONE Stop: 12/05/24 14:35 Last Admin: 12/05/24 15:00 Dose: Not Given Documented By: SHAMIR Acetaminophen (Ofirmev) 1,000 mg in 100 mls @ 400 mls/hr IV NOW ONE Stop: 12/05/24 17:40 Last Infusion: 12/05/24 17:51 Dose: Infused Documented By: Admin: 12/05/24 17:32 Dose: 400 mls/hr Documented By: DIONY Nitroglycerin (Nitroglycerin 0.4 Mg Sl Tab) 0.4 mg SL NOW ONE Stop: 12/05/24 15:31 Last Admin: 12/05/24 15:36 Dose: Not Given Documented By: DIONY Vital Signs Vital signs: Vital Signs - 8 hr 12/05/24 14:08 12/05/24 14:09 12/05/24 14:09 Temperature Pulse Rate 67 Respiratory Rate Blood Pressure 153/67 H Pulse Oximetry 92 91 Oxygen Delivery Method 12/05/24 14:10 12/05/24 14:30 12/05/24 14:31 Temperature 97.7 F Pulse Rate 66 65 Respiratory Rate 18 19 Blood Pressure 153/67 H 187/80 H Pulse Oximetry 91 94 Oxygen Delivery Method Room Air 12/05/24 14:31 12/05/24 15:00 12/05/24 15:01 Temperature Pulse Rate 65 66 67 Respiratory Rate 21 22 17 Blood Pressure Pulse Oximetry 93 91 91 Oxygen Delivery Method 12/05/24 15:01 12/05/24 15:30 12/05/24 15:31 Temperature Pulse Rate 68 Respiratory Rate 15 Blood Pressure 161/69 H 177/140 H Pulse Oximetry 95 Oxygen Delivery Method 12/05/24 15:31 12/05/24 16:00 12/05/24 16:01 Temperature Pulse Rate 68 71 Respiratory Rate 16 16 Blood Pressure 194/80 H Pulse Oximetry 94 99 Oxygen Delivery Method 12/05/24 16:01 12/05/24 16:30 12/05/24 16:30 Temperature Pulse Rate 71 72 Respiratory Rate 13 17 Blood Pressure 177/84 H Pulse Oximetry 97 95 Oxygen Delivery Method 12/05/24 17:00 12/05/24 17:01 12/05/24 17:01 Temperature Pulse Rate 75 74 Respiratory Rate 21 21 Blood Pressure 182/77 H Pulse Oximetry 95 95 Oxygen Delivery Method 12/05/24 17:37 12/05/24 17:37 12/05/24 18:00 Temperature Pulse Rate 76 72 Respiratory Rate 15 24 Blood Pressure 188/102 H Pulse Oximetry 94 Oxygen Delivery Method 12/05/24 18:01 12/05/24 18:01 Temperature Pulse Rate 72 Respiratory Rate 24 Blood Pressure 162/71 H Pulse Oximetry 94 Oxygen Delivery Method Room Air MDM - Fall Lab Data 12/05/24 14:22 12/05/24 14:22 Labs: Lab Results 12/05/24 Range/Units 14:22 WBC 8.9 (4.5-11.0) X10^3/uL RBC 4.79 (4.0-5.2) X10^6/uL Hgb 13.8 (12.0-16.0) g/dL Hct 42.4 (36-46) % MCV 88.6 (80-100) fL MCH 28.8 (26-34) PG MCHC 32.5 (30-36) % RDW 16.9 H (11.6-14.8) % Plt Count 330 (150-400) X10^3/uL Neut % (Auto) 74.8 (50-75) % Lymph % (Auto) 18.5 L (25-40) % Rankin % (Auto) 4.7 (3-14) % Eos % (Auto) 1.2 L (2-4) % Baso % (Auto) 0.8 (0-2) % Neut # (Auto) 6600 (8203-3258) /uL Lymph # (Auto) 1600 (1322-4706) /uL Rankin # (Auto) 400 (0-900) /uL Eos # (Auto) 100 (0-450) /uL Baso # (Auto) 100 (0-100) /uL PT 11.2 (9.4-12.5) SECONDS INR 1.0 (0.9-1.3) APTT 33 (25.1-36.5) SECONDS Sodium 125 L (137-145) mmol/L Potassium 4.7 (3.4-5.1) mmol/L Chloride 91 L (98-107) mmol/L Carbon Dioxide 24 (22-32) mmol/L BUN 25 H (7-17) mg/dL Creatinine 1.05 H (0.52-1.04) mg/dL Estimated GFR 52 L (>60) mL/min BUN/Creatinine Ratio 23.8 H (6-22) Glucose 109 H (70-99) mg/dL Lactate 0.8 (0.7-2.1) mmol/L Calcium 9.7 (8.4-10.2) mg/dL Magnesium 2.1 (1.6-2.3) mg/dL Total Bilirubin 0.7 (0.2-1.3) mg/dL AST 48 H (14-36) IU/L ALT 36 H (<35) IU/L Alkaline Phosphatase 75 (38-126) U/L Total Creatine Kinase 58 (30-135) U/L Troponin I < 0.012 (0.01-0.034) ng/mL NT-Pro-B Natriuret Pep 232 (<450) pg/mL Total Protein 7.5 (6.3-8.2) g/dL Albumin 4.7 (3.5-5.0) g/dL Globulin 2.8 (1.7-4.1) g/dL Albumin/Globulin Ratio 1.7 (1.0-2.8) Lipase 164 (23-300) U/L Imaging Data Chest x-ray: Radiologist's Impression: PROCEDURE: XR CLAVICLE LT INDICATIONS: fall, pain TECHNIQUE: 2 views of the clavicle were acquired. COMPARISON: None. FINDINGS: Bones: Mildly displaced distal left clavicular fracture. There is approximately 1.4 cm overlap of proximal and distal fragments. Distal fragment is superiorly displaced approximately 1.5 cm. Soft tissues: No suspicious soft tissue calcifications. IMPRESSION: Distal left clavicular fracture. Dictated by: Laura Giang M.D. on 12/05/2024 at 15:09 Approved by: Laura Giang M.D. on 12/05/2024 at 15:09 Extremity x-ray #1: Radiologist's Impression: PROCEDURE: XR SHOULDER LT MIN 2V INDICATIONS: fall, pain TECHNIQUE: 2 views of the shoulder were acquired. COMPARISON: [facility], , XR CLAVICLE LT, 12/05/2024, 14:34. [facility], , XR SHOULDER LT MIN 2V, 09/09/2024, 0:29. FINDINGS: Bones: Mildly displaced distal left clavicular fracture. Soft tissues: No suspicious soft tissue calcifications. IMPRESSION: Mildly displaced distal left clavicular fracture. Dictated by: Laura Giang M.D. on 12/05/2024 at 15:08 Approved by: Laura Giang M.D. on 12/05/2024 at 15:09 Extremity x-ray #2: Radiologist's Impression: PROCEDURE: XR CLAVICLE LT INDICATIONS: fall, pain TECHNIQUE: 2 views of the clavicle were acquired. COMPARISON: None. FINDINGS: Bones: Mildly displaced distal left clavicular fracture. There is approximately 1.4 cm overlap of proximal and distal fragments. Distal fragment is superiorly displaced approximately 1.5 cm. Soft tissues: No suspicious soft tissue calcifications. IMPRESSION: Distal left clavicular fracture. Dictated by: Laura Giang M.D. on 12/05/2024 at 15:09 CT scan - head: Radiologist's Impression: PROCEDURE: CT HEAD/BRAIN WO CON INDICATIONS: fall TECHNIQUE: Noncontrast 4.5 mm thick angled axial sections acquired from the foramen magnum to the vertex, with coronal and sagittal reformats. For radiation dose reduction, the following was used: automated exposure control, adjustment of mA and/or kV according to patient size. COMPARISON: [facility], CT, CT HEAD/BRAIN WO CON, 09/08/2024, 19:04. [facility], CT, CT HEAD/BRAIN WO CON, 08/26/2024, 18:40. FINDINGS: Image quality: Diagnostic. CSF spaces: Basal cisterns are patent. No extra-axial fluid collections. The ventricles are symmetric in size and shape. Brain: No acute intracranial hemorrhage or mass effect. There is cerebral volume loss, with resultant ventricular and sulcal prominence. There are periventricular and deep white matter chronic small vessel ischemic changes. There is intracranial internal carotid artery atherosclerosis. Skull and face: Calvarium and visualized facial bones appear intact, without suspicious lesions. Sinuses: Visualized sinuses and mastoids are clear. IMPRESSION: 1. No acute intracranial pathology. 2. Moderate chronic microvascular ischemic changes and generalized parenchymal volume loss. Approved by: Elias Mccormick M.D. on 12/05/2024 at 18:03 CT - cervical spine: Radiologist's Impression: PROCEDURE: CT CERVICAL SPINE WO CON INDICATIONS: fall TECHNIQUE: Noncontrast 3 mm thick sections acquired from the skull base to the T4 level. Sagittal and coronal reformats were then constructed. For radiation dose reduction, the following was used: automated exposure control, adjustment of mA and/or kV according to patient size. COMPARISON: [facility], CT, CT CERVICAL SPINE WO [facility], 09/08/2024, 19:04. FINDINGS: Image quality: Excellent. Bones: No acute fractures or dislocations. Visualized superior ribs are intact. Multilevel disc space narrowing and degenerative endplate changes. Multilevel uncovertebral joint and facet hypertrophy. Soft tissues: Prevertebral soft tissues are normal in thickness. No paravertebral hematomas. No apical pneumothoraces. Moderate centrilobular emphysema in the lung apices. Biapical pleural-parenchymal scarring. IMPRESSION: 1. No acute displaced fracture or traumatic subluxation. 2. Moderate to severe multilevel spondylosis. Approved by: Elias Mccormick M.D. on 12/05/2024 at 18:06 ECG Data Attestation: I personally reviewed and interpreted this ECG as follows: Interpretation: Normal sinus rhythm rate 67 [place] interval 172 QRS [address] changes MDM Narrative Medical decision making narrative: MDM CC: Fall Complicating co-morbidities: Frequent falls hypertension hyperlipidemia Corroborating data: Data collected from: and patient Medical records reviewed: Previous ED visits reviewed Differential considered: Mechanical fall versus cardiac syncope neurogenic syncope intracranial hemorrhage sepsis electrolyte imbalance Exam documented above, pertinent findings include: Alert pleasant 84-year-old female mild contusion over left clavicle neurovascularly intact no cervical C-spine tenderness pelvis is stable no other evidence of trauma Lab Test results independently reviewed as above. Pertinent findings: WBC 8.9 hemoglobin 13.8 hematocrit 42.4 platelets 330 Sodium 125 previously 137, potassium 4.7 chloride 95 carbon dioxide 24 BUN 25 creatinine 1.0 Glucose 109 Lactate 0.8 Bilirubin 0.7 AST 48 ALT 36 alk-phos 71 lipase 164 Troponin negative Independently reviewed EKG as above Sinus rhythm no ischemia Imaging studies independently reviewed: Shoulder x-ray mildly distally/left clavicle fracture Clavicle distal left left clavicle fracture Mild increased vascularity Head CT no acute intracranial pathology CT cervical spine no acute displaced fracture or traumatic subluxation Consultations: [ ] Treatments: IV Tylenol, sling left arm Re-evaluations: Patient remained stable pain improved after Tylenol Discussion: Patient is a 84-year-old female presenting today after fall. She was found to be slightly hyponatremic with a sodium of 125. She also has a left clavicular fracture. head CT and CT cervical spine do not show any other abnormality. She does not have evidence of infection. Ambulated easily. Discharge Plan Departure Patient Disposition: Home Clinical Impression: Acute hyponatremia, Closed fracture of left clavicle Instructions: DI for Clavicle Fracture-Adult, Hyponatremia-Adult Activity Restrictions/Additional Instructions: *You have been diagnosed with left clavicle fracture and hyponatremia *What to do: At this time you will need repeat sodium level next week Sunday or Sunday. In the meantime please drink electrolyte fluid such as Gatorade or liquid IV eat as tolerated. You will need to follow up with Orthopedics in regards to your cough go fracture. Please keep in sling at all times. You may try and take off for bathing and showering. You may need to sleep sitting up with pillows. You may ice 20-30 minutes at a time *Continue to take medications as directed Tylenol 1000 mg every 6 hours if needed for [id number] pain *Follow up with your primary care provider in 2-3 days or call [phone] Follow up with [facility] *Return to ER if you should have increasing pain falls confusion or any new, worsening or concerning symptoms Prescriptions: No Action omeprazole 20 mg Capsule,Delayed Release(Dr/Ec) 20 mg PO BID Qty: 0 tiotropium bromide [Spiriva with HandiHaler] 18 MCG capsule, w/inhalation device 2 cap inhalation DAILY Qty: 0 fluoxetine [Prozac] 40 MG capsule 40 mg PO DAILY Qty: 0 levothyroxine 50 MCG tablet 50 mcg PO QAM Qty: 0 tolterodine 2 mg capsule,extended release 24hr 4 mg PO DAILY Patient Comments: take 1 capsule by mouth once daily acetaminophen [Tylenol Extra Strength] 500 mg Tablet 1,000 mg PO DAILY PRN (Reason: pain) clonazepam 0.5 mg tablet 0.5 mg PO BID chlorthalidone 25 mg tablet 25 mg PO DAILY clonidine HCl 0.2 mg Tablet 0.2 mg PO BID clopidogrel 75 mg Tablet 75 mg PO DAILY Qty: 30 0RF isosorbide mononitrate 30 mg tablet extended release 24 hr 30 mg PO DAILY Qty: 30 3RF atorvastatin 10 mg tablet 10 mg DAILY diltiazem HCl 240 mg capsule,extended release 24hr 240 mg PO DAILY amlodipine 2.5 mg tablet 2.5 mg PO DAILY Qty: 30 0RF cholecalciferol (vitamin D3) 125 mcg (5,000 unit) capsule 125 mcg PO DAILY (DME) Respironics DreamStation BIPAP Qty: 1 Dose Instruction: As directed Patient Comments: Pressure: IPAP 12 EPAP 6 DME: [facility] Rx Instructions: As directed Referrals: [facility] [Provider Group] [facility] [Provider Group] Bertin Villalobos MD [Primary Care Provider] - Stand Alone Forms: Patient Portal/API/Survey
[2024-12-05 15:40] LABS: Alanine Aminotransferase 36 IU/L (<35); Albumin 4.7 g/dL (3.5-5.0); Albumin Globulin Ratio 1.7 (1.0-2.8); Alkaline Phosphatase 75 U/L (38-126); Aspartate Aminotransferase 48 IU/L (14-36); BUN Creatinine Ratio 23.8 (6-22); Bilirubin Total 0.7 mg/dL (0.2-1.3); Blood Urea Nitrogen 25 mg/dL (7-17); Calcium 9.7 mg/dL (8.4-10.2); Carbon Dioxide 24 mmol/L (22-32); Chloride 91 mmol/L (98-107); Creatine Kinase 58 U/L (30-135); Estimated Glomerular Filt Rate 52 mL/min (>60); Globulin 2.8 g/dL (1.7-4.1); Glucose 109 mg/dL (70-99); Lipase 164 U/L (23-300); Magnesium 2.1 mg/dL (1.6-2.3); Potassium 4.7 mmol/L (3.4-5.1); Sodium 125 mmol/L (137-145); Total Protein 7.5 g/dL (6.3-8.2)
--- NOTE | 2024-12-05 16:56 | DI.CT.S_ITS ---
PROCEDURE: CT HEAD/BRAIN WO CON INDICATIONS: fall TECHNIQUE: Noncontrast 4.5 mm thick angled axial sections acquired from the foramen magnum to the vertex, with coronal and sagittal reformats. For radiation dose reduction, the following was used: automated exposure control, adjustment of mA and/or kV according to patient size. COMPARISON: [facility], CT, CT HEAD/BRAIN WO CON, 09/08/2024, 19:04. [facility], CT, CT HEAD/BRAIN WO CON, 08/26/2024, 18:40. FINDINGS: Image quality: Diagnostic. CSF spaces: Basal cisterns are patent. No extra-axial fluid collections. The ventricles are symmetric in size and shape. Brain: No acute intracranial hemorrhage or mass effect. There is cerebral volume loss, with resultant ventricular and sulcal prominence. There are periventricular and deep white matter chronic small vessel ischemic changes. There is intracranial internal carotid artery atherosclerosis. Skull and face: Calvarium and visualized facial bones appear intact, without suspicious lesions. Sinuses: Visualized sinuses and mastoids are clear. IMPRESSION: 1. No acute intracranial pathology. 2. Moderate chronic microvascular ischemic changes and generalized parenchymal volume loss. Approved by: Elias Mccormick M.D. on 12/05/2024 at 18:03
--- NOTE | 2024-12-05 16:56 | DI.CT.S_ITS ---
PROCEDURE: CT CERVICAL SPINE WO CON INDICATIONS: fall TECHNIQUE: Noncontrast 3 mm thick sections acquired from the skull base to the T4 level. Sagittal and coronal reformats were then constructed. For radiation dose reduction, the following was used: automated exposure control, adjustment of mA and/or kV according to patient size. COMPARISON: [facility], CT, CT CERVICAL SPINE WO CON, 09/08/2024, 19:04. FINDINGS: Image quality: Excellent. Bones: No acute fractures or dislocations. Visualized superior ribs are intact. Multilevel disc space narrowing and degenerative endplate changes. Multilevel uncovertebral joint and facet hypertrophy. Soft tissues: Prevertebral soft tissues are normal in thickness. No paravertebral hematomas. No apical pneumothoraces. Moderate centrilobular emphysema in the lung apices. Biapical pleural-parenchymal scarring. IMPRESSION: 1. No acute displaced fracture or traumatic subluxation. 2. Moderate to severe multilevel spondylosis. Approved by: Elias Mccormick M.D. on 12/05/2024 at 18:06
[2024-12-05] MEDS: ACETAMINOPHEN IV 1,000 MG/100 ML VIAL 400 MG IV (17:32)
== END 2024-12-05 18:59 | disposition home or self-care (01) ==
PROVIDERS: Emergency Provider Emergency Medicine; Family Provider Family Medicine; PCP Family Medicine
DX: S42.032A Displaced fracture of lateral end of left clavicle, initial encounter for closed fracture (principal); R42 Dizziness and giddiness; E87.1 Hypo-osmolality and hyponatremia; W10.9XXA Fall (on) (from) unspecified stairs and steps, initial encounter; Z79.02 Long term (current) use of antithrombotics/antiplatelets
CPT/HCPCS: 36415; 70450; 71045; 72125; 73000; 73030; 80053; 82550; 83605; 83690; 83735; 83880; 84484; 85025; 85610; 85730; 93005; 93010; 96365; 99284; J0131

== ENCOUNTER 2025-02-09 10:50 | Inpatient (IN) | payer MEDICARE, OTHER, SELFPAY ==
[2024-12-11 16:57] VITALS: BMI 31.0
[2025-02-09] VITALS (25 sets, daily range): BP systolic 163–224; BP diastolic 70–143; PULSE 67–88; RESP 12–23; TEMP 36.5–36.9; O2SAT 90–98; BMI 28.3
--- NOTE | 2025-02-09 12:00 | EKG_ITS ---
[facility] [address] [place] [address] Test Date: 2025-02-09 Pat Name: Christina Odonnell Department: [facility] Room: Gender: Female [place]: NAOMY : 1940 Requested By: Order Number: [id number] Reading MD: Govind Hall Measurements Intervals [place] Rate: 74 P: 63 NH: 154 QRS: 22 QRSD: 100 T: 49 QT: 480 QTc: 532 Interpretive Statements Sinus rhythm with premature atrial complexes Nonspecific ST and T wave abnormality Prolonged QT Electronically Signed On 02-11-2025 13:49:57 PDT by Govind Hall
[2025-02-09 14:35] LABS: Add Manual Diff / Slide Review NO; Hematocrit 44.3 % (36-46); Hemoglobin 15.7 g/dL (12.0-16.0); Lymphocytes Absolute Auto 1400 /uL (1100-4500); Mean Corpuscular HGB Conc 35.4 % (30-36); Mean Corpuscular Hemoglobin 30.5 PG (26-34); Mean Corpuscular Volume 86.1 fL (80-100); Platelet Count 302 X10^3/uL (150-400)
[2025-02-09 14:40] LABS: Alanine Aminotransferase 33 IU/L (<35); Albumin 4.9 g/dL (3.5-5.0); Albumin Globulin Ratio 1.8 (1.0-2.8); Alkaline Phosphatase 90 U/L (38-126); Blood Urea Nitrogen 16 mg/dL (7-17); Calcium 9.6 mg/dL (8.4-10.2); Carbon Dioxide 27 mmol/L (22-32); Chloride 79 mmol/L (98-107); Estimated Glomerular Filt Rate > 60 mL/min (>60); Globulin 2.8 g/dL (1.7-4.1); Glucose 99 mg/dL (70-99); HEMOLYSIS < 15 (0-50); Lipase 123 U/L (23-300); Potassium 3.3 mmol/L (3.4-5.1); Total Protein 7.7 g/dL (6.3-8.2)
[2025-02-09 14:44] LABS: Sodium 117 mmol/L (137-145)
[2025-02-09] MEDS: ONDANSETRON 4 MG/2 ML INJ IV (17:45)
--- NOTE | 2025-02-09 18:09 | DI.RAD.S_ITS ---
PROCEDURE: XR CHEST 1V INDICATIONS: epigastric pain TECHNIQUE: One view of the chest was acquired. COMPARISON: [facility], CR, XR CHEST 1V, 12/05/2024, 14:34. FINDINGS: Surgical changes and devices: None. Lungs and pleura: Lungs are clear. No pleural effusions or pneumothorax. Mediastinum: Mediastinal contours appear normal. Heart size is normal. Bones and chest wall: No suspicious bony lesions. Overlying soft tissues appear unremarkable. IMPRESSION: No acute cardiopulmonary abnormality is seen. Approved by: Lila Liao M.D.,Ph.D. on 02/09/2025 at 19:16
--- NOTE | 2025-02-09 18:11 | ED.ABDPAIN ---
HPI - Abdominal Pain General Chief Complaint: Abdominal Pain Stated Complaint: Sent from PCP digestive track issues Time Seen by Provider: 02/09/25 18:01 Source: patient Mode of arrival: Wheelchair History of Present Illness HPI narrative: 84y female history of hypertension dyslipidemia started on February 02 eating stating that she had not had a bowel movement for [address] Villalobos had at that time said to double the MiraLax started moving some but not substantial but she was still not able to get any food down but able to drink ensure. On 02/03 she is not doing that well as she still can not get her food down had some rice mesh but she would like that and had not taken any of her daily pills for 3 days on an empty stomach but was still taking her antibiotics Cipro and thrush lozenges for UTI and feeling faint at with a headache on the . On the 04 of February she was able to have some rice and vegetables with supper and seemed to be doing a little bit better. On February 05 she had to cancel PT as she had a headache upset stomach and was dizzy but still was able to continue taking antibiotics for UTI and thrush with lozenges tried chicken broth but unable to hold that down. On Sunday the Dr. Villalobos had causing some nausea medicine for her she has been able to drink a lot of liquids on that day but was not breathing up to try solid foods felt a little better but not right yet. And then on Sunday the and was day of up and down where everything was still hurting and she was still nauseous and still feeling weak at that time. Today she felt more weak and dizzy and lightheaded and still having abdominal pain and nausea and was sent over for further evaluation. Other than what is stated 14 point review of system is negative. Related Data Home Medications ?Medication ?Instructions ?Recorded ?Confirmed omeprazole 20 mg capsule,delayed 20 mg PO BID ##0 04/06/10 02/04/25 release tiotropium bromide 18 mcg capsule 2 cap inhalation DAILY ##0 09/01/17 02/04/25 with inhalation device (Spiriva with HandiHaler) fluoxetine 40 mg capsule (Prozac) 40 mg PO DAILY ##0 09/02/17 02/04/25 levothyroxine 50 mcg tablet 50 mcg PO QAM ##0 09/02/17 02/04/25 Respironics DreamStation BIPAP #1 ea 10/15/18 02/04/25 acetaminophen 500 mg tablet 1,000 mg PO DAILY PRN pain 10/03/19 02/04/25 (Tylenol Extra Strength) tolterodine 2 mg capsule,extended 4 mg PO DAILY 10/03/19 02/04/25 release 24 hr chlorthalidone 25 mg tablet 25 mg PO DAILY 08/06/24 02/04/25 clonazepam 0.5 mg tablet 0.5 mg PO BID 08/06/24 02/04/25 atorvastatin 10 mg tablet 10 mg DAILY 08/26/24 02/04/25 diltiazem HCl 240 mg 240 mg PO DAILY 08/26/24 02/04/25 capsule,extended release 24 hr clotrimazole 10 mg dillon 10 mg PO 5XD 12/11/24 02/04/25 cranberry fruit concentrate 250 mg 250 mg PO TID 12/11/24 02/04/25 chewable tablet (Azo Cranberry) fluoxetine 20 mg capsule 60 mg PO QAM Prescribed by outside 12/11/24 02/04/25 provider spironolactone 25 mg tablet 25 mg PO DAILY Outside provider 12/11/24 02/04/25 sulfamethoxazole 800 1 tab PO BID 12/11/24 02/04/25 mg-trimethoprim 160 mg tablet sulfamethoxazole 800 1 tab PO BID Outside provider 12/11/24 02/04/25 mg-trimethoprim 160 mg tablet telmisartan 20 mg tablet 20 mg PO DAILY Outside Provider 12/11/24 02/04/25 telmisartan 20 mg tablet 20 mg PO DAILY outside provider 12/11/24 02/04/25 tolterodine 4 mg capsule,extended 4 mg PO DAILY Outside provider 12/11/24 02/04/25 release 24 hr Previous Rx's ?Medication ?Instructions ?Recorded clopidogrel 75 mg tablet 75 mg PO DAILY #30 tabs 08/08/24 isosorbide mononitrate 30 mg 30 mg PO DAILY #30 tabs 08/08/24 tablet,extended release 24 hr Allergies Allergy/AdvReac Type Severity Reaction Status Date / Time nitrofurantoin AdvReac Mild HIVES Verified 02/09/25 11:55 (NITROFURANTOIN) Review of Systems Review of Systems ROS Unobtainable: All systems reviewed & are unremarkable except as noted in HPI and below Patient History Medical History (Updated 02/04/25 @ 14:17 by Juliette Giang PA-C) Chronic pain Mixed stress and urge urinary incontinence Dependent edema Dizziness, nonspecific Diverticulosis Breast cancer Memory impairment of gradual onset Rosacea Depression Hypothyroidism Nocturnal hypoxemia Hypertension Hyperlipidemia GERD (gastroesophageal reflux disease) Fatigue Anxiety COPD (chronic obstructive pulmonary disease) Obstructive sleep apnea of adult Insomnia Lumbar spinal stenosis Right hip pain Right leg pain Contusion of right leg Family History Other Anxiety Congestive heart failure Depression Diabetes mellitus Hypersomnia Hypertension Obesity Obstructive sleep apnea Snoring Substance abuse Social History details: lives in [place], sons live close by household members: spouse Tobacco: How many years used: 50 alcohol intake: never substance use type: does not use Exam Narrative Exam Narrative: GENERAL: [84] year old patient appears stated age. Well-developed patient, in mild distress. HEAD: Atraumatic. Normocephalic. EYES: Pupils equal round and reactive. Extraocular motions intact. No scleral icterus. No injection or drainage. ENT: Nose without bleeding, purulent drainage. Throat without erythema, tonsillar hypertrophy or exudate. Airway patent. NECK: Trachea midline. Non tender CARDIOVASCULAR: Regular rate and rhythm without murmurs, gallops, or rubs. RESPIRATORY: Clear to auscultation. Breath sounds equal bilaterally. No wheezes, rales, or rhonchi. GASTROINTESTINAL: Abdomen soft, non-tender, nondistended. EXTREMITIES: No edema or joint tenderness. BACK: Nontender without deformity or crepitance. No flank tenderness. NEURO: AOx3. SKIN: No rash or erythema of visible areas Initial Vital Signs Initial Vital Signs: Vital Signs Temperature 98.5 F 02/09/25 11:55 Pulse Rate 78 02/09/25 11:55 Respiratory Rate 17 02/09/25 11:55 Blood Pressure 179/79 H 02/09/25 11:55 Pulse Oximetry 95 02/09/25 11:55 Oxygen Delivery Method Room Air 02/09/25 11:55 Course Orders Ordered: ED Orders 02/09/25 12:00 EKG-12 Lead Stat 02/09/25 14:23 Complete Blood Count AUTO DIFF Stat Comprehensive Metabolic Panel Stat Lipase Stat 02/09/25 15:36 Comprehensive Metabolic Panel Stat Lipase Stat Magnesium Stat Troponin I Stat 02/09/25 18:09 CXR [XR chest 1V] Stat 02/09/25 18:10 CT abdomen pelvis w con Stat POTASSIUM CHLORIDE IN WATER (Potassium Cl 10 Meq/100 Ml Rosa) 10 meq in 100 mls @ 100 mls/hr IV Q1H TARIQ Stop: 02/09/25 22:44 Last Admin: 02/09/25 19:25 Dose: 100 mls/hr Documented By: ES Ondansetron HCl (Ondansetron 4 Mg/2 Ml Inj) 4 mg IV NOW PRN PRN Reason: Nausea And Vomiting Last Admin: 02/09/25 17:45 Dose: 4 mg Documented By: ES Ondansetron HCl (Ondansetron 4 Mg Odt) 4 mg PO NOW PRN PRN Reason: Nausea And Vomiting Discontinued Medications Chlorthalidone (Chlorthalidone 25 Mg Tablet) 100 mg PO NOW ONE Stop: 02/09/25 17:32 Diltiazem HCl (Diltiazem 30 Mg Tablet) 240 mg PO NOW ONE Stop: 02/09/25 17:37 Lactated Ringer's (Lactated Ringers) 1,000 mls @ 1,000 mls/hr IV BOLUS ONE Stop: 02/09/25 19:09 Last Admin: 02/09/25 18:39 Dose: 1,000 mls/hr Documented By: ES Isosorbide Mononitrate (Isosorbide Mononitrate Er 30 Mg Tablet) 30 mg PO NOW ONE Stop: 02/09/25 17:37 Ketorolac Tromethamine (Ketorolac 30 Mg/Ml Vial) 15 mg IV NOW ONE Stop: 02/09/25 18:11 Last Admin: 02/09/25 18:39 Dose: 15 mg Documented By: ES Metoclopramide HCl (Metoclopramide 10 Mg/2 Ml Inj) 10 mg IV NOW ONE Stop: 02/09/25 18:22 Last Admin: 02/09/25 18:39 Dose: 10 mg Documented By: ES Ondansetron HCl (Ondansetron 4 Mg/2 Ml Inj) 4 mg IV NOW ONE Stop: 02/09/25 18:10 Ondansetron HCl (Ondansetron 4 Mg/2 Ml Inj) 4 mg IV NOW ONE Stop: 02/09/25 18:11 Spironolactone (Spironolactone 25 Mg Tablet) 25 mg PO NOW ONE Stop: 02/09/25 17:37 Vital Signs Vital signs: Vital Signs - 8 hr 02/09/25 15:33 02/09/25 15:37 02/09/25 15:37 Pulse Rate 77 74 Respiratory Rate 17 Blood Pressure 218/92 H Pulse Oximetry 96 97 Oxygen Delivery Method 02/09/25 16:00 02/09/25 16:04 02/09/25 16:04 Pulse Rate 73 73 Respiratory Rate 17 14 Blood Pressure 214/85 H Pulse Oximetry 95 95 Oxygen Delivery Method 02/09/25 16:30 02/09/25 16:31 02/09/25 16:31 Pulse Rate 75 74 Respiratory Rate 18 23 Blood Pressure 224/87 H Pulse Oximetry 94 94 Oxygen Delivery Method 02/09/25 17:00 02/09/25 17:01 02/09/25 17:01 Pulse Rate 82 80 Respiratory Rate 17 20 Blood Pressure 214/81 H Pulse Oximetry 90 L 90 L Oxygen Delivery Method 02/09/25 17:30 02/09/25 17:31 02/09/25 17:31 Pulse Rate 77 77 Respiratory Rate 19 18 Blood Pressure 185/103 H Pulse Oximetry 95 97 Oxygen Delivery Method 02/09/25 18:04 02/09/25 18:37 02/09/25 19:00 Pulse Rate 84 74 67 Respiratory Rate 12 Blood Pressure Pulse Oximetry 98 Oxygen Delivery Method 02/09/25 19:22 02/09/25 19:22 02/09/25 19:29 Pulse Rate 70 Respiratory Rate 16 Blood Pressure 188/76 H Pulse Oximetry 98 Oxygen Delivery Method Room Air MDM - Abdominal Pain Lab Data 02/09/25 14:23 02/09/25 15:36 Labs: Lab Results 02/09/25 02/09/25 Range/Units 14:23 15:36 WBC 11.5 H (4.5-11.0) X10^3/uL RBC 5.15 (4.0-5.2) X10^6/uL Hgb 15.7 (12.0-16.0) g/dL Hct 44.3 (36-46) % MCV 86.1 (80-100) fL MCH 30.5 (26-34) PG MCHC 35.4 (30-36) % RDW 14.9 H (11.6-14.8) % Plt Count 302 (150-400) X10^3/uL Neut % (Auto) 81.5 H (50-75) % Lymph % (Auto) 11.8 L (25-40) % Porter % (Auto) 6.3 (3-14) % Eos % (Auto) 0.2 L (2-4) % Baso % (Auto) 0.2 (0-2) % Neut # (Auto) 9300 H (1244-3417) /uL Lymph # (Auto) 1400 (4076-2240) /uL Porter # (Auto) 700 (0-900) /uL Eos # (Auto) 0 (0-450) /uL Baso # (Auto) 0 (0-100) /uL Sodium 117 L* 118 L* (137-145) mmol/L Potassium 3.3 L 2.6 L* (3.4-5.1) mmol/L Chloride 79 L 77 L (98-107) mmol/L Carbon Dioxide 27 27 (22-32) mmol/L BUN 16 16 (7-17) mg/dL Creatinine 0.84 0.79 (0.52-1.04) mg/dL Estimated GFR > 60 > 60 (>60) mL/min BUN/Creatinine Ratio 19.0 20.3 (6-22) Glucose 99 96 (70-99) mg/dL Calcium 9.6 9.8 (8.4-10.2) mg/dL Magnesium 1.5 L (1.6-2.3) mg/dL Total Bilirubin 0.8 0.9 (0.2-1.3) mg/dL AST 40 H 52 H (14-36) IU/L ALT 33 37 H (<35) IU/L Alkaline Phosphatase 90 96 (38-126) U/L Troponin I 0.015 (0.01-0.034) ng/mL Total Protein 7.7 8.2 (6.3-8.2) g/dL Albumin 4.9 5.1 H (3.5-5.0) g/dL Globulin 2.8 3.1 (1.7-4.1) g/dL Albumin/Globulin Ratio 1.8 1.6 (1.0-2.8) Lipase 123 143 (23-300) U/L Imaging Data CT scan - abdomen/pelvis: Radiologist's Impression: [address] [address] [address] Scan Report Signed Patient: Christina Odonnell MR#: [id number] : 1940 Acct:[id number] Age/Sex: 84 / F Date of Service: 02/09/25 Loc: ED Accession Number: [id number] Procedure: CT abdomen pelvis w con Ordering Provider: Leon Reddy D.O. PROCEDURE: CT ABDOMEN PELVIS W CON INDICATIONS: epigastric pain TECHNIQUE: After the administration of intravenous contrast, axial sections acquired from the lung bases to the pubic symphysis. Coronal and sagittal reformats were performed. For radiation dose reduction, the following was used: automated exposure control, adjustment of mA and/or kV according to patient size. COMPARISON: [facility], CT, CT ANGIO CHEST ABDOMEN PELVIS, 08/26/2024, 19:04. [facility], CT, CT ABDOMEN PELVIS W CON, 05/25/2024, 8:31. FINDINGS: Image quality: Diagnostic. Lower Chest: No significant findings. ABDOMEN: Liver: No solid mass. Gallbladder: No radiopaque gallstones or wall thickening. Biliary ducts: No biliary dilation. Pancreas: No ductal dilation. Spleen: Size is within normal limits. Adrenal Glands: No adrenal nodules. Kidneys and Ureters: No hydronephrosis. No solid mass. No complex renal cystic lesion which requires follow up. Stomach and Bowel: Normal colonic caliber, without significant wall thickening. The appendix is not definitely seen. No inflammatory changes seen. Peritoneum: No abnormal intraperitoneal fluid. No free air. Ventral Wall: No significant ventral hernia. Abdominal Nodes: No retroperitoneal or mesenteric adenopathy by size criteria. Vessels: Aorta and inferior vena cava are normal in size. Extensive atherosclerotic disease again seen. PELVIS: Pelvic Organs: Unremarkable. Bladder: No bladder wall thickening, accounting for underdistention. Pelvic Nodes: No enlarged lymph nodes. Miscellaneous: No inguinal hernias are seen. Bones: No aggressive osseous abnormality. IMPRESSION: No acute intra-abdominal abnormality seen. Chest x-ray: Radiologist's Impression: [address] [address] XRay Report Signed Patient: Christina Odonnell MR#: [id number] : 1940 Acct:[id number] Age/Sex: 84 / F Date of Service: 02/09/25 Loc: ED Accession Number: [id number] Procedure: XR chest 1V Ordering Provider: Leon Reddy D.O. PROCEDURE: XR CHEST 1V INDICATIONS: epigastric pain TECHNIQUE: One view of the chest was acquired. COMPARISON: [facility], , XR CHEST 1V, 12/05/2024, 14:34. FINDINGS: Surgical changes and devices: None. Lungs and pleura: Lungs are clear. No pleural effusions or pneumothorax. Mediastinum: Mediastinal contours appear normal. Heart size is normal. Bones and chest wall: No suspicious bony lesions. Overlying soft tissues appear unremarkable. IMPRESSION: No acute cardiopulmonary abnormality is seen. MDM Narrative Medical decision making narrative: Vital signs, nurse triage note, medication list, previous ER visits, and all imaging study reviewed. Patient given lactated ringer, Daly Dove K rider, mg ridpietro. Case discussed with Dr. Stone who has graciously accepted the patient for inpatient admission. Differential diagnosis orthostatic hypotension, electrolyte derangement, dehydration. Discharge Plan Departure Prescriptions: No Action omeprazole 20 mg Capsule,Delayed Release(Dr/Ec) 20 mg PO BID Qty: 0 tiotropium bromide [Spiriva with HandiHaler] 18 MCG capsule, w/inhalation device 2 cap inhalation DAILY Qty: 0 fluoxetine [Prozac] 40 MG capsule 40 mg PO DAILY Qty: 0 levothyroxine 50 MCG tablet 50 mcg PO QAM Qty: 0 tolterodine 2 mg capsule,extended release 24hr 4 mg PO DAILY Patient Comments: take 1 capsule by mouth once daily acetaminophen [Tylenol Extra Strength] 500 mg Tablet 1,000 mg PO DAILY PRN (Reason: pain) clonazepam 0.5 mg tablet 0.5 mg PO BID chlorthalidone 25 mg tablet 25 mg PO DAILY clopidogrel 75 mg Tablet 75 mg PO DAILY Qty: 30 0RF isosorbide mononitrate 30 mg tablet extended release 24 hr 30 mg PO DAILY Qty: 30 3RF atorvastatin 10 mg tablet 10 mg DAILY diltiazem HCl 240 mg capsule,extended release 24hr 240 mg PO DAILY clotrimazole 10 mg dillon 10 mg PO 5XD fluoxetine 20 mg capsule 60 mg PO QAM sulfamethoxazole-trimethoprim 800-160 mg tablet 1 tab PO BID telmisartan 20 mg tablet 20 mg PO DAILY tolterodine 4 mg capsule,extended release 24hr 4 mg PO DAILY Azo Cranberry 250 mg tablet,chewable 250 mg PO TID spironolactone 25 mg tablet 25 mg PO DAILY sulfamethoxazole-trimethoprim 800-160 mg tablet 1 tab PO BID telmisartan 20 mg tablet 20 mg PO DAILY (DME) Respironics DreamStation BIPAP Qty: 1 Dose Instruction: As directed Patient Comments: Pressure: IPAP 12 EPAP 6 DME: [facility] Rx Instructions: As directed Referrals: Bertin Villalobos MD [Primary Care Provider, Family Practice]
[2025-02-09 18:27] LABS: Alanine Aminotransferase 37 IU/L (<35); Albumin 5.1 g/dL (3.5-5.0); Albumin Globulin Ratio 1.6 (1.0-2.8); Alkaline Phosphatase 96 U/L (38-126); Blood Urea Nitrogen 16 mg/dL (7-17); Calcium 9.8 mg/dL (8.4-10.2); Carbon Dioxide 27 mmol/L (22-32); Chloride 77 mmol/L (98-107); Estimated Glomerular Filt Rate > 60 mL/min (>60); Globulin 3.1 g/dL (1.7-4.1); Glucose 96 mg/dL (70-99); HEMOLYSIS 19 (0-50); Lipase 143 U/L (23-300); Total Protein 8.2 g/dL (6.3-8.2)
[2025-02-09 18:30] LABS: Potassium 2.6 mmol/L (3.4-5.1); Sodium 118 mmol/L (137-145)
[2025-02-09 18:38] LABS: Troponin I 0.015 ng/mL (0.01-0.034)
[2025-02-09] MEDS: KETOROLAC 30 MG/ML VIAL 15 MG IV (18:39)
[2025-02-09] MEDS: METOCLOPRAMIDE 10 MG/2 ML INJ IV (18:39)
[2025-02-09] MEDS: LACTATED RINGERS 1,000 ML 1000 ML IV (18:39)
[2025-02-09 18:53] LABS: Magnesium 1.5 mg/dL (1.6-2.3)
[2025-02-09] MEDS: POTASSIUM CHLORIDE IN WATER 10 MEQ/100 ML PIGGYBACK 100 MEQ IV ×4 (19:25→23:03)
--- NOTE | 2025-02-09 19:53 | PC.NURSE ---
This RN takes over care. Checks on patient. Patient reports some nausea present. Radha Reddy made aware of patient nausea and prescribed medications as per MAR from earlier provider. Asked if he would still like to give Chlorthalidone 100mg PO, Diltiazem 240mg PO, Isosorbide Monoitrate ER 30mg and Spironolactone 25mg PO. Radha Reddy states to hold all of these medications at this time until he can review. Medications held as per radha Reddy verbal direction.
[2025-02-09] MEDS: LACTATED RINGERS 1,000 ML 125 ML IV (20:24)
[2025-02-09] MEDS: MAGNESIUM SULFATE 2 GM/50 ML PIGGYBACK IV (20:54)
[2025-02-09] MEDS: SODIUM CHLORIDE 0.9% 1,000 ML 125 ML IV (22:10)
[2025-02-10 00:32] VITALS: BP 134/100; PULSE 69; RESP 18; TEMP 36.9; O2SAT 94
[2025-02-10 01:22] LABS: Blood Urea Nitrogen 13 mg/dL (7-17); Calcium 8.7 mg/dL (8.4-10.2); Carbon Dioxide 26 mmol/L (22-32); Chloride 87 mmol/L (98-107); Estimated Glomerular Filt Rate > 60 mL/min (>60); Glucose 82 mg/dL (70-99); HEMOLYSIS < 15 (0-50); Potassium 3.0 mmol/L (3.4-5.1); Sodium 121 mmol/L (137-145)
[2025-02-10 02:49] LABS: Appearance Urine UA CLEAR; Bilirubin Urine UA NEGATIVE (NEGATIVE); Color Urine UA YELLOW; Glucose Urine UA NEGATIVE (Negative); Ketones Urine UA 1+ (NEGATIVE); Leukocyte Esterase Urine UA NEGATIVE (NEGATIVE); Nitrite Urine UA NEGATIVE (Negative); Occult Blood Urine UA NEGATIVE (Negative); Protein Urine UA NEGATIVE (Negative); Specific Gravity Urine UA <=1.005 (1.000-1.035); Urobilinogen Urine UA 0.2 E.U./dL (0.2)
[2025-02-10 02:55] LABS: pH Urine UA 6.0 (4.5-8.0)
[2025-02-10 02:56] LABS: Culture Indicated Urine Cult Not Indicated
[2025-02-10 06:22] LABS: Add Manual Diff / Slide Review NO; Hematocrit 42.3 % (36-46); Hemoglobin 14.6 g/dL (12.0-16.0); Lymphocytes Absolute Auto 1200 /uL (1100-4500); Mean Corpuscular HGB Conc 34.6 % (30-36); Mean Corpuscular Hemoglobin 30.0 PG (26-34); Mean Corpuscular Volume 86.8 fL (80-100); Platelet Count 311 X10^3/uL (150-400)
[2025-02-10 06:32] LABS: Blood Urea Nitrogen 12 mg/dL (7-17); Calcium 8.8 mg/dL (8.4-10.2); Carbon Dioxide 26 mmol/L (22-32); Chloride 90 mmol/L (98-107); Estimated Glomerular Filt Rate > 60 mL/min (>60); Glucose 79 mg/dL (70-99); HEMOLYSIS < 15 (0-50); Magnesium 2.2 mg/dL (1.6-2.3); Sodium 125 mmol/L (137-145)
[2025-02-10 06:36] LABS: Potassium 2.7 mmol/L (3.4-5.1)
[2025-02-10] MEDS: SODIUM CHLORIDE 0.9% 1,000 ML 125 ML IV ×2 (07:03→14:46)
[2025-02-10] MEDS: POTASSIUM CHLORIDE IN WATER 10 MEQ/100 ML PIGGYBACK 100 MEQ IV ×6 (07:32→13:07)
[2025-02-10 08:00] VITALS: BP 126/65; PULSE 77; RESP 16; TEMP 36.3; O2SAT 93
[2025-02-10 08:15] VITALS: O2SAT 93
[2025-02-10] MEDS: LEVOTHYROXINE 50 MCG TABLET PO (09:40)
[2025-02-10] MEDS: CLOPIDOGREL 75 MG TABLET PO (09:40)
[2025-02-10] MEDS: CHLORTHALIDONE 25 MG TABLET PO (09:40)
[2025-02-10] MEDS: ACETAMINOPHEN 325 MG TABLET 975 MG PO (09:40)
[2025-02-10] MEDS: SPIRONOLACTONE 25 MG TABLET PO (09:40)
[2025-02-10] MEDS: ISOSORBIDE MONONITRATE ER 30 MG TABLET PO (09:40)
[2025-02-10 10:31] VITALS: BP 126/65
[2025-02-10] MEDS: LOSARTAN 25 MG TABLET PO (10:31)
[2025-02-10] MEDS: OXYBUTYNIN 5 MG ER TAB 10 MG PO (10:31)
[2025-02-10] MEDS: CLOTRIMAZOLE TROCHE 10 MG PO ×4 (10:58→22:15)
[2025-02-10 14:00] VITALS: BP 124/80; PULSE 80; RESP 18; TEMP 36.4; O2SAT 95
--- NOTE | 2025-02-10 16:06 | CM.DANOTE ---
B DCP Assessment note pt is a 84yo F admitted with low sodium/potassium/magnesium. PCP Griselda Payer Medicare and [employer] preferred. [facility] SEW[facility] reviewed EMR. per chart, pt lives indep at home with spouse in [place]. no DME at baseline. no note from provider as of 1600 for further medical POC. Per RN, no obvious CM needs. moving indep in room, no pain or nausea. potential dc tomorrow. [facility] SEWER unable to meet with pt today due to triaging needs. P: anticipate dc tomorrow pending labs WNL home with spouse and OP f/u. 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 Yes: POLST Advance Directives No on File History Provided By Patient,Medical Record Prior Living House Arrangements Household Members spouse Independent with ADL Yes 's Is patient alert and Yes oriented? Comment uses walking sticks when outside during activities such as birding Discharge Plan Home Transportation Spouse Arrangement Review Status In Process Please Provide Date 02/10/25 Initial DC Assessment Was Performed Next Review Type Continued Stay Review
[2025-02-10 16:49] LABS: Blood Urea Nitrogen 11 mg/dL (7-17); Calcium 8.7 mg/dL (8.4-10.2); Carbon Dioxide 25 mmol/L (22-32); Chloride 96 mmol/L (98-107); Estimated Glomerular Filt Rate > 60 mL/min (>60); Glucose 72 mg/dL (70-99); HEMOLYSIS < 15 (0-50); Potassium 3.1 mmol/L (3.4-5.1); Sodium 129 mmol/L (137-145)
--- NOTE | 2025-02-10 18:19 | PM.HP.1 ---
History of Present Illness History of Present Illness Date Patient Seen: 02/10/25 Time Patient Seen: 08:00 Chief complaint: Sent from PCP digestive track issues Narrative: This is a very pleasant 84-year-old female who is under the primary care of Dr. Villalobos. Patient has had ongoing illness with resistant hypertension and has had extensive workup including renin aldosterone level which was normal and plasma metanephrines which were upper end of normal maybe 0.1 over the elevation. She is seen Cardiology and medications have been adjusted. She recently was being treated for urinary tract infection on Cipro and she became more ill with nausea and abdominal pain and unable to have a bowel movement and she presented to the ER where she also complained of a headache and was found to have a sodium of 118. Patient has had some longstanding hyponatremia but not to this amount. She has had workup for this as well which has been unrevealing but is currently on chlorthalidone for her antihypertension Twelve point review of systems is otherwise negative Patient declines chest pain or shortness a breath or neurologic symptoms. She denies any lower extremity edema. She does have COPD but things have not been any different. No unintentional weight loss or weight gain Past medical history: 1. History of tobacco abuse, 45 pack-year history. She quit in 2004. 2. COPD. Previously on oxygen currently not needing this anymore. Improved with Spiriva and albuterol 3. Hypertension 4. Hypothyroidism 5. Recent diagnosis of polymyalgia rheumatica 6. Degenerative joint 7. History of breast cancer 8. Depression, well controlled 9. Hyperlipidemia 10. GERD 11. Diverticulosis 12. Obesity 13. Anxiety 14. Obstructive sleep apnea See chart for list of home medications Allergies nitrofurantoin causes hives Past surgical history 1. 1995 right total knee replacement 2. Appendectomy 3. Bilateral tubal ligation 4. Hysterectomy 5. Umbilical hernia repair 6. Tonsillectomy 7. Right rotator cuff repair in 2002 Number a unilateral oophorectomy 9. Breast lumpectomy 2009 10. Left knee replacement 2004 11. Right hip replacement 2014 Dr. De La Torre 12. [address] 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 Family history: Most people from cancer Mom at 92 from old age Dad from lung cancer he was a smoker Two sister of lung cancer from smoking Maternal grandmother of lung cancer she never smoked Paternal grandmother of jaw cancer [facility] Medical History (Updated 02/10/25 @ 04:32 by Leon Reddy DO) Chronic pain Mixed stress and urge urinary incontinence Dependent edema Dizziness, nonspecific Diverticulosis Breast cancer Memory impairment of gradual onset Rosacea Depression Hypothyroidism Nocturnal hypoxemia Hypertension Hyperlipidemia GERD (gastroesophageal reflux disease) Fatigue Anxiety COPD (chronic obstructive pulmonary disease) Obstructive sleep apnea of adult Insomnia Lumbar spinal stenosis Right hip pain Right leg pain Contusion of right leg Family History Other Anxiety Congestive heart failure Depression Diabetes mellitus Hypersomnia Hypertension Obesity Obstructive sleep apnea Snoring Substance abuse Social History details: lives in [place], sons live close by household members: spouse Smoking Status: Former smoker Tobacco: How many years used: 50 alcohol intake: never substance use type: does not use Meds Home Medications and Allergies Home Medications ?Medication ?Instructions ?Recorded ?Confirmed ?Type omeprazole 20 mg capsule,delayed 20 mg PO BID ##0 04/06/10 02/09/25 History release tiotropium bromide 18 mcg capsule 2 cap inhalation DAILY ##0 09/01/17 02/09/25 History with inhalation device (Spiriva with HandiHaler) fluoxetine 40 mg capsule (Prozac) 40 mg PO DAILY ##0 09/02/17 02/09/25 History levothyroxine 50 mcg tablet 50 mcg PO QAM ##0 09/02/17 02/09/25 History acetaminophen 500 mg tablet 1,000 mg PO DAILY PRN pain 10/03/19 02/09/25 History (Tylenol Extra Strength) tolterodine 2 mg capsule,extended 4 mg PO DAILY 10/03/19 02/09/25 History release 24 hr chlorthalidone 25 mg tablet 25 mg PO DAILY 08/06/24 02/09/25 History clonazepam 0.5 mg tablet 0.5 mg PO BID 08/06/24 02/09/25 History clopidogrel 75 mg tablet 75 mg PO DAILY #30 tabs 08/08/24 02/09/25 Rx isosorbide mononitrate 30 mg 30 mg PO DAILY #30 tabs 08/08/24 02/09/25 Rx tablet,extended release 24 hr atorvastatin 10 mg tablet 10 mg PO DAILY 08/26/24 02/10/25 History diltiazem HCl 240 mg 240 mg PO DAILY 08/26/24 02/09/25 History capsule,extended release 24 hr clotrimazole 10 mg dillon 10 mg PO 5XD 12/11/24 02/09/25 History cranberry fruit concentrate 250 mg 250 mg PO TID 12/11/24 02/09/25 History chewable tablet (Azo Cranberry) fluoxetine 20 mg capsule 60 mg PO QAM Prescribed by outside 12/11/24 02/09/25 History provider spironolactone 25 mg tablet 25 mg PO DAILY Outside provider 12/11/24 02/09/25 History telmisartan 20 mg tablet 20 mg PO DAILY Outside Provider 12/11/24 02/09/25 History telmisartan 20 mg tablet 20 mg PO DAILY outside provider 12/11/24 02/09/25 History tolterodine 4 mg capsule,extended 4 mg PO DAILY Outside provider 12/11/24 02/09/25 History release 24 hr ciprofloxacin HCl 500 mg tablet 500 mg PO BID 02/09/25 02/09/25 History Allergies Allergy/AdvReac Type Severity Reaction Status Date / Time nitrofurantoin AdvReac Mild HIVES Verified 02/09/25 11:55 (NITROFURANTOIN) Exam Vital Signs (past 8 hours): - 02/10/25 10:31 Blood Pressure 126/65 Oxygen Delivery Method Room Air Oxygen Flow Rate 0 Narrative Exam Narrative: Patient is alert and oriented in no apparent distress. She is sitting upright in the chair in his excellent historian HEENT is unremarkable Neck is supple without adenopathy Chest is clear to auscultation with scattered expiratory wheezes but no increased work of breathing and no rhonchi or crackles Cor: Regular rate and rhythm with distant S1-S2 Extremities trace edema Abdomen positive bowel sounds, soft Neurologic exam nonfocal Skin no rashes Objective Labs 02/10/25 05:00 02/10/25 16:20 Labs: Laboratory Results - last 24 hr 07/02/10/25 02/10/25 15:36 01:00 02:25 WBC RBC Hgb Hct MCV MCH MCHC RDW Plt Count Neut % (Auto) Lymph % (Auto) [place] % (Auto) Eos % (Auto) Baso % (Auto) Neut # (Auto) Lymph # (Auto) [place] # (Auto) Eos # (Auto) Baso # (Auto) Sodium 118 L* 121 L Potassium 2.6 L* 3.0 L Chloride 77 L 87 L Carbon Dioxide 27 26 BUN 16 13 Creatinine 0.79 0.71 Estimated GFR > 60 > 60 BUN/Creatinine Ratio 20.3 18.3 Glucose 96 82 Calcium 9.8 8.7 Magnesium 1.5 L Total Bilirubin 0.9 AST 52 H ALT 37 H Alkaline Phosphatase 96 Troponin I 0.015 Total Protein 8.2 Albumin 5.1 H Globulin 3.1 Albumin/Globulin Ratio 1.6 Lipase 143 Urine Color Yellow Urine Appearance Clear Urine pH 6.0 Ur Specific Rock <=1.005 Urine Protein Negative Urine Glucose (UA) Negative Urine Ketones 1+ H Urine Occult Blood Negative Urine Nitrate Negative Urine Bilirubin Negative Urine Urobilinogen 0.2 Ur Leukocyte Esterase Negative Urine RBC None seen Urine WBC None seen Ur Squamous Epith Cells None seen Urine Bacteria None seen Ur Culture Indicated? Cult not indicated Vol Urine Centrifuged 10ml (spun) 02/10/25 02/10/25 05:00 16:20 WBC 8.4 RBC 4.88 Hgb 14.6 Hct 42.3 MCV 86.8 MCH 30.0 MCHC 34.6 RDW 14.7 Plt Count 311 Neut % (Auto) 75.4 H Lymph % (Auto) 14.5 L [place] % (Auto) 8.7 Eos % (Auto) 0.9 L Baso % (Auto) 0.5 Neut # (Auto) 6300 Lymph # (Auto) 1200 [place] # (Auto) 700 Eos # (Auto) 100 Baso # (Auto) 0 Sodium 125 L 129 L Potassium 2.7 L* 3.1 L Chloride 90 L 96 L Carbon Dioxide 26 25 BUN 12 11 Creatinine 0.72 0.74 Estimated GFR > 60 > 60 BUN/Creatinine Ratio 16.7 14.9 Glucose 79 72 Calcium 8.8 8.7 Magnesium 2.2 Total Bilirubin AST ALT Alkaline Phosphatase Troponin I Total Protein Albumin Globulin Albumin/Globulin Ratio Lipase Urine Color Urine Appearance Urine pH Ur Specific Rock Urine Protein Urine Glucose (UA) Urine Ketones Urine Occult Blood Urine Nitrate Urine Bilirubin Urine Urobilinogen Ur Leukocyte Esterase Urine RBC Urine WBC Ur Squamous Epith Cells Urine Bacteria Ur Culture Indicated? Vol Urine Centrifuged Assessment & Plan Assessment & Plan narrative: 84-year-old female admitted with severe hyponatremia and hypokalemia as well as hypochloremia. Assessment 1. Abdominal pain improved Plan: Reviewed ER workup and at this point will trend and will help with constipation Assessment 2. Nausea with hyponatremia, hypokalemia and hypochloremia. Suspect related to this. Patient received normal saline overnight is improved and feeling much better she also received K riders and potassium came up minimally Plan: Will continue with normal saline and potassium replacement and will recheck in a.m.. Suspect potentially related to urinary tract infection and antibiotic treatment. Assessment 3. UTI Plan: Patient will be switched to ceftriaxone and will wait for urine culture Assessment 4. Depression Plan: Continue with the 60 mg daily of fluoxetine Assessment 5. Hypothyroidism Plan: Continue with the same levothyroxine Assessment 6. Hypertension now with normal blood pressures. Will continue same outpatient medications, telmisartan which I believe was recently restarted and isosorbide nitrate and spironolactone Assessment 7. COPD without acute symptoms Plan: Continue with Spiriva Code status is DNR 76 minutes spent with patient in reviewing clinic chart discussing with physicians, nursing, meeting with patient, formulating a plan and documentation Time-Based Coding :: [TOTAL MINUTES] spent with patient and on the chart (including review of chart, obtaining history, exam, reviewing outside data, placing orders, documenting exam and treatment plan, and counseling patient) on [DATE].
[2025-02-10] MEDS: POTASSIUM CHLORIDE 20 MEQ TAB 40 MEQ PO (18:47)
[2025-02-10] MEDS: PANTOPRAZOLE DR 20 MG TABLET PO (22:14)
[2025-02-10] MEDS: SODIUM CHLORIDE 0.9% FLUSH 10 ML IV (22:16)
[2025-02-10 23:29] VITALS: BP 126/58; PULSE 78; RESP 16; TEMP 36.2; O2SAT 90
[2025-02-11] MEDS: SODIUM CHLORIDE 0.9% 1,000 ML 60 ML IV (05:15)
[2025-02-11] MEDS: ACETAMINOPHEN 325 MG TABLET 975 MG PO (05:35)
[2025-02-11] MEDS: CLOTRIMAZOLE TROCHE 10 MG PO ×2 (05:36→08:50)
[2025-02-11] MEDS: LEVOTHYROXINE 50 MCG TABLET PO (05:36)
[2025-02-11 06:04] LABS: Alanine Aminotransferase 21 IU/L (<35); Albumin 3.3 g/dL (3.5-5.0); Albumin Globulin Ratio 1.4 (1.0-2.8); Alkaline Phosphatase 65 U/L (38-126); Blood Urea Nitrogen 8 mg/dL (7-17); Calcium 8.3 mg/dL (8.4-10.2); Carbon Dioxide 26 mmol/L (22-32); Chloride 105 mmol/L (98-107); Estimated Glomerular Filt Rate > 60 mL/min (>60); Globulin 2.3 g/dL (1.7-4.1); Glucose 82 mg/dL (70-99); HEMOLYSIS < 15 (0-50); Magnesium 1.8 mg/dL (1.6-2.3); Potassium 3.6 mmol/L (3.4-5.1); Sodium 134 mmol/L (137-145); Total Protein 5.6 g/dL (6.3-8.2)
[2025-02-11 08:00] VITALS: O2SAT 93
[2025-02-11] MEDS: CHLORTHALIDONE 25 MG TABLET PO (08:50)
[2025-02-11] MEDS: OXYBUTYNIN 5 MG ER TAB 10 MG PO (08:50)
[2025-02-11] MEDS: PANTOPRAZOLE DR 20 MG TABLET PO (08:51)
[2025-02-11] MEDS: ISOSORBIDE MONONITRATE ER 30 MG TABLET PO (08:51)
[2025-02-11] MEDS: SPIRONOLACTONE 25 MG TABLET PO (08:51)
[2025-02-11] MEDS: ATORVASTATIN 20 MG TABLET 10 MG PO (08:51)
[2025-02-11 08:52] VITALS: BP 123/59
[2025-02-11] MEDS: LOSARTAN 25 MG TABLET PO (08:52)
[2025-02-11] MEDS: CLOPIDOGREL 75 MG TABLET PO (08:52)
[2025-02-11 08:57] VITALS: BP 123/59; PULSE 78; RESP 16; TEMP 36.8; O2SAT 93
--- NOTE | 2025-02-11 09:50 | PM.DS.1 ---
History of Present Illness History of Present Illness Date Patient Seen: 02/11/25 Time Patient Seen: 09:50 Chief complaint: Sent from PCP digestive track issues Narrative: This is a very pleasant 84-year-old female who is under the primary care of Dr. Villalobos. Patient has had ongoing illness with resistant hypertension and has had extensive workup including renin aldosterone level which was normal and plasma metanephrines which were upper end of normal maybe 0.1 over the elevation. She is seen Cardiology and medications have been adjusted. She recently was being treated for urinary tract infection on Cipro and she became more ill with nausea and abdominal pain and unable to have a bowel movement and she presented to the ER where she also complained of a headache and was found to have a sodium of 118. Patient has had some longstanding hyponatremia but not to this amount. She has had workup for this as well which has been unrevealing but is currently on chlorthalidone for her antihypertension Twelve point review of systems is otherwise negative Patient declines chest pain or shortness a breath or neurologic symptoms. She denies any lower extremity edema. She does have COPD but things have not been any different. No unintentional weight loss or weight gain Past medical history: 1. History of tobacco abuse, 45 pack-year history. She quit in 2004. 2. COPD. Previously on oxygen currently not needing this anymore. Improved with Spiriva and albuterol 3. Hypertension 4. Hypothyroidism 5. Recent diagnosis of polymyalgia rheumatica 6. Degenerative joint 7. History of breast cancer 8. Depression, well controlled 9. Hyperlipidemia 10. GERD 11. Diverticulosis 12. Obesity 13. Anxiety 14. Obstructive sleep apnea See chart for list of home medications Allergies nitrofurantoin causes hives Past surgical history 1. 1995 right total knee replacement 2. Appendectomy 3. Bilateral tubal ligation 4. Hysterectomy 5. Umbilical hernia repair 6. Tonsillectomy 7. Right rotator cuff repair in 2002 Number a unilateral oophorectomy 9. Breast lumpectomy 2009 10. Left knee replacement 2004 11. Right hip replacement 2014 Dr. De La Torre 12. [address] 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 Family history: Most people from cancer Mom at 92 from old age Dad from lung cancer he was a smoker Two sister of lung cancer from smoking Maternal grandmother of lung cancer she never smoked Paternal grandmother of jaw cancer Discharge Providers Provider Date of admission: 02/09/25 20:21 Discharge Date: 02/11/25 Primary care physician: Bertin Villalobos MD Consults: 02/10/25 10:35 Consult to Physical Therapy Evaluate & Treat Comment: weakness/falls Physician Instructions: Evaluate and Treat Discharge provider: Courtney Loyd MD Summary Hospital Course Discharge Diagnosis: 1. Abdominal pain resolved 2. UTI, treated no further symptoms 3. Nausea and vomiting thought to be secondary to severe hyponatremia 4. Severe hyponatremia with symptoms thought to be due to antihypertensives 5. Hypokalemia, replaced will continue outpatient 20 mEq daily potassium 6. COPD stable 7. Hyperlipidemia Hospital Course: Patient admitted to the hospital and aggressive replacement of sodium and potassium and symptoms completely resolved. Patient's nausea and vomiting and abdominal pain subsided. She received 1 dose of ceftriaxone and it was felt that her UTI was treated as she had had outpatient Cipro. Urine culture was not done on her admission but no signs acute infection based on this. Patient has had resistant hypertension with fluctuations in her medications. She will be discharged home on her outpatient medications which include telmisartan 20 mg daily, spironolactone 25 mg daily, chlorthalidone 25 mg daily, levothyroxine, isosorbide mononitrate 30 mg daily, fluoxetine 40 mg daily, diltiazem 240 mg daily, Plavix, atorvastatin 10 mg daily, clonazepam as needed, Detrol 4 mg daily. Patient will be sent home on potassium as well which will be sent in to pharmacy through her clinic chart in [facility]. She will be on 20 mEq a day. She will do labs at our clinic on Sunday and follow up with Dr. Villalobos on Sunday Exam Vital Signs (past 8 hours): - 02/11/25 08:52 02/11/25 08:57 Temperature 98.3 F Pulse Rate 78 Respiratory Rate 16 Blood Pressure 123/59 L 123/59 L Pulse Oximetry 93 Oxygen Flow Rate 0 Oxygen Delivery Method Room Air Oxygen Flow Rate 0 Narrative Exam Narrative: Afebrile vital signs are stable HEENT unremarkable Neck: Supple Chest: Clear to auscultation, improved from yesterday, no wheezing today Cor: Regular rate and rhythm with distant S1-S2 Abdomen: Positive bowel sounds, soft, nontender Extremities no edema Objective Labs 02/10/25 05:00 02/11/25 04:57 Labs: Laboratory Results - last 24 hr 02/10/25 02/11/25 16:20 04:57 Sodium 129 L 134 L Potassium 3.1 L 3.6 Chloride 96 L 105 Carbon Dioxide 25 26 BUN 11 8 Creatinine 0.74 0.70 Estimated GFR > 60 > 60 BUN/Creatinine Ratio 14.9 11.4 Glucose 72 82 Calcium 8.7 8.3 L Magnesium 1.8 Total Bilirubin 0.2 AST 26 ALT 21 Alkaline Phosphatase 65 Total Protein 5.6 L Albumin 3.3 L Globulin 2.3 Albumin/Globulin Ratio 1.4 [facility] Medical History (Updated 02/10/25 @ 04:32 by Leon Reddy DO) Chronic pain Mixed stress and urge urinary incontinence Dependent edema Dizziness, nonspecific Diverticulosis Breast cancer Memory impairment of gradual onset Rosacea Depression Hypothyroidism Nocturnal hypoxemia Hypertension Hyperlipidemia GERD (gastroesophageal reflux disease) Fatigue Anxiety COPD (chronic obstructive pulmonary disease) Obstructive sleep apnea of adult Insomnia Lumbar spinal stenosis Right hip pain Right leg pain Contusion of right leg Family History Other Anxiety Congestive heart failure Depression Diabetes mellitus Hypersomnia Hypertension Obesity Obstructive sleep apnea Snoring Substance abuse Social History details: lives in [place], sons live close by household members: spouse Smoking Status: Former smoker Tobacco: How many years used: 50 alcohol intake: never substance use type: does not use Discharge Assessment & Plan Assessment and Plan Assessment: 1. Abdominal pain resolved 2. UTI, treated no further symptoms 3. Nausea and vomiting thought to be secondary to severe hyponatremia 4. Severe hyponatremia with symptoms thought to be due to antihypertensives 5. Hypokalemia, replaced will continue outpatient 20 mEq daily potassium 6. COPD stable 7. Hyperlipidemia Plan of Treatment: Patient admitted to the hospital and aggressive replacement of sodium and potassium and symptoms completely resolved. Patient's nausea and vomiting and abdominal pain subsided. She received 1 dose of ceftriaxone and it was felt that her UTI was treated as she had had outpatient Cipro. Urine culture was not done on her admission but no signs acute infection based on this. Patient has had resistant hypertension with fluctuations in her medications. She will be discharged home on her outpatient medications which include telmisartan 20 mg daily, spironolactone 25 mg daily, chlorthalidone 25 mg daily, levothyroxine, isosorbide mononitrate 30 mg daily, fluoxetine 40 mg daily, diltiazem 240 mg daily, Plavix, atorvastatin 10 mg daily, clonazepam as needed, Detrol 4 mg daily. Patient will be sent home on potassium as well which will be sent in to pharmacy through her clinic chart in [facility]. She will be on 20 mEq a day. She will do labs at our clinic on Sunday and follow up with Dr. Villalobos on Sunday Discharge Plan Discharge Plan Patient Disposition: Home Discharge orders & Medications Prescriptions: Continued omeprazole 20 mg Capsule,Delayed Release(Dr/Ec) 20 mg PO BID Qty: 0 tiotropium bromide [Spiriva with HandiHaler] 18 MCG capsule, w/inhalation device 2 cap inhalation DAILY Qty: 0 fluoxetine [Prozac] 40 MG capsule 40 mg PO DAILY Qty: 0 Patient Comments: duplicate levothyroxine 50 MCG tablet 50 mcg PO QAM Qty: 0 tolterodine 2 mg capsule,extended release 24hr 4 mg PO DAILY Patient Comments: take 1 capsule by mouth once daily acetaminophen [Tylenol Extra Strength] 500 mg Tablet 1,000 mg PO DAILY PRN (Reason: pain) clonazepam 0.5 mg tablet 0.5 mg PO BID chlorthalidone 25 mg tablet 25 mg PO DAILY clopidogrel 75 mg Tablet 75 mg PO DAILY Qty: 30 0RF isosorbide mononitrate 30 mg tablet extended release 24 hr 30 mg PO DAILY Qty: 30 3RF atorvastatin 10 mg tablet 10 mg PO DAILY diltiazem HCl 240 mg capsule,extended release 24hr 240 mg PO DAILY clotrimazole 10 mg dillon 10 mg PO 5XD fluoxetine 20 mg capsule 60 mg PO QAM telmisartan 20 mg tablet 20 mg PO DAILY tolterodine 4 mg capsule,extended release 24hr 4 mg PO DAILY Azo Cranberry 250 mg tablet,chewable 250 mg PO TID spironolactone 25 mg tablet 25 mg PO DAILY telmisartan 20 mg tablet 20 mg PO DAILY Discontinued ciprofloxacin HCl 500 mg tablet 500 mg PO BID Follow up/Referrals: Bertin Villalobos MD [Primary Care Provider, [facility]] Discharge Health Status Multidrug resistant organism: No MDRO Diet/Activity/Treatments Diet: Diet as Tolerated Visit Report/Discharge Packet Stand Alone Forms: Patient Portal/API, Stroke Signs & Symptoms Discharge Data Primary Care Provider: Bertin Villalobos
--- NOTE | 2025-02-11 12:49 | PC.NURSE ---
Pt is dressed and ready for discharge home with Spouse. IV has been removed. Went over d/c instructions with Pt and Spouse-discussed d/c meds, time of last dose, reviewed stroke education, fall prevention, and follow up. Pt and Spouse denied further questions and Pt was taken out via w/c by RN to POV with Spouse and all belongings.
--- NOTE | 2025-02-11 13:37 | CM.DPNOTE ---
DCP note EDUCATIONAL AIDE reviewed EMR per provider in note, cleared to dc home today. per RN, labs improved. overall doing much better. EDUCATIONAL AIDE met with pt and spouse in room. introduced self and role. pt and spouse live indep at home in [place]. deny any DCP/CM needs at this time. deny hx of HH or SNF. report spouse drives/helps with IADLs but overall no DME at baseline. minimal cog impairment. P: home today with OP f/u. no identified barriers to safe dc home. CM team will continue to follow as needed for DCP needs ANNA Bailey
== END 2025-02-11 12:51 | disposition home or self-care (01) | DRG 641 ==
LOC: ED 18:01 → AC 20:41
PROVIDERS: Family Medicine; Admitting Provider Internal Medicine; Emergency Provider Family Medicine; PCP Family Medicine; Referring Provider Family Medicine; Visit Provider Family Medicine
DX: E87.1 Hypo-osmolality and hyponatremia (principal); N39.0 Urinary tract infection, site not specified; E87.8 Other disorders of electrolyte and fluid balance, not elsewhere classified; J44.9 Chronic obstructive pulmonary disease, unspecified; K59.00 Constipation, unspecified; E87.6 Hypokalemia; F32.A Depression, unspecified; I10 Essential (primary) hypertension; Z66 Do not resuscitate; R10.9 Unspecified abdominal pain; R11.2 Nausea with vomiting, unspecified; E78.5 Hyperlipidemia, unspecified; K21.9 Gastro-esophageal reflux disease without esophagitis; E03.9 Hypothyroidism, unspecified; F41.9 Anxiety disorder, unspecified; Z79.890 Hormone replacement therapy; Z87.891 Personal history of nicotine dependence
CPT/HCPCS: 36415; 71045; 74177; 80048; 80053; 81001; 83690; 83735; 84484; 85025; 93005; 96365; 96366; 96368; 96375; 99284; J0696; J1885; J2405; J2765; J3475; Q9967

== ENCOUNTER → 2025-07-16 10:11 | Outpatient (CLI) | payer MEDICARE, OTHER, SELFPAY ==
[2025-02-09 21:44] VITALS: BMI 28.3
--- NOTE | 2025-07-16 10:12 | DI.MG.S_ITS ---
MM diagnostic mammo BI, US breast LT limited: 07/16/2025 BI-RADS: 1 CLINICAL: 84-year old female for bilateral diagnostic mammogram and left diagnostic breast ultrasound. No Tyrer-Cuzick risk score calculation due to the patient's personal history of breast cancer. Patient reports a history of left breast carcinoma diagnosed at age 69. Status-post left lumpectomy with radiation therapy. Current reported family history of breast cancer: sister. The patient reports a palpable abnormality in the left breast. PRIOR EXAMS 06/04/2024, 03/30/2023, 03/30/2022, 03/30/2021, 03/30/2020, 03/30/2019, 03/30/2018, 03/30/2017, 03/31/2016. MAMMOGRAPHY TECHNIQUE: 2D and 3D (tomosynthesis) digital mammographic views obtained, with additional images as needed for full coverage. Current study was also evaluated with a Computer Aided Detection (CAD) system. ULTRASOUND TECHNIQUE: TARGETED Left Breast Ultrasound: Real-time ultrasound exam was performed focused to area of clinical and/or imaging concern. Real-time rick scale imaging of the area of clinical interest was performed with image documentation. DENSITY B. There are scattered areas of fibroglandular density. MAMMOGRAPHY FINDINGS Right: No suspicious mass, asymmetry, microcalcification, or other abnormality seen. Left: Lower Outer Quadrant, Posterior depth: A skin marker was placed in the area of concern, and no mammographic abnormalities are identified or to account for concern by the patient of a palpable lump. No suspicious mass, asymmetry, microcalcification, or other abnormality seen. Left: Outer Central, Posterior depth: There is no suspicious mammographic finding to account for concern by the patient of a palpable lump. No suspicious mass, asymmetry, microcalcification, or other abnormality seen. Left: Benign-appearing post-surgical changes noted on the left. ULTRASOUND FINDINGS Left: Lower Outer at 4:00, 12 cm from nipple: Underlying the surface marker, there is no sonographic abnormality to account for concern by the patient of a palpable lump. Left: Outer at 3:00, 18 cm from nipple: There is no sonographic abnormality to account for concern by the patient of a palpable lump. IMPRESSION: * No evidence of malignancy. RECOMMENDATIONS Left * Clinical follow-up is recommended, and further management of palpable abnormalities or other focal signs or symptoms should be based on the results of clinical evaluation. If palpable abnormality or other concerning symptom persists or progresses, further clinical evaluation should be considered. Bilateral * Annual screening mammography. COMMENTS: Findings and recommendations were conveyed to the patient during today's evaluation. OVERALL ASSESSMENT CATEGORY BI-RADS-1: Negative. [employer] [place] [employer] recommends annual screening mammography beginning at age 40 for women with average risk of breast cancer. ELECTRONICALLY SIGNED: Radha De La Rosa M.D. on 07/16/2025 at 01:15:52 PM PT Interpreting Station ID: [id number]
== END ==
LOC: MAMMO 10:12
PROVIDERS: PCP Family Medicine; Referring Provider Family Medicine; Visit Provider Family Medicine
DX: N64.4 Mastodynia (principal); Z85.3 Personal history of malignant neoplasm of breast; Z80.3 Family history of malignant neoplasm of breast
CPT/HCPCS: 76642; 77066; G0279